=== PATIENT | female | born 1990 | race Caucasian/White ===

== ENCOUNTER → 2017-01-30 | Outpatient (CLI) | payer OTHER ==
[2016-08-15 08:42] VITALS: BP 136/78
[~2017-01-30] MED LIST: ACET1TAB32 PO; ACET325T9 PO; ALPR0.25 PO; BENZ100C PO; CYCL-331 PO; DICY20TA30 PO; HYDR-2758 PO; HYDR1TAB12 PO; HYDR25TA9 PO; LEVO500T59 PO; LISI10TA2 PO; MURENA; NAPR500T3 PO; NORE1TAB96 PO; ONDA4TAB10 PO; ONDA4TAB10 SL; ONDA8TAB12 PO; OXYC-323 PO; PROM118S2 PO; RANI150T2 PO; TOPI25TA52 PO
--- NOTE | 2017-01-30 11:42 | RAD ---
Obstetrical ultrasound, 01/30/2007: History: Uterine size and date discrepancy There is a single intrauterine fetus in a transverse orientation with the head on the maternal right. The biparietal diameter measures 8.2 cm compatible with a gestational age of 33 weeks. This corresponds well to the other measurements and yields an average gestational age of 33 weeks and 1 day and a sonographic EDC of 03/19/2017. This correlates well with the EDC of 03/22/2017 established on the previous ultrasound exam of 10/17/2016. Normal activity and heart motion are evident. The heart rate is 145 bpm. A full survey was not performed at this time. The weight was estimated at 4 pounds and 10 ounces +/- 11 ounces. A normal amount of amniotic fluid is present with SORAYA calculated at 15.2. The placenta lies anteriorly with no evidence of a placenta previa. The cervical length is 4.0 cm. IMPRESSION: Single viable intrauterine fetus of 33 weeks gestational age which has demonstrated normal interval growth since 10/17/2016.
== END | disposition home or self-care (01) ==
LOC: US 10:29
PROVIDERS: ATTEND Obstetrics & Gynecology
DX: O09.93 Supervision of high risk pregnancy, unspecified, third trimester (principal); O26.843 Uterine size-date discrepancy, third trimester; Z3A.33 33 weeks gestation of pregnancy
CPT/HCPCS: 76815

== ENCOUNTER 2017-03-29 10:14 | Emergency (ER) | payer OTHER ==
[2017-03-29] MEDS ORDERED: ACET-704 PO (10:45)
[2017-03-29] MEDS ORDERED: IRON (10:46)
[2017-03-29] MEDS ORDERED: CARDIA (10:46)
[2017-03-29] MEDS ORDERED: HYDR12.53 PO (10:46)
[2017-03-29] MEDS ORDERED: SERT25TA PO (10:47)
[2017-03-29] MEDS ORDERED: CHOL10003 PO (10:47)
--- NOTE | 2017-03-29 10:56 | PHYS DOC ---
Past History Past Medical History: Anemia, Asthma, Depression, Hypertension, Other Past Surgical History: Cholecystectomy, , Tonsillectomy Smoking: Cigarettes, Less than 1pk/day Alcohol Use: None Drug Use: None Adult General Chief Complaint Chief Complaint: PAIN CONTROL HPI HPI Patient is a 27 year old F who presents with tailbone pain. She states that she broke her tailbone more than 10yr ago and occasionally has pain. She has not had a recent injury. She did deliver a baby via about 4weeks ago. She was seen by her PCP 3-4days ago and was given a script for Tylenol 3 which she feels is not helping her. She does have a history of chronic pain medication use Review of Systems Review of Systems Constitutional: Denies fever or chills [] Eyes: Denies change in visual acuity, redness, or eye pain [] HENT: Denies nasal congestion or sore throat [] Respiratory: Denies cough or shortness of breath [] Cardiovascular: No additional information not addressed in HPI [] GI: Denies abdominal pain, nausea, vomiting, bloody stools or diarrhea [] : Denies dysuria or hematuria [] Musculoskeletal: Neg except HPI Integument: Denies rash or skin lesions [] Neurologic: Denies headache, focal weakness or sensory changes [] Endocrine: Denies polyuria or polydipsia [] Family History Family History noncontributory Current Medications Current Medications meds reviewed Allergies Allergies Coded Allergies Type Severity Reaction Last Updated Verified cephalexin Allergy Intermediate 08/11/15 Yes ibuprofen Allergy Intermediate 02/03/15 Yes tramadol Adverse Reaction Mild 02/03/15 Yes Physical Exam Physical Exam Constitutional: Well developed, well nourished, no acute distress, non-toxic appearance. [] HENT: Normocephalic, atraumatic, oropharynx moist, no oral exudates Eyes: PERRLA, EOMI, Cardiovascular:Heart rate regular rhythm, no murmur [] Lungs & Thorax: Bilateral breath sounds clear to auscultation [] Abdomen: Bowel sounds normal, soft, no tenderness, no masses, no pulsatile masses. [] Skin: Warm, dry, no erythema, no rash. [] Back: Mild sacral/coccygeal TTP. No obvious sign of injury Extremities: No tenderness, no cyanosis, no clubbing, ROM intact, no edema. [] Neurologic: Alert and oriented X 3, normal motor function, normal sensory function, no focal deficits noted. [] Psychologic: Affect normal, judgement normal, mood normal. [] Current Patient Data Vital Signs Vital Signs Date Time Temp Pulse Resp B/P (MAP) Pulse Ox O2 Delivery O2 Flow Rate FiO2 03/29/17 10:14 98.6 109 18 98 Room Air Course & Med Decision Making Course & Med Decision Making Pertinent Labs and Imaging studies reviewed. (See chart for details) Ktracs was reviewed. Melissa has had 15prescribers over the past 1 yr. The Tylenol 3 she was recently prescribed was not found however she was given a script for an opiate pain medication on 03/01/17 for which she would likely be near the end of her script Dragon Disclaimer Dragon Disclaimer This chart was dictated in whole or in part using Voice Recognition software in a busy, high-work load, and often noisy Emergency Department environment. It may contain unintended and wholly unrecognized errors or omissions. Departure Departure: Impression: Primary Impression: Coccygeal pain, chronic Disposition: 01 HOME, SELF-CARE Referrals: LINDA GUZMÁN DO (PCP) Patient Instructions: Tailbone Injury Additional Instructions: Melissa was seen in the ED for tailbone pain. No emergency medical condition was found during the history and physical exam. She was advised to consider lidocaine patches for pain. She was advised to follow up with her primary care doctor as soon as possible for further management KULDEEP PLEITEZ MD Mar 29, 2017 10:56
[2017-03-29 11:12] VITALS: BP 135/78
== END 2017-03-29 11:12 | disposition home or self-care (01) ==
LOC: ER 10:14
DX: G89.29 Other chronic pain (principal); M53.3 Sacrococcygeal disorders, not elsewhere classified; I10 Essential (primary) hypertension; J45.909 Unspecified asthma, uncomplicated; F17.210 Nicotine dependence, cigarettes, uncomplicated; Z88.6 Allergy status to analgesic agent; Z88.1 Allergy status to other antibiotic agents
CPT/HCPCS: 99281

== ENCOUNTER → 2017-06-28 | Outpatient (CLI) | payer OTHER ==
[~2017-06-28] MED LIST changes: +ACET-704 PO; +CARDIA; +CHOL10003 PO; +HYDR12.53 PO; +IOHEXOL 300 MG/ML 75 ML VIAL. IV ONE; +IRON; -NAPR500T3 PO; +NAPR500T4 PO; +SERT25TA PO
--- NOTE | 2017-06-28 15:20 | RAD ---
Indication shortness of air. Elevated d-dimer. Chest pain. Axial images of the chest were obtained. Examination was tailored for the detection of pulmonary embolus. Approximately 75 cc of Omnipaque 300 was administered intravenously. MIP images were generated and reviewed. No prior CT imaging of the chest is available. Imaging through the upper abdomen is unremarkable. There is a mass in the central portion of the right breast measuring approximately 1.5 cm. There appear to be some peripheral calcifications associated with the mass. Nonemergent targeted ultrasound should be considered for additional evaluation. There is mild adenopathy in the left axilla. This is probably incidental. Clinical correlation advised. The thoracic aorta is normal. There is no significant hilar or mediastinal adenopathy. The study is negative for pulmonary embolus. There is some minimal groundglass opacity in the right upper lobe. The etiology is unclear but a small inflammatory focus accounting for the appearance is not excluded. There is no dominant soft tissue mass seen in either lung. IMPRESSION: Negative study for pulmonary embolus. Minimal groundglass opacity peripherally in the right upper lobe is nonspecific but a small inflammatory focus is not excluded. 1.5 cm mass centrally in the right breast. Nonemergent ultrasound should be considered for additional evaluation. Modest adenopathy in the left axilla likely incidental. PQRS Compliance Statement: One or more of the following individualized dose reduction techniques were utilized for this examination: 1. Automated exposure control 2. Adjustment of the mA and/or kV according to patient size 3. Use of iterative reconstruction technique
== END | disposition home or self-care (01) ==
LOC: CT 14:23
PROVIDERS: ATTEND Nurse Practitioner Family
DX: N63.10 Unspecified lump in the right breast, unspecified quadrant (principal); R59.9 Enlarged lymph nodes, unspecified; R92.1 Mammographic calcification found on diagnostic imaging of breast; R07.89 Other chest pain; R06.02 Shortness of breath; R79.1 Abnormal coagulation profile
CPT/HCPCS: 71275; Q9967

== ENCOUNTER → 2017-07-03 | Outpatient (CLI) | payer OTHER ==
[~2017-07-03] MED LIST changes: -IOHEXOL 300 MG/ML 75 ML VIAL. IV ONE
--- NOTE | 2017-07-03 14:43 | RAD ---
EXAM: BREAST RIGHT HISTORY: Mass seen within the right breast on chest CT COMPARISON: Chest CT from 06/28/2017 as well as 03/20/2009. Focused ultrasound images were obtained of the right breast in the region of concern on chest CT. FINDINGS: At the 12:00 position of the right breast 1 cm from the nipple there is a solid-appearing hypoechoic mass identified with some echogenic foci within which could be secondary to the calcification seen on recent chest CT. This mass measures approximately 16 x 14 x 11 mm. When comparing to remote prior from March 2009 there was either a masslike density within the region or dense tissue seen. On the remote prior this area did however have a different appearance with interval development of some calcifications within the region. IMPRESSION: Solid-appearing mass within the right breast with some echogenic foci within which could be from calcifications. In a patient of this age the most common cause would be a fibroadenoma but given that the ultrasound and CT appearance is not definitive for the diagnosis alternative more worrisome causes such as breast cancer remain within the differential. Further workup options include obtaining an ultrasound-guided biopsy. This recommendation was relayed to the patient while they were still within the department. BI-RADS CATEGORY: 4 SUSPICIOUS ABN-CONSIDER BIOPSY RECOMMENDED FOLLOW-UP: BIO BIOPSY RECOMMENDED
== END | disposition home or self-care (01) ==
LOC: US 12:56
PROVIDERS: ATTEND Nurse Practitioner Family
DX: N63.10 Unspecified lump in the right breast, unspecified quadrant (principal); R92.1 Mammographic calcification found on diagnostic imaging of breast
CPT/HCPCS: 76641

== ENCOUNTER → 2017-10-13 | Outpatient (CLI) | payer OTHER ==
[~2017-10-13] MED LIST changes: +NAPR-514 PO; -NAPR500T4 PO
--- NOTE | 2017-10-13 15:11 | RAD ---
CT of the head without contrast, 10/13/2017: History: Headache, nausea Comparison is made to a study from 11/29/2014. The ventricles are within normal limits in size. There is no shift of the midline structures. There is no evidence of acute intracranial hemorrhage or mass effect. IMPRESSION: No acute intracranial abnormality is detected. PQRS Compliance Statement: One or more of the following individualized dose reduction techniques were utilized for this examination: 1. Automated exposure control 2. Adjustment of the mA and/or kV according to patient size 3. Use of iterative reconstruction technique
== END | disposition home or self-care (01) ==
LOC: CT 14:52
PROVIDERS: ATTEND Physician Assistant
DX: R51 Headache (principal); R11.0 Nausea
CPT/HCPCS: 70450

== ENCOUNTER 2017-11-06 17:55 | Emergency (ER) | payer OTHER ==
[2017-11-06] MEDS ORDERED: PROMETHAZINE 25 MG/ML VIAL IV ONE (18:57)
[2017-11-06] MEDS ORDERED: IV NORMAL SALINE 50ML 50 ML ONE (18:57)
[2017-11-06] MEDS: IV NORMAL SALINE 1,000ML 1,000 ML IV SCH (19:07)
[2017-11-06] MEDS: diphenhydrAMINE 50 MG/ML VIAL IVP ONE (19:09)
[2017-11-06] MEDS: PROMETHAZINE 25 MG in IV NORMAL SALINE 50ML 50 ML IV PRN (19:11)
--- NOTE | 2017-11-06 20:26 | PHYS DOC ---
General Chief Complaint: HEADACHE Stated Complaint: HEADACHE Time Seen by MD: 18:09 Source: patient Exam Limitations: no limitations Problems: History of Present Illness Initial Comments 27-year-old female comes to the ED complaining of migraine. Patient states she has history of migraine headaches and today's symptoms are identical to prior. Current headache started 3 days ago it is described as global and throbbing moderate to severe in intensity prevented her from sleep and causing some photophobia. Denies scotoma or aura no focal neurologic deficits nausea or vomiting. Headache is not worst of life she's had negative CTs in the past. She took [id number] Tylenol without any relief, states that Imitrex gives her chest pain and she has an NSAID allergy Timing/Duration: other Severity: severe Modifying Factors: improves with other Associated Symptoms: headaches Allergies: Coded Allergies: cephalexin (Verified Allergy, Intermediate, 11/06/17) ibuprofen (Verified Allergy, Intermediate, 11/06/17) tramadol (Verified Adverse Reaction, Mild, 11/06/17) Past Medical History Medical History: asthma, GERD, hypertension Surgical History: noncontributory, cholecystectomy, tonsillectomy Psychosocial History: depression (CC is stable for) Family History Significant Family History: cancer, hypertension Social History Smoker: non-smoker Alcohol: occasionally Drugs: none Review of Systems Constitutional: denies chills, denies diaphoresis, denies fever, denies malaise (apvy-[id number]-[id number] replaceable loss) EENTM: denies eye pain, denies blurred vision, denies ear pain, denies nose pain, denies throat pain Respiratory: denies cough, denies shortness of breath, denies wheezing Cardiovascular: denies chest pain, denies palpitations, denies syncope Gastrointestinal: denies abdominal pain, denies nausea, denies vomiting Musculoskeletal: denies back pain, denies joint swelling, denies neck pain Psychiatric/Neurological: see HPI, headache, denies numbness, denies paresthesia (social) Physical Exam General Appearance: no apparent distress Eyes: bilateral eye normal inspection, bilateral eye PERRL, bilateral eye EOMI Ear, Nose, Throat: hearing grossly normal, normal ENT inspection, normal pharynx Neck: non-tender, supple Respiratory: normal breath sounds, no respiratory distress Cardiovascular: normal peripheral pulses, regular rate, rhythm Extremities: non-tender, normal inspection Neurologic/Psychiatric: vp data II-XII nml as tested, no motor/sensory deficits, alert, oriented x 3 Orders, Labs, Meds Initially diphenhydramine, promethazine, and normal saline IV bolus. 2024: Patient rechecked, denies any improvement haldol 5 mg IV added 2158: Prolonged ED course as I was cut open a procedure, patient reports all symptoms have resolved requesting discharge, impatient. Departure Time of Disposition: 21:58 Disposition: 01 HOME, SELF-CARE Diagnosis: Migraine headache Condition: IMPROVED Patient Instructions: Migraine Headache, [id number] Additional Instructions: No driving or operating machinery while under the influence of sedative medications. Follow-up with your doctor tomorrow for recheck and further migraine medication treatments as necessary. Return to ED with new or changing symptoms KYARA DENNISON DO Nov 06, 2017 20:26
[2017-11-06] MEDS ORDERED: HALOPERIDOL LACT 5 MG/ML VIAL. IM ONE (20:30)
[2017-11-06] MEDS: HALOPERIDOL LACT 5 MG/ML VIAL. IVP ONE (21:03)
[2017-11-06 21:40] VITALS: BP 157/83
== END 2017-11-06 22:10 | disposition home or self-care (01) ==
LOC: ER 17:55
DX: G43.909 Migraine, unspecified, not intractable, without status migrainosus (principal); I10 Essential (primary) hypertension; J45.909 Unspecified asthma, uncomplicated; K21.9 Gastro-esophageal reflux disease without esophagitis; F32.9 Major depressive disorder, single episode, unspecified; Z88.1 Allergy status to other antibiotic agents; Z88.6 Allergy status to analgesic agent
CPT/HCPCS: 96365; 96375; 99284; J1200; J1630; J2550; 96360; J7030

== ENCOUNTER 2018-01-11 10:23 | Emergency (ER) | payer OTHER ==
[~2018-01-11] VITALS: Ht 160 cm; Wt 104.3 kg
[2018-01-11] MEDS ORDERED: HYDROcodone/APAP 5/325MG 1 TAB TABLET PO ONE (11:00)
--- NOTE | 2018-01-11 11:41 | PHYS DOC ---
Past History Past Medical History: Asthma, Hypertension, Other Past Surgical History: Hysterectomy, Other Smoking: Cigarettes, Less than 1pk/day Additional Smoking Information: pt states she smokes less than half pack per day Alcohol Use: None Drug Use: None Adult General Chief Complaint Chief Complaint: Right abdominal pain HPI HPI 27-year-old female patient states she had hysterectomy last April and complaining of right lower abdominal and right-sided pelvic pain for the last 4 weeks as a constant and sharp pain without radiation. Patient denies urinary symptoms, fever and chills, nausea and vomiting, diarrhea and constipation. Patient states the pain gradually getting worse and rated her pain 8/10. Patient states she was seen by her [employer] and ultrasound of pelvic was ordered that he is scheduled for tomorrow but her pain getting so bad today that she couldn't wait anymore. Patient states she took only Tylenol for her pain that didn't help. Review of Systems Review of Systems Constitutional: Denies fever or chills [] Eyes: Denies change in visual acuity, redness, or eye pain [] HENT: Denies nasal congestion or sore throat [] Respiratory: Denies cough or shortness of breath [] Cardiovascular: No additional information not addressed in HPI [] GI: Reports abdominal pain, denies nausea, vomiting, bloody stools or diarrhea [ ] : Denies dysuria or hematuria [] Musculoskeletal: Denies back pain or joint pain [] Integument: Denies rash or skin lesions [] Neurologic: Denies headache, focal weakness or sensory changes [] Endocrine: Denies polyuria or polydipsia [] All other systems were reviewed and found to be within normal limits, except as documented in this note. Current Medications Current Medications Current Medications Medications (Trade) Dose Ordered Sig/Neno Start Time Stop Time Status Last Admin Dose Admin Acetaminophen/ Hydrocodone Bitart (Lortab 5/325) 1 tab 1X ONCE 01/11/18 11:00 01/11/18 11:04 DC Allergies Allergies Allergies Coded Allergies Type Severity Reaction Last Updated Verified cephalexin Allergy Intermediate 01/11/18 Yes ibuprofen Allergy Intermediate 01/11/18 Yes tramadol Adverse Reaction Mild 01/11/18 Yes Physical Exam Physical Exam Constitutional: Well developed, well nourished, mild distress, non-toxic appearance. [] HENT: Normocephalic, atraumatic Eyes: PERRLA, EOMI, conjunctiva normal, no discharge. [] Neck: Normal range of motion, no tenderness, supple, no stridor. [] Cardiovascular:Heart rate regular rhythm, no murmur [] Lungs & Thorax: Bilateral breath sounds clear to auscultation [] Abdomen: Bowel sounds normal, soft, no tenderness, no masses, no pulsatile masses,, RLQ guarding. [] Skin: Warm, dry, no erythema, no rash. [] Back: No tenderness, no CVA tenderness. [] Extremities: No tenderness, no cyanosis, no clubbing, ROM intact, no edema. [] Neurologic: Alert and oriented X 3, normal motor function, normal sensory function, no focal deficits noted. [] Psychologic: Affect normal, judgement normal, mood normal. [] Current Patient Data Vital Signs Vital Signs Date Time Temp Pulse Resp B/P (MAP) Pulse Ox O2 Delivery O2 Flow Rate FiO2 01/11/18 10:30 98.5 77 18 98 Room Air EKG EKG [] Radiology/Procedures Radiology/Procedures [] Course & Med Decision Making Course & Med Decision Making Pertinent Labs and Imaging studies reviewed. (See chart for details) discharge: I've spoken with the patient and/or caregivers. I've explained the patient's condition, diagnosis and treatment plan based on information available to me at this time. I've answered the patient's and/or caregivers questions and addressed any concerns. The patient and/or caregivers have a good understanding the patient's diagnosis, condition and treatment plan as can be expected at this point. Vital signs have been stabilized. The patient's condition is stable for discharge from the emergency department. The patient will pursue further outpatient evaluation with her primary care provider or other designated consulting physician as outlined in the discharge instructions. Patient and/or caregivers are agreeable to this plan of care and follow-up instructions have been explained in detail. The patient and/or caregivers have received these instructions in written format and expressed understanding of these discharge instructions. The patient and her caregivers are aware that if any significant change in condition or worsening of symptoms should prompt him to immediately return to this of the closest emergency department. If an emergent department is not readily available I would encourage him to call 911. [] Dragon Disclaimer Dragon Disclaimer This electronic medical record was generated, in whole or in part, using a voice recognition dictation system. Departure Departure: Impression: Primary Impression: Chronic abdominal pain Condition: IMPROVED Referrals: ISIDRO GALVEZ JR, MD (PCP) Patient Instructions: Abdominal Pain Additional Instructions: Drink plenty of liquids Follow-up with your primary care physician in 2-3 days Return to ER if not getting better Scripts [Percogesic] No Conflict Check 1 TAB PO QID Y for PAIN, #14 Prov: LIT IVY MD 01/11/18 LIT IVY MD January 11, 2018 11:41
[2018-01-11 11:56] LABS: AMPHETAMINE/METHAMPHETAMINE NEG (NEG); BARBITURATES NEG (NEG); BENZODIAZEPINES NEG (NEG); CANNABINOIDS NEG (NEG); COCAINE NEG (NEG); METHADONE NEG (NEG); OPIATES NEG (NEG); PHENCYCLIDINE NEG (NEG)
[2018-01-11 12:07] LABS: BILIRUBIN,URINE NEG (NEG); CLARITY,URINE CLOUDY; COLOR,URINE YELLOW; GLUCOSE,URINE NEG (NEG)
[2018-01-11 12:08] LABS: BACTERIA,URINE MOD /HPF (0-FEW); NITRITE,URINE NEG (NEG); RBC,URINE 0 /HPF (0-2); SQUAMOUS EPITHELIAL CELL,UR MOD /LPF; UROBILINOGEN,URINE 0.2 mg/dL (0.2 mg/dL); WBC,URINE RARE /HPF (0-4)
--- NOTE | 2018-01-11 12:15 | RAD ---
US PELVIS W/TV History: Right lower quadrant pain, history of hysterectomy and ovarian cyst Comparison: None. Findings: Multiple transabdominal sonographic images of the pelvis are submitted. There has been hysterectomy. Ovaries are not seen. There is some free fluid present. Transvaginal ultrasound: Multiple transvaginal sonographic images of the pelvis are submitted. There has been hysterectomy. Ovaries are not seen. There is moderate nonspecific free fluid in the pelvis. Impression: 1. There is moderate nonspecific free fluid in the pelvis. There has been hysterectomy. Ovaries are not seen. Electronically signed by: Julien Rivera MD (01/11/2018 12:11 PM) [id number]
[2018-01-11] MEDS ORDERED: Percogesic PO (12:41)
[2018-01-11 12:54] VITALS: BP 147/97
== END 2018-01-11 12:54 | disposition home or self-care (01) ==
LOC: ER 10:23
DX: G89.29 Other chronic pain (principal); R10.31 Right lower quadrant pain; R10.2 Pelvic and perineal pain; J45.909 Unspecified asthma, uncomplicated; I10 Essential (primary) hypertension; F17.210 Nicotine dependence, cigarettes, uncomplicated; Z90.710 Acquired absence of both cervix and uterus; Z88.1 Allergy status to other antibiotic agents; Z88.6 Allergy status to analgesic agent
CPT/HCPCS: 36415; 76830; 76856; 80307; 81001; 87086; 99285-25; G0479

== ENCOUNTER 2018-01-24 20:49 | Emergency (ER) | payer OTHER ==
[~2018-01-24] VITALS: Ht 160 cm; Wt 102.9 kg
[2018-01-24 20:49] VITALS: BP 152/113
[~2018-01-24 20:49] MED LIST changes: +Percogesic PO
[2018-01-24] MEDS ORDERED: METH4TAB2 PO (21:43)
[2018-01-24] MEDS ORDERED: HYDR-971 PO (21:43)
--- NOTE | 2018-01-24 21:43 | PHYS DOC ---
Past History Past Medical History: Asthma, Hypertension, Other Past Surgical History: Hysterectomy, Other Smoking: Cigarettes, Less than 1pk/day Alcohol Use: Occasionally Drug Use: None Adult General Chief Complaint Chief Complaint: BACK PAIN - NO INJURY HPI HPI Patient is a 27 year old female who presents with complaint of low back pain. Patient states her symptoms started early this morning at 0200. Patient states that she is having sharp throbbing pain in her lower back which she rates as 10 out of 10. Patient states that the symptoms worsen when she bends over. Patient states that she is able to walk but states that this does cause her pain. Patient states that she is feeling slight numbness to the lower extremities, especially on the left side. Patient states that she's had similar symptoms in the past associated with and states that she was diagnosed with low back pain secondary to a fractured tailbone at that time. Patient has had a partial hysterectomy and states that there is no area that she is . Patient denies any urinary symptoms, fever, nausea, vomiting, or abdominal pain. The patient states that she took Flexeril and Tylenol earlier today with no significant relief in her symptoms. Denies any fall or other recent trauma. Review of Systems Review of Systems Constitutional: Denies fever or chills [] Eyes: Denies change in visual acuity, redness, or eye pain [] HENT: Denies nasal congestion or sore throat [] Respiratory: Denies cough or shortness of breath [] Cardiovascular: Denies chest pain or edema[] GI: Denies abdominal pain, nausea, vomiting, bloody stools or diarrhea [] : Denies dysuria or hematuria [] Musculoskeletal: Back pain[] Integument: Denies rash or skin lesions [] Neurologic: Numbness to lower extremities, left greater than right, denies weakness[] All other systems were reviewed and found to be within normal limits, except as documented in this note. Allergies Allergies Allergies Coded Allergies Type Severity Reaction Last Updated Verified cephalexin Allergy Intermediate 01/11/18 Yes ibuprofen Allergy Intermediate 01/11/18 Yes tramadol Adverse Reaction Mild 01/11/18 Yes Physical Exam Physical Exam Constitutional: Alert, afebrile, appears mild to moderate discomfort. [] HENT: Normocephalic, atraumatic, bilateral external ears normal, oropharynx moist, no oral exudates, nose normal. [] Eyes: PERRLA, EOMI, conjunctiva normal, no discharge. [] Neck: Normal range of motion, no tenderness, supple, no stridor. [] Cardiovascular:Heart rate regular rhythm, no murmur [] Lungs & Thorax: Bilateral breath sounds clear to auscultation [] Abdomen: Bowel sounds normal, soft, no tenderness, no masses, no pulsatile masses. [] Skin: Warm, dry, no erythema, no rash. [] Back: No midline tenderness, bilateral paraspinous muscle tenderness palpation along lower lumbar spine. [] Extremities: No tenderness, no cyanosis, no clubbing, ROM intact, no edema. [] Neurologic: Alert and oriented X 3, normal motor function, normal gait, normal sensory function, no focal deficits noted. [] Current Patient Data Vital Signs Vital Signs Date Time Temp Pulse Resp B/P (MAP) Pulse Ox O2 Delivery O2 Flow Rate FiO2 01/24/18 20:49 98.4 100 22 97 Room Air Lab Results None performed EKG EKG Not performed[] Radiology/Procedures Radiology/Procedures Not performed[] Course & Med Decision Making Course & Med Decision Making Pertinent Labs and Imaging studies reviewed. (See chart for details) The patient's symptoms appear to be consistent with acute lower lumbar muscle strain. Patient denies any urinary symptoms and does not wish to provide a urine sample at this time. Patient has no evidence of loss of bowel or bladder control, saddle anesthesia, or foot drop. The patient was started on prednisone and [place] in the emergency department for treatment. The patient will continue on outpatient treatment with recommended follow-up in 5-7 days with primary doctor for reevaluation. Advised return emergency department for any worsening symptoms. Patient voiced understanding and in agreement with treatment plan. Dragon Disclaimer Dragon Disclaimer This electronic medical record was generated, in whole or in part, using a voice recognition dictation system. Departure Departure: Impression: Primary Impression: Low back pain Disposition: 01 HOME, SELF-CARE Condition: STABLE Referrals: LINDA CASTELLANO (PCP) Patient Instructions: Back Pain, Adult Additional Instructions: Follow-up with your primary doctor in 5-7 days of symptoms are not improving. Return to emergency department for any worsening symptoms. Scripts Hydrocodone Bit/Acetaminophen (NORCO 5-325 TABLET) 1 Each Tablet 1-2 TAB PO Q4-6HRS PRN for PAIN, #30 TAB Prov: DAGMAR ARCHER MD 01/24/18 Methylprednisolone (MEDROL) 4 Mg Tab.ds.pk 1 PKG PO UD, #1 PKG Prov: DAGMAR ARCHER MD 01/24/18 Problem Qualifiers Primary Impression: Low back pain Chronicity: acute Back pain laterality: bilateral Sciatica presence: with sciatica Sciatica laterality: sciatica of left side Qualified Codes: M54.42 - Lumbago with sciatica, left side DAGMAR ARCHER MD January 24, 2018 21:43
[2018-01-24] MEDS ORDERED: predniSONE 10 MG TABLET PO ONE (22:00)
[2018-01-24] MEDS ORDERED: HYDROcodone/APAP 7.5/325MG 1 TAB TABLET PO ONE (22:00)
== END 2018-01-24 21:55 | disposition home or self-care (01) ==
LOC: ER 20:49
DX: M54.42 Lumbago with sciatica, left side (principal); I10 Essential (primary) hypertension; J45.909 Unspecified asthma, uncomplicated; F17.210 Nicotine dependence, cigarettes, uncomplicated; Z88.1 Allergy status to other antibiotic agents; Z88.6 Allergy status to analgesic agent
CPT/HCPCS: 99283; J7512

== ENCOUNTER 2018-02-16 14:02 | Emergency (ER) | payer OTHER ==
[~2018-02-16] VITALS: Ht 160 cm; Wt 106.6 kg
[~2018-02-16 14:02] MED LIST changes: +HYDR-971 PO; +METH4TAB2 PO
[2018-02-16] MEDS ORDERED: IV NORMAL SALINE 1,000ML 1,000 ML IV ONE (14:30)
[2018-02-16] MEDS ORDERED: PROCHLORPERAZINE 10 MG/2 ML VIAL. IV ONE (14:45)
[2018-02-16] MEDS ORDERED: diphenhydrAMINE 50 MG/ML VIAL IVP ONE (14:45)
[2018-02-16 15:35] VITALS: BP 148/83
--- NOTE | 2018-02-16 15:50 | PHYS DOC ---
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 No school for 2 weeks she says they're very loud and is been getting stressful. In addition she was out in the heat yesterday she thinks she might be dehydrated and this history of migraines for her in the past she had one episode of vomiting she says light hurts her eyes as well as loud noises similar to prior migraines as well. She has used Imitrex in the past but she did not want to use that today because it is cause chest pain for her before. Review of Systems Review of Systems Negative for fever negative for dysuria negative for chest pain recently. Otherwise negative except as noted in history of present illness Current Medications Current Medications Current Medications Medications (Trade) Dose Ordered Sig/[place] Start Time Stop Time Status Last Admin Dose Admin Diphenhydramine HCl (Benadryl) 25 mg 1X ONCE 02/16/18 14:45 02/16/18 14:46 DC 02/16/18 14:34 25 MG Prochlorperazine Edisylate (Compazine) 10 mg 1X ONCE 02/16/18 14:45 02/16/18 14:46 DC 02/16/18 14:34 10 MG Sodium Chloride 1,000 ml @ 1,000 mls/hr 1X ONCE 02/16/18 14:30 02/16/18 15:29 DC 02/16/18 14:33 1,000 MLS/HR Allergies Allergies Allergies Coded Allergies Type Severity Reaction Last Updated Verified cephalexin Allergy Intermediate 02/16/18 Yes ibuprofen Allergy Intermediate 02/16/18 Yes tramadol Adverse Reaction Mild 02/16/18 Yes Physical Exam Physical Exam Constitutional: Well developed, well nourished, no acute distress, non-toxic appearance. [] HENT: Normocephalic, atraumatic, bilateral external ears normal, oropharynx moist, no oral exudates, nose normal. [] Eyes: PERRLA, EOMI, conjunctiva normal, no discharge. [] Neck: Normal range of motion, no tenderness, supple, no stridor. [] Cardiovascular:Heart rate regular rhythm, no murmur [] Lungs & Thorax: Bilateral breath sounds clear to auscultation [] Abdomen: Bowel sounds normal, soft, no tenderness, no masses, no pulsatile masses. [] Skin: Warm, dry, no erythema, no rash. [] Back: No tenderness, no CVA tenderness. [] Extremities: No tenderness, no cyanosis, no clubbing, ROM intact, no edema. [] Neurologic: Alert and oriented X 3, normal motor function, normal sensory function, no focal deficits noted. [] Current Patient Data Vital Signs Vital Signs Date Time Temp Pulse Resp B/P (MAP) Pulse Ox O2 Delivery O2 Flow Rate FiO2 02/16/18 15:35 78 16 148/83 (104) 98 02/16/18 14:16 98.9 Room Air EKG EKG [] Radiology/Procedures Radiology/Procedures [] Course & Med Decision Making Course & Med Decision Making Pertinent Labs and Imaging studies reviewed. (See chart for details) []27-year-old female with migraine no red flags similar prior given migraine cocktail with resolution of her symptoms she feels much better return precautions were reviewed and she voiced understanding. Dragon Disclaimer Dragon Disclaimer This electronic medical record was generated, in whole or in part, using a voice recognition dictation system. Departure Departure: Impression: Primary Impression: Migraine Disposition: HOME, SELF-CARE Condition: IMPROVED Referrals: LINDA CASTELLANO (PCP) Patient Instructions: Migraine Headache, [id number] SARA PACE MD Feb 16, 2018 15:50
== END 2018-02-16 15:37 | disposition home or self-care (01) ==
LOC: ER 14:02
DX: G43.909 Migraine, unspecified, not intractable, without status migrainosus (principal); I10 Essential (primary) hypertension; J45.909 Unspecified asthma, uncomplicated; F17.210 Nicotine dependence, cigarettes, uncomplicated; Z88.1 Allergy status to other antibiotic agents; Z88.6 Allergy status to analgesic agent
CPT/HCPCS: 96361; 96374; 96375; 99284; J0780; J1200; J7030

== ENCOUNTER 2018-03-15 16:28 | Emergency (ER) | payer OTHER ==
[~2018-03-15] VITALS: Ht 160 cm; Wt 108.2 kg
[~2018-03-15 16:28] MED LIST changes: -PROM118S2 PO; +PROM118S5 PO
--- NOTE | 2018-03-15 17:14 | PHYS DOC ---
Past History Past Medical History: Asthma, Hypertension Past Surgical History: Cholecystectomy, Hysterectomy Smoking: Cigarettes, Less than 1pk/day Alcohol Use: Occasionally Drug Use: None Adult General Chief Complaint Chief Complaint: MECHANICAL FALL HPI HPI 27-year-old female patient with history of frequent emergency room visits and anxiety complaining of tailbone pain after fall. Patient states she lost her balance while walking downstairs had a fall from 4 carpeted stairs at her home and injured her tailbone. Patient denies head injury and loss of consciousness and other injuries. 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 Patient states she had previous tailbone fracture. Review of Systems Review of Systems Constitutional: Denies fever or chills [] Eyes: Denies change in visual acuity, redness, or eye pain [] HENT: Denies nasal congestion or sore throat [] Respiratory: Denies cough or shortness of breath [] Cardiovascular: No additional information not addressed in HPI [] GI: Denies abdominal pain, nausea, vomiting, bloody stools or diarrhea [] : Denies dysuria or hematuria [] Musculoskeletal: Reports tailbone pain Integument: Denies rash or skin lesions [] Neurologic: Denies headache, focal weakness, reports sensory changes [] Endocrine: Denies polyuria or polydipsia [] All other systems were reviewed and found to be within normal limits, except as documented in this note. Allergies Allergies Allergies Coded Allergies Type Severity Reaction Last Updated Verified cephalexin Allergy Intermediate 02/16/18 Yes ibuprofen Allergy Intermediate 02/16/18 Yes tramadol Adverse Reaction Mild 02/16/18 Yes Physical Exam Physical Exam Constitutional: Well nourished, mild distress, non-toxic appearance, anxious. [ ] HENT: Normocephalic, atraumatic Eyes: PERRLA, EOMI, conjunctiva normal, no discharge. [] Neck: Normal range of motion, no tenderness, supple, no stridor. [] Cardiovascular:Heart rate regular rhythm, no murmur [] Lungs & Thorax: Bilateral breath sounds clear to auscultation [] Back: No deformity or ecchymosis, pain in coccyx area without deformity Extremities: No tenderness, no cyanosis, no clubbing, ROM intact, no edema. [] Neurologic: Alert and oriented X 3, normal motor function, subjective sensory loss in anterior and posterior side of left thigh, no focal deficits noted. [] Psychologic: Affect normal, judgement normal, mood normal. [] EKG EKG [] Radiology/Procedures Radiology/Procedures [address] [id number] IMAGING REPORT Signed PATIENT: JAY JAY ACCOUNT: [id number] : 1990 LOCATION: ER AGE: 27 SEX: F EXAM STATUS: DEP ER ORD. PHYSICIAN: LIT IVY MD REASON: fall and injury PROCEDURE: SACRUM & COCCYX 3V Sacrum and coccyx radiograph March 15, 2018 INDICATION: Fall, tailbone pain. History of fracture many years ago. COMPARISON: CT abdomen/pelvis November 15, 2015. TECHNIQUE: AP view the pelvis, dedicated view of the sacrum and coccyx are provided. FINDINGS: The pelvic ring is intact. No acute fracture or dislocation is identified involving the sacrum. Sacral joo appear intact. Sacroiliac joints are well aligned. Minimal contour deformity of the sacrococcygeal junction appears chronic. IMPRESSION: No acute fracture or dislocation. Electronically signed by: Bhavana Loza MD (03/16/2018 8:01 AM) [facility] DICTATED AND SIGNED BY: BHAVANA LOZA MD DATE: 03/16/18 0759 CC: LIT IVY MD; LINDA CASTELLANO [employer]-C ~ Course & Med Decision Making Course & Med Decision Making Pertinent Imaging studies reviewed. (See chart for details) discharge: I've spoken with the patient and/or caregivers. I've explained the patient's condition, diagnosis and treatment plan based on information available to me at this time. I've answered the patient's and/or caregivers questions and addressed any concerns. The patient and/or caregivers have a good understanding the patient's diagnosis, condition and treatment plan as can be expected at this point. Vital signs have been stabilized. The patient's condition is stable for discharge from the emergency department. The patient will pursue further outpatient evaluation with her primary care provider or other designated consulting physician as outlined in the discharge instructions. Patient and/or caregivers are agreeable to this plan of care and follow-up instructions have been explained in detail. The patient and/or caregivers have received these instructions in written format and expressed understanding of these discharge instructions. The patient and her caregivers are aware that if any significant change in condition or worsening of symptoms should prompt him to immediately return to this of the closest emergency department. If an emergent department is not readily available I would encourage him to call 911. [] Dragon Disclaimer Dragon Disclaimer This electronic medical record was generated, in whole or in part, using a voice recognition dictation system. Departure Departure: Impression: Primary Impression: Injury of coccyx Additional Impressions: Fall on stairs Paresthesias Morbid obesity Tobacco abuse Tobacco abuse counseling Disposition: HOME, SELF-CARE (at 1742) Referrals: LINDA CASTELLANO (PCP) Patient Instructions: Tailbone Injury Additional Instructions: Sit down on donut pillow Apply ice on the affected area Drink plenty of liquids Follow-up with your primary care physician in 3-5 days Return to ER if not getting better Scripts Hydrocodone Bit/Acetaminophen (NORCO 5-325 TABLET) 1 Each Tablet 1 TAB PO PRN Q6HRS PRN for PAIN, #14 TAB 0 Refills Prov: LIT IVY MD 03/15/18 Cyclobenzaprine Hcl (CYCLOBENZAPRINE HCL) 5 Mg Tablet 1 TAB PO TID, #30 TAB Prov: LIT IVY MD 03/15/18 Problem Qualifiers LIT IVY MD Mar 15, 2018 17:14
[2018-03-15] MEDS ORDERED: ACETAMINOPHEN 500 MG TABLET PO ONE (17:15)
[2018-03-15] MEDS ORDERED: CYCL5TAB PO (17:45)
[2018-03-15] MEDS ORDERED: HYDR-971 PO (17:45)
[2018-03-15 17:57] VITALS: BP 147/92
--- NOTE | 2018-03-16 08:04 | RAD ---
Sacrum and coccyx radiograph March 15, 2018 INDICATION: Fall, tailbone pain. History of fracture many years ago. COMPARISON: CT abdomen/pelvis November 15, 2015. TECHNIQUE: AP view the pelvis, dedicated view of the sacrum and coccyx are provided. FINDINGS: The pelvic ring is intact. No acute fracture or dislocation is identified involving the sacrum. Sacral joo appear intact. Sacroiliac joints are well aligned. Minimal contour deformity of the sacrococcygeal junction appears chronic. IMPRESSION: No acute fracture or dislocation. Electronically signed by: Carla Perez MD (03/16/2018 8:01 AM) [facility]
== END 2018-03-15 18:00 | disposition home or self-care (01) ==
LOC: ER 16:28
DX: S39.92XA Unspecified injury of lower back, initial encounter (principal); R20.0 Anesthesia of skin; E66.01 Morbid (severe) obesity due to excess calories; J45.909 Unspecified asthma, uncomplicated; I10 Essential (primary) hypertension; F17.210 Nicotine dependence, cigarettes, uncomplicated; Z68.41 Body mass index [BMI] 40.0-44.9, adult; Z71.6 Tobacco abuse counseling; Z88.1 Allergy status to other antibiotic agents; Z88.6 Allergy status to analgesic agent; W10.8XXA Fall (on) (from) other stairs and steps, initial encounter; Y93.01 Activity, walking, marching and hiking; Y99.8 Other external cause status; Y92.89 Other specified places as the place of occurrence of the external cause
CPT/HCPCS: 72220; 99284

== ENCOUNTER 2018-03-18 16:48 | Emergency (ER) | payer OTHER ==
[~2018-03-18] VITALS: Ht 160 cm; Wt 105.2 kg
[~2018-03-18 16:48] MED LIST changes: +CYCL5TAB PO
[2018-03-18 16:58] VITALS: BP 151/84
[2018-03-18] MEDS ORDERED: HYDR-79 PO (17:08)
[2018-03-18] MEDS ORDERED: CYCL-331 PO (17:08)
[2018-03-18] MEDS ORDERED: HYDR-2762 PO (17:25)
--- NOTE | 2018-03-19 06:35 | ED.ADGEN ---
Past History Past Medical History: Asthma, Hypertension Past Surgical History: Cholecystectomy, Hysterectomy, Tonsillectomy, Other Smoking: Cigarettes, Less than 1pk/day Alcohol Use: Occasionally Drug Use: None Adult General HPI HPI Patient is a 27 year old female who presents with fall. Patient states she was in the emergency department 3 days earlier after a fall. She states she was diagnosed with a fracture to her sacrum. She was discharged home with some hydrocodone. She states this medication did not adequately relieve her pain. Today, she states she was sitting in a chair when the chair broke and she fell again landing on the coccyx. She did not strike her head or have loss of consciousness. She complains of pain in the coccyx region. Denies additional injuries. Review of Systems Review of Systems Constitutional: Denies fever or chills Eyes: Denies change in visual acuity HENT: Denies nasal congestion Respiratory: Denies cough Cardiovascular: No additional information not addressed in HPI GI: Denies abdominal pain : Denies dysuria or hematuria Musculoskeletal: Denies back pain Integument: Denies rash or skin lesions All other systems were reviewed and found to be within normal limits, except as documented in this note. Allergies Allergies Allergies Coded Allergies Type Severity Reaction Last Updated Verified cephalexin Allergy Intermediate 02/16/18 Yes ibuprofen Allergy Intermediate 02/16/18 Yes tramadol Adverse Reaction Mild 02/16/18 Yes Physical Exam Physical Exam Constitutional: Well developed, well nourished HENT: Normocephalic, atraumatic Neck: Normal range of motion Cardiovascular:Heart rate regular rhythm, no murmur Lungs & Thorax: Bilateral breath sounds clear to auscultation Skin: Warm, dry, no erythema, no rash. Back: TTP over coccyx region Extremities: No tenderness, normal ROM Neurologic: Alert and oriented X 3 Current Patient Data Vital Signs Vital Signs Date Time Temp Pulse Resp B/P (MAP) Pulse Ox O2 Delivery O2 Flow Rate FiO2 03/18/18 16:58 94 18 96 Room Air EKG EKG [] Radiology/Procedures Radiology/Procedures [] Course & Med Decision Making Course & Med Decision Making Pertinent Labs and Imaging studies reviewed. (See chart for details) Patient is seen and examined. She is in no acute distress. Her RA record is reviewed. She has received multiple opiate prescriptions from multiple different providers over the last several years. I discussed this with the patient and explicitly expressed concern for opiate addiction. The patient adamantly denies this is a problem for her. Today, her physical exam reveals some pain over the coccyx region. Her x-ray from 3 days earlier did not reveal a fracture. No repeat imaging is done today. Patient is discharged home with some pain medications and advised follow-up with her primary care doctor. Final Impression Final Impression Contusion of coccyx Marcelle Disclaimer Dragon Disclaimer This electronic medical record was generated, in whole or in part, using a voice recognition dictation system. JASON HAWKINS DO Mar 19, 2018 06:34
== END 2018-03-18 17:18 | disposition home or self-care (01) ==
LOC: ER 16:48
DX: S30.0XXA Contusion of lower back and pelvis, initial encounter (principal); J45.909 Unspecified asthma, uncomplicated; I10 Essential (primary) hypertension; F17.210 Nicotine dependence, cigarettes, uncomplicated; Z88.1 Allergy status to other antibiotic agents; Z88.6 Allergy status to analgesic agent; W07.XXXA Fall from chair, initial encounter; Y93.89 Activity, other specified; Y99.8 Other external cause status; Y92.89 Other specified places as the place of occurrence of the external cause
CPT/HCPCS: 99283

== ENCOUNTER 2018-03-31 06:52 | Emergency (ER) | payer OTHER ==
[~2018-03-31] VITALS: Ht 160 cm; Wt 105.2 kg
[~2018-03-31 06:52] MED LIST changes: +HYDR-2762 PO; +HYDR-79 PO
[2018-03-31 07:21] VITALS: BP 112/83
[2018-03-31] MEDS ORDERED: KETOROLAC 60 MG/2 ML VIAL. IM ONE (07:30)
[2018-03-31] MEDS ORDERED: HYDR-971 PO (07:49)
--- NOTE | 2018-03-31 07:51 | PHYS DOC ---
Past History Past Medical History: Anxiety, Asthma Past Surgical History: Cholecystectomy, Hysterectomy, Tonsillectomy, Other Smoking: Cigarettes, Less than 1pk/day Alcohol Use: Occasionally Drug Use: None Adult General Chief Complaint Chief Complaint: TOE PROBLEM HPI HPI 28-year-old female patient states she had right great toenail removal at her primary care physician office yesterday but since last night she has pain that did not get better with [id number] Tylenol. Patient states she was instructed to remove the dressing today but because of pain, patient was not able to touch her toe and remove the dressing. Patient denies fever and chills, nausea and vomiting, pus drainage of the wound. Review of Systems Review of Systems Constitutional: Denies fever or chills [] Eyes: Denies change in visual acuity, redness, or eye pain [] HENT: Denies nasal congestion or sore throat [] Respiratory: Denies cough or shortness of breath [] Cardiovascular: No additional information not addressed in HPI [] GI: Denies abdominal pain, nausea, vomiting, bloody stools or diarrhea [] : Denies dysuria or hematuria [] Musculoskeletal: Denies back pain or joint pain , reports extremity pain[] Integument: Denies rash or skin lesions [] Neurologic: Denies headache, focal weakness or sensory changes [] Endocrine: Denies polyuria or polydipsia [] All other systems were reviewed and found to be within normal limits, except as documented in this note. Current Medications Current Medications Current Medications Medications (Trade) Dose Ordered Sig/[facility] Start Time Stop Time Status Last Admin Dose Admin Ketorolac Tromethamine (Toradol Im) 60 mg 1X ONCE 03/31/18 07:30 03/31/18 07:33 DC 03/31/18 07:42 60 MG Allergies Allergies Allergies Coded Allergies Type Severity Reaction Last Updated Verified cephalexin Allergy Intermediate 02/16/18 Yes ibuprofen Allergy Intermediate 02/16/18 Yes tramadol Adverse Reaction Mild 02/16/18 Yes Physical Exam Physical Exam Constitutional: Well nourished, moderate distress, non-toxic appearance. [] HENT: Normocephalic, atraumatic Eyes: PERRLA, EOMI, conjunctiva normal, no discharge. [] Neck: Normal range of motion, no tenderness, supple, no stridor. [] Cardiovascular:Heart rate regular rhythm, no murmur [] Lungs & Thorax: Bilateral breath sounds clear to auscultation [] Skin: Warm, dry, no erythema, no rash. [] Extremities: Missing right great toenail with tenderness of toenail bed without sign of infection Neurologic: Alert and oriented X 3, normal motor function, normal sensory function, no focal deficits noted. [] Psychologic: Affect anxious, judgement normal, mood normal. [] Current Patient Data Vital Signs Vital Signs Date Time Temp Pulse Resp B/P (MAP) Pulse Ox O2 Delivery O2 Flow Rate FiO2 03/31/18 07:00 20 03/31/18 07:00 98.0 80 99 Room Air EKG EKG [] Radiology/Procedures Radiology/Procedures [] Course & Med Decision Making Course & Med Decision Making Evaluation of patient in ER showed 28-year-old female patient with complaining of pain in area of toenail removal. Nonadhesive dressing was applied and patient had Toradol and felt better. Plan to discharge patient home with prescription of [place]# 10 and instruction to follow up with her primary care physician. Dragon Disclaimer Dragon Disclaimer This electronic medical record was generated, in whole or in part, using a voice recognition dictation system. Departure Departure: Impression: Primary Impression: Pain of right great toe Additional Impressions: Tobacco abuse Tobacco abuse counseling Disposition: 01 HOME, SELF-CARE (At 0747) Condition: IMPROVED Referrals: LINDA CASTELLANO-Dany (PCP) Patient Instructions: Fingernail or Toenail Loss, Toenail Removal, Wound Care, [id number] Additional Instructions: Change dressing as needed Follow-up with your primary care physician in 3-5 days Return to ER if not getting better Scripts Hydrocodone Bit/Acetaminophen (NORCO 5-325 TABLET) 1 Each Tablet 1 TAB PO PRN Q6HRS PRN for PAIN, #10 TAB 0 Refills Prov: LIT IVY MD 03/31/18 Problem Qualifiers LIT IVY MD Mar 31, 2018 07:51
== END 2018-03-31 07:52 | disposition home or self-care (01) ==
LOC: ER 06:52
DX: M79.674 Pain in right toe(s) (principal); F41.9 Anxiety disorder, unspecified; J45.909 Unspecified asthma, uncomplicated; F17.210 Nicotine dependence, cigarettes, uncomplicated; Z71.6 Tobacco abuse counseling; Z88.1 Allergy status to other antibiotic agents; Z88.6 Allergy status to analgesic agent
CPT/HCPCS: 96372; 99283; J1885

== ENCOUNTER 2018-04-05 09:26 | Emergency (ER) | payer OTHER ==
[~2018-04-05] VITALS: Ht 312.4 cm; Wt 109.1 kg
--- NOTE | 2018-04-05 09:57 | PHYS DOC ---
Past History Past Medical History: Anxiety, Asthma Past Surgical History: Cholecystectomy, Hysterectomy, Tonsillectomy, Other Smoking: Cigarettes, Less than 1pk/day Alcohol Use: Occasionally Drug Use: None Adult General Chief Complaint Chief Complaint: TOE PROBLEM HPI HPI 28-year-old female patient had left great removal at her primary care physician office on became ago and presented for the second time this emergency room with complaining of pain in her great toe. Patient states she followed up her primary care physician recommended to come to emergency room. Review of Systems Review of Systems Constitutional: Denies fever or chills [] Eyes: Denies change in visual acuity, redness, or eye pain [] HENT: Denies nasal congestion or sore throat [] Respiratory: Denies cough or shortness of breath [] Cardiovascular: No additional information not addressed in HPI [] GI: Denies abdominal pain, nausea, vomiting, bloody stools or diarrhea [] : Denies dysuria or hematuria [] Musculoskeletal: Denies back pain , reports joint pain [] Integument: Denies rash or skin lesions [] Neurologic: Denies headache, focal weakness or sensory changes [] Endocrine: Denies polyuria or polydipsia [] All other systems were reviewed and found to be within normal limits, except as documented in this note. Allergies Allergies Allergies Coded Allergies Type Severity Reaction Last Updated Verified cephalexin Allergy Intermediate 04/05/18 Yes ibuprofen Allergy Intermediate 04/05/18 Yes tramadol Adverse Reaction Mild 04/05/18 Yes Physical Exam Physical Exam Constitutional: Well developed, well nourished, no acute distress, non-toxic appearance. [] HENT: Normocephalic, atraumatic Eyes: PERRLA, EOMI, conjunctiva normal, no discharge. [] Neck: Normal range of motion, no tenderness, supple, no stridor. [] Cardiovascular:Heart rate regular rhythm, no murmur [] Lungs & Thorax: Bilateral breath sounds clear to auscultation [] Extremities: Left great toe with missing great toenail without sign of infection , no cyanosis, no clubbing, ROM intact, no edema. [] Neurologic: Alert and oriented X 3, normal motor function, normal sensory function, no focal deficits noted. [] Psychologic: Affect anxious , judgement normal, mood normal. [] Current Patient Data Vital Signs Vital Signs Date Time Temp Pulse Resp B/P (MAP) Pulse Ox O2 Delivery O2 Flow Rate FiO2 04/05/18 09:30 98.6 78 18 99 Room Air EKG EKG [] Radiology/Procedures Radiology/Procedures [] Course & Med Decision Making Course & Med Decision Making Pertinent Imaging studies reviewed. (See chart for details) [She instructed to follow-up with her primary care physician regarding pain management after toenail removal . Dragon Disclaimer Dragon Disclaimer This electronic medical record was generated, in whole or in part, using a voice recognition dictation system. Departure Departure: Impression: Primary Impression: Pain of left great toe Disposition: HOME, SELF-CARE (@1002) Referrals: LINDA CASTELLANO (PCP) Patient Instructions: Arthralgia, Toenail Removal Additional Instructions: Continue home medication Follow-up with your primary care physician in 2-3 days for pain Return to ER if not getting better LIT IVY MD Apr 05, 2018 09:57
[2018-04-05 10:27] VITALS: BP 112/75
--- NOTE | 2018-04-05 10:27 | RAD ---
TOES LEFT Clinical Indication: LEFT GREAT TOE PAIN AFTER HAVING TOENAIL REMOVED MONDAY Comparison: None. Findings: The mineralization is normal. No acute fracture. Joint spaces are maintained. No soft tissue swelling seen radiographically. No bony erosion is identified. No radiopaque foreign body. IMPRESSION: No acute bone abnormality. Electronically signed by: Saúl Young MD (04/05/2018 10:23 AM) [id number]
== END 2018-04-05 10:27 | disposition home or self-care (01) ==
LOC: ER 09:26
DX: M79.675 Pain in left toe(s) (principal); F41.9 Anxiety disorder, unspecified; J45.909 Unspecified asthma, uncomplicated; F17.210 Nicotine dependence, cigarettes, uncomplicated; Z88.1 Allergy status to other antibiotic agents; Z88.6 Allergy status to analgesic agent
CPT/HCPCS: 73660; 99284

== ENCOUNTER 2018-04-13 17:36 | Emergency (ER) | payer OTHER ==
[~2018-04-13] VITALS: Ht 160 cm; Wt 108.9 kg
--- NOTE | 2018-04-13 18:25 | EKG ---
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
[2018-04-13 18:53] LABS: BASO # 0.1 x10^3/uL (0.0-0.2); BASO % 1 % (0-3); EOS # 0.3 x10^3/uL (0.0-0.7); EOS % 3 % (0-3); HEMOGLOBIN 13.6 g/dL (12.0-15.5); LYMPH # 2.6 x10^3/uL (1.0-4.8); LYMPH % 27 % (24-48); MEAN CORPUSCULAR HEMOGLOBIN 30 pg (25-35); MEAN CORPUSCULAR HGB CONC 35 g/dL (31-37); MEAN CORPUSCULAR VOLUME 85 fL (79-100); MONO # 0.8 x10^3/uL (0.0-1.1); MONO % 8 % (0-9); NEUT # 5.7 x10^3uL (1.8-7.7); NEUT % 60 % (31-73); PLATELET COUNT 286 x10^3/uL (140-400); RED BLOOD COUNT 4.58 x10^6/uL (3.50-5.40); RED CELL DISTRIBUTION WIDTH 14.1 % (11.5-14.5); WHITE BLOOD COUNT 9.5 x10^3/uL (4.0-11.0)
[2018-04-13] MEDS ORDERED: LORazepam 2 MG/ML VIAL IV ONE ×2 (19:00→20:30)
[2018-04-13] MEDS ORDERED: IV NORMAL SALINE 1,000ML 1,000 ML IV ONE (19:00)
[2018-04-13 19:02] LABS: CALCIUM 9.4 mg/dL (8.5-10.1); CREATININE 0.8 mg/dL (0.6-1.0); GFR 84.2; POTASSIUM 3.2 mmol/L (3.5-5.1)
[2018-04-13] MEDS ORDERED: POTASSIUM CHLORIDE 20 MEQ TABLET.ER. PO ONE (19:15)
[2018-04-13 20:05] VITALS: BP 141/82
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
[2018-04-13] MEDS ORDERED: FAMO-63 PO (20:21)
[2018-04-13] MEDS ORDERED: FAMOTIDINE 20 MG/2 ML VIAL IVP ONE (20:30)
[2018-04-13] MEDS ORDERED: DEXAMETHASONE SOD PHOS 10 MG/ML VIAL IV ONE (20:30)
--- NOTE | 2018-04-14 08:07 | RAD ---
Chest, PA and Lateral: Technique: PA and lateral views of the chest were obtained. History: Chest pain. Comparison: 10/12/2015. Findings: The heart and pulmonary vasculature appear within normal limits. The lungs are clear. The pleural margins are clear. Impression: No acute chest process is seen. Electronically signed by: Gene Doshi MD (04/14/2018 8:04 AM) [facility]
== END 2018-04-13 20:38 | disposition home or self-care (01) ==
LOC: ER 17:36
DX: F41.9 Anxiety disorder, unspecified (principal); R07.2 Precordial pain; I10 Essential (primary) hypertension; F17.210 Nicotine dependence, cigarettes, uncomplicated; Z88.1 Allergy status to other antibiotic agents; Z88.6 Allergy status to analgesic agent
CPT/HCPCS: 36415; 71046; 80048; 83735; 84484; 85025; 93005; 96374; 96375; 99285; J1100; J2060; S0028; 96361; J7030

== ENCOUNTER 2018-04-17 16:48 | Emergency (ER) | payer OTHER ==
[~2018-04-17] VITALS: Ht 160 cm; Wt 109.0 kg
[~2018-04-17 16:48] MED LIST changes: +FAMO-63 PO
[2018-04-17] MEDS ORDERED: diphenhydrAMINE HCL 25 MG CAPSULE PO ONE (17:15)
[2018-04-17] MEDS ORDERED: SULF1TAB24 PO (17:22)
--- NOTE | 2018-04-17 17:22 | PHYS DOC ---
Past History Past Medical History: Anxiety, Depression, Hypertension, Other Past Surgical History: Cholecystectomy, , Hysterectomy, Tonsillectomy Smoking: Cigarettes, Less than 1pk/day Alcohol Use: Occasionally Drug Use: None Adult General Chief Complaint Chief Complaint: SKIN PROBLEM HPI HPI 28-year-old female patient with history of frequent emergency room visits complaining of a painful area in left side of her back for the last 2 days and states her mother squeezed out some blood out of the area. Patient denies fever and chills and history of MRSA. Patient is up-to-date with tetanus immunization. Review of Systems Review of Systems Constitutional: Denies fever or chills [] Eyes: Denies change in visual acuity, redness, or eye pain [] HENT: Denies nasal congestion or sore throat [] Respiratory: Denies cough or shortness of breath [] Cardiovascular: No additional information not addressed in HPI [] GI: Denies abdominal pain, nausea, vomiting, bloody stools or diarrhea [] : Denies dysuria or hematuria [] Musculoskeletal: Denies back pain or joint pain [] Integument: Denies rash, reports skin lesions [] Neurologic: Denies headache, focal weakness or sensory changes [] Endocrine: Denies polyuria or polydipsia [] All other systems were reviewed and found to be within normal limits, except as documented in this note. Current Medications Current Medications Current Medications Medications (Trade) Dose Ordered Sig/Neno Start Time Stop Time Status Last Admin Dose Admin Diphenhydramine HCl (Benadryl) 25 mg 1X ONCE 04/17/18 17:15 04/17/18 17:16 UNV Allergies Allergies Allergies Coded Allergies Type Severity Reaction Last Updated Verified cephalexin Allergy Intermediate 04/05/18 Yes ibuprofen Allergy Intermediate 04/05/18 Yes tramadol Adverse Reaction Mild 04/05/18 Yes Physical Exam Physical Exam Constitutional: Well developed, well nourished, no acute distress, non-toxic appearance. [] HENT: Normocephalic, atraumatic Eyes: PERRLA, EOMI, conjunctiva normal, no discharge. [] Neck: Normal range of motion, no tenderness, supple, no stridor. [] Cardiovascular:Heart rate regular rhythm, no murmur [] Lungs & Thorax: Bilateral breath sounds clear to auscultation [] Skin: Warm, dry, 2 x 3 centimeters area of erythema with central puncture wound in flank without sign of abscess Back: No tenderness, no CVA tenderness. [] Extremities: No tenderness, no cyanosis, no clubbing, ROM intact, no edema. [] Neurologic: Alert and oriented X 3, normal motor function, normal sensory function, no focal deficits noted. [] Psychologic: Affect normal, judgement normal, mood normal. [] Current Patient Data Vital Signs Vital Signs Date Time Temp Pulse Resp B/P (MAP) Pulse Ox O2 Delivery O2 Flow Rate FiO2 04/17/18 16:48 98.6 85 20 98 Room Air EKG EKG [] Radiology/Procedures Radiology/Procedures [] Course & Med Decision Making Course & Med Decision Making discharge: I've spoken with the patient and/or caregivers. I've explained the patient's condition, diagnosis and treatment plan based on information available to me at this time. I've answered the patient's and/or caregivers questions and addressed any concerns. The patient and/or caregivers have a good understanding the patient's diagnosis, condition and treatment plan as can be expected at this point. Vital signs have been stabilized. The patient's condition is stable for discharge from the emergency department. The patient will pursue further outpatient evaluation with her primary care provider or other designated consulting physician as outlined in the discharge instructions. Patient and/or caregivers are agreeable to this plan of care and follow-up instructions have been explained in detail. The patient and/or caregivers have received these instructions in written format and expressed understanding of these discharge instructions. The patient and her caregivers are aware that if any significant change in condition or worsening of symptoms should prompt him to immediately return to this of the closest emergency department. If an emergent department is not readily available I would encourage him to call 911. [] Dragon Disclaimer Dragon Disclaimer This electronic medical record was generated, in whole or in part, using a voice recognition dictation system. Departure Departure: Impression: Primary Impression: Cellulitis of skin of back Disposition: HOME, SELF-CARE (at 1720) Condition: STABLE Referrals: LINDA CASTELLANO (PCP) Patient Instructions: Cellulitis Additional Instructions: Drink plenty of liquids Follow-up with your primary care physician in 3-5 days Return to ER if not getting better Take [id number] Benadryl as needed Scripts Sulfamethoxazole/Trimethoprim (BACTRIM DS TABLET) 1 Each Tablet 1 TAB PO BID, #14 TAB Prov: LIT IVY MD 04/17/18 LIT IVY MD Apr 17, 2018 17:22
[2018-04-17 17:25] VITALS: BP 150/90
== END 2018-04-17 17:25 | disposition home or self-care (01) ==
LOC: ER 16:48
DX: L03.312 Cellulitis of back [any part except buttock and flank] (principal); F41.9 Anxiety disorder, unspecified; F32.9 Major depressive disorder, single episode, unspecified; I10 Essential (primary) hypertension; F17.210 Nicotine dependence, cigarettes, uncomplicated; Z90.49 Acquired absence of other specified parts of digestive tract; Z90.710 Acquired absence of both cervix and uterus; Z98.890 Other specified postprocedural states; Z88.1 Allergy status to other antibiotic agents; Z88.6 Allergy status to analgesic agent
CPT/HCPCS: 99283; Q0163

== ENCOUNTER 2018-04-29 15:25 | Emergency (ER) | payer OTHER ==
[~2018-04-29] VITALS: Ht 160 cm; Wt 109.0 kg
[~2018-04-29 15:25] MED LIST changes: +SULF1TAB24 PO
[2018-04-29 15:35] VITALS: BP 147/102
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
[2018-04-29] MEDS ORDERED: PROMETHAZINE IM 25 MG/ML VIAL IM ONE (16:30)
[2018-04-29] MEDS ORDERED: HYDROmorphone PF 1 MG/ML DISP.SYRIN IM ONE (16:30)
== END 2018-04-29 16:20 | disposition home or self-care (01) ==
LOC: ER 15:25
DX: G43.909 Migraine, unspecified, not intractable, without status migrainosus (principal); F41.9 Anxiety disorder, unspecified; F32.9 Major depressive disorder, single episode, unspecified; I10 Essential (primary) hypertension; F17.210 Nicotine dependence, cigarettes, uncomplicated; Z90.49 Acquired absence of other specified parts of digestive tract; Z98.890 Other specified postprocedural states; Z90.710 Acquired absence of both cervix and uterus; Z88.1 Allergy status to other antibiotic agents; Z88.6 Allergy status to analgesic agent
CPT/HCPCS: 96372; 99284; J1170; J2550

== ENCOUNTER 2018-05-04 14:46 | Emergency (ER) | payer OTHER ==
[~2018-05-04] VITALS: Ht 160 cm; Wt 108.9 kg
[2018-05-04 14:59] VITALS: BP 157/85
--- NOTE | 2018-05-04 15:28 | PHYS DOC ---
Past History Past Medical History: Anxiety, Depression, Hypertension, Migraines, Other Past Surgical History: Cholecystectomy, , Hysterectomy, Tonsillectomy Smoking: Cigarettes, Less than 1pk/day Alcohol Use: Occasionally Drug Use: None Adult General Chief Complaint Chief Complaint: HEADACHE HPI HPI 28-year-old female presents with headache. The headache started today and is a global pressure feeling. The patient has a history of migraines and she states that this headache feels the same as her previous migraines. She has Maxalt prescribed but was unable to take it today. She has been outside a lot and admits she could be dehydrated. She denies fever, chills, chest pain, shortness of breath. She does not have any change in sensation or strength. She has no other complaints. Review of Systems Review of Systems Constitutional: Denies fever or chills [] Eyes: Denies change in visual acuity, redness, or eye pain [] HENT: Denies nasal congestion or sore throat [] Respiratory: Denies cough or shortness of breath [] Cardiovascular: No additional information not addressed in HPI [] GI: Denies abdominal pain, nausea, vomiting, bloody stools or diarrhea [] : No change in discharge, no bleeding. No dysuria or hematuria[] Musculoskeletal: Denies back pain or joint pain [] Integument: Denies rash or skin lesions [] Neurologic: Headache[] Endocrine: Denies polyuria or polydipsia [] All other systems were reviewed and found to be within normal limits, except as documented in this note. Current Medications Current Medications Current Medications Medications (Trade) Dose Ordered Sig/[facility] Start Time Stop Time Status Last Admin Dose Admin Diphenhydramine HCl (Benadryl) 25 mg 1X ONCE 05/04/18 15:30 05/04/18 15:31 Ketorolac Tromethamine (Toradol 30mg Vial) 30 mg 1X ONCE 05/04/18 15:30 05/04/18 15:31 Metoclopramide HCl (Reglan Vial) 10 mg 1X ONCE 05/04/18 15:30 05/04/18 15:31 Sodium Chloride 1,000 ml @ 1,000 mls/hr 1X ONCE 05/04/18 15:30 05/04/18 16:29 Allergies Allergies Allergies Coded Allergies Type Severity Reaction Last Updated Verified cephalexin Allergy Intermediate 04/05/18 Yes ibuprofen Allergy Intermediate 04/05/18 Yes tramadol Adverse Reaction Mild 04/05/18 Yes Physical Exam Physical Exam Constitutional: Well developed, well nourished, no acute distress, non-toxic appearance. [] HENT: Normocephalic, atraumatic, bilateral external ears normal, oropharynx moist, no oral exudates, nose normal. [] Eyes: PERRLA, EOMI, conjunctiva normal, no discharge. Photophobia [] Neck: Normal range of motion, no tenderness, supple, no stridor. [] Cardiovascular:Heart rate regular rhythm, no murmur [] Lungs & Thorax: Bilateral breath sounds clear to auscultation [] Abdomen: Bowel sounds normal, soft, no tenderness, no masses, no pulsatile masses. [] Skin: Warm, dry, no erythema, no rash. [] Back: No tenderness, no CVA tenderness. [] Extremities: No tenderness, no cyanosis, no clubbing, ROM intact, no edema. [] Neurologic: Alert and oriented X 3, normal motor function, normal sensory function, no focal deficits noted. [] Psychologic: Affect normal, judgement normal, mood normal. [] Current Patient Data Vital Signs Vital Signs Date Time Temp Pulse Resp B/P (MAP) Pulse Ox O2 Delivery O2 Flow Rate FiO2 05/04/18 14:59 Room Air 05/04/18 14:59 98.5 91 20 98 EKG EKG [] Radiology/Procedures Radiology/Procedures [] Course & Med Decision Making Course & Med Decision Making Pertinent Labs and Imaging studies reviewed. (See chart for details) The patient's labs are remarkable for a potassium of 3.0. I will advise the patient to consider potassium supplementation and follow up with her PCP. Her headache was improving after 1 L normal saline, 30 mg of Toradol, 25 mg of Benadryl, 10 mg Reglan. She was a 5 out of 10. He'll repeat the dose of Benadryl and Reglan as well as give her 4 mg of dexamethasone to prevent recurrence. She feels well enough to go home at this time. She is stable for discharge. [] Dragon Disclaimer Dragon Disclaimer This electronic medical record was generated, in whole or in part, using a voice recognition dictation system. Departure Departure: Referrals: LINDA CASTELLANO (PCP) MARIANA PIZANO DO May 04, 2018 15:28
[2018-05-04] MEDS: KETOROLAC 30 MG/ML VIAL. IV ONE (15:39)
[2018-05-04] MEDS: METOCLOPRAMIDE HCL 10 MG/2 ML VIAL. IV ONE ×2 (15:39→16:49)
[2018-05-04] MEDS: IV NORMAL SALINE 1,000ML 1,000 ML IV ONE (15:40)
[2018-05-04] MEDS: diphenhydrAMINE 50 MG/ML VIAL IVP ONE ×2 (15:40→16:48)
[2018-05-04 15:43] LABS: BASO % 0 % (0-3); EOS # 0.2 x10^3/uL (0.0-0.7); EOS % 2 % (0-3); HEMATOCRIT 39.9 % (36.0-47.0); HEMOGLOBIN 13.9 g/dL (12.0-15.5); LYMPH # 2.7 x10^3/uL (1.0-4.8); LYMPH % 28 % (24-48); MEAN CORPUSCULAR HEMOGLOBIN 30 pg (25-35); MEAN CORPUSCULAR HGB CONC 35 g/dL (31-37); MEAN CORPUSCULAR VOLUME 86 fL (79-100); MONO # 0.8 x10^3/uL (0.0-1.1); MONO % 8 % (0-9); NEUT # 6.2 x10^3uL (1.8-7.7); NEUT % 62 % (31-73); PLATELET COUNT 296 x10^3/uL (140-400); RED BLOOD COUNT 4.65 x10^6/uL (3.50-5.40); RED CELL DISTRIBUTION WIDTH 13.5 % (11.5-14.5); WHITE BLOOD COUNT 9.9 x10^3/uL (4.0-11.0)
[2018-05-04 15:58] LABS: CALCIUM 8.8 mg/dL (8.5-10.1); CREATININE 0.8 mg/dL (0.6-1.0); GFR 84.2
[2018-05-04] MEDS: DEXAMETHASONE SOD PHOS 4 MG/ML VIAL IV ONE (16:48)
== END 2018-05-04 16:57 | disposition home or self-care (01) ==
LOC: ER 14:46
DX: R51 Headache (principal); F41.9 Anxiety disorder, unspecified; I10 Essential (primary) hypertension; F32.9 Major depressive disorder, single episode, unspecified; G43.909 Migraine, unspecified, not intractable, without status migrainosus; F17.210 Nicotine dependence, cigarettes, uncomplicated; Z88.1 Allergy status to other antibiotic agents; Z88.6 Allergy status to analgesic agent
CPT/HCPCS: 36415; 80048; 85025; 96361; 96374; 96375; 96376; J1100; J1200; J1885; J2765; 99284-25; J7030

== ENCOUNTER 2018-05-12 15:31 | Emergency (ER) | payer OTHER ==
[~2018-05-12] VITALS: Ht 160 cm; Wt 101.6 kg
[2018-05-12 15:40] VITALS: BP 130/79
--- NOTE | 2018-05-12 15:50 | PHYS DOC ---
Past History Past Medical History: Anxiety, Depression, Hypertension, Migraines, Other Past Surgical History: Cholecystectomy, , Hysterectomy, Tonsillectomy Smoking: Cigarettes, Less than 1pk/day Alcohol Use: Occasionally Drug Use: None Adult General Chief Complaint Chief Complaint: HEADACHE HPI HPI Patient is a 28-year-old female with a history of migraine headaches presents today secondary to 3 day history of headache. Today she describes the pain as 100 out of 10. States she's been working in the yard getting yard work done over the last several days and just wore herself out. She thinks some of this has to do with heat and sun exposure. She denies any fever or neck pain. She denies any lateralizing neurologic weakness. She does describe both photophobia and phonophobia. She does have associated nausea. She states this is typical of her previous migraine headaches.[] Review of Systems Review of Systems Constitutional: Denies fever or chills [] Eyes: Denies change in visual acuity, redness, or eye pain [] HENT: Denies nasal congestion or sore throat [] Respiratory: Denies cough or shortness of breath [] Cardiovascular: No additional information not addressed in HPI [] GI: Denies abdominal pain, nausea, vomiting, bloody stools or diarrhea [] : Denies dysuria or hematuria [] Musculoskeletal: Denies back pain or joint pain [] Integument: Denies rash or skin lesions [] Neurologic: Per history of present illness[] Endocrine: Denies polyuria or polydipsia [] All other systems were reviewed and found to be within normal limits, except as documented in this note. Current Medications Current Medications Current Medications Medications (Trade) Dose Ordered Sig/Neno Start Time Stop Time Status Last Admin Dose Admin Diphenhydramine HCl (Benadryl) 25 mg 1X ONCE 05/12/18 16:00 05/12/18 16:01 Ketorolac Tromethamine (Toradol 30mg Vial) 30 mg 1X ONCE 05/12/18 16:00 05/12/18 16:01 Metoclopramide HCl (Reglan Vial) 10 mg 1X ONCE 05/12/18 16:00 05/12/18 16:01 Sodium Chloride 1,000 ml @ 1,000 mls/hr 1X ONCE 05/12/18 16:00 05/12/18 16:59 Allergies Allergies Allergies Coded Allergies Type Severity Reaction Last Updated Verified cephalexin Allergy Intermediate 04/05/18 Yes ibuprofen Allergy Intermediate 04/05/18 Yes tramadol Adverse Reaction Mild 04/05/18 Yes Physical Exam Physical Exam Constitutional: Well developed, well nourished, moderate distress, non-toxic appearance. [] HENT: Normocephalic, atraumatic, bilateral external ears normal, oropharynx moist, no oral exudates, nose normal. [] Eyes: PERRLA, EOMI, conjunctiva normal, no discharge. [] Neck: Normal range of motion, no tenderness, supple, no stridor. [] Cardiovascular:Heart rate regular rhythm, no murmur [] Lungs & Thorax: Bilateral breath sounds clear to auscultation [] Abdomen: Bowel sounds normal, soft, no tenderness, no masses, no pulsatile masses. [] Skin: Warm, dry, no erythema, no rash. [] Back: No tenderness, no CVA tenderness. [] Extremities: No tenderness, no cyanosis, no clubbing, ROM intact, no edema. [] Neurologic: Alert and oriented X 3, normal motor function, normal sensory function, no focal deficits noted. [] Psychologic: Affect normal, judgement normal, mood normal. [] EKG EKG [] Radiology/Procedures Radiology/Procedures [] Course & Med Decision Making Course & Med Decision Making ED course: Evaluation reveals a 1-year-old female with a typical migraine type headache. She was given IV fluids, Reglan 10 mg IV, Toradol 30 mg IV and Benadryl 25 mg IV with near complete resolution of her headache. I'll prescribe her metoclopramide to take at home. Patient is safe for discharge home. [] Dragon Disclaimer Dragon Disclaimer This electronic medical record was generated, in whole or in part, using a voice recognition dictation system. Departure Departure: Impression: Primary Impression: Migraine Disposition: HOME, SELF-CARE Condition: IMPROVED Referrals: LINDA CASTELLANO (PCP) Patient Instructions: Migraine Headache Additional Instructions: Return to emergency with any new or concerning symptoms. When you take the Reglan that I prescribed for you take Benadryl 25 mg with each dose that will have better effect on her headache. Scripts Metoclopramide Hcl (REGLAN) 10 Mg Tablet 10 MG PO PRN Q8HRS PRN for HEADACHE, #30 TAB 3 Refills Prov: FREDIS LERNER DO 05/12/18 Problem Qualifiers Primary Impression: Migraine Migraine type: periodic headache syndrome Intractability: not intractable Qualified Codes: G43.C0 - Periodic headache syndromes in child or adult, not intractable FREDIS LERNER DO May 12, 2018 15:50
[2018-05-12] MEDS ORDERED: KETOROLAC 30 MG/ML VIAL. IV ONE (16:00)
[2018-05-12] MEDS ORDERED: IV NORMAL SALINE 1,000ML 1,000 ML IV ONE (16:00)
[2018-05-12] MEDS ORDERED: diphenhydrAMINE 50 MG/ML VIAL IVP ONE (16:00)
[2018-05-12] MEDS ORDERED: METOCLOPRAMIDE HCL 10 MG/2 ML VIAL. IV ONE (16:00)
[2018-05-12] MEDS ORDERED: METO10TA81 PO (16:24)
== END 2018-05-12 17:00 | disposition home or self-care (01) ==
LOC: ER 15:31
DX: G43.909 Migraine, unspecified, not intractable, without status migrainosus (principal); F41.9 Anxiety disorder, unspecified; F32.9 Major depressive disorder, single episode, unspecified; I10 Essential (primary) hypertension; F17.210 Nicotine dependence, cigarettes, uncomplicated; Z88.1 Allergy status to other antibiotic agents; Z88.6 Allergy status to analgesic agent
CPT/HCPCS: 96374; 96375; 99284; J1200; J1885; J2765; J7030

== ENCOUNTER 2018-05-29 20:10 | Emergency (ER) | payer OTHER ==
[~2018-05-29 20:10] MED LIST changes: +METO10TA81 PO
[2018-05-29 20:50] VITALS: BP 162/95
[2018-05-29] MEDS ORDERED: PROC10TA57 PO (21:56)
[2018-05-29] MEDS: PROCHLORPERAZINE 5 MG TABLET. PO ONE (22:14)
[2018-05-29] MEDS: ACETAMINOPHEN 325 MG TABLET PO ONE (22:14)
--- NOTE | 2018-05-30 05:53 | ED.ADGEN ---
Past History Past Medical History: Anxiety, Depression, Hypertension, Migraines, Other Past Surgical History: Cholecystectomy, , Hysterectomy, Tonsillectomy Smoking: Cigarettes, Less than 1pk/day Alcohol Use: Occasionally Drug Use: None Adult General Chief Complaint Chief Complaint Migraine headache HPI HPI Patient is a 28-year-old female well-known to this emergency department who presents with typical migraine headache. Patient states she is out of her migraine prophylaxis. No nausea vomiting. No light sensitivity. No fever chills , neck pain or rash. No extremity weakness loss of sensation. No loss of bowel or bladder function.] Review of Systems Review of Systems ROS as per HPI All other systems were reviewed and found to be within normal limits, except as documented in this note. Current Medications Current Medications Current Medications Medications (Trade) Dose Ordered Sig/Neno Start Time Stop Time Status Last Admin Dose Admin Acetaminophen (Tylenol) 650 mg 1X ONCE 05/29/18 22:30 05/29/18 22:31 DC 05/29/18 22:14 650 MG Prochlorperazine Maleate (Compazine) 5 mg 1X ONCE 05/29/18 22:30 05/29/18 22:31 DC 05/29/18 22:14 5 MG Allergies Allergies Allergies Coded Allergies Type Severity Reaction Last Updated Verified cephalexin Allergy Intermediate 04/05/18 Yes ibuprofen Allergy Intermediate 04/05/18 Yes tramadol Adverse Reaction Mild 04/05/18 Yes Physical Exam Physical Exam Constitutional: Well developed, well nourished, no acute distress, non-toxic appearance. [] HENT: Normocephalic, atraumatic, bilateral external ears normal, oropharynx moist, no oral exudates, nose normal. [] Eyes: PERRLA, EOMI, conjunctiva normal, no discharge. [] Neck: Normal range of motion, no tenderness, supple, no stridor. [] Cardiovascular:Heart rate regular rhythm, no murmur [] Lungs & Thorax: Bilateral breath sounds clear to auscultation [] Abdomen: Bowel sounds normal, soft, no tenderness, no masses, no pulsatile masses. [] Skin: Warm, dry, no erythema, no rash. [] Back: No tenderness, no CVA tenderness. [] Extremities: No tenderness, no cyanosis, no clubbing, ROM intact, no edema. [] Neurologic: Alert and oriented X 3, normal motor function, normal sensory function, no focal deficits noted. [] Psychologic: Affect normal, judgement normal, mood normal. [] Current Patient Data Vital Signs Vital Signs Date Time Temp Pulse Resp B/P (MAP) Pulse Ox O2 Delivery O2 Flow Rate FiO2 05/29/18 20:50 98.2 84 18 97 Room Air EKG EKG [] Radiology/Procedures Radiology/Procedures [] Course & Med Decision Making Course & Med Decision Making Pertinent Labs and Imaging studies reviewed. (See chart for details) [] Final Impression Final Impression [1. typical migraine CORRALES] Dragon Disclaimer Dragon Disclaimer This electronic medical record was generated, in whole or in part, using a voice recognition dictation system. MARIANA CHRIS DO May 30, 2018 05:53
== END 2018-05-29 22:15 | disposition home or self-care (01) ==
LOC: ER 20:10
DX: G43.809 Other migraine, not intractable, without status migrainosus (principal); F41.9 Anxiety disorder, unspecified; F32.9 Major depressive disorder, single episode, unspecified; I10 Essential (primary) hypertension; F17.210 Nicotine dependence, cigarettes, uncomplicated; Z88.1 Allergy status to other antibiotic agents; Z88.6 Allergy status to analgesic agent
CPT/HCPCS: 99283; Q0164

== ENCOUNTER 2018-06-06 14:14 | Emergency (ER) | payer OTHER ==
[~2018-06-06] VITALS: Ht 160 cm; Wt 113.4 kg
[~2018-06-06 14:14] MED LIST changes: +PROC10TA57 PO
[2018-06-06 14:36] VITALS: BP 119/71
--- NOTE | 2018-06-06 14:56 | PHYS DOC ---
Past History Past Medical History: Anxiety, Depression, Hypertension, Migraines, Other Past Surgical History: Cholecystectomy, , Hysterectomy, Tonsillectomy Smoking: Cigarettes, Less than 1pk/day Alcohol Use: Occasionally Drug Use: None Adult General Chief Complaint Chief Complaint: CHEST WALL PAIN HPI HPI Patient is a 28 year old female who presents with complaining of chest pain. Patient complaining of left-sided chest pain since yesterday as a constant pain with radiation to left shoulder and left side of that getting worse with movement of her shoulder. Patient complaining of stabbing pain and rated her pain as 9/10. Patient complaining of shortness of breath and palpitations without nausea and focal neuro deficit. Patient states she did heavy work at home yesterday and thinks she has muscle injury. Patient has had frequent emergency room visits to different complaint. Review of Systems Review of Systems Constitutional: Denies fever or chills [] Eyes: Denies change in visual acuity, redness, or eye pain [] HENT: Denies nasal congestion or sore throat [] Respiratory: Denies cough or shortness of breath [] Cardiovascular: No additional information not addressed in HPI [] GI: Denies abdominal pain, nausea, vomiting, bloody stools or diarrhea [] : Denies dysuria or hematuria [] Musculoskeletal: Denies back pain or joint pain [] Integument: Denies rash or skin lesions [] Neurologic: Denies headache, focal weakness or sensory changes [] Endocrine: Denies polyuria or polydipsia [] All other systems were reviewed and found to be within normal limits, except as documented in this note. Current Medications Current Medications Current Medications Medications (Trade) Dose Ordered Sig/Neno Start Time Stop Time Status Last Admin Dose Admin Orphenadrine Citrate (Norflex) 60 mg 1X ONCE 06/06/18 15:00 06/06/18 15:01 Allergies Allergies Allergies Coded Allergies Type Severity Reaction Last Updated Verified cephalexin Allergy Intermediate 04/05/18 Yes ibuprofen Allergy Intermediate 04/05/18 Yes tramadol Adverse Reaction Mild 04/05/18 Yes Physical Exam Physical Exam Constitutional: Well developed, well nourished, mild distress, non-toxic appearance. [] HENT: Normocephalic, atraumatic Eyes: PERRLA, EOMI, conjunctiva normal, no discharge. [] Neck: Normal range of motion, no tenderness, supple, no stridor. [] Cardiovascular:Heart rate regular rhythm, no murmur [] Lungs & Thorax: Bilateral breath sounds clear to auscultation, left reproducible chest wall pain [] Abdomen: Bowel sounds normal, soft, no tenderness, no masses, no pulsatile masses. [] Skin: Warm, dry, no erythema, no rash. [] Back: No tenderness, no CVA tenderness. [] Extremities: No tenderness, no cyanosis, no clubbing, ROM intact, no edema. [] Neurologic: Alert and oriented X 3, normal motor function, normal sensory function, no focal deficits noted. [] Psychologic: Affect anxious, judgement normal, mood normal. [] EKG EKG EKG interpreted by me. EKG at 1417 showed normal sinus rhythm at rate of 84, no acute ST and T-wave abnormalities Radiology/Procedures Radiology/Procedures [] Course & Med Decision Making Course & Med Decision Making Evaluation of patient in ER showed 28-year-old female patient with frequent emergency room visits with complaining of left-sided chest wall after physical activity at home. Patient had reproducible left-sided chest pain with unremarkable EKG. Patient treated with Norflex in ER felt better. Plan discharge home with diagnose of musculoskeletal chest pain. Dragon Disclaimer Dragon Disclaimer This electronic medical record was generated, in whole or in part, using a voice recognition dictation system. Departure Departure: Impression: Primary Impression: Musculoskeletal chest pain Additional Impression: Tobacco abuse counseling Disposition: HOME, SELF-CARE (at 1511) Condition: STABLE Referrals: LINDA CASTELLANO (PCP) Patient Instructions: Musculoskeletal Pain Additional Instructions: Apply ice pack on affected area Drink plenty of liquids Follow-up with your primary care physician in 3-5 days Return to ER if not getting better Scripts Cyclobenzaprine Hcl (CYCLOBENZAPRINE HCL) 10 Mg Tablet 1 TAB PO TID, #30 TAB Prov: LIT IVY MD 06/06/18 Problem Qualifiers LIT IVY MD Jun 06, 2018 14:56
[2018-06-06] MEDS ORDERED: ORPHENADRINE CITRATE 60 MG/2 ML VIAL. IM ONE (15:00)
[2018-06-06] MEDS ORDERED: CYCL-331 PO (15:12)
--- NOTE | 2018-06-06 17:32 | EKG ---
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
== END 2018-06-06 15:31 | disposition home or self-care (01) ==
LOC: ER 14:14
DX: R07.89 Other chest pain (principal); F17.210 Nicotine dependence, cigarettes, uncomplicated; F41.9 Anxiety disorder, unspecified; F32.9 Major depressive disorder, single episode, unspecified; I10 Essential (primary) hypertension; G43.909 Migraine, unspecified, not intractable, without status migrainosus; Z71.6 Tobacco abuse counseling; Z88.1 Allergy status to other antibiotic agents; Z88.6 Allergy status to analgesic agent
CPT/HCPCS: 93005; 96372; 99283; J2360

== ENCOUNTER 2018-06-11 19:29 | Emergency (ER) | payer OTHER ==
[2018-06-11 19:31] VITALS: BP 140/88
--- NOTE | 2018-06-11 19:31 | ED.ADGEN ---
Past History Past Medical History: Anxiety, Hypertension Past Surgical History: , Hysterectomy, Tonsillectomy Smoking: Cigarettes, Less than 1pk/day Alcohol Use: Occasionally Drug Use: None Adult General Chief Complaint Chief Complaint "... I ve got bad dental pain..."... " I had this tooth pulled... and now it even hurts worse..." (32) HPI HPI Patient is a 28 year old female who presents with above hx and complaints pain at socket of extracted tooth 32. Pt. appears to have a very low pain threshold, had 12 visits to ED in 2018, all for various pain complaints. Pt. In on amoxicillin for dental infection. No trismus, mild adenopathy ankle Rt. mandible. No hx of immunosuppression. Pt. currently on Amoxicillin from dentist. Review of Systems Review of Systems Constitutional: Denies fever or chills [] Eyes: Denies change in visual acuity, redness, or eye pain [] HENT: Denies nasal congestion or sore throat [] Complaints of dental pain.- dry socket ? at 32 Respiratory: Denies cough or shortness of breath [] Cardiovascular: No additional information not addressed in HPI [] GI: Denies abdominal pain, nausea, vomiting, bloody stools or diarrhea [] : Denies dysuria or hematuria [] Musculoskeletal: Denies back pain or joint pain [] Integument: Denies rash or skin lesions [] Neurologic: Denies headache, focal weakness or sensory changes [] Endocrine: Denies polyuria or polydipsia [] All other systems were reviewed and found to be within normal limits, except as documented in this note. Family History Family History Noncontributory Current Medications Current Medications Current Medications Medications (Trade) Dose Ordered Sig/Neno Start Time Stop Time Status Last Admin Dose Admin Oxycodone/ Acetaminophen (Percocet 5/325) 2 tab 1X ONCE 06/11/18 20:15 06/11/18 20:16 DC 06/11/18 20:15 2 TAB Allergies Allergies Allergies Coded Allergies Type Severity Reaction Last Updated Verified cephalexin Allergy Intermediate 04/05/18 Yes ibuprofen Allergy Intermediate 04/05/18 Yes tramadol Adverse Reaction Mild 04/05/18 Yes Physical Exam Physical Exam Constitutional: Moderately acute distress, non-toxic appearance. [] HENT: Normocephalic, atraumatic, bilateral external ears normal, oropharynx moist, no oral exudates, nose normal. [] Eyes: PERRLA, EOMI, conjunctiva normal, no discharge. [] Neck: Normal range of motion, no tenderness, supple, no stridor. [] Cardiovascular:Heart rate regular rhythm, no murmur [] Lungs & Thorax: Bilateral breath sounds equal at apexes on auscultation [] Abdomen: Bowel sounds normal, soft, no tenderness, no masses, no pulsatile masses. [] Obese. Old surgery scars. Skin: Warm, dry, no erythema, no rash. [] Back: No tenderness, no CVA tenderness. [] Extremities: No tenderness, no cyanosis, no clubbing, ROM intact, no edema. [] Neurologic: Alert and oriented X 3, normal motor function, normal sensory function, no focal deficits noted. [] Psychologic: Affect anxious, judgement normal, mood normal. [] Current Patient Data Vital Signs Vital Signs Date Time Temp Pulse Resp B/P (MAP) Pulse Ox O2 Delivery O2 Flow Rate FiO2 06/11/18 20:15 18 98 Room Air EKG EKG [] Radiology/Procedures Radiology/Procedures [] Course & Med Decision Making Course & Med Decision Making Pertinent Labs and Imaging studies reviewed. (See chart for details) Use sugarless gum over tooth socket. Take amoxicillin as directed. Take tylenol for pain. Marked pain take Percocet up 4 x day. Followup with dentist. Further narcotics will need to be supplied by primary or dentist. STOP SMOKING. This can exacerbate dry socket pain. [] Final Impression Final Impression 1. Dental Pain[] 2. Dry Socket Pain 3. Tobacco use. Dragon Disclaimer Dragon Disclaimer This electronic medical record was generated, in whole or in part, using a voice recognition dictation system. GLENDA CHAVEZ MD Jun 11, 2018 19:31
[2018-06-11] MEDS ORDERED: OXYC-323 PO (19:56)
[2018-06-11] MEDS ORDERED: oxyCODONE/APAP 5/325 1 TAB TABLET PO ONE (20:15)
== END 2018-06-11 20:15 | disposition home or self-care (01) ==
LOC: ER 19:29
DX: K08.89 Other specified disorders of teeth and supporting structures (principal); M27.3 Alveolitis of jaws; F41.9 Anxiety disorder, unspecified; I10 Essential (primary) hypertension; F17.210 Nicotine dependence, cigarettes, uncomplicated; Z88.1 Allergy status to other antibiotic agents; Z88.6 Allergy status to analgesic agent
CPT/HCPCS: 99283

== ENCOUNTER 2018-06-24 18:20 | Emergency (ER) | payer OTHER ==
[~2018-06-24] VITALS: Ht 160 cm; Wt 116.5 kg
[2018-06-24 18:20] VITALS: BP 137/83
--- NOTE | 2018-06-24 19:38 | PHYS DOC ---
Past History Past Medical History: Anxiety, Hypertension Past Surgical History: , Hysterectomy, Tonsillectomy Smoking: Cigarettes, Less than 1pk/day Alcohol Use: Occasionally Drug Use: None Adult General Chief Complaint Chief Complaint: BACK PAIN OR INJURY HPI HPI 28-year-old female presents with left knee pain. The patient was cleaning out her basement which flooded and she ran her left knee into a cabinet. She has pain in the lateral left knee and some pain in her tailbone. She denies trauma to her tailbone. She has a history of injuries to this knee in the past. She is able to walk. She denies any other injuries at this time. Review of Systems Review of Systems Constitutional: Denies fever or chills [] Eyes: Denies change in visual acuity, redness, or eye pain [] HENT: Denies nasal congestion or sore throat [] Respiratory: Denies cough or shortness of breath [] Cardiovascular: No additional information not addressed in HPI [] GI: Denies abdominal pain, nausea, vomiting, bloody stools or diarrhea [] : Denies dysuria or hematuria [] Musculoskeletal: Knee pain.[] Integument: Denies rash or skin lesions [] Neurologic: Denies headache, focal weakness or sensory changes [] Endocrine: Denies polyuria or polydipsia [] All other systems were reviewed and found to be within normal limits, except as documented in this note. Allergies Allergies Allergies Coded Allergies Type Severity Reaction Last Updated Verified cephalexin Allergy Intermediate 04/05/18 Yes ibuprofen Allergy Intermediate 04/05/18 Yes tramadol Adverse Reaction Mild 04/05/18 Yes Physical Exam Physical Exam Constitutional: Well developed, well nourished, no acute distress, non-toxic appearance. [] HENT: Normocephalic, atraumatic, bilateral external ears normal, oropharynx moist, no oral exudates, nose normal. [] Eyes: PERRLA, EOMI, conjunctiva normal, no discharge. [] Neck: Normal range of motion, no tenderness, supple, no stridor. [] Cardiovascular:Heart rate regular rhythm, no murmur [] Lungs & Thorax: Bilateral breath sounds clear to auscultation [] Abdomen: Bowel sounds normal, soft, no tenderness, no masses, no pulsatile masses. [] Skin: Warm, dry, no erythema, no rash. [] Back: No tenderness, no CVA tenderness. [] Extremities: Superficial scratch to the lateral left knee, some ecchymosis, ligaments intact and with firm end feel. Minimal suprapatellar swelling. Range of motion normal[] Neurologic: Alert and oriented X 3, normal motor function, normal sensory function, no focal deficits noted. [] Psychologic: Affect normal, judgement normal, mood normal. [] Current Patient Data Vital Signs Vital Signs Date Time Temp Pulse Resp B/P (MAP) Pulse Ox O2 Delivery O2 Flow Rate FiO2 06/24/18 18:20 98.8 98 18 98 Room Air EKG EKG [] Radiology/Procedures Radiology/Procedures [] Impressions: KNEE LEFT 4V History: Hit knee against a cabinet 06/23/2018, severe pain Comparison: September 12, 2010 Findings: 3 views left knee are submitted. No acute fracture or dislocation is identified. Impression: 1. No acute osseous abnormality is identified by radiographs. Electronically signed by: Kyara Willard MD (06/24/2018 7:52 PM) [facility] DICTATED AND SIGNED BY: KYARA WILLARD MD DATE: 06/24/18 1950 CC: MARIANA PIZANO DO; LINDA CASTELLANO ~ Course & Med Decision Making Course & Med Decision Making Pertinent Labs and Imaging studies reviewed. (See chart for details) The patient's x-rays negative for fracture. She just has a contusion. I will recommend NSAIDs and Tylenol for pain. She has had narcotic pain medications recently prescribed and filled for another ailment. Infectious had 23 prescriptions by 16 prescribers in the last year. [] Dragon Disclaimer Dragon Disclaimer This electronic medical record was generated, in whole or in part, using a voice recognition dictation system. Departure Departure: Referrals: LINDA CASTELLANO (PCP) MARIANA PIZANO DO Jun 24, 2018 19:38
--- NOTE | 2018-06-24 19:55 | RAD ---
KNEE LEFT 4V History: Hit knee against a cabinet 06/23/2018, severe pain Comparison: September 12, 2010 Findings: 3 views left knee are submitted. No acute fracture or dislocation is identified. Impression: 1. No acute osseous abnormality is identified by radiographs. Electronically signed by: Julien Rivera MD (06/24/2018 7:52 PM) [facility]
== END 2018-06-24 20:00 | disposition home or self-care (01) ==
LOC: ER 18:20
DX: S80.02XA Contusion of left knee, initial encounter (principal); M53.3 Sacrococcygeal disorders, not elsewhere classified; I10 Essential (primary) hypertension; F17.210 Nicotine dependence, cigarettes, uncomplicated; Z88.1 Allergy status to other antibiotic agents; Z88.6 Allergy status to analgesic agent; W22.8XXA Striking against or struck by other objects, initial encounter; Y93.E9 Activity, other interior property and clothing maintenance; Y92.89 Other specified places as the place of occurrence of the external cause; Y99.8 Other external cause status
CPT/HCPCS: 73564; 99284

== ENCOUNTER 2018-06-29 18:56 | Emergency (ER) | payer OTHER ==
[~2018-06-29] VITALS: Ht 160 cm; Wt 120.2 kg
[2018-06-29 19:20] VITALS: BP 148/97
[2018-06-29] MEDS ORDERED: DICYCLOMINE 20 MG/2 ML AMPUL. IM ONE (19:30)
[2018-06-29] MEDS ORDERED: DICY20TA3 PO (19:33)
[2018-06-29 19:44] LABS: BACTERIA,URINE 0 /HPF (0-FEW); BILIRUBIN,URINE NEG (NEG); CLARITY,URINE HAZY; COLOR,URINE YELLOW; GLUCOSE,URINE NEG (NEG); NITRITE,URINE NEG (NEG); SQUAMOUS EPITHELIAL CELL,UR MOD /LPF; UROBILINOGEN,URINE 0.2 mg/dL (0.2 mg/dL)
--- NOTE | 2018-06-30 04:24 | ED.ADGEN ---
Past History Past Medical History: Anxiety, Hypertension Past Surgical History: , Hysterectomy, Tonsillectomy Smoking: Cigarettes, Less than 1pk/day Alcohol Use: Occasionally Drug Use: None Adult General Chief Complaint Chief Complaint Left lower abdominal pain HPI HPI Patient is a 28-year-old female with history of chronic pelvic pain well-known to this emergency department presents with diffuse left lower/suprapubic pain starting earlier this morning. Patient states pain significantly worsened this afternoon after her 1-year-old accidentally kicked her in the lower abdomen. Denies fever chills, nausea vomiting or sweats. Denies flank pain, urinary frequency urgency or hematuria. No constipation or diarrhea. No history of kidney stones. Previous hysterectomy. Pain is similar in quality character and location as chronic pain[] Review of Systems Review of Systems Review symptoms as per history of present illness. All other systems were reviewed and found to be within normal limits, except as documented in this note. Current Medications Current Medications Current Medications Medications (Trade) Dose Ordered Sig/Neno Start Time Stop Time Status Last Admin Dose Admin Dicyclomine HCl (Bentyl) 10 mg 1X ONCE 06/29/18 19:30 06/29/18 19:37 DC 06/29/18 20:00 10 MG Allergies Allergies Allergies Coded Allergies Type Severity Reaction Last Updated Verified cephalexin Allergy Intermediate 06/30/18 Yes ibuprofen Allergy Intermediate 06/30/18 Yes tramadol Adverse Reaction Mild 06/30/18 Yes Physical Exam Physical Exam Constitutional: Well developed, well nourished, no acute distress, non-toxic appearance. [] HENT: Normocephalic, atraumatic, bilateral external ears normal, oropharynx moist, no oral exudates, nose normal. [] Eyes: PERRLA, EOMI, conjunctiva normal, no discharge. [] Neck: Normal range of motion, no tenderness, supple, no stridor. [] Cardiovascular:Heart rate regular rhythm, no murmur [] Lungs & Thorax: Bilateral breath sounds clear to auscultation [] Abdomen: Bowel sounds normal, soft, no tenderness, left lower quadrant suprapubic pain, no rebound rigidity or guarding, minimal tenderness with deep palpation. Negative McBurney sign.[] Skin: Warm, dry, no erythema, no rash. [] Back: No tenderness, no CVA tenderness. [] Extremities: No tenderness, no cyanosis, no clubbing, ROM intact, no edema. [] Neurologic: Alert and oriented X 3, normal motor function, normal sensory function, no focal deficits noted. [] Psychologic: Affect normal, judgement normal, mood normal. [] Current Patient Data Vital Signs Vital Signs Date Time Temp Pulse Resp B/P (MAP) Pulse Ox O2 Delivery O2 Flow Rate FiO2 06/29/18 19:20 98.6 80 18 98 Room Air Lab Results Laboratory Tests Test 06/29/18 19:20 Urine Collection Type Unknown Urine Color Yellow Urine Clarity Hazy Urine pH 5.5 Urine Specific [place] 1.015 Urine Protein Neg (NEG-TRACE) Urine Glucose (UA) Neg mg/dL (NEG) Urine Ketones (Stick) Neg mg/dL (NEG) Urine Blood Neg (NEG) Urine Nitrite Neg (NEG) Urine Bilirubin Neg (NEG) Urine Urobilinogen Dipstick 0.2 mg/dL (0.2 mg/dL) Urine Leukocyte Esterase Neg (NEG) Urine RBC 1-2 /HPF (0-2) Urine WBC 1-4 /HPF (0-4) Urine Squamous Epithelial Cells Mod /LPF Urine Bacteria 0 /HPF (0-FEW) Urine Mucus Slight /LPF EKG EKG [] Radiology/Procedures Radiology/Procedures [] Course & Med Decision Making Course & Med Decision Making Pertinent Labs and Imaging studies reviewed. (See chart for details) [No acute findings on abdominal pain. Exam is consistent with exacerbation of chronic abdominal pain. Will defer to PCP for further evaluation and management. Return precautions reviewed. Patient verbalizes understanding agreement discharge instructions prior to departure.] Final Impression Final Impression [1. chronic pelvic pain] Dragon Disclaimer Dragon Disclaimer This electronic medical record was generated, in whole or in part, using a voice recognition dictation system. MARIANA CHRIS DO Jun 30, 2018 04:24
== END 2018-06-29 20:00 | disposition home or self-care (01) ==
LOC: ER 18:56
DX: G89.29 Other chronic pain (principal); R10.2 Pelvic and perineal pain; R10.32 Left lower quadrant pain; I10 Essential (primary) hypertension; F17.210 Nicotine dependence, cigarettes, uncomplicated; Z98.890 Other specified postprocedural states; Z90.710 Acquired absence of both cervix and uterus; Z88.1 Allergy status to other antibiotic agents; Z88.6 Allergy status to analgesic agent
CPT/HCPCS: 81001; 96372; 99283; J0500

== ENCOUNTER 2018-07-06 16:54 | Emergency (ER) | payer OTHER ==
[~2018-07-06] VITALS: Ht 160 cm; Wt 116.5 kg
[~2018-07-06 16:54] MED LIST changes: +DICY20TA3 PO
[2018-07-06] MEDS ORDERED: ONDANSETRON ODT 4 MG TAB.RAPDIS PO ONE (17:45)
[2018-07-06] MEDS ORDERED: SUMAtriptan SUCC 6 MG/0.5 ML VIAL SQ ONE (17:45)
[2018-07-06] MEDS ORDERED: BUTA1CAP31 PO (17:57)
[2018-07-06] MEDS ORDERED: ONDA4TAB10 SL (17:57)
--- NOTE | 2018-07-06 17:57 | PHYS DOC ---
Past History Past Medical History: Anxiety, Hypertension Past Surgical History: , Hysterectomy, Tonsillectomy Smoking: Cigarettes, Less than 1pk/day Alcohol Use: Occasionally Drug Use: None Adult General Chief Complaint Chief Complaint: HEADACHE HPI HPI Patient is a 28 year old female with history of frequent emergency room visits and migraine headache present with complaining of headache for the last 4 days as a constant left side throbbing pain and intermittent episodes of hand numbness that is different from her usual migraine headache. Patient states she took [id number] Tylenol without improvement of her condition and complaining of nausea without focal neuro deficit, fever and chills, neck pain, head injury. Review of Systems Review of Systems Constitutional: Denies fever or chills [] Eyes: Denies change in visual acuity, redness, or eye pain [] HENT: Denies nasal congestion or sore throat [] Respiratory: Denies cough or shortness of breath [] Cardiovascular: No additional information not addressed in HPI [] GI: Denies abdominal pain, vomiting, bloody stools or diarrhea [] : Denies dysuria or hematuria [] Musculoskeletal: Denies back pain or joint pain [] Integument: Denies rash or skin lesions [] Neurologic: Reports headache, denies focal weakness or sensory changes [] Endocrine: Denies polyuria or polydipsia [] All other systems were reviewed and found to be within normal limits, except as documented in this note. Current Medications Current Medications Current Medications Medications (Trade) Dose Ordered Sig/Neno Start Time Stop Time Status Last Admin Dose Admin Ondansetron HCl (Zofran Odt) 4 mg 1X ONCE 07/06/18 17:45 07/06/18 17:46 DC Sumatriptan Succinate (Imitrex) 6 mg 1X ONCE 07/06/18 17:45 07/06/18 17:46 DC Allergies Allergies Allergies Coded Allergies Type Severity Reaction Last Updated Verified cephalexin Allergy Intermediate 06/30/18 Yes ibuprofen Allergy Intermediate 06/30/18 Yes tramadol Adverse Reaction Mild 06/30/18 Yes Physical Exam Physical Exam Constitutional: Well developed, well nourished, mild distress, non-toxic appearance, morbidly obese. [] HENT: Normocephalic, atraumatic, bilateral external ears normal, oropharynx moist, no oral exudates, nose normal. [] Eyes: PERRLA, EOMI, conjunctiva normal, no discharge. [] Neck: Normal range of motion, no tenderness, supple, no stridor. [] Cardiovascular:Heart rate regular rhythm, no murmur [] Lungs & Thorax: Bilateral breath sounds clear to auscultation [] Abdomen: Bowel sounds normal, soft, no tenderness, no masses, no pulsatile masses. [] Skin: Warm, dry, no erythema, no rash. [] Back: No tenderness, no CVA tenderness. [] Extremities: No tenderness, no cyanosis, no clubbing, ROM intact, no edema. [] Neurologic: Alert and oriented X 3, normal motor function, normal sensory function, no focal deficits noted. [] Psychologic: Affect normal, judgement normal, mood normal. [] Current Patient Data Vital Signs Vital Signs Date Time Temp Pulse Resp B/P (MAP) Pulse Ox O2 Delivery O2 Flow Rate FiO2 07/06/18 17:09 98.1 76 18 99 Room Air EKG EKG [] Radiology/Procedures Radiology/Procedures [] Course & Med Decision Making Course & Med Decision Making Evaluation of patient in ER showed 28-year-old male patient with history of frequent emergency room visits presented to ER with complaining of headache for the last 4 days. Patient had unremarkable physical exam and stated she had Dilaudid in her previous ER visit for migraine headache that did not like the side effects of medication. Patient had Imitrex and Zofran and landed discharge patient with prescription of Fioricet and Zofran. Dragon Disclaimer Dragon Disclaimer This electronic medical record was generated, in whole or in part, using a voice recognition dictation system. Departure Departure: Impression: Primary Impression: Migraine Additional Impressions: Tobacco abuse Tobacco abuse counseling Morbid obesity Disposition: HOME, SELF-CARE (at 1810) Condition: IMPROVED Referrals: KULDEEP DOSS MD (PCP) Patient Instructions: Migraine Headache Additional Instructions: Drink plenty of liquids Follow-up with your primary care physician in 3-5 days Return to ER if not getting better Scripts Ondansetron (ZOFRAN ODT) 4 Mg Tab.rapdis 1 TAB SL Q8HRS, #15 TAB Prov: LIT IVY MD 07/06/18 Butalbital/Aspirin/Caffeine (FIORINAL 50-325-40 MG CAPSULE) 1 Each Capsule 1 EACH PO QID PRN for HEADACHE, #14 CAP Prov: LIT IVY MD 07/06/18 Problem Qualifiers LIT IVY MD Jul 06, 2018 17:57
[2018-07-06 17:58] VITALS: BP 148/85
== END 2018-07-06 18:09 | disposition home or self-care (01) ==
LOC: ER 16:54
DX: G43.909 Migraine, unspecified, not intractable, without status migrainosus (principal); F17.210 Nicotine dependence, cigarettes, uncomplicated; I10 Essential (primary) hypertension; E66.01 Morbid (severe) obesity due to excess calories; Z71.6 Tobacco abuse counseling; Z68.42 Body mass index [BMI] 45.0-49.9, adult; Z88.1 Allergy status to other antibiotic agents; Z88.6 Allergy status to analgesic agent; Z88.8 Allergy status to other drugs, medicaments and biological substances
CPT/HCPCS: 96372; 99283; J3030; Q0162

== ENCOUNTER 2018-07-15 19:58 | Emergency (ER) | payer OTHER ==
[~2018-07-15] VITALS: Ht 160 cm; Wt 120.0 kg
[~2018-07-15 19:58] MED LIST changes: +BUTA1CAP31 PO
--- NOTE | 2018-07-15 20:46 | PHYS DOC ---
Adult General Chief Complaint Chief Complaint abd pain HPI HPI This is a very pleasant failure years old female presented to the emergency department with 2 hours history of abdominal pain in the left lower quadrant did not associated with any urinary symptoms no nausea no vomiting no diarrhea and urgency no frequency no hematuria no blood in the stool or black stool Review of Systems Review of Systems Constitutional: Denies fever or chills [] Eyes: Denies change in visual acuity, redness, or eye pain [] HENT: Denies nasal congestion or sore throat [] Respiratory: Denies cough or shortness of breath [] Cardiovascular: No additional information not addressed in HPI [] GI: Denies abdominal pain, nausea, vomiting, bloody stools or diarrhea [] : Denies dysuria or hematuria [] Musculoskeletal: Denies back pain or joint pain [] Integument: Denies rash or skin lesions [] Neurologic: Denies headache, focal weakness or sensory changes [] Endocrine: Denies polyuria or polydipsia [] All other systems were reviewed and found to be within normal limits, except as documented in this note. Current Medications Current Medications Current Medications Medications (Trade) Dose Ordered Sig/Neno Start Time Stop Time Status Last Admin Dose Admin Acetaminophen/ Hydrocodone Bitart (Lortab 5/325) 2 tab 1X ONCE 07/15/18 23:15 07/15/18 23:16 DC 07/15/18 23:26 2 TAB Iohexol (Omnipaque 300 Mg/ml) 75 ml 1X ONCE 07/15/18 20:45 07/15/18 20:46 DC 07/15/18 21:53 75 ML Ketorolac Tromethamine (Toradol 30mg Vial) 30 mg 1X ONCE 07/15/18 23:00 07/15/18 23:01 DC Morphine Sulfate (Morphine 4mg Syringe) 4 mg 1X ONCE 07/15/18 20:45 07/15/18 20:46 DC 07/15/18 21:21 4 MG Allergies Allergies Allergies Coded Allergies Type Severity Reaction Last Updated Verified cephalexin Allergy Intermediate 07/15/18 Yes ibuprofen Allergy Intermediate 06/30/18 Yes tramadol Adverse Reaction Mild 06/30/18 Yes Physical Exam Physical Exam Constitutional: Well developed, well nourished, no acute distress, non-toxic appearance. [] HENT: Normocephalic, atraumatic, bilateral external ears normal, oropharynx moist, no oral exudates, nose normal. [] Eyes: PERRLA, EOMI, conjunctiva normal, no discharge. [] Neck: Normal range of motion, no tenderness, supple, no stridor. [] Cardiovascular:Heart rate regular rhythm, no murmur [] Lungs & Thorax: Bilateral breath sounds clear to auscultation [] Abdomen: Bowel sounds normal, soft, + tenderness in left lower quadrant, no masses, no pulsatile masses. [] Skin: Warm, dry, no erythema, no rash. [] Back: No tenderness, no CVA tenderness. [] Extremities: No tenderness, no cyanosis, no clubbing, ROM intact, no edema. [] Neurologic: Alert and oriented X 3, normal motor function, normal sensory function, no focal deficits noted. [] Psychologic: Affect normal, judgement normal, mood normal. [] Current Patient Data Vital Signs Vital Signs Date Time Temp Pulse Resp B/P (MAP) Pulse Ox O2 Delivery O2 Flow Rate FiO2 07/15/18 23:26 20 100 Room Air 07/15/18 20:11 98.7 90 Lab Results Laboratory Tests Test 07/15/18 21:06 07/15/18 21:07 07/15/18 22:14 White Blood Count 7.7 x10^3/uL (4.0-11.0) Red Blood Count 4.36 x10^6/uL (3.50-5.40) Hemoglobin 12.9 g/dL (12.0-15.5) Hematocrit 37.7 % (36.0-47.0) Mean Corpuscular Volume 86 fL (79-100) Mean Corpuscular Hemoglobin 30 pg (25-35) Mean Corpuscular Hemoglobin Concent 34 g/dL (31-37) Red Cell Distribution Width 14.4 % (11.5-14.5) Platelet Count 227 x10^3/uL (140-400) Neutrophils (%) (Auto) 53 % (31-73) Lymphocytes (%) (Auto) 34 % (24-48) Monocytes (%) (Auto) 8 % (0-9) Eosinophils (%) (Auto) 5 % (0-3) H Basophils (%) (Auto) 1 % (0-3) Neutrophils # (Auto) 4.0 x10^3uL (1.8-7.7) Lymphocytes # (Auto) 2.6 x10^3/uL (1.0-4.8) Monocytes # (Auto) 0.6 x10^3/uL (0.0-1.1) Eosinophils # (Auto) 0.3 x10^3/uL (0.0-0.7) Basophils # (Auto) 0.1 x10^3/uL (0.0-0.2) Sodium Level 140 mmol/L (136-145) Potassium Level 4.0 mmol/L (3.5-5.1) Chloride Level 103 mmol/L (98-107) Carbon Dioxide Level 30 mmol/L (21-32) Anion Gap 7 (6-14) Blood Urea Nitrogen 8 mg/dL (7-20) Creatinine 0.8 mg/dL (0.6-1.0) Estimated GFR (Cockcroft-Gault) 84.2 BUN/Creatinine Ratio 10 (6-20) Glucose Level 108 mg/dL (70-99) H Calcium Level 8.5 mg/dL (8.5-10.1) Total Bilirubin 0.3 mg/dL (0.2-1.0) Aspartate Amino Transferase (AST) 38 U/L (15-37) H Alanine Aminotransferase (ALT) 43 U/L (14-59) Alkaline Phosphatase 51 U/L (46-116) Total Protein 6.7 g/dL (6.4-8.2) Albumin 3.4 g/dL (3.4-5.0) Albumin/Globulin Ratio 1.0 (1.0-1.7) Lipase 159 U/L (73-393) Urine Collection Type Unknown Urine Color Yellow Urine Clarity Clear Urine pH >8.5 Urine Specific [place] 1.015 Urine Protein Neg (NEG-TRACE) Urine Glucose (UA) Neg mg/dL (NEG) Urine Ketones (Stick) Neg mg/dL (NEG) Urine Blood Neg (NEG) Urine Nitrite Neg (NEG) Urine Bilirubin Neg (NEG) Urine Urobilinogen Dipstick 0.2 mg/dL (0.2 mg/dL) Urine Leukocyte Esterase Neg (NEG) Urine RBC 0 /HPF (0-2) Urine WBC 0 /HPF (0-4) Urine Squamous Epithelial Cells Mod /LPF Urine Bacteria Few /HPF (0-FEW) POC Urine HCG, Qualitative hcg negative (Negative) EKG EKG [] Radiology/Procedures Radiology/Procedures [] Course & Med Decision Making Course & Med Decision Making Pertinent Labs and Imaging studies reviewed. (See chart for details) [] Final Impression Final Impression []Had a very lengthy discussion with the patient regarding the finding of the CAT scan I advised the patient to follow up with gastroenterology advisers on liquid diet Problems: (1) Abdominal pain Qualifiers: Qualified Codes: R10.10 - Upper abdominal pain, unspecified Dragon Disclaimer Dragon Disclaimer This electronic medical record was generated, in whole or in part, using a voice recognition dictation system. CONSTANCE CUEVAS MD Jul 15, 2018 20:46
[2018-07-15] MEDS: MORPHINE SULFATE 4 MG/ML DISP.SYRIN. IV ONE (21:21)
[2018-07-15 21:23] LABS: BASO # 0.1 x10^3/uL (0.0-0.2); BASO % 1 % (0-3); EOS # 0.3 x10^3/uL (0.0-0.7); EOS % 5 % (0-3); HEMATOCRIT 37.7 % (36.0-47.0); HEMOGLOBIN 12.9 g/dL (12.0-15.5); LYMPH # 2.6 x10^3/uL (1.0-4.8); LYMPH % 34 % (24-48); MEAN CORPUSCULAR HEMOGLOBIN 30 pg (25-35); MEAN CORPUSCULAR HGB CONC 34 g/dL (31-37); MEAN CORPUSCULAR VOLUME 86 fL (79-100); MONO # 0.6 x10^3/uL (0.0-1.1); MONO % 8 % (0-9); NEUT % 53 % (31-73); PLATELET COUNT 227 x10^3/uL (140-400); RED BLOOD COUNT 4.36 x10^6/uL (3.50-5.40); RED CELL DISTRIBUTION WIDTH 14.4 % (11.5-14.5); WHITE BLOOD COUNT 7.7 x10^3/uL (4.0-11.0)
[2018-07-15 21:27] LABS: CLARITY,URINE CLEAR; COLOR,URINE YELLOW
[2018-07-15 21:28] LABS: BACTERIA,URINE FEW /HPF (0-FEW); BILIRUBIN,URINE NEG (NEG); GLUCOSE,URINE NEG (NEG); NITRITE,URINE NEG (NEG); RBC,URINE 0 /HPF (0-2); SQUAMOUS EPITHELIAL CELL,UR MOD /LPF; UROBILINOGEN,URINE 0.2 mg/dL (0.2 mg/dL); WBC,URINE 0 /HPF (0-4)
[2018-07-15 21:34] LABS: ALBUMIN 3.4 g/dL (3.4-5.0); CALCIUM 8.5 mg/dL (8.5-10.1); CREATININE 0.8 mg/dL (0.6-1.0); GFR 84.2; TOTAL BILIRUBIN 0.3 mg/dL (0.2-1.0); TOTAL PROTEIN 6.7 g/dL (6.4-8.2)
[2018-07-15] MEDS: IOHEXOL 300 MG/ML 75 ML VIAL. IV ONE (21:53)
[2018-07-15] MEDS: KETOROLAC 30 MG/ML VIAL. IV ONE (23:00)
--- NOTE | 2018-07-15 23:21 | RAD ---
PQRS Compliance Statement: One or more of the following individualized dose reduction techniques were utilized for this examination: 1. Automated exposure control 2. Adjustment of the mA and/or kV according to patient size 3. Use of iterative reconstruction technique CT ABD PELV W/ IV CONTRST ONLY Clinical Indication: LLQ abdominal pain x today only, no other symptoms. HTN, Smoker, Partial hysterectomy, cholecystectomy, umbilical hernia repair. Comparison: CT abdomen and pelvis without contrast, November 15, 2015. Technique: Helical CT imaging of the abdomen and pelvis is performed after 75 cc of Omnipaque 300 IV contrast. Oral contrast not given. Findings: Lung bases are clear. Cardiac size normal. Cholecystectomy. Liver, spleen, pancreas, adrenal glands, abdominal aorta, and kidneys are normal. Heterogeneous material in the stomach. Respiratory motion artifact in the midabdomen. The appendix is normal. The terminal ileum is mildly dilated. There is no wall thickening. There is a tiny amount of probably fluid density in the right lower quadrant mesentery, axial image 70, coronal image 25. There is surrounding small bowel loops. There is no obvious tethering although finding is near the mildly dilated terminal ileum. There are scattered subcentimeter mesenteric lymph nodes. There is no adenopathy. Periumbilical subcutaneous fat induration may be sequela of prior hernia repair. Urinary bladder is normal. Partial hysterectomy. There is moderate pelvic free fluid. There is a peripherally enhancing 1.9 cm right ovarian functional cyst. No acute bone abnormality. IMPRESSION: 1. Small right ovary functional cyst. Moderate pelvic free fluid. Findings may be physiologic. 2. The terminal ileum is mildly dilated. Tiny fluid or soft tissue density in the right lower quadrant mesentery with surrounding small bowel loops is noted. This finding is near the terminal ileum. Differential considerations include sclerosing mesenteritis although a fat halo is not seen, lymphoma although there is no lorraine adenopathy, or carcinoid tumor although there are no mesenteric calcifications. Recommend short-term follow-up CT imaging. Electronically signed by: Saúl Young MD (07/15/2018 11:17 PM) [facility]
[2018-07-15] MEDS: HYDROcodone/APAP 5/325MG 1 TAB TABLET PO ONE (23:26)
[2018-07-15] MEDS ORDERED: PRED20TA PO (23:48)
[2018-07-16 00:11] VITALS: BP 152/103
[2018-07-16] MEDS: predniSONE 20 MG TABLET PO ONE (00:12)
== END 2018-07-16 00:13 | disposition home or self-care (01) ==
LOC: ER 19:58
DX: R10.32 Left lower quadrant pain (principal); R10.10 Upper abdominal pain, unspecified; Z88.1 Allergy status to other antibiotic agents; Z88.6 Allergy status to analgesic agent
CPT/HCPCS: 36415; 74177; 80053; 81001; 81025; 83690; 85025; 96374; 99285; J2270; J7512; Q9967

== ENCOUNTER 2018-08-04 11:15 | Emergency (ER) | payer OTHER ==
[~2018-08-04] VITALS: Ht 160 cm; Wt 119.8 kg
[~2018-08-04 11:15] MED LIST changes: +HYDR-3165 PO; -HYDR-971 PO; +PRED20TA PO
--- NOTE | 2018-08-04 11:59 | PHYS DOC ---
Past History Past Medical History: Anxiety, Asthma, Depression, Hypertension Past Surgical History: , Hysterectomy, Tonsillectomy Smoking: Cigarettes, Less than 1pk/day Alcohol Use: Occasionally Drug Use: None Adult General Chief Complaint Chief Complaint: LOWER EXT PAIN [facility] HPI 28-year-old female presents with bilateral lower extremity swelling for the last 1 week. Patient states that she has had increased swelling below the knees on both legs for about a week. It has been getting worse. Today they are painful and "hard to the touch". She denies trauma, long plane or car rides. She denies chest pain, shortness of breath, or diaphoresis. She has no history of DVT. There is family history of DVT. She denies fever or chills. She is on Lasix 20 mg daily. She believe she has had normal or increased urine output the last few days. She denies dysuria. Review of Systems Review of Systems Constitutional: Denies fever or chills [] Eyes: Denies change in visual acuity, redness, or eye pain [] HENT: Denies nasal congestion or sore throat [] Respiratory: Denies cough or shortness of breath [] Cardiovascular: No additional information not addressed in HPI [] GI: Denies abdominal pain, nausea, vomiting, bloody stools or diarrhea [] : Denies dysuria or hematuria [] Musculoskeletal: Bilateral calf pain and swelling[] Integument: Denies rash or skin lesions [] Neurologic: Denies headache, focal weakness or sensory changes [] Endocrine: Denies polyuria or polydipsia [] All other systems were reviewed and found to be within normal limits, except as documented in this note. Current Medications Current Medications Current Medications Medications (Trade) Dose Ordered Sig/[facility] Start Time Stop Time Status Last Admin Dose Admin Morphine Sulfate (Morphine 2mg Syringe) 2 mg 1X ONCE 08/04/18 12:00 08/04/18 12:01 UNV Ondansetron HCl (Zofran) 4 mg 1X ONCE 08/04/18 12:00 08/04/18 12:01 UNV Allergies Allergies Allergies Coded Allergies Type Severity Reaction Last Updated Verified cephalexin Allergy Intermediate 07/15/18 Yes ibuprofen Allergy Intermediate 06/30/18 Yes tramadol Adverse Reaction Mild 06/30/18 Yes Physical Exam Physical Exam Constitutional: Well developed, well nourished, no acute distress, non-toxic appearance. [] HENT: Normocephalic, atraumatic, bilateral external ears normal, oropharynx moist, no oral exudates, nose normal. [] Eyes: PERRLA, EOMI, conjunctiva normal, no discharge. [] Neck: Normal range of motion, no tenderness, supple, no stridor. [] Cardiovascular:Heart rate regular rhythm, no murmur [] Lungs & Thorax: Bilateral breath sounds clear to auscultation [] Abdomen: Bowel sounds normal, soft, no tenderness, no masses, no pulsatile masses. [] Skin: Warm, dry, no erythema, no rash. [] Back: No tenderness, no CVA tenderness. [] Extremities: Bilateral lower legs tender to palpation, firm to the touch, 3+ nonpitting edema[] Neurologic: Alert and oriented X 3, normal motor function, normal sensory function, no focal deficits noted. [] Psychologic: Affect normal, judgement normal, mood normal. [] Current Patient Data Vital Signs Vital Signs Date Time Temp Pulse Resp B/P (MAP) Pulse Ox O2 Delivery O2 Flow Rate FiO2 08/04/18 11:15 98.1 82 18 98 Room Air EKG EKG [] Radiology/Procedures Radiology/Procedures [] Impressions: EXAM: Bilateral lower extremity venous Doppler. HISTORY: Bilateral lower extremity pain/swelling. COMPARISON: None. FINDINGS: Grayscale and Doppler analysis of the both lower extremity deep venous systems was performed with graded compression and augmentation. The common femoral, greater saphenous, superficial femoral, popliteal and calf veins were assessed. There is no evidence of deep venous thrombosis. Prominent inguinal lymph nodes have fatty pradeep and are likely benign. IMPRESSION: 1. No evidence of deep venous thrombosis. Electronically signed by: Robyn Blevins MD (08/04/2018 1:16 PM) [facility] [place] AND SIGNED BY: BERENICE BLEVINS MD DATE: 08/04/18 [id number] CC: MARIANA PIZANO DO; KULDEEP DOSS MD ~ Course & Med Decision Making Course & Med Decision Making Pertinent Labs and Imaging studies reviewed. (See chart for details) Patient's ultrasound was negative for DVT. Her labs are significant for an elevated proBNP of 352. She has no baseline for comparison. It seems most likely the patient does have some increased edema at this time I will have her double her Lasix dose for the next 3 days. I will give her 20 mg IV in the ED. She is stable for discharge at this time. [] Dragon Disclaimer Dragon Disclaimer This electronic medical record was generated, in whole or in part, using a voice recognition dictation system. Departure Departure: Referrals: KULDEEP DOSS MD (PCP) MARIANA PIZANO DO Aug 04, 2018 11:59
[2018-08-04] MEDS ORDERED: MORPHINE SULFATE 2 MG/ML DISP.SYRIN. IV ONE ×2 (12:00→13:30)
[2018-08-04] MEDS ORDERED: ONDANSETRON PF 4 MG/2 ML VIAL. IV ONE (12:00)
[2018-08-04 12:21] LABS: BASO # 0.1 x10^3/uL (0.0-0.2); BASO % 1 % (0-3); EOS # 0.4 x10^3/uL (0.0-0.7); EOS % 4 % (0-3); HEMATOCRIT 40.9 % (36.0-47.0); HEMOGLOBIN 13.9 g/dL (12.0-15.5); LYMPH # 2.5 x10^3/uL (1.0-4.8); LYMPH % 29 % (24-48); MEAN CORPUSCULAR HEMOGLOBIN 29 pg (25-35); MEAN CORPUSCULAR HGB CONC 34 g/dL (31-37); MEAN CORPUSCULAR VOLUME 86 fL (79-100); MONO # 0.6 x10^3/uL (0.0-1.1); MONO % 7 % (0-9); NEUT # 5.1 x10^3uL (1.8-7.7); NEUT % 59 % (31-73); PLATELET COUNT 291 x10^3/uL (140-400); RED BLOOD COUNT 4.73 x10^6/uL (3.50-5.40); WHITE BLOOD COUNT 8.6 x10^3/uL (4.0-11.0)
[2018-08-04 12:39] LABS: ALBUMIN 3.7 g/dL (3.4-5.0); ALBUMIN/GLOBULIN RATIO 1.2 (1.0-1.7); CALCIUM 9.3 mg/dL (8.5-10.1); CREATININE 0.7 mg/dL (0.6-1.0); GFR 98.3; POTASSIUM 4.1 mmol/L (3.5-5.1); TOTAL BILIRUBIN 0.3 mg/dL (0.2-1.0); TOTAL PROTEIN 6.9 g/dL (6.4-8.2)
--- NOTE | 2018-08-04 13:19 | RAD ---
EXAM: Bilateral lower extremity venous Doppler. HISTORY: Bilateral lower extremity pain/swelling. COMPARISON: None. FINDINGS: Grayscale and Doppler analysis of the both lower extremity deep venous systems was performed with graded compression and augmentation. The common femoral, greater saphenous, superficial femoral, popliteal and calf veins were assessed. There is no evidence of deep venous thrombosis. Prominent inguinal lymph nodes have fatty pradeep and are likely benign. IMPRESSION: 1. No evidence of deep venous thrombosis. Electronically signed by: Robyn Blevins MD (08/04/2018 1:16 PM) [facility] [place]
[2018-08-04] MEDS ORDERED: FUROSEMIDE 40 MG/4 ML VIAL IVP ONE (14:00)
[2018-08-04 14:03] VITALS: BP 157/66
[2018-08-04] MEDS ORDERED: HYDR-3165 PO (14:12)
[2018-08-04] MEDS ORDERED: HYDROcodone/APAP 5/325MG 1 TAB TABLET PO ONE (14:15)
== END 2018-08-04 14:19 | disposition home or self-care (01) ==
LOC: ER 11:15
DX: R22.43 Localized swelling, mass and lump, lower limb, bilateral (principal); R60.0 Localized edema; M79.605 Pain in left leg; M79.604 Pain in right leg; R79.89 Other specified abnormal findings of blood chemistry; F41.9 Anxiety disorder, unspecified; J45.909 Unspecified asthma, uncomplicated; F32.9 Major depressive disorder, single episode, unspecified; I10 Essential (primary) hypertension; F17.210 Nicotine dependence, cigarettes, uncomplicated; Z88.1 Allergy status to other antibiotic agents; Z88.6 Allergy status to analgesic agent
CPT/HCPCS: 36415; 80053; 83880; 85025; 93970; 96374; 96375; 96376; 99284; J1940; J2270; J2405

== ENCOUNTER → 2018-08-06 | Outpatient (CLI) | payer OTHER ==
[2018-08-04 14:03] VITALS: BP 157/66
[~2018-08-06] MED LIST changes: +HYDR-1179 PO; +HYDR-2145 PO; +HYDR-2155 PO; -HYDR-2758 PO; -HYDR-2762 PO; +HYDR-2765 PO; -HYDR-79 PO; -HYDR12.53 PO; +HYDR12.572 PO; -HYDR25TA9 PO; -OXYC-323 PO; +OXYC1TAB15 PO
--- NOTE | 2018-08-06 12:31 | RAD ---
Pelvic ultrasound, 08/06/2018: HISTORY: Ovarian cyst Transabdominal and transvaginal scans were obtained. The uterus is surgically absent. The right ovary could not be visualized, perhaps due to overlying bowel. A small structure which appears to represent the left ovary is visualized. It contains a 2.4 cm simple appearing cyst. There is blood flow within the left ovary. A small amount of free fluid is evident in the pelvis. IMPRESSION: 1. Surgical absence of the uterus. 2. Small left ovarian cyst. 3. Nonvisualization of the right ovary. Electronically signed by: Americo Franks MD (08/06/2018 12:27 PM) [facility]
== END | disposition home or self-care (01) ==
LOC: US 10:33
PROVIDERS: ATTEND Obstetrics & Gynecology
DX: N83.292 Other ovarian cyst, left side (principal); Z90.710 Acquired absence of both cervix and uterus
CPT/HCPCS: 76830; 76856

== ENCOUNTER 2018-08-17 08:25 | Emergency (ER) | payer OTHER ==
[~2018-08-17] VITALS: Ht 160 cm; Wt 119.0 kg
[2018-08-17] MEDS ORDERED: DIHYDROERGOTAMINE 1 MG/ML AMPUL. IM ONE (09:15)
[2018-08-17] MEDS ORDERED: BUTA1CAP31 PO (09:39)
--- NOTE | 2018-08-17 09:39 | PHYS DOC ---
Past History Past Medical History: Asthma, Hypertension Past Surgical History: Cholecystectomy, Hysterectomy, Tonsillectomy Smoking: Cigarettes, Less than 1pk/day Alcohol Use: Occasionally Drug Use: None Adult General Chief Complaint Chief Complaint: HEADACHE HPI HPI Patient is a 28 year old female with history of migraine headache and frequent emergency room visits who presents with complaining of migraine headache for the last 2 weeks as a constant and sharp global pain as stated with nausea that did not get better with taking [id number] medication and Imitrex. Patient denies fever and chills and focal neurodeficit and is states she did not seek medical attention for her migraine headache for 2 weeks and rated her pain 10 over 10. Review of Systems Review of Systems Constitutional: Denies fever or chills [] Eyes: Denies change in visual acuity, redness, or eye pain [] HENT: Denies nasal congestion or sore throat [] Respiratory: Denies cough or shortness of breath [] Cardiovascular: No additional information not addressed in HPI [] GI: Denies abdominal pain, vomiting, bloody stools or diarrhea , reports nausea [] : Denies dysuria or hematuria [] Musculoskeletal: Denies back pain or joint pain [] Integument: Denies rash or skin lesions [] Neurologic: Reports headache, denies focal weakness or sensory changes [] Endocrine: Denies polyuria or polydipsia [] All other systems were reviewed and found to be within normal limits, except as documented in this note. Current Medications Current Medications Current Medications Medications (Trade) Dose Ordered Sig/Neno Start Time Stop Time Status Last Admin Dose Admin Dihydroergotamine Mesylate (Dhe) 1 mg 1X ONCE 08/17/18 09:15 08/17/18 09:16 DC 08/17/18 08:54 1 MG Ketorolac Tromethamine (Toradol Im) 60 mg 1X ONCE 08/17/18 10:00 08/17/18 10:01 Ondansetron HCl (Zofran Odt) 4 mg 1X ONCE 08/17/18 10:00 08/17/18 10:01 08/17/18 09:28 4 MG Allergies Allergies Allergies Coded Allergies Type Severity Reaction Last Updated Verified cephalexin Allergy Intermediate 08/17/18 Yes ibuprofen Allergy Intermediate 08/17/18 Yes tramadol Adverse Reaction Mild 08/17/18 Yes Physical Exam Physical Exam Constitutional: Well developed, well nourished, mild distress, non-toxic appearance. [] HENT: Normocephalic, atraumatic, , oropharynx moist, no oral exudates, nose normal. [] Eyes: PERRLA, EOMI, conjunctiva normal, no discharge. [] Neck: Normal range of motion, no tenderness, supple, no stridor. [] Cardiovascular:Heart rate regular rhythm, no murmur [] Lungs & Thorax: Bilateral breath sounds clear to auscultation [] Abdomen: Bowel sounds normal, soft, no tenderness, no masses, no pulsatile masses. [] Skin: Warm, dry, no erythema, no rash. [] Back: No tenderness, no CVA tenderness. [] Extremities: No tenderness, no cyanosis, no clubbing, ROM intact, no edema. [] Neurologic: Alert and oriented X 3, normal motor function, normal sensory function, no focal deficits noted. [] Psychologic: Affect anxious, judgement normal, mood normal. [] Current Patient Data Vital Signs Vital Signs Date Time Temp Pulse Resp B/P (MAP) Pulse Ox O2 Delivery O2 Flow Rate FiO2 08/17/18 08:34 98.9 113 18 99 Room Air EKG EKG [] Radiology/Procedures Radiology/Procedures [] Course & Med Decision Making Course & Med Decision Making Evaluation of patient in ER showed 28-year-old female patient with history of mitral and headache and frequent emergency room visits presented with complaining of headache for 2 weeks. Patient had unremarkable physical exam and treated with DHE and throat are with improvement of her condition and instructed to follow with her primary care physician. Dragon Disclaimer Dragon Disclaimer This electronic medical record was generated, in whole or in part, using a voice recognition dictation system. Departure Departure: Impression: Primary Impression: Migraine Additional Impressions: Tobacco abuse Tobacco abuse counseling Disposition: HOME, SELF-CARE (at 0940) Condition: IMPROVED Referrals: KULDEEP DOSS MD (PCP) Patient Instructions: Migraine Headache, Smoking Cessation, Tips For Success Additional Instructions: Drink plenty of liquids Follow-up with your primary care physician in 3-5 days Return to ER if not getting better Scripts Butalbital/Aspirin/Caffeine (FIORINAL 50-325-40 MG CAPSULE) 1 Each Capsule 1 EACH PO QID PRN for HEADACHE, #14 CAP Prov: LIT IVY MD 08/17/18 Problem Qualifiers LIT IVY MD Aug 17, 2018 09:39
[2018-08-17 10:00] VITALS: BP 125/83
[2018-08-17] MEDS ORDERED: ONDANSETRON ODT 4 MG TAB.RAPDIS PO ONE (10:00)
[2018-08-17] MEDS ORDERED: KETOROLAC 60 MG/2 ML VIAL. IM ONE (10:00)
== END 2018-08-17 10:05 | disposition home or self-care (01) ==
LOC: ER 08:25
DX: G43.909 Migraine, unspecified, not intractable, without status migrainosus (principal); F17.210 Nicotine dependence, cigarettes, uncomplicated; J45.909 Unspecified asthma, uncomplicated; I10 Essential (primary) hypertension; Z71.6 Tobacco abuse counseling; Z88.1 Allergy status to other antibiotic agents; Z88.6 Allergy status to analgesic agent
CPT/HCPCS: 96372; 99283; J1110; J1885; Q0162

== ENCOUNTER 2018-08-23 08:37 | Emergency (ER) | payer OTHER ==
[~2018-08-23] VITALS: Ht 160 cm; Wt 119.7 kg
[2018-08-23] MEDS ORDERED: KETOROLAC 60 MG/2 ML VIAL. IM ONE (09:45)
[2018-08-23] MEDS ORDERED: ONDANSETRON ODT 4 MG TAB.RAPDIS PO ONE (09:45)
[2018-08-23] MEDS ORDERED: ONDA4TAB7 PO (09:56)
[2018-08-23] MEDS ORDERED: BUTA1CAP31 PO (09:56)
--- NOTE | 2018-08-23 10:06 | PHYS DOC ---
Past History Past Medical History: Asthma, Hypertension Past Surgical History: Cholecystectomy, Hysterectomy, Tonsillectomy Smoking: Cigarettes, Less than 1pk/day Alcohol Use: Occasionally Drug Use: None Adult General Chief Complaint Chief Complaint: HEADACHE HPI HPI Patient is a 28 year old female with history of migraine headache and frequent emergency room visits who presents with complaining of migraine headache since last night. Patient complaining of global throbbing headache since 2300 last night as a constant pain associated with nausea and photophobia like her previous episodes of migraine headache that did not get better with over-the- counter Tylenol. Patient denies fever and chills, focal neuro deficit, vomiting , urinary symptoms. Patient received a letter from her primary care physician recently today and was able to see her anymore. Review of Systems Review of Systems Constitutional: Denies fever or chills [] Eyes: Denies change in visual acuity, redness, or eye pain, reports photophobia [] HENT: Denies nasal congestion or sore throat [] Respiratory: Denies cough or shortness of breath [] Cardiovascular: No additional information not addressed in HPI [] GI: Denies abdominal pain, vomiting, bloody stools or diarrhea, reports nausea [] : Denies dysuria or hematuria [] Musculoskeletal: Denies back pain or joint pain [] Integument: Denies rash or skin lesions [] Neurologic: Reports headache, denies focal weakness or sensory changes [] Endocrine: Denies polyuria or polydipsia [] All other systems were reviewed and found to be within normal limits, except as documented in this note. Current Medications Current Medications Current Medications Medications (Trade) Dose Ordered Sig/[facility] Start Time Stop Time Status Last Admin Dose Admin Ketorolac Tromethamine (Toradol Im) 60 mg 1X ONCE 08/23/18 09:45 08/23/18 09:46 Ondansetron HCl (Zofran Odt) 8 mg 1X ONCE 08/23/18 09:45 08/23/18 09:46 Allergies Allergies Allergies Coded Allergies Type Severity Reaction Last Updated Verified cephalexin Allergy Intermediate 08/17/18 Yes ibuprofen Allergy Intermediate 08/17/18 Yes tramadol Adverse Reaction Mild 08/17/18 Yes Physical Exam Physical Exam Constitutional: Well developed, well nourished, mild distress, non-toxic appearance. [] HENT: Normocephalic, atraumatic, bilateral external ears normal, oropharynx moist, no oral exudates, nose normal. [] Eyes: PERRLA, EOMI, conjunctiva normal, no discharge. [] Neck: Normal range of motion, no tenderness, supple, no stridor. [] Cardiovascular:Heart rate regular rhythm, no murmur [] Lungs & Thorax: Bilateral breath sounds clear to auscultation [] Abdomen: Bowel sounds normal, soft, no tenderness, no masses, no pulsatile masses. [] Skin: Warm, dry, no erythema, no rash. [] Back: No tenderness, no CVA tenderness. [] Extremities: No tenderness, no cyanosis, no clubbing, ROM intact, no edema. [] Neurologic: Alert and oriented X 3, normal motor function, normal sensory function, no focal deficits noted. [] Psychologic: Affect normal, judgement normal, mood normal. [] Current Patient Data Vital Signs Vital Signs Date Time Temp Pulse Resp B/P (MAP) Pulse Ox O2 Delivery O2 Flow Rate FiO2 08/23/18 08:37 98.5 115 18 98 Room Air EKG EKG [] Radiology/Procedures Radiology/Procedures [] Course & Med Decision Making Course & Med Decision Making Evaluation of patient in ER showed 28-year-old female patient with history of migraine headache and frequent emergency room visits with another episode of migraine headache. Patient had unremarkable physical exam. Patient treated with Toradol and Zofran and felt better. Patient instructed to quit smoking and follow up with her neurologist and find a new primary care physician. Blood pressure was 160s at arrival to ER that gradually improved. Dragon Disclaimer Dragon Disclaimer This electronic medical record was generated, in whole or in part, using a voice recognition dictation system. Departure Departure: Impression: Primary Impression: Migraine headache without aura Additional Impressions: Nausea Photophobia of both eyes Tobacco abuse Tobacco abuse counseling Elevated blood pressure reading with diagnosis of hypertension Disposition: 01 HOME, SELF-CARE Condition: IMPROVED Referrals: KULDEEP DOSS MD (PCP) ASAEL JETER MD Patient Instructions: Migraine Headache, Smoking Hazards Additional Instructions: Drink plenty of liquids Follow-up with your primary care physician in 3-5 days Return to ER if not getting better Scripts Ondansetron Hcl (ZOFRAN) 4 Mg Tablet 1 TAB PO Q6HRS for nausea and vomiting, #12 TAB Prov: LIT IVY MD 08/23/18 Butalbital/Aspirin/Caffeine (FIORINAL 50-325-40 MG CAPSULE) 1 Each Capsule 1 EACH PO QID PRN for HEADACHE, #14 CAP Prov: LIT IVY MD 08/23/18 Problem Qualifiers LIT IVY MD Aug 23, 2018 10:06
[2018-08-23 10:15] VITALS: BP 155/100
== END 2018-08-23 10:15 | disposition home or self-care (01) ==
LOC: ER 08:37
DX: G43.009 Migraine without aura, not intractable, without status migrainosus (principal); H53.143 Visual discomfort, bilateral; I10 Essential (primary) hypertension; J45.909 Unspecified asthma, uncomplicated; F17.210 Nicotine dependence, cigarettes, uncomplicated; Z71.6 Tobacco abuse counseling; Z88.1 Allergy status to other antibiotic agents; Z88.6 Allergy status to analgesic agent
CPT/HCPCS: 96372; 99283; J1885; Q0162

== ENCOUNTER 2018-09-15 17:55 | Emergency (ER) | payer OTHER ==
[~2018-09-15] VITALS: Ht 160 cm; Wt 119.7 kg
[~2018-09-15 17:55] MED LIST changes: +ONDA4TAB7 PO
[2018-09-15] MEDS ORDERED: KETOROLAC 60 MG/2 ML VIAL. IM ONE (18:15)
[2018-09-15] MEDS ORDERED: CYCLOBENZAPRINE 10 MG TABLET. PO ONE (18:15)
--- NOTE | 2018-09-15 18:31 | ED.ADGEN ---
Past History Past Medical History: Asthma, Hypertension Past Surgical History: Cholecystectomy, Hysterectomy, Tonsillectomy Smoking: Cigarettes, Less than 1pk/day Alcohol Use: Occasionally Drug Use: None Adult General Chief Complaint Chief Complaint back pain HPI HPI All [age] years old female presented to the ER with back pain after a fall yesterday pain in the lumbar area radiating to the left leg no numbness no weakness Review of Systems Review of Systems Constitutional: Denies fever or chills [] Eyes: Denies change in visual acuity, redness, or eye pain [] HENT: Denies nasal congestion or sore throat [] Respiratory: Denies cough or shortness of breath [] Cardiovascular: No additional information not addressed in HPI [] GI: Denies abdominal pain, nausea, vomiting, bloody stools or diarrhea [] : Denies dysuria or hematuria [] Musculoskeletal: Integument: Denies rash or skin lesions [] Neurologic: Denies headache, focal weakness or sensory changes [] Endocrine: Denies polyuria or polydipsia [] All other systems were reviewed and found to be within normal limits, except as documented in this note. Current Medications Current Medications Current Medications Medications (Trade) Dose Ordered Sig/Neno Start Time Stop Time Status Last Admin Dose Admin Cyclobenzaprine HCl (Flexeril) 10 mg 1X ONCE 09/15/18 18:15 09/15/18 18:16 UNV Ketorolac Tromethamine (Toradol Im) 60 mg 1X ONCE 09/15/18 18:15 09/15/18 18:16 UNV Allergies Allergies Allergies Coded Allergies Type Severity Reaction Last Updated Verified cephalexin Allergy Intermediate 08/17/18 Yes ibuprofen Allergy Intermediate 08/17/18 Yes tramadol Adverse Reaction Mild 08/17/18 Yes Physical Exam Physical Exam Constitutional: Well developed, well nourished, no acute distress, non-toxic appearance. [] HENT: Normocephalic, atraumatic, bilateral external ears normal, oropharynx moist, no oral exudates, nose normal. [] Eyes: PERRLA, EOMI, conjunctiva normal, no discharge. [] Neck: Normal range of motion, no tenderness, supple, no stridor. [] Cardiovascular:Heart rate regular rhythm, no murmur [] Lungs & Thorax: Bilateral breath sounds clear to auscultation [] Abdomen: Bowel sounds normal, soft, no tenderness, no masses, no pulsatile masses. [] Skin: Warm, dry, no erythema, no rash. [] Back: No tenderness, no CVA tenderness. [] Extremities: No tenderness, no cyanosis, no clubbing, ROM intact, no edema. [] Neurologic: Alert and oriented X 3, normal motor function, normal sensory function, no focal deficits noted. [] Psychologic: Affect normal, judgement normal, mood normal. [] EKG EKG [] Radiology/Procedures Radiology/Procedures [] Course & Med Decision Making Course & Med Decision Making Pertinent Labs and Imaging studies reviewed. (See chart for details) [] Final Impression Final Impression [] Problems: (1) Back pain Qualifiers: Qualified Codes: M54.5 - Low back pain Dragon Disclaimer Dragon Disclaimer This electronic medical record was generated, in whole or in part, using a voice recognition dictation system. CONSTANCE CUEVAS MD Sep 15, 2018 18:31
[2018-09-15] MEDS ORDERED: CYCL-331 PO (18:34)
[2018-09-15] MEDS ORDERED: ACET-704 PO (18:34)
[2018-09-15 19:05] VITALS: BP 179/107
--- NOTE | 2018-09-15 19:17 | RAD ---
CT LUMBAR SPINE WO CONTRAST Indication: Fall today, sharp lower back pain. Hx broken tailbone x13 years ago. Exposure: One or more of the following individualized dose reduction techniques were utilized for this examination: 1. Automated exposure control 2. Adjustment of the mA and/or kV according to patient size 3. Use of iterative reconstruction technique. Comparison: None are available. Contrast: None FINDINGS: Fracture: No evidence of an acute fracture. Vertebral body height intact. Spondylosis: Transitional anatomy at the lumbosacral junction. No significant spondylosis. AlignmentNo significant sagittal plane subluxation. Bones:No destructive lesion. Paraspinal soft tissues: Unremarkable Visualized aorta: Nonaneurysmal. Visualized kidneys: No evidence of obstructive calculus There are mildly prominent retroperitoneal lymph nodes, likely reactive or hyperplastic in etiology. There is mild diverticulosis in the barely visualized colon. Impression: 1. No acute fracture or subluxation. 2. Mildly prominent retroperitoneal lymph nodes, measure up to 6 mm short axis, most likely reactive. Electronically signed by: Chad Marte MD (09/15/2018 7:13 PM) [facility]
== END 2018-09-15 19:08 | disposition home or self-care (01) ==
LOC: ER 17:55
DX: M54.5 Low back pain (principal); G89.29 Other chronic pain; J45.909 Unspecified asthma, uncomplicated; I10 Essential (primary) hypertension; F17.210 Nicotine dependence, cigarettes, uncomplicated; Z90.49 Acquired absence of other specified parts of digestive tract; Z90.710 Acquired absence of both cervix and uterus; Z88.1 Allergy status to other antibiotic agents; Z88.6 Allergy status to analgesic agent; W18.30XA Fall on same level, unspecified, initial encounter; Y93.89 Activity, other specified; Y92.89 Other specified places as the place of occurrence of the external cause; Y99.8 Other external cause status
CPT/HCPCS: 72131; 96372; 99284; J1885

== ENCOUNTER 2018-09-23 13:35 | Emergency (ER) | payer OTHER ==
[~2018-09-23] VITALS: Ht 160 cm; Wt 117.0 kg
[2018-09-23 13:56] VITALS: BP 141/112
--- NOTE | 2018-09-23 15:26 | PHYS DOC ---
Past History Past Medical History: Asthma, Hypertension Past Surgical History: Cholecystectomy, Hysterectomy, Tonsillectomy Smoking: Cigarettes, Less than 1pk/day Alcohol Use: Occasionally Drug Use: None Adult General Chief Complaint Chief Complaint: ABDOMINAL PAIN HPI HPI Patient is a 28 year old female who presents with 3 days of localized, dull right lower quadrant pain. The patient states that she has tried Tylenol with no relief and that she is allergic to ibuprofen. The pain is constant and is not exacerbated by anything that she knows of. The patient denies nausea, vomiting, constipation, and diarrhea. Patient states this pain is an 8 out of 10. The patient has had a partial hysterectomy, but she has never had an appendectomy. She denies burning on urination or blood in the stool. Review of Systems Review of Systems Constitutional: Denies fever or chills [] Eyes: Denies change in visual acuity, redness, or eye pain [] HENT: Denies nasal congestion or sore throat [] Respiratory: Denies cough or shortness of breath [] Cardiovascular: Denies chest pain or palpitations GI: Admits to RLQ abdominal pain, denies nausea, vomiting, diarrhea [] : Denies dysuria or hematuria [] Integument: Denies rash or skin lesions [] Neurologic: Denies headache, focal weakness or sensory changes [] Complete systems were reviewed and found to be within normal limits, except as documented in this note. Current Medications Current Medications Current Medications Medications (Trade) Dose Ordered Sig/Neno Start Time Stop Time Status Last Admin Dose Admin Fentanyl Citrate (Fentanyl 2ml Vial) 50 mcg 1X ONCE 09/23/18 15:00 09/23/18 15:01 UNV Iohexol (Omnipaque 300 Mg/ml) 75 ml 1X ONCE 09/23/18 15:15 09/23/18 15:16 UNV Ondansetron HCl (Zofran) 4 mg 1X ONCE 09/23/18 15:00 09/23/18 15:01 UNV Allergies Allergies Allergies Coded Allergies Type Severity Reaction Last Updated Verified cephalexin Allergy Intermediate 08/17/18 Yes ibuprofen Allergy Intermediate 08/17/18 Yes tramadol Adverse Reaction Mild 08/17/18 Yes Physical Exam Physical Exam Constitutional: Well developed, well nourished, no acute distress, non-toxic appearance. [] HENT: Normocephalic, atraumatic, nose normal. [] Eyes: Conjunctiva normal, no discharge. [] Neck: Normal range of motion, no tenderness, supple. [] Cardiovascular: Heart rate regular rhythm, no murmur [] Lungs & Thorax: Bilateral breath sounds clear to auscultation [] Abdomen: Soft, tender to palpation in the RLQ, negative for erythema, ecchymosis , or distension, non-peritoneal, negative heel strike [] Skin: Warm, dry, no erythema, no rash. [] Extremities: No tenderness, ROM intact, no edema. [] Neurologic: Alert and oriented X 3, no focal deficits noted. [] Psychologic: Affect normal, judgement normal, mood normal. [] Current Patient Data Vital Signs Vital Signs Date Time Temp Pulse Resp B/P (MAP) Pulse Ox O2 Delivery O2 Flow Rate FiO2 09/23/18 13:56 98.6 87 20 98 Room Air EKG EKG [] Radiology/Procedures Radiology/Procedures PROCEDURE: CT ABDOMEN PELVIS WO CONTRAST PQRS Compliance statement: One or more of the following individualized dose reduction techniques were utilized for this examination: 1. Automated exposure control. 2. Adjustment of the mA and/or kV according to patient size. 3. Use of iterative reconstruction technique. Indication:RLQ abdominal pain, eval for appendicitis. Hx: Partial hysterectomy, cholecystectomy, umbilical hernia.
No IV access after several attempts TECHNIQUE: CT abdomen and pelvis without IV contrast with multiplanar reformats. COMPARISON: None FINDINGS: Limited evaluation of solid abdominal and pelvic organs due to lack of IV contrast. Heart is normal in size. No pericardial or pleural effusion. Clear lung bases. Spleen is mildly enlarged in size measuring 14 cm. Noncontrast appearance of the liver within normal limits. Status post cholecystectomy. Noncontrast appearance of the pancreas and adrenals within normal limits. No nephrolithiasis or hydronephrosis. No enlarged retroperitoneal or pelvic adenopathy. No free pelvic fluid or ascites. No bowel obstruction. Normal appendix. Uterus is surgically absent. No pneumoperitoneum. Urinary bladder is within normal limits. No suspicious bony lesion. IMPRESSION: Limited evaluation of solid abdominal and pelvic organs due to lack of IV contrast. 1. Normal appendix. No nephrolithiasis. 2. Mild splenomegaly, nonspecific. Electronically signed by: Kiran Hernandez DO (09/23/2018 5:42 PM) [facility] Course & Med Decision Making Course & Med Decision Making Pertinent Labs and Imaging studies reviewed. (See chart for details) Patient is a 28 YO F that presented with RLQ abdominal pain. History and physical exam concerning for appendicitis. CT Abd/pelvis negative for any acute abdominal pathology. Urinalysis was negative. Pain management was addressed, the patient requested narcotic pain management but she was prescribed [place] 10 days ago for sacral pain so Levsin was offered. Patient stable for discharge with outpatient follow-up with PCP. Discussed findings and plan with patient and family, who acknowledge understanding and agreement. Victor Manuel: Pt. discharge home as per Dr. Castellano notes. Did not continue care or pt. after shift change. Dragon Disclaimer Dragon Disclaimer This electronic medical record was generated, in whole or in part, using a voice recognition dictation system. Departure Departure: Impression: Primary Impression: Abdominal pain Disposition: HOME, SELF-CARE Condition: STABLE Referrals: KULDEEP DOSS MD (PCP) CHRISTIAN BATISTA MD, SRINIVASA G MD Patient Instructions: Abdominal Pain (Nonspecific) Scripts Famotidine (PEPCID) 20 Mg Tablet 1 TAB PO BID for gastritis, #20 TAB 0 Refills Prov: TRAVIS CASTELLANO DO 09/23/18 Ondansetron (ONDANSETRON ODT) 4 Mg Tab.rapdis 1 TAB PO PRN Q6-8HRS for NAUSEA, #16 TAB Prov: TRAVIS CASTELLANO DO 09/23/18 Hyoscyamine Sulfate (LEVSIN-SL) 0.125 Mg Tab.subl 1-2 TAB SL PRN Q4HRS PRN for PAIN, #20 TAB 0 Refills Prov: TRAVIS CASTELLANO DO 09/23/18 Problem Qualifiers Primary Impression: Abdominal pain Abdominal location: right lower quadrant Qualified Codes: R10.31 - Right lower quadrant pain TRAVIS CASTELLANO DO Sep 23, 2018 15:25 GLENDA CHAVEZ MD Sep 23, 2018 20:35
[2018-09-23 15:35] LABS: BILIRUBIN,URINE NEG (NEG); CLARITY,URINE CLEAR; COLOR,URINE YELLOW; GLUCOSE,URINE NEG (NEG)
[2018-09-23 15:36] LABS: BACTERIA,URINE FEW /HPF (0-FEW); NITRITE,URINE NEG (NEG); RBC,URINE 0 /HPF (0-2); SQUAMOUS EPITHELIAL CELL,UR FEW /LPF; UROBILINOGEN,URINE 0.2 mg/dL (0.2 mg/dL); WBC,URINE 0 /HPF (0-4)
[2018-09-23] MEDS ORDERED: IOHEXOL 300 MG/ML 75 ML VIAL. IV ONE ×2 (15:45→17:45)
[2018-09-23] MEDS ORDERED: ONDANSETRON PF 4 MG/2 ML VIAL. IV ONE (15:45)
[2018-09-23 17:01] LABS: BASO # 0.1 x10^3/uL (0.0-0.2); BASO % 1 % (0-3); EOS # 0.2 x10^3/uL (0.0-0.7); EOS % 3 % (0-3); HEMATOCRIT 40.2 % (36.0-47.0); HEMOGLOBIN 13.8 g/dL (12.0-15.5); LYMPH # 2.2 x10^3/uL (1.0-4.8); LYMPH % 27 % (24-48); MEAN CORPUSCULAR HEMOGLOBIN 30 pg (25-35); MEAN CORPUSCULAR HGB CONC 34 g/dL (31-37); MEAN CORPUSCULAR VOLUME 86 fL (79-100); MONO # 0.5 x10^3/uL (0.0-1.1); MONO % 7 % (0-9); NEUT # 5.1 x10^3uL (1.8-7.7); NEUT % 63 % (31-73); PLATELET COUNT 260 x10^3/uL (140-400); RED BLOOD COUNT 4.66 x10^6/uL (3.50-5.40); RED CELL DISTRIBUTION WIDTH 14.2 % (11.5-14.5); WHITE BLOOD COUNT 8.1 x10^3/uL (4.0-11.0)
[2018-09-23 17:16] LABS: ALBUMIN 3.5 g/dL (3.4-5.0); ALBUMIN/GLOBULIN RATIO 0.9 (1.0-1.7); CALCIUM 8.8 mg/dL (8.5-10.1); CREATININE 0.8 mg/dL (0.6-1.0); GFR 84.2; POTASSIUM 3.8 mmol/L (3.5-5.1); TOTAL BILIRUBIN 0.3 mg/dL (0.2-1.0); TOTAL PROTEIN 7.5 g/dL (6.4-8.2)
--- NOTE | 2018-09-23 17:46 | RAD ---
PQRS Compliance statement: One or more of the following individualized dose reduction techniques were utilized for this examination: 1. Automated exposure control. 2. Adjustment of the mA and/or kV according to patient size. 3. Use of iterative reconstruction technique. Indication:RLQ abdominal pain, eval for appendicitis. Hx: Partial hysterectomy, cholecystectomy, umbilical hernia.
No IV access after several attempts TECHNIQUE: CT abdomen and pelvis without IV contrast with multiplanar reformats. COMPARISON: None FINDINGS: Limited evaluation of solid abdominal and pelvic organs due to lack of IV contrast. Heart is normal in size. No pericardial or pleural effusion. Clear lung bases. Spleen is mildly enlarged in size measuring 14 cm. Noncontrast appearance of the liver within normal limits. Status post cholecystectomy. Noncontrast appearance of the pancreas and adrenals within normal limits. No nephrolithiasis or hydronephrosis. No enlarged retroperitoneal or pelvic adenopathy. No free pelvic fluid or ascites. No bowel obstruction. Normal appendix. Uterus is surgically absent. No pneumoperitoneum. Urinary bladder is within normal limits. No suspicious bony lesion. IMPRESSION: Limited evaluation of solid abdominal and pelvic organs due to lack of IV contrast. 1. Normal appendix. No nephrolithiasis. 2. Mild splenomegaly, nonspecific. Electronically signed by: Kiran Hernandez DO (09/23/2018 5:42 PM) [facility]
[2018-09-23] MEDS ORDERED: FAMO-63 PO (18:12)
[2018-09-23] MEDS ORDERED: ONDA4TAB12 PO (18:12)
[2018-09-23] MEDS ORDERED: HYOS0.1265 SL (18:12)
[2018-09-23] MEDS ORDERED: MORPHINE SULFATE 10 MG/ML SYRINGE. SQ ONE (18:30)
== END 2018-09-23 18:18 | disposition home or self-care (01) ==
LOC: ER 13:35
DX: R10.31 Right lower quadrant pain (principal); R16.1 Splenomegaly, not elsewhere classified; J45.909 Unspecified asthma, uncomplicated; I10 Essential (primary) hypertension; F17.210 Nicotine dependence, cigarettes, uncomplicated; Z90.49 Acquired absence of other specified parts of digestive tract; Z90.710 Acquired absence of both cervix and uterus; Z88.1 Allergy status to other antibiotic agents; Z88.6 Allergy status to analgesic agent
CPT/HCPCS: 36415; 74176; 80053; 81001; 83690; 83735; 85025; 96372; 96374; 96375; 99284; J2270; J2405; J3010; Q9967

== ENCOUNTER 2018-09-25 20:44 | Emergency (ER) | payer OTHER ==
[~2018-09-25] VITALS: Ht 160 cm; Wt 117.0 kg
[~2018-09-25 20:44] MED LIST changes: +HYOS0.1265 SL; +ONDA4TAB12 PO
[2018-09-25] MEDS ORDERED: IV NORMAL SALINE 1,000ML 1,000 ML IV SCH (22:31)
[2018-09-25] MEDS ORDERED: FAMOTIDINE 20 MG/2 ML VIAL IVP ONE (22:45)
[2018-09-25] MEDS ORDERED: ONDANSETRON PF 4 MG/2 ML VIAL. IV ONE (22:45)
[2018-09-25] MEDS ORDERED: KETOROLAC 30 MG/ML VIAL. IV ONE (23:00)
[2018-09-25 23:59] LABS: BASO # 0.1 x10^3/uL (0.0-0.2); BASO % 1 % (0-3); EOS % 0 % (0-3); HEMATOCRIT 40.7 % (36.0-47.0); HEMOGLOBIN 13.9 g/dL (12.0-15.5); LYMPH % 14 % (24-48); MEAN CORPUSCULAR HEMOGLOBIN 29 pg (25-35); MEAN CORPUSCULAR HGB CONC 34 g/dL (31-37); MEAN CORPUSCULAR VOLUME 85 fL (79-100); MONO # 0.3 x10^3/uL (0.0-1.1); MONO % 5 % (0-9); NEUT # 6.1 x10^3uL (1.8-7.7); NEUT % 81 % (31-73); PLATELET COUNT 241 x10^3/uL (140-400); RED BLOOD COUNT 4.76 x10^6/uL (3.50-5.40); RED CELL DISTRIBUTION WIDTH 14.3 % (11.5-14.5); WHITE BLOOD COUNT 7.5 x10^3/uL (4.0-11.0)
[2018-09-26 00:47] LABS: ALBUMIN 3.4 g/dL (3.4-5.0); ALBUMIN/GLOBULIN RATIO 0.9 (1.0-1.7); CALCIUM 8.5 mg/dL (8.5-10.1); CREATININE 0.9 mg/dL (0.6-1.0); GFR 73.5; POTASSIUM 3.1 mmol/L (3.5-5.1); TOTAL BILIRUBIN 0.5 mg/dL (0.2-1.0); TOTAL PROTEIN 7.2 g/dL (6.4-8.2)
[2018-09-26] MEDS ORDERED: ACETAMINOPHEN 500 MG TABLET PO ONE (01:00)
--- NOTE | 2018-09-26 01:12 | PHYS DOC ---
Past History Past Medical History: Asthma, Hypertension Past Surgical History: Cholecystectomy, Hysterectomy, Tonsillectomy Smoking: Cigarettes, Less than 1pk/day Alcohol Use: Occasionally Drug Use: None Adult General Chief Complaint Chief Complaint: NAUSEA/VOMITING/DIARRHEA HPI HPI Patient is a 28 year old female who presents with complaint of abdominal pain, vomiting, and diarrhea. Patient states her symptoms started yesterday and have been worsening since onset. Patient notes that since onset of her symptoms, her mother and aunt have also developed symptoms similar to hers. Has been having fever. Taken Phenergan at home with minimal relief and nausea symptoms. Patient does state she took Imodium which helped decrease her diarrhea. States that the pain has been generalized but states that she occasionally gets sharp cramping pain in her belly. Admits to history of irritable bowel syndrome. Denies chest pain or shortness of breath currently. Review of Systems Review of Systems Constitutional: Fever, chills[] Eyes: Denies change in visual acuity, redness, or eye pain [] HENT: Denies nasal congestion or sore throat [] Respiratory: Denies cough or shortness of breath [] Cardiovascular: Denies chest pain or edema[] GI: Nausea, vomiting, abdominal pain, diarrhea[] : Denies dysuria or hematuria [] Musculoskeletal: Denies back pain or joint pain [] Integument: Denies rash or skin lesions [] Neurologic: Denies headache, focal weakness or sensory changes [] All other systems were reviewed and found to be within normal limits, except as documented in this note. Current Medications Current Medications Current Medications Medications (Trade) Dose Ordered Sig/[facility] Start Time Stop Time Status Last Admin Dose Admin Acetaminophen (Tylenol) 1,000 mg 1X ONCE 09/26/18 01:00 09/26/18 01:01 UNV Famotidine (Pepcid Vial) 20 mg 1X ONCE 09/25/18 22:45 09/25/18 22:46 DC 09/25/18 23:53 20 MG Ketorolac Tromethamine (Toradol 30mg Vial) 30 mg 1X ONCE 09/25/18 23:00 09/25/18 23:01 DC 09/25/18 23:54 30 MG Ondansetron HCl (Zofran) 4 mg 1X ONCE 09/25/18 22:45 09/25/18 22:46 DC 09/25/18 23:54 4 MG Sodium Chloride 1,000 ml @ 1,000 mls/hr Q1H 09/25/18 22:31 09/25/18 23:30 DC 09/25/18 23:52 1,000 MLS/HR Allergies Allergies Allergies Coded Allergies Type Severity Reaction Last Updated Verified cephalexin Allergy Intermediate 08/17/18 Yes ibuprofen Allergy Intermediate 08/17/18 Yes tramadol Adverse Reaction Mild 08/17/18 Yes Physical Exam Physical Exam Constitutional: Alert, febrile, appears ill. [] HENT: Normocephalic, atraumatic, bilateral external ears normal, oropharynx moist, no oral exudates, nose normal. [] Eyes: PERRLA, EOMI, conjunctiva normal, no discharge. [] Neck: Normal range of motion, no tenderness, supple, no stridor. [] Cardiovascular:Heart rate regular rhythm, no murmur [] Lungs & Thorax: Bilateral breath sounds clear to auscultation [] Abdomen: Bowel sounds normal, soft, diffusely tender, no guarding or rebound tenderness, no masses, no pulsatile masses. [] Skin: Warm, dry, no erythema, no rash. [] Back: No tenderness, no CVA tenderness. [] Extremities: No tenderness, no cyanosis, no clubbing, ROM intact, no edema. [] Neurologic: Alert and oriented X 3, normal motor function, normal sensory function, no focal deficits noted. [] Current Patient Data Vital Signs Vital Signs Date Time Temp Pulse Resp B/P (MAP) Pulse Ox O2 Delivery O2 Flow Rate FiO2 09/25/18 21:00 100.2 98 16 96 Room Air Lab Results Laboratory Tests Test 09/25/18 23:40 09/26/18 00:21 09/26/18 01:53 White Blood Count 7.5 x10^3/uL Red Blood Count 4.76 x10^6/uL Hemoglobin 13.9 g/dL Hematocrit 40.7 % Mean Corpuscular Volume 85 fL Mean Corpuscular Hemoglobin 29 pg Mean Corpuscular Hemoglobin Concent 34 g/dL Red Cell Distribution Width 14.3 % Platelet Count 241 x10^3/uL Neutrophils (%) (Auto) 81 % Lymphocytes (%) (Auto) 14 % Monocytes (%) (Auto) 5 % Eosinophils (%) (Auto) 0 % Basophils (%) (Auto) 1 % Neutrophils # (Auto) 6.1 x10^3uL Lymphocytes # (Auto) 1.0 x10^3/uL Monocytes # (Auto) 0.3 x10^3/uL Eosinophils # (Auto) 0.0 x10^3/uL Basophils # (Auto) 0.1 x10^3/uL Sodium Level 138 mmol/L Potassium Level 3.1 mmol/L Chloride Level 102 mmol/L Carbon Dioxide Level 25 mmol/L Anion Gap 11 Blood Urea Nitrogen 8 mg/dL Creatinine 0.9 mg/dL Estimated GFR (Cockcroft-Gault) 73.5 BUN/Creatinine Ratio 9 Glucose Level 99 mg/dL Calcium Level 8.5 mg/dL Total Bilirubin 0.5 mg/dL Aspartate Amino Transf (AST/SGOT) 22 U/L Alanine Aminotransferase (ALT/SGPT) 48 U/L Alkaline Phosphatase 61 U/L Total Protein 7.2 g/dL Albumin 3.4 g/dL Albumin/Globulin Ratio 0.9 Lipase 83 U/L Urine Collection Type Unknown Urine Color Yellow Urine Clarity Clear Urine pH 6.0 Urine Specific [place] 1.015 Urine Protein Neg Urine Glucose (UA) Neg mg/dL Urine Ketones (Stick) Neg mg/dL Urine Blood Neg Urine Nitrite Neg Urine Bilirubin Neg Urine Urobilinogen Dipstick 0.2 mg/dL Urine Leukocyte Esterase Neg Urine RBC 0 /HPF Urine WBC Rare /HPF Urine Squamous Epithelial Cells Few /LPF Urine Bacteria 0 /HPF Current Medications Medications (Trade) Dose Ordered Sig/[facility] Route PRN Reason Start Time Stop Time Status Last Admin Dose Admin Sodium Chloride 1,000 ml @ 1,000 mls/hr Q1H IV 09/25/18 22:31 09/25/18 23:30 DC 09/25/18 23:52 Ondansetron HCl (Zofran) 4 mg 1X ONCE IV 09/25/18 22:45 09/25/18 22:46 DC 09/25/18 23:54 Famotidine (Pepcid Vial) 20 mg 1X ONCE IVP 09/25/18 22:45 09/25/18 22:46 DC 09/25/18 23:53 Ketorolac Tromethamine (Toradol 30mg Vial) 30 mg 1X ONCE IV 09/25/18 23:00 09/25/18 23:01 DC 09/25/18 23:54 Acetaminophen (Tylenol) 1,000 mg 1X ONCE PO 09/26/18 01:00 09/26/18 01:12 DC 09/26/18 01:16 Dicyclomine HCl (Bentyl) 20 mg 1X ONCE PO 09/26/18 01:15 09/26/18 01:16 DC 09/26/18 01:17 Dicyclomine HCl (Bentyl) 20 mg STK-MED ONCE .ROUTE 09/26/18 01:13 09/26/18 01:15 DC EKG EKG Not performed[] Radiology/Procedures Radiology/Procedures Not performed[] Course & Med Decision Making Course & Med Decision Making Pertinent Labs and Imaging studies reviewed. (See chart for details) Patient was given IV fluids, Pepcid, Toradol, and Zofran. Patient additionally given oral Tylenol and Bentyl which she was able to tolerate without further vomiting. Lab work and urinalysis are unremarkable. Symptoms appear consistent with viral gastroenteritis. Advised follow-up in 2-3 days with primary doctor for reevaluation and return to emergency department for any worsening symptoms. Patient was understanding and in agreement with treatment plan.[] Dragon Disclaimer Dragon Disclaimer This electronic medical record was generated, in whole or in part, using a voice recognition dictation system. Departure Departure: Impression: Primary Impression: Viral gastroenteritis Disposition: HOME, SELF-CARE Condition: IMPROVED Referrals: KULDEEP DOSS MD (PCP) Patient Instructions: Viral Gastroenteritis Additional Instructions: Follow-up the primary doctor in 2 days for reevaluation. Return to the emergency department for any worsening symptoms. Scripts Dicyclomine Hcl (DICYCLOMINE HCL) 20 Mg Tablet 1 TAB PO TID, #30 TAB 0 Refills Prov: DAGMAR ARCHER MD 09/26/18 Ondansetron Hcl (ZOFRAN) 4 Mg Tablet 1 TAB PO Q8HRS PRN for NAUSEA/VOMITING, #20 TAB Prov: DAGMAR ARCHER MD 09/26/18 DAGMAR ARCHER MD Sep 26, 2018 01:11
[2018-09-26] MEDS ORDERED: DICYCLOMINE HCL 20 MG TABLET ONE (01:13)
[2018-09-26] MEDS ORDERED: DICYCLOMINE HCL 20 MG TABLET PO ONE (01:15)
[2018-09-26 02:00] VITALS: BP 144/86
[2018-09-26 02:13] LABS: BACTERIA,URINE 0 /HPF (0-FEW); BILIRUBIN,URINE NEG (NEG); CLARITY,URINE CLEAR; COLOR,URINE YELLOW; GLUCOSE,URINE NEG (NEG); NITRITE,URINE NEG (NEG); RBC,URINE 0 /HPF (0-2); UROBILINOGEN,URINE 0.2 mg/dL (0.2 mg/dL); WBC,URINE RARE /HPF (0-4)
[2018-09-26 02:14] LABS: SQUAMOUS EPITHELIAL CELL,UR FEW /LPF
[2018-09-26] MEDS ORDERED: ONDA4TAB7 PO (02:17)
[2018-09-26] MEDS ORDERED: DICY20TA3 PO (02:17)
== END 2018-09-26 02:25 | disposition home or self-care (01) ==
LOC: ER 20:44
DX: A08.4 Viral intestinal infection, unspecified (principal); J45.909 Unspecified asthma, uncomplicated; I10 Essential (primary) hypertension; F17.210 Nicotine dependence, cigarettes, uncomplicated; Z90.49 Acquired absence of other specified parts of digestive tract; Z90.710 Acquired absence of both cervix and uterus; Z88.1 Allergy status to other antibiotic agents; Z88.6 Allergy status to analgesic agent
CPT/HCPCS: 36415; 80053; 81001; 83690; 85025; 96361; 96374; 96375; 99283; J1885; J2405; J3490; J7030

== ENCOUNTER 2018-09-28 16:14 | Emergency (ER) | payer OTHER ==
[~2018-09-28] VITALS: Ht 160 cm; Wt 117.0 kg
[2018-09-28] MEDS ORDERED: METOCLOPRAMIDE HCL 10 MG/2 ML VIAL. IV ONE (17:00)
[2018-09-28] MEDS ORDERED: diphenhydrAMINE 50 MG/ML VIAL IVP ONE (17:00)
[2018-09-28] MEDS ORDERED: KETOROLAC 30 MG/ML VIAL. IV ONE (17:00)
[2018-09-28] MEDS ORDERED: IV NORMAL SALINE 1,000ML 1,000 ML IV ONE (17:00)
[2018-09-28] MEDS ORDERED: LOPERAMIDE 2 MG CAPSULE PO ONE (17:30)
[2018-09-28 17:55] VITALS: BP 142/61
--- NOTE | 2018-09-28 17:56 | PHYS DOC ---
Past History Past Medical History: Asthma, Hypertension Past Surgical History: Cholecystectomy, Hysterectomy, Tonsillectomy Smoking: Cigarettes, Less than 1pk/day Alcohol Use: Occasionally Drug Use: None Adult General Chief Complaint Chief Complaint: DIARRHEA HPI HPI 28-year-old female returns emergency room with nausea, vomiting, diarrhea, and headache. She tells me that she has felt that since she was in the emergency room last time. Today she is complaining of vomiting, diarrhea and headache. She already has Zofran at home. She denies fever or chills. She has no other complaints Review of Systems Review of Systems Constitutional: Denies fever or chills [] Eyes: Denies change in visual acuity, redness, or eye pain [] HENT: Denies nasal congestion or sore throat [] Respiratory: Denies cough or shortness of breath [] Cardiovascular: No additional information not addressed in HPI [] GI: Nausea, vomiting, diarrhea.[] : Denies dysuria or hematuria [] Musculoskeletal: Denies back pain or joint pain [] Integument: Denies rash or skin lesions [] Neurologic: Headache. Denies focal weakness or sensory changes [] Endocrine: Denies polyuria or polydipsia [] All other systems were reviewed and found to be within normal limits, except as documented in this note. Current Medications Current Medications Current Medications Medications (Trade) Dose Ordered Sig/[facility] Start Time Stop Time Status Last Admin Dose Admin Diphenhydramine HCl (Benadryl) 25 mg 1X ONCE 09/28/18 17:00 09/28/18 17:03 DC 09/28/18 17:51 25 MG Ketorolac Tromethamine (Toradol 30mg Vial) 30 mg 1X ONCE 09/28/18 17:00 09/28/18 17:03 DC 09/28/18 17:50 30 MG Loperamide HCl (Imodium) 4 mg 1X ONCE 09/28/18 17:30 09/28/18 17:31 DC 09/28/18 17:51 4 MG Metoclopramide HCl (Reglan Vial) 10 mg 1X ONCE 09/28/18 17:00 09/28/18 17:03 DC 09/28/18 17:51 10 MG Sodium Chloride 1,000 ml @ 1,000 mls/hr 1X ONCE 09/28/18 17:00 1/18/19 17:59 09/28/18 17:51 1,000 MLS/HR Allergies Allergies Allergies Coded Allergies Type Severity Reaction Last Updated Verified cephalexin Allergy Intermediate 08/17/18 Yes ibuprofen Allergy Intermediate 08/17/18 Yes tramadol Adverse Reaction Mild 08/17/18 Yes Physical Exam Physical Exam Constitutional: Well developed, well nourished, no acute distress, non-toxic appearance. [] HENT: Normocephalic, atraumatic, bilateral external ears normal, oropharynx moist, no oral exudates, nose normal. [] Eyes: PERRLA, EOMI, conjunctiva normal, no discharge. [] Neck: Normal range of motion, no tenderness, supple, no stridor. [] Cardiovascular:Heart rate regular rhythm, no murmur [] Lungs & Thorax: Bilateral breath sounds clear to auscultation [] Abdomen: Bowel sounds normal, soft, no tenderness, no masses, no pulsatile masses. [] Skin: Warm, dry, no erythema, no rash. [] Back: No tenderness, no CVA tenderness. [] Extremities: No tenderness, no cyanosis, no clubbing, ROM intact, no edema. [] Neurologic: Alert and oriented X 3, normal motor function, normal sensory function, no focal deficits noted. [] Psychologic: Affect normal, judgement normal, mood normal. [] EKG EKG [] Radiology/Procedures Radiology/Procedures [] Course & Med Decision Making Course & Med Decision Making Pertinent Labs and Imaging studies reviewed. (See chart for details) I have treated the patient with 1 L normal saline, 25 mg of Benadryl, 30 mg of Toradol, 10 mg of Reglan. She is feeling better at this time. She is stable for discharge. [] Dragon Disclaimer Dragon Disclaimer This electronic medical record was generated, in whole or in part, using a voice recognition dictation system. Departure Departure: Impression: Primary Impression: Nausea vomiting and diarrhea Additional Impression: Tension headache Disposition: 01 HOME, SELF-CARE Condition: IMPROVED Referrals: KULDEEP DOSS MD (PCP) Patient Instructions: General Headache Without Cause, [id number], Nausea and Vomiting, [id number] Problem Qualifiers MARIANA PIZANO DO Sep 28, 2018 17:56
[2018-09-28] MEDS ORDERED: ONDA4TAB12 PO (18:02)
[2018-09-28] MEDS ORDERED: PROC10TA57 PO (18:02)
[2018-09-28] MEDS ORDERED: LOPE2TAB27 PO (18:02)
== END 2018-09-28 17:58 | disposition home or self-care (01) ==
LOC: ER 16:14
DX: R11.2 Nausea with vomiting, unspecified (principal); R19.7 Diarrhea, unspecified; G44.209 Tension-type headache, unspecified, not intractable; J45.909 Unspecified asthma, uncomplicated; I10 Essential (primary) hypertension; F17.210 Nicotine dependence, cigarettes, uncomplicated; Z90.49 Acquired absence of other specified parts of digestive tract; Z90.710 Acquired absence of both cervix and uterus; Z88.1 Allergy status to other antibiotic agents; Z88.6 Allergy status to analgesic agent
CPT/HCPCS: 96374; 96375; 99283; J1200; J1885; J2765; J7030

== ENCOUNTER 2018-10-07 15:53 | Emergency (ER) | payer OTHER ==
[~2018-10-07] VITALS: Ht 160 cm; Wt 119.3 kg
[~2018-10-07 15:53] MED LIST changes: +LOPE2TAB27 PO
--- NOTE | 2018-10-07 16:11 | PHYS DOC ---
Past History Past Medical History: Asthma, Hypertension Past Surgical History: Cholecystectomy, Hysterectomy, Tonsillectomy Smoking: Cigarettes, Less than 1pk/day Alcohol Use: None Drug Use: None Adult General Chief Complaint Chief Complaint: HEADACHE HPI HPI Patient is a 28 year old female with history of migraine headache and frequent emergency room visits who presents with including of migraine headache. Patient complaining of sudden onset of frontal throbbing pain 3 days ago as a constant pain after she had stressful condition. Patient rated her pain 9/10 and complaining of nausea and photophobia without fever and chills, neck pain, focal neuro deficit. Patient states her pain is like her usual migraine headache but did not get better with Tylenol. Review of Systems Review of Systems Constitutional: Denies fever or chills [] Eyes: Denies change in visual acuity, redness, or eye pain [] HENT: Denies nasal congestion or sore throat [] Respiratory: Denies cough or shortness of breath [] Cardiovascular: No additional information not addressed in HPI [] GI: Denies abdominal pain, vomiting, bloody stools or diarrhea, reports nausea [ ] : Denies dysuria or hematuria [] Musculoskeletal: Denies back pain or joint pain [] Integument: Denies rash or skin lesions [] Neurologic: Reports headache, denies focal weakness or sensory changes [] Endocrine: Denies polyuria or polydipsia [] All other systems were reviewed and found to be within normal limits, except as documented in this note. Allergies Allergies Allergies Coded Allergies Type Severity Reaction Last Updated Verified cephalexin Allergy Intermediate 08/17/18 Yes ibuprofen Allergy Intermediate 08/17/18 Yes tramadol Adverse Reaction Mild 08/17/18 Yes Physical Exam Physical Exam Constitutional: Well developed, well nourished, mild distress, non-toxic appearance. [] HENT: Normocephalic, atraumatic, bilateral external ears normal, oropharynx moist, no oral exudates, nose normal. [] Eyes: PERRLA, EOMI, conjunctiva normal, no discharge. [] Neck: Normal range of motion, no tenderness, supple, no stridor. [] Cardiovascular:Heart rate regular rhythm, no murmur [] Lungs & Thorax: Bilateral breath sounds clear to auscultation [] Abdomen: Bowel sounds normal, soft, no tenderness, no masses, no pulsatile masses. [] Skin: Warm, dry, no erythema, no rash. [] Back: No tenderness, no CVA tenderness. [] Extremities: No tenderness, no cyanosis, no clubbing, ROM intact, no edema. [] Neurologic: Alert and oriented X 3, normal motor function, normal sensory function, no focal deficits noted. [] Psychologic: Affect normal, judgement normal, mood normal. [] EKG EKG [] Radiology/Procedures Radiology/Procedures [] Course & Med Decision Making Course & Med Decision Making Evaluation of patient in ER showed 11-year-old female patient with frequent emergency room visits presented to ER with complaining of migraine headache like her previous episodes of migraine headache. Patient had unremarkable physical exam. Patient had blood [id number] and stated she took her medication today. Patient treated with Toradol and Zofran and felt better. Blood pressure still was mildly elevated and patient instructed to follow-up with her primary care physician regarding uncontrolled hypertension. Dragon Disclaimer Dragon Disclaimer This electronic medical record was generated, in whole or in part, using a voice recognition dictation system. Departure Departure: Impression: Primary Impression: Migraine Additional Impressions: Tobacco abuse counseling Tobacco abuse Elevated systolic blood pressure reading with diagnosis of hypertension Disposition: HOME, SELF-CARE (at 1624) Condition: IMPROVED Referrals: NICOL BLUM (PCP) Patient Instructions: Migraine Headache, Smoking Cessation, Tips For Success Additional Instructions: Drink plenty of liquids Follow-up with your primary care physician in 3-5 days Return to ER if not getting better Problem Qualifiers LIT IVY MD Oct 07, 2018 16:11
[2018-10-07] MEDS ORDERED: ONDANSETRON ODT 4 MG TAB.RAPDIS PO ONE (16:15)
[2018-10-07] MEDS ORDERED: KETOROLAC 60 MG/2 ML VIAL. IM ONE (16:15)
[2018-10-07 16:45] VITALS: BP 161/101
== END 2018-10-07 16:45 | disposition home or self-care (01) ==
LOC: ER 15:53
DX: G43.909 Migraine, unspecified, not intractable, without status migrainosus (principal); J45.909 Unspecified asthma, uncomplicated; I10 Essential (primary) hypertension; F17.210 Nicotine dependence, cigarettes, uncomplicated; Z71.6 Tobacco abuse counseling; Z88.1 Allergy status to other antibiotic agents; Z88.6 Allergy status to analgesic agent
CPT/HCPCS: 96372; 99283; J1885; Q0162

== ENCOUNTER 2018-10-09 17:45 | Emergency (ER) | payer OTHER ==
[2018-10-09 18:01] VITALS: BP 177/115
[2018-10-09] MEDS ORDERED: CYCL-331 PO (18:18)
--- NOTE | 2018-10-09 18:21 | PHYS DOC ---
Adult General Chief Complaint Chief Complaint back pain HPI HPI 28 years old female presented to the emergency department with back pain she stated that she has a chronic back pain got worse after a fall Review of Systems Review of Systems Constitutional: Denies fever or chills [] Eyes: Denies change in visual acuity, redness, or eye pain [] HENT: Denies nasal congestion or sore throat [] Respiratory: Denies cough or shortness of breath [] Cardiovascular: No additional information not addressed in HPI [] GI: Denies abdominal pain, nausea, vomiting, bloody stools or diarrhea [] : Denies dysuria or hematuria [] Integument: Denies rash or skin lesions [] Neurologic: Denies headache, focal weakness or sensory changes [] Endocrine: Denies polyuria or polydipsia [] All other systems were reviewed and found to be within normal limits, except as documented in this note. Allergies Allergies Allergies Coded Allergies Type Severity Reaction Last Updated Verified cephalexin Allergy Intermediate 08/17/18 Yes ibuprofen Allergy Intermediate 08/17/18 Yes tramadol Adverse Reaction Mild 08/17/18 Yes Physical Exam Physical Exam Constitutional: Well developed, well nourished, no acute distress, non-toxic appearance. [] HENT: Normocephalic, atraumatic, bilateral external ears normal, oropharynx moist, no oral exudates, nose normal. [] Eyes: PERRLA, EOMI, conjunctiva normal, no discharge. [] Neck: Normal range of motion, no tenderness, supple, no stridor. [] Cardiovascular:Heart rate regular rhythm, no murmur [] Lungs & Thorax: Bilateral breath sounds clear to auscultation [] Abdomen: Bowel sounds normal, soft, no tenderness, no masses, no pulsatile masses. [] Skin: Warm, dry, no erythema, no rash. [] Back: No tenderness, no CVA tenderness. [] Extremities: No tenderness, no cyanosis, no clubbing, ROM intact, no edema. [] Neurologic: Alert and oriented X 3, normal motor function, normal sensory function, no focal deficits noted. [] Psychologic: Affect normal, judgement normal, mood normal. [] Current Patient Data Vital Signs Vital Signs Date Time Temp Pulse Resp B/P (MAP) Pulse Ox O2 Delivery O2 Flow Rate FiO2 10/09/18 18:01 97.7 89 20 98 Room Air EKG EKG [] Radiology/Procedures Radiology/Procedures [] Course & Med Decision Making Course & Med Decision Making Pertinent Labs and Imaging studies reviewed. (See chart for details) [] Final Impression Final Impression [] Problems: (1) Back pain Qualifiers: Qualified Codes: M54.5 - Low back pain; G89.29 - Other chronic pain Dragon Disclaimer Dragon Disclaimer This electronic medical record was generated, in whole or in part, using a voice recognition dictation system. CONSTANCE CUEVAS MD Oct 09, 2018 18:21
== END 2018-10-09 18:32 | disposition home or self-care (01) ==
LOC: ER 17:45
DX: G89.29 Other chronic pain (principal); M54.5 Low back pain; Z88.1 Allergy status to other antibiotic agents; Z88.6 Allergy status to analgesic agent
CPT/HCPCS: 99283

== ENCOUNTER → 2018-10-16 | Outpatient (CLI) | payer OTHER ==
[2018-10-09 18:01] VITALS: BP 177/115
[~2018-10-16] MED LIST changes: +CLIN300C8 PO; -HYDR1TAB12 PO; +HYDR1TAB13 PO; +MELO15TA6 PO; +ONDA8TAB9 PO; +PENI500T PO; +SUMA100T3 PO
--- NOTE | 2018-10-16 12:36 | RAD ---
Indication: Pelvic pain. TECHNIQUE: Transabdominal and transvaginal ultrasound of the pelvis COMPARISON: 08/06/2018 FINDINGS: Uterus is surgically absent. Left ovary measures 2.4 x 4.5 x 2.7 cm with multiple follicles and shows evidence of blood flow. Small amount of fluid is seen in the cul-de-sac with septations and internal low-level echoes. The right ovary measures 2.8 x 3.5 x 2.5 cm and shows blood flow. IMPRESSION: 1. Complicated fluid collection in the pelvis with debris and thin septations. Differential diagnoses includes paraovarian or peritoneal inclusion cyst. 2. Bilateral ovaries demonstrate evidence of blood flow. Electronically signed by: Kiran Hernandez DO (10/16/2018 12:31 PM) [id number]
== END | disposition home or self-care (01) ==
LOC: US 10:07
PROVIDERS: ATTEND Obstetrics & Gynecology
DX: R10.2 Pelvic and perineal pain (principal)
CPT/HCPCS: 76830; 76856

== ENCOUNTER 2018-10-20 17:51 | Emergency (ER) | payer OTHER ==
[~2018-10-20] VITALS: Ht 160 cm; Wt 117.0 kg
[~2018-10-20 17:51] MED LIST changes: -CLIN300C8 PO; -MELO15TA6 PO; -ONDA8TAB9 PO; -PENI500T PO; -SUMA100T3 PO
--- NOTE | 2018-10-20 17:59 | ED.ADGEN ---
Past History Past Medical History: Anxiety, Asthma, Hypertension, Ovarian Cyst Past Surgical History: Cholecystectomy, Hysterectomy, Tonsillectomy Smoking: Cigarettes, Less than 1pk/day Alcohol Use: None Drug Use: None Adult General Chief Complaint Chief Complaint ".. I think I am having ovarian cyst problems.. here on the lt... it hurting really bad....".. I just had an US the other day when I was here...." HPI HPI Patient is a 28 year old female who presents with above hx and complaints of left lower abdomen pain. Patient denies any problems with defecation or urination. Patient localizes pain in left lower abdomen. No pelvic or vaginal discharge. No specific flank tenderness. Patient has had partial hysterectomy but still has ovaries. Patient reportedly had a normal stool today. No history of trauma and travel. Has had cholecystectomy. Pt ate dinner approximate 2 hours ago. No history of bad food. No history trauma. No specific ill contacts. Patient normally follows with Dr. Solis. Review of Systems Review of Systems Constitutional: Denies fever or chills [] Eyes: Denies change in visual acuity, redness, or eye pain [] HENT: Denies nasal congestion or sore throat [] Respiratory: Denies cough or shortness of breath [] Cardiovascular: No additional information not addressed in HPI [] GI: Complains of left lower abdominal pain, nausea,. Denies vomiting, bloody stools or diarrhea [] : Denies dysuria or hematuria [] Musculoskeletal: Denies back pain or joint pain [] Integument: Denies rash or skin lesions [] Neurologic: Denies headache, focal weakness or sensory changes [] Endocrine: Denies polyuria or polydipsia [] All other systems were reviewed and found to be within normal limits, except as documented in this note. Family History Family History Noncontributory Current Medications Current Medications Current Medications Medications (Trade) Dose Ordered Sig/Neno Start Time Stop Time Status Last Admin Dose Admin Famotidine (Pepcid Vial) 20 mg 1X ONCE 10/20/18 18:15 10/20/18 18:17 DC 10/20/18 19:55 20 MG Info (Do NOT chart on this entry -- for MONITORING) 1 each PRN DAILY PRN 10/20/18 18:30 10/20/18 23:05 DC Iohexol (Omnipaque 240 Mg/ml) 30 ml 1X ONCE 10/20/18 18:30 10/20/18 18:31 DC 10/20/18 19:57 30 ML Iohexol (Omnipaque 300 Mg/ml) 75 ml 1X ONCE 10/20/18 18:30 10/20/18 18:31 DC 10/20/18 19:57 75 ML Ketorolac Tromethamine (Toradol 30mg Vial) 30 mg 1X ONCE 10/20/18 18:15 10/20/18 18:18 DC 10/20/18 19:55 30 MG Lactated Ringer's 1,000 ml @ 1,000 mls/hr Q1H 10/20/18 18:13 10/20/18 19:13 DC 10/20/18 19:56 1,000 MLS/HR Magnesium Hydroxide (Milk Of Magnesia) 2,400 mg 1X ONCE 10/20/18 21:30 10/20/18 21:31 DC 10/20/18 22:14 2,400 MG Morphine Sulfate (Morphine 10mg Syringe) 10 mg 1X ONCE 10/20/18 22:30 10/20/18 23:05 DC 10/20/18 22:25 10 MG Ondansetron HCl (Zofran) 8 mg 1X ONCE 10/20/18 18:15 10/20/18 18:17 DC 10/20/18 19:56 8 MG Allergies Allergies Allergies Coded Allergies Type Severity Reaction Last Updated Verified cephalexin Allergy Intermediate 10/20/18 Yes ibuprofen Allergy Intermediate 10/20/18 Yes tramadol Adverse Reaction Mild 10/20/18 Yes Physical Exam Physical Exam Constitutional: Moderately acute distress, non-toxic appearance. [] HENT: Normocephalic, atraumatic, bilateral external ears normal, oropharynx moist, no oral exudates, nose normal. [] Eyes: PERRLA, EOMI, conjunctiva normal, no discharge. [] Neck: Normal range of motion, no tenderness, supple, no stridor. [] Cardiovascular:Heart rate regular rhythm, no murmur [] Lungs & Thorax: Bilateral breath sounds equal apex scattered wheezes auscultation [] Abdomen: Bowel sounds creased, soft, left mid and lower tenderness, no masses, no pulsatile masses. [] Declines rectal at this time. Minimal rebound left lower. Very distended Skin: Warm, dry, no erythema, no rash. [] Back: No tenderness, no CVA tenderness. [] Extremities: No tenderness, no cyanosis, no clubbing, ROM intact, no edema. [] No psoas. Neurologic: Alert and oriented X 3, normal motor function, normal sensory function, no focal deficits noted. [] Psychologic: Affect anxious, judgement normal, mood normal. [] Current Patient Data Vital Signs Vital Signs Date Time Temp Pulse Resp B/P (MAP) Pulse Ox O2 Delivery O2 Flow Rate FiO2 10/20/18 22:20 98.6 95 20 132/94 (107) 95 Room Air Lab Results Laboratory Tests Test 10/20/18 19:50 White Blood Count 6.6 x10^3/uL (4.0-11.0) Red Blood Count 4.85 x10^6/uL (3.50-5.40) Hemoglobin 14.1 g/dL (12.0-15.5) Hematocrit 41.5 % (36.0-47.0) Mean Corpuscular Volume 86 fL (79-100) Mean Corpuscular Hemoglobin 29 pg (25-35) Mean Corpuscular Hemoglobin Concent 34 g/dL (31-37) Red Cell Distribution Width 14.3 % (11.5-14.5) Platelet Count 242 x10^3/uL (140-400) Neutrophils (%) (Auto) 54 % (31-73) Lymphocytes (%) (Auto) 34 % (24-48) Monocytes (%) (Auto) 7 % (0-9) Eosinophils (%) (Auto) 5 % (0-3) H Basophils (%) (Auto) 1 % (0-3) Neutrophils # (Auto) 3.5 x10^3uL (1.8-7.7) Lymphocytes # (Auto) 2.3 x10^3/uL (1.0-4.8) Monocytes # (Auto) 0.4 x10^3/uL (0.0-1.1) Eosinophils # (Auto) 0.3 x10^3/uL (0.0-0.7) Basophils # (Auto) 0.1 x10^3/uL (0.0-0.2) Prothrombin Time 9.9 SEC (9.4-11.4) Prothrombin Time INR 1.0 (0.9-1.1) PTT 23 SEC (23-33) Urine Collection Type Void Urine Color Yellow Urine Clarity Clear Urine pH 6.0 Urine Specific [place] 1.015 Urine Protein Neg (NEG-TRACE) Urine Glucose (UA) Neg mg/dL (NEG) Urine Ketones (Stick) Neg mg/dL (NEG) Urine Blood Neg (NEG) Urine Nitrite Neg (NEG) Urine Bilirubin Neg (NEG) Urine Urobilinogen Dipstick 0.2 mg/dL (0.2 mg/dL) Urine Leukocyte Esterase Neg (NEG) Urine RBC 0 /HPF (0-2) Urine WBC Occ /HPF (0-4) Urine Squamous Epithelial Cells Many /LPF Urine Bacteria 0 /HPF (0-FEW) Urine Mucus Slight /LPF Sodium Level 141 mmol/L (136-145) Potassium Level 3.4 mmol/L (3.5-5.1) L Chloride Level 103 mmol/L (98-107) Carbon Dioxide Level 30 mmol/L (21-32) Anion Gap 8 (6-14) Blood Urea Nitrogen 10 mg/dL (7-20) Creatinine 0.9 mg/dL (0.6-1.0) Estimated GFR (Cockcroft-Gault) 73.5 Glucose Level 95 mg/dL (70-99) Calcium Level 9.2 mg/dL (8.5-10.1) Total Bilirubin 0.3 mg/dL (0.2-1.0) Direct Bilirubin 0.1 mg/dL (0.0-0.2) Aspartate Amino Transferase (AST) 31 U/L (15-37) Alanine Aminotransferase (ALT) 52 U/L (14-59) Alkaline Phosphatase 63 U/L (46-116) Total Protein 7.9 g/dL (6.4-8.2) Albumin 3.8 g/dL (3.4-5.0) Amylase Level 12 U/L (25-115) L Lipase 89 U/L (73-393) Urine Opiates Screen Pos (NEG) Urine Methadone Screen Neg (NEG) Urine Barbiturates Neg (NEG) Urine Phencyclidine Screen Neg (NEG) Urine Amphetamine/Methamphetamine Neg (NEG) Urine Benzodiazepines Screen Pos (NEG) Urine Cocaine Screen Neg (NEG) Urine Cannabinoids Screen Neg (NEG) Urine Ethyl Alcohol Neg (NEG) EKG EKG [] Radiology/Procedures Radiology/Procedures My interpretation of abdomen film shows no acute cardiopulmonary findings. No free air in the diaphragm. Increased stool burden. CT of abdomen shows no acute surgical processes. See formal report when available[] Course & Med Decision Making Course & Med Decision Making Pertinent Labs and Imaging studies reviewed. (See chart for details). Clear fluid diet only. Must remain on clear fluids for the next 2 days. May use MiraLAX if still having constipation issues in the morning.. Tylenol and ibuprofen for pain. No solids or milk products. Clear fluids only. Follow-up primary care. Return if any concerns. [] Final Impression Final Impression 1. Abdomen Pain[] 2. Constipation 3. History of Ovarian cyst Dragon Disclaimer Dragon Disclaimer This electronic medical record was generated, in whole or in part, using a voice recognition dictation system. Dragon Disclaimer This chart was dictated in whole or in part using Voice Recognition software in a busy, high-work load, and often noisy Emergency Department environment. It may contain unintended and wholly unrecognized errors or omissions. Discharge Summary Brief Hospital Course Allergies Allergies Coded Allergies Type Severity Reaction Last Updated Verified cephalexin Allergy Intermediate 10/20/18 Yes ibuprofen Allergy Intermediate 10/20/18 Yes tramadol Adverse Reaction Mild 10/20/18 Yes Vital Signs Vital Signs Date Time Temp Pulse Resp B/P (MAP) Pulse Ox O2 Delivery O2 Flow Rate FiO2 10/20/18 22:20 98.6 95 20 132/94 (107) 95 Room Air Lab Results Laboratory Tests Test 10/20/18 19:50 White Blood Count 6.6 x10^3/uL (4.0-11.0) Red Blood Count 4.85 x10^6/uL (3.50-5.40) Hemoglobin 14.1 g/dL (12.0-15.5) Hematocrit 41.5 % (36.0-47.0) Mean Corpuscular Volume 86 fL (79-100) Mean Corpuscular Hemoglobin 29 pg (25-35) Mean Corpuscular Hemoglobin Concent 34 g/dL (31-37) Red Cell Distribution Width 14.3 % (11.5-14.5) Platelet Count 242 x10^3/uL (140-400) Neutrophils (%) (Auto) 54 % (31-73) Lymphocytes (%) (Auto) 34 % (24-48) Monocytes (%) (Auto) 7 % (0-9) Eosinophils (%) (Auto) 5 % (0-3) Basophils (%) (Auto) 1 % (0-3) Neutrophils # (Auto) 3.5 x10^3uL (1.8-7.7) Lymphocytes # (Auto) 2.3 x10^3/uL (1.0-4.8) Monocytes # (Auto) 0.4 x10^3/uL (0.0-1.1) Eosinophils # (Auto) 0.3 x10^3/uL (0.0-0.7) Basophils # (Auto) 0.1 x10^3/uL (0.0-0.2) Prothrombin Time 9.9 SEC (9.4-11.4) Prothromb Time International Ratio 1.0 (0.9-1.1) Activated Partial Thromboplast Time 23 SEC (23-33) Urine Collection Type Void Urine Color Yellow Urine Clarity Clear Urine pH 6.0 Urine Specific [place] 1.015 Urine Protein Neg (NEG-TRACE) Urine Glucose (UA) Neg mg/dL (NEG) Urine Ketones (Stick) Neg mg/dL (NEG) Urine Blood Neg (NEG) Urine Nitrite Neg (NEG) Urine Bilirubin Neg (NEG) Urine Urobilinogen Dipstick 0.2 mg/dL (0.2 mg/dL) Urine Leukocyte Esterase Neg (NEG) Urine RBC 0 /HPF (0-2) Urine WBC Occ /HPF (0-4) Urine Squamous Epithelial Cells Many /LPF Urine Bacteria 0 /HPF (0-FEW) Urine Mucus Slight /LPF Sodium Level 141 mmol/L (136-145) Potassium Level 3.4 mmol/L (3.5-5.1) Chloride Level 103 mmol/L (98-107) Carbon Dioxide Level 30 mmol/L (21-32) Anion Gap 8 (6-14) Blood Urea Nitrogen 10 mg/dL (7-20) Creatinine 0.9 mg/dL (0.6-1.0) Estimated GFR (Cockcroft-Gault) 73.5 Glucose Level 95 mg/dL (70-99) Calcium Level 9.2 mg/dL (8.5-10.1) Total Bilirubin 0.3 mg/dL (0.2-1.0) Direct Bilirubin 0.1 mg/dL (0.0-0.2) Aspartate Amino Transf (AST/SGOT) 31 U/L (15-37) Alanine Aminotransferase (ALT/SGPT) 52 U/L (14-59) Alkaline Phosphatase 63 U/L (46-116) Total Protein 7.9 g/dL (6.4-8.2) Albumin 3.8 g/dL (3.4-5.0) Amylase Level 12 U/L (25-115) Lipase 89 U/L (73-393) Urine Opiates Screen Pos (NEG) Urine Methadone Screen Neg (NEG) Urine Barbiturates Neg (NEG) Urine Phencyclidine Screen Neg (NEG) Urine Amphetamine/Methamphetamine Neg (NEG) Urine Benzodiazepines Screen Pos (NEG) Urine Cocaine Screen Neg (NEG) Urine Cannabinoids Screen Neg (NEG) Urine Ethyl Alcohol Neg (NEG) Brief Hospital Course Ms. Dempsey is a 28 old fe,a;e who presented with abdomen pain. No obvious acute surgical findings. Constipation. Discharge Information Condition at Discharge: Improved, Stable Disposition/Orders: D/C to Home Dischare Medications Current Medications Lactated Ringer's 1,000 ml @ 1,000 mls/hr Q1H IV Last administered on at 19:56; Admin Dose 1,000 MLS/HR; Start 10/20/18 at 18:13; Stop 10/20/18 at 19: 13; Status DC Ondansetron HCl (Zofran) 8 mg 1X ONCE IV Last administered on 10/20/18at 19:56; Admin Dose 8 MG; Start 10/20/18 at 18:15; Stop 10/20/18 at 18:17; Status DC Famotidine (Pepcid Vial) 20 mg 1X ONCE IVP Last administered on 10/20/18at 19:55 ; Admin Dose 20 MG; Start 10/20/18 at 18:15; Stop 10/20/18 at 18:17; Status DC Ketorolac Tromethamine (Toradol 30mg Vial) 30 mg 1X ONCE IV Last administered on 10/20/18at 19:55; Admin Dose 30 MG; Start 10/20/18 at 18:15; Stop 10/20/18 at 18: 18; Status DC Iohexol (Omnipaque 240 Mg/ml) 30 ml 1X ONCE PO Last administered on 10/20/18at 19:57; Admin Dose 30 ML; Start 10/20/18 at 18:30; Stop 10/20/18 at 18:31; Status DC Iohexol (Omnipaque 300 Mg/ml) 75 ml 1X ONCE IV Last administered on 10/20/18at 19:57; Admin Dose 75 ML; Start 10/20/18 at 18:30; Stop 10/20/18 at 18:31; Status DC Info (Do NOT chart on this entry -- for MONITORING) 1 each PRN DAILY PRN MC SEE COMMENTS; Start 10/20/18 at 18:30; Stop 10/20/18 at 23:05; Status DC Morphine Sulfate (Morphine 10mg Syringe) 10 mg 1X ONCE SQ Last administered on 10/20/18at 21:16; Admin Dose 10 MG; Start 10/20/18 at 21:00; Stop 10/20/18 at 21: 01; Status DC Magnesium Hydroxide (Milk Of Magnesia) 2,400 mg 1X ONCE PO Last administered on 10/20/18at 22:14; Admin Dose 2,400 MG; Start 10/20/18 at 21:30; Stop 10/20/18 at 21:31; Status DC Morphine Sulfate (Morphine 10mg Syringe) 10 mg 1X ONCE SQ Last administered on 10/20/18at 22:25; Admin Dose 10 MG; Start 10/20/18 at 22:30; Stop 10/20/18 at 23: 05; Status DC Active Scripts Active Cyclobenzaprine Hcl 10 Mg Tablet 1 Tab PO TID Loperamide (Loperamide Hcl) 2 Mg Tablet 2 Mg PO Q1HR PRN Compazine (Prochlorperazine Maleate) 10 Mg Tablet 10 Mg PO Q6HRS PRN Ondansetron Odt (Ondansetron) 4 Mg Tab.rapdis 1 Tab PO PRN Q6-8HRS PRN Dicyclomine Hcl 20 Mg Tablet 1 Tab PO TID Zofran (Ondansetron Hcl) 4 Mg Tablet 1 Tab PO Q8HRS PRN Pepcid (Famotidine) 20 Mg Tablet 1 Tab PO BID Ondansetron Odt (Ondansetron) 4 Mg Tab.rapdis 1 Tab PO PRN Q6-8HRS Levsin-Sl (Hyoscyamine Sulfate) 0.125 Mg Tab.subl 1-2 Tab SL PRN Q4HRS PRN Tylenol With Codeine #3 Tablet (Acetaminophen With Codeine) 1 Each Tablet 1 Tab PO Q4-6HRS Cyclobenzaprine Hcl 10 Mg Tablet 1 Tab PO TID PRN Zofran (Ondansetron Hcl) 4 Mg Tablet 1 Tab PO Q6HRS Fiorinal 50-325-40 Mg Capsule (Butalbital/Aspirin/Caffeine) 1 Each Capsule 1 Each PO QID PRN Fiorinal 50-325-40 Mg Capsule (Butalbital/Aspirin/Caffeine) 1 Each Capsule 1 Each PO QID PRN [place] 5-325 Tablet (Hydrocodone Bit/Acetaminophen) 1 Each Tablet 1 Tab PO PRN Q6HRS PRN Prednisone 20 Mg Tablet 1 Tab PO BID 5 Days Zofran Odt (Ondansetron) 4 Mg Tab.rapdis 1 Tab SL Q8HRS Fiorinal 50-325-40 Mg Capsule (Butalbital/Aspirin/Caffeine) 1 Each Capsule 1 Each PO QID PRN Dicyclomine Hcl 20 Mg Tablet 1 Tab PO TID Compazine (Prochlorperazine Maleate) 10 Mg Tablet 10 Mg PO Q8HRS PRN Reglan (Metoclopramide Hcl) 10 Mg Tablet 10 Mg PO PRN Q8HRS PRN Pepcid (Famotidine) 20 Mg Tablet 1 Tab PO BID Medrol (Methylprednisolone) 4 Mg Tab.ds.pk 1 Pkg PO UD [Percogesic] 1 Tab PO QID PRN Reported Vitamin D3 (Cholecalciferol (Vitamin D3)) 1,000 Unit Tablet Unknown Dose PO Zoloft (Sertraline Hcl) 25 Mg Tablet Unknown Dose PO DAILY [Iron] Hydrochlorothiazide Capsule (Hydrochlorothiazide) 12.5 Mg Capsule Unknown Dose PO DAILY [Cardia] GLENDA CHAVEZ MD Oct 20, 2018 17:59
[2018-10-20] MEDS ORDERED: IV RINGERS SOLUTION,LACTATED 1,000 ML IV SCH (18:13)
[2018-10-20] MEDS ORDERED: ONDANSETRON PF 4 MG/2 ML VIAL. IV ONE (18:15)
[2018-10-20] MEDS ORDERED: FAMOTIDINE 20 MG/2 ML VIAL IVP ONE (18:15)
[2018-10-20] MEDS ORDERED: KETOROLAC 30 MG/ML VIAL. IV ONE (18:15)
[2018-10-20] MEDS ORDERED: IOHEXOL 300 MG/ML 75 ML VIAL. IV ONE (18:30)
[2018-10-20] MEDS ORDERED: IOHEXOL 240 MG/ML 50ML VIAL. PO ONE (18:30)
[2018-10-20] MEDS ORDERED: CONTRAST GIVEN MC PRN (18:30)
[2018-10-20 20:18] LABS: BASO # 0.1 x10^3/uL (0.0-0.2); BASO % 1 % (0-3); EOS # 0.3 x10^3/uL (0.0-0.7); EOS % 5 % (0-3); HEMATOCRIT 41.5 % (36.0-47.0); HEMOGLOBIN 14.1 g/dL (12.0-15.5); LYMPH # 2.3 x10^3/uL (1.0-4.8); LYMPH % 34 % (24-48); MEAN CORPUSCULAR HEMOGLOBIN 29 pg (25-35); MEAN CORPUSCULAR HGB CONC 34 g/dL (31-37); MEAN CORPUSCULAR VOLUME 86 fL (79-100); MONO # 0.4 x10^3/uL (0.0-1.1); MONO % 7 % (0-9); NEUT # 3.5 x10^3uL (1.8-7.7); NEUT % 54 % (31-73); PLATELET COUNT 242 x10^3/uL (140-400); RED BLOOD COUNT 4.85 x10^6/uL (3.50-5.40); RED CELL DISTRIBUTION WIDTH 14.3 % (11.5-14.5); WHITE BLOOD COUNT 6.6 x10^3/uL (4.0-11.0)
[2018-10-20 20:28] LABS: BILIRUBIN,URINE NEG (NEG); CLARITY,URINE CLEAR; COLOR,URINE YELLOW; GLUCOSE,URINE NEG (NEG); NITRITE,URINE NEG (NEG); UROBILINOGEN,URINE 0.2 mg/dL (0.2 mg/dL)
[2018-10-20 20:29] LABS: BACTERIA,URINE 0 /HPF (0-FEW); RBC,URINE 0 /HPF (0-2); SQUAMOUS EPITHELIAL CELL,UR MANY /LPF; WBC,URINE OCC /HPF (0-4)
[2018-10-20 20:31] LABS: ALBUMIN 3.8 g/dL (3.4-5.0); AMPHETAMINE/METHAMPHETAMINE NEG (NEG); BARBITURATES NEG (NEG); BENZODIAZEPINES POS (NEG); CALCIUM 9.2 mg/dL (8.5-10.1); CANNABINOIDS NEG (NEG); COCAINE NEG (NEG); CREATININE 0.9 mg/dL (0.6-1.0); DIRECT BILIRUBIN 0.1 mg/dL (0.0-0.2); GFR 73.5; METHADONE NEG (NEG); OPIATES POS (NEG); PHENCYCLIDINE NEG (NEG); POTASSIUM 3.4 mmol/L (3.5-5.1); TOTAL BILIRUBIN 0.3 mg/dL (0.2-1.0); TOTAL PROTEIN 7.9 g/dL (6.4-8.2)
[2018-10-20] MEDS ORDERED: MORPHINE SULFATE 10 MG/ML SYRINGE. SQ ONE ×2 (21:00→22:30)
[2018-10-20] MEDS ORDERED: MAGNESIUM HYDROXIDE 2,400 MG/30 ML ORAL.SUSP. PO ONE (21:30)
--- NOTE | 2018-10-20 21:49 | RAD ---
CT ABD PELV W/ORAL IV CONTRAST Indication: Left lower abdominal pain. Exposure: One or more of the following individualized dose reduction techniques were utilized for this examination: 1. Automated exposure control 2. Adjustment of the mA and/or kV according to patient size 3. Use of iterative reconstruction technique. Comparison: September 23, 2018. Contrast: Intravenous contrast. Oral contrast also given. FINDINGS: Lung bases are clear. Liver unremarkable. Spleen remains enlarged, about 14 cm. Pancreas unremarkable. No evidence of adrenal mass. Kidneys unremarkable. Surgical clips in the gallbladder fossa. Aorta is nonaneurysmal. Small mesenteric and retroperitoneal lymph nodes are identified, no pathologic enlargement is seen. Most of the oral contrast is within the stomach. No obstructive findings are seen. There is no evidence of acute colitis. There is colonic diverticulosis. The appendix appears normal. No evidence of free intraperitoneal gas. There is mild pelvic ascites. Urinary bladder appears unremarkable. No acute bone destruction. IMPRESSION: 1. Mild free pelvic fluid. 2. Splenomegaly is again seen. Electronically signed by: Chad Marte MD (10/20/2018 9:45 PM) [facility]
[2018-10-20 22:20] VITALS: BP 132/94
--- NOTE | 2018-10-21 07:47 | RAD ---
Indication:Pain TECHNIQUE: PA chest and 3 views of the abdomen and pelvis COMPARISON: None FINDINGS: Heart is normal in size. Lungs are clear. No evidence of pneumoperitoneum. Visualized bony thorax is within normal limits. Right upper quadrant clips suggesting cholecystectomy. No abnormally dilated bowel loops or air-fluid levels. Moderate diffuse colonic stool burden. Visualized bones are within normal limits. No abnormal calcific densities projecting over the kidneys to suggest apparent renal stones. IMPRESSION: No evidence of high-grade bowel obstruction. Moderate diffuse colonic stool burden. Electronically signed by: Kiran Hernandez DO (10/21/2018 7:43 AM) [facility]
== END 2018-10-20 22:27 | disposition home or self-care (01) ==
LOC: ER 17:51
DX: K59.00 Constipation, unspecified (principal); F41.9 Anxiety disorder, unspecified; J45.909 Unspecified asthma, uncomplicated; I10 Essential (primary) hypertension; F17.210 Nicotine dependence, cigarettes, uncomplicated; Z90.49 Acquired absence of other specified parts of digestive tract; Z90.710 Acquired absence of both cervix and uterus; Z88.1 Allergy status to other antibiotic agents; Z88.6 Allergy status to analgesic agent
CPT/HCPCS: 36415; 74022; 74177; 80048; 80076; 80307; 81001; 82150; 83690; 85025; 85610; 85730; 96372; 96374; 96375; 99284; J1885; J2270; J2405; J3490; J7120; Q9966; Q9967

== ENCOUNTER 2018-10-27 19:05 | Emergency (ER) | payer OTHER ==
[~2018-10-27] VITALS: Ht 160 cm; Wt 115.7 kg
[2018-10-27] MEDS ORDERED: MEPERIDINE PF 50 MG/ML VIAL. IM STA (19:26)
[2018-10-27] MEDS ORDERED: diphenhydrAMINE 50 MG/ML VIAL IM ONE (19:30)
[2018-10-27] MEDS ORDERED: PROCHLORPERAZINE 10 MG/2 ML VIAL. IM ONE (19:30)
--- NOTE | 2018-10-27 19:35 | ED.ADGEN ---
Past History Past Medical History: Anxiety, Asthma, Hypertension, Ovarian Cyst Past Surgical History: Cholecystectomy, , Hysterectomy, Other Smoking: Cigarettes, Less than 1pk/day Alcohol Use: Occasionally Drug Use: None Adult General Chief Complaint Chief Complaint headache HPI HPI The results female presented emergency department with a chronic migraine stated she has had a stressful day today and her headache is been worse however is similar to the previous migraine attacks she had Review of Systems Review of Systems Constitutional: Denies fever or chills [] Eyes: Denies change in visual acuity, redness, or eye pain [] HENT: Denies nasal congestion or sore throat [] Respiratory: Denies cough or shortness of breath [] Cardiovascular: No additional information not addressed in HPI [] GI: Denies abdominal pain, nausea, vomiting, bloody stools or diarrhea [] : Denies dysuria or hematuria [] Musculoskeletal: Denies back pain or joint pain [] Integument: Denies rash or skin lesions [] Neurologic: Denies focal weakness or sensory changes [] Endocrine: Denies polyuria or polydipsia [] All other systems were reviewed and found to be within normal limits, except as documented in this note. Current Medications Current Medications Current Medications Medications (Trade) Dose Ordered Sig/Neno Start Time Stop Time Status Last Admin Dose Admin Diphenhydramine HCl (Benadryl) 25 mg 1X ONCE 10/27/18 19:30 10/27/18 19:31 UNV Meperidine HCl (Demerol) 50 mg 1X STAT 10/27/18 19:26 10/27/18 19:27 UNV Prochlorperazine Edisylate (Compazine) 10 mg 1X ONCE 10/27/18 19:30 10/27/18 19:31 UNV Allergies Allergies Allergies Coded Allergies Type Severity Reaction Last Updated Verified cephalexin Allergy Intermediate 10/20/18 Yes ibuprofen Allergy Intermediate 10/20/18 Yes tramadol Adverse Reaction Mild 10/20/18 Yes Physical Exam Physical Exam Constitutional: Well developed, well nourished, no acute distress, non-toxic appearance. [] HENT: Normocephalic, atraumatic, bilateral external ears normal, oropharynx moist, no oral exudates, nose normal. [] Eyes: PERRLA, EOMI, conjunctiva normal, no discharge. [] Neck: Normal range of motion, no tenderness, supple, no stridor. [] Cardiovascular:Heart rate regular rhythm, no murmur [] Lungs & Thorax: Bilateral breath sounds clear to auscultation [] Abdomen: Bowel sounds normal, soft, no tenderness, no masses, no pulsatile masses. [] Skin: Warm, dry, no erythema, no rash. [] Back: No tenderness, no CVA tenderness. [] Extremities: No tenderness, no cyanosis, no clubbing, ROM intact, no edema. [] Neurologic: Alert and oriented X 3, normal motor function, normal sensory function, no focal deficits noted. [] Psychologic: Affect normal, judgement normal, mood normal. [] EKG EKG [] Radiology/Procedures Radiology/Procedures [] Course & Med Decision Making Course & Med Decision Making Pertinent Labs and Imaging studies reviewed. (See chart for details) [] Final Impression Final Impression [] Problems: (1) Migraine Qualifiers: Qualified Codes: G43.909 - Migraine, unspecified, not intractable, without status migrainosus Dragon Disclaimer Dragon Disclaimer This electronic medical record was generated, in whole or in part, using a voice recognition dictation system. CONSTANCE CUEVAS MD Oct 27, 2018 19:35
[2018-10-27] MEDS ORDERED: MORPHINE SULFATE 4 MG/ML DISP.SYRIN. IM ONE (20:15)
[2018-10-27 20:25] VITALS: BP 157/109
== END 2018-10-27 20:27 | disposition home or self-care (01) ==
LOC: ER 19:05
DX: G43.909 Migraine, unspecified, not intractable, without status migrainosus (principal); F17.210 Nicotine dependence, cigarettes, uncomplicated; F41.9 Anxiety disorder, unspecified; J45.909 Unspecified asthma, uncomplicated; I10 Essential (primary) hypertension; Z88.1 Allergy status to other antibiotic agents; Z88.6 Allergy status to analgesic agent
CPT/HCPCS: 96372; 99283; J0780; J1200; J2270

== ENCOUNTER 2018-11-01 11:41 | Emergency (ER) | payer OTHER ==
[~2018-11-01] VITALS: Ht 160 cm; Wt 117.0 kg
[~2018-11-01 11:41] MED LIST changes: +HYDR1TAB12 PO; -HYDR1TAB13 PO
[2018-11-01 11:50] VITALS: BP 162/106
[2018-11-01] MEDS ORDERED: IV NORMAL SALINE 1,000ML 1,000 ML IV ONE (12:15)
[2018-11-01] MEDS ORDERED: DIHYDROERGOTAMINE 1 MG/ML AMPUL. IVP ONE (12:15)
[2018-11-01] MEDS ORDERED: diphenhydrAMINE 50 MG/ML VIAL IVP ONE (12:15)
[2018-11-01] MEDS ORDERED: METOCLOPRAMIDE HCL 10 MG/2 ML VIAL. IV ONE (12:15)
--- NOTE | 2018-11-01 12:22 | PHYS DOC ---
Past History Past Medical History: Anxiety, Asthma, Hypertension, Ovarian Cyst Past Surgical History: Cholecystectomy, , Hysterectomy, Other Smoking: Cigarettes, Less than 1pk/day Alcohol Use: Occasionally Drug Use: None Adult General Chief Complaint Chief Complaint: HEADACHE HPI HPI Patient is a 28-year-old female who presents with a headache. See Mr. arreola migraine. This started yesterday morning. Achieve some relief with Maxalt but it continues to hurt. No vomiting but there is nausea present along with photophobia. Not worst headache of life. No fever.[] Review of Systems Review of Systems Constitutional: Denies fever or chills [] Eyes: Denies change in visual acuity, redness, or eye pain [] HENT: Denies nasal congestion or sore throat [] Respiratory: Denies cough or shortness of breath [] Cardiovascular: Chest pain or palpitations[] GI: Denies abdominal pain, nausea, vomiting, bloody stools or diarrhea [] : Denies dysuria or hematuria [] Musculoskeletal: Denies back pain or joint pain [] Integument: Denies rash or skin lesions [] Neurologic: Denies focal weakness or sensory changes, see history of present illness [] Endocrine: Denies polyuria or polydipsia [] All other systems were reviewed and found to be within normal limits, except as documented in this note. Current Medications Current Medications Current Medications Medications (Trade) Dose Ordered Sig/Neno Start Time Stop Time Status Last Admin Dose Admin Dihydroergotamine Mesylate (Dhe) 1 mg 1X ONCE 11/01/18 12:15 11/01/18 12:16 DC Diphenhydramine HCl (Benadryl) 50 mg 1X ONCE 11/01/18 12:15 11/01/18 12:16 DC Metoclopramide HCl (Reglan Vial) 10 mg 1X ONCE 11/01/18 12:15 11/01/18 12:16 DC Sodium Chloride 1,000 ml @ 1,000 mls/hr 1X ONCE 11/01/18 12:15 11/01/18 13:14 Allergies Allergies Allergies Coded Allergies Type Severity Reaction Last Updated Verified cephalexin Allergy Intermediate 10/20/18 Yes ibuprofen Allergy Intermediate 10/20/18 Yes tramadol Adverse Reaction Mild 10/20/18 Yes Physical Exam Physical Exam Constitutional: Well developed, well nourished, mild discomfort, non-toxic appearance. [] HENT: Normocephalic, atraumatic, bilateral external ears normal, oropharynx moist, no oral exudates, nose normal. [] Eyes: PERRLA, EOMI, conjunctiva normal, no discharge. [] Neck: Normal range of motion, no tenderness, supple, no stridor. [] Cardiovascular:Heart rate regular rhythm, no murmur [] Lungs & Thorax: Bilateral breath sounds clear to auscultation [] Abdomen: Not examined[] Skin: Warm, dry, no erythema, no rash. [] Back: No tenderness, no CVA tenderness. [] Extremities: No tenderness, no cyanosis, no clubbing, ROM intact, no edema. [] Neurologic: Alert and oriented X 3, normal motor function, normal sensory function, no focal deficits noted. Normal rapid repetitive and alternating movements. Normal gait.[] Psychologic: Affect normal, judgement normal, mood normal. [] Current Patient Data Vital Signs Vital Signs Date Time Temp Pulse Resp B/P (MAP) Pulse Ox O2 Delivery O2 Flow Rate FiO2 11/01/18 11:50 97.6 95 16 97 Room Air EKG EKG [] Radiology/Procedures Radiology/Procedures [] Course & Med Decision Making Course & Med Decision Making Pertinent Labs and Imaging studies reviewed. (See chart for details) ED course: Patient arrived, was placed in bed, in tolerated exam well. Patient was given IV Reglan, Benadryl, and DHE which significantly improved her pain. Patient was discharged in improved condition.[] Dragon Disclaimer Dragon Disclaimer This electronic medical record was generated, in whole or in part, using a voice recognition dictation system. Departure Departure: Impression: Primary Impression: Migraine Disposition: 01 HOME, SELF-CARE Condition: IMPROVED Referrals: NICOL BLUM (PCP) Follow-up in 2 days. Patient Instructions: Migraine Headache Additional Instructions: Follow-up with your regular doctor in 2 days. Return to the ER if worsening pain or any other concerns. Problem Qualifiers Primary Impression: Migraine Migraine type: unspecified Status migrainosus presence: without status migrainosus Intractability: not intractable Qualified Codes: G43.909 - Migraine, unspecified, not intractable, without status migrainosus JOE HYLTON DO Nov 01, 2018 12:22
== END 2018-11-01 13:32 | disposition home or self-care (01) ==
LOC: ER 11:41
DX: G43.909 Migraine, unspecified, not intractable, without status migrainosus (principal); F41.9 Anxiety disorder, unspecified; J45.909 Unspecified asthma, uncomplicated; I10 Essential (primary) hypertension; F17.210 Nicotine dependence, cigarettes, uncomplicated; Z88.1 Allergy status to other antibiotic agents; Z88.6 Allergy status to analgesic agent
CPT/HCPCS: 96374; 96375; 99283; J1110; J1200; J2765

== ENCOUNTER 2018-11-06 16:48 | Emergency (ER) | payer OTHER ==
[~2018-11-06] VITALS: Ht 160 cm; Wt 117.0 kg
[~2018-11-06 16:48] MED LIST changes: -HYDR1TAB12 PO; +HYDR1TAB13 PO
[2018-11-06] MEDS ORDERED: PENI500T PO (17:38)
[2018-11-06] MEDS ORDERED: MELO15TA6 PO (17:38)
--- NOTE | 2018-11-06 17:39 | PHYS DOC ---
Past History Past Medical History: Anxiety, Asthma, Hypertension, Ovarian Cyst Past Surgical History: Cholecystectomy, , Hysterectomy Smoking: Cigarettes, Less than 1pk/day Alcohol Use: Rarely Drug Use: None Adult General Chief Complaint Chief Complaint: DENTAL PROBLEM HPI HPI Patient is a 28 year old female who presents with history of frequent emergency room visits complaining of dental pain in right upper jaw for the last 5 days as a constant pain that gradually getting worse. Patient denies fever and chills and injuries. Patient has appointment with her dentist in 4 days. Review of Systems Review of Systems Constitutional: Denies fever or chills [] Eyes: Denies change in visual acuity, redness, or eye pain [] HENT: Denies nasal congestion or sore throat [] Respiratory: Denies cough or shortness of breath [] Cardiovascular: No additional information not addressed in HPI [] GI: Denies abdominal pain, nausea, vomiting, bloody stools or diarrhea [] : Denies dysuria or hematuria [] Musculoskeletal: Denies back pain or joint pain [] Integument: Denies rash or skin lesions [] Neurologic: Denies headache, focal weakness or sensory changes [] Endocrine: Denies polyuria or polydipsia [] All other systems were reviewed and found to be within normal limits, except as documented in this note. Current Medications Current Medications Current Medications Medications (Trade) Dose Ordered Sig/Neno Start Time Stop Time Status Last Admin Dose Admin Ketorolac Tromethamine (Toradol Im) 60 mg 1X ONCE 11/06/18 17:45 11/06/18 17:46 Allergies Allergies Allergies Coded Allergies Type Severity Reaction Last Updated Verified cephalexin Allergy Intermediate 10/20/18 Yes ibuprofen Allergy Intermediate 10/20/18 Yes tramadol Adverse Reaction Mild 10/20/18 Yes Physical Exam Physical Exam Constitutional: Well developed, well nourished, mild distress, non-toxic appearance. [] HENT: Normocephalic, atraumatic, extensive dental cavity and missing teeth, tenderness in tooth #3 Eyes: PERRLA, EOMI, conjunctiva normal, no discharge. [] Neck: Normal range of motion, no tenderness, supple, no stridor. [] Cardiovascular:Heart rate regular rhythm, no murmur [] Lungs & Thorax: Bilateral breath sounds clear to auscultation [] Skin: Warm, dry, no erythema, no rash. [] Back: No tenderness, no CVA tenderness. [] Extremities: No tenderness, no cyanosis, no clubbing, ROM intact, no edema. [] Neurologic: Alert and oriented X 3, no focal deficits noted. [] Psychologic: Affect normal, judgement normal, mood normal. [] Current Patient Data Vital Signs Vital Signs Date Time Temp Pulse Resp B/P (MAP) Pulse Ox O2 Delivery O2 Flow Rate FiO2 11/06/18 16:55 98.0 114 20 99 Room Air EKG EKG [] Radiology/Procedures Radiology/Procedures [] Course & Med Decision Making Course & Med Decision Making discharge: I've spoken with the patient and/or caregivers. I've explained the patient's condition, diagnosis and treatment plan based on information available to me at this time. I've answered the patient's and/or caregivers questions and addressed any concerns. The patient and/or caregivers have a good understanding the patient's diagnosis, condition and treatment plan as can be expected at this point. Vital signs have been stabilized. The patient's condition is stable for discharge from the emergency department. The patient will pursue further outpatient evaluation with her primary care provider or other designated consulting physician as outlined in the discharge instructions. Patient and/or caregivers are agreeable to this plan of care and follow-up instructions have been explained in detail. The patient and/or caregivers have received these instructions in written format and expressed understanding of these discharge instructions. The patient and her caregivers are aware that if any significant change in condition or worsening of symptoms should prompt him to immediately return to this of the closest emergency department. If an emergent department is not readily available I would encourage him to call 911. Marcelle Disclaimer [place] Disclaimer This electronic medical record was generated, in whole or in part, using a voice recognition dictation system. Departure Departure: Impression: Primary Impression: Pain, dental Additional Impressions: Tobacco abuse Tobacco abuse counseling Disposition: HOME, SELF-CARE (at 1745) Condition: STABLE Referrals: NICOL BLUM (PCP) Patient Instructions: Dental Pain, Smoking Cessation, Tips For Success Additional Instructions: Follow-up with your dentist as a scheduled in 4 days Quit smoking Scripts Meloxicam (MOBIC) 15 Mg Tablet 1 TAB PO DAILY for pain, #10 TAB Prov: LIT IVY MD 11/06/18 Penicillin V Potassium (PENICILLIN V POTASSIUM) 500 Mg Tablet 1 TAB PO QID for Infection, #40 TAB Prov: LIT IVY MD 11/06/18 Problem Qualifiers LIT IVY MD Nov 06, 2018 17:39
[2018-11-06] MEDS ORDERED: KETOROLAC 60 MG/2 ML VIAL. IM ONE (17:45)
[2018-11-06 18:03] VITALS: BP 132/104
== END 2018-11-06 18:03 | disposition home or self-care (01) ==
LOC: ER 16:48
DX: K08.89 Other specified disorders of teeth and supporting structures (principal); F17.210 Nicotine dependence, cigarettes, uncomplicated; F41.9 Anxiety disorder, unspecified; J45.909 Unspecified asthma, uncomplicated; I10 Essential (primary) hypertension; Z71.6 Tobacco abuse counseling; Z88.1 Allergy status to other antibiotic agents; Z88.6 Allergy status to analgesic agent
CPT/HCPCS: 96372; 99283; J1885

== ENCOUNTER 2018-11-10 17:42 | Emergency (ER) | payer OTHER ==
[~2018-11-10] VITALS: Ht 160 cm; Wt 117.0 kg
[~2018-11-10 17:42] MED LIST changes: +MELO15TA6 PO; +PENI500T PO
--- NOTE | 2018-11-10 17:46 | ED.ADGEN ---
Past History Past Medical History: Anxiety, Asthma, Hypertension, Migraines, Ovarian Cyst Past Surgical History: Cholecystectomy, , Hysterectomy Smoking: Cigarettes, Less than 1pk/day Alcohol Use: Rarely Drug Use: None Adult General Chief Complaint Chief Complaint " .. I getting some migraine symptoms.. I am under a lot of stress. I having some post reduction of depression and anxiety.,,, My baby is getting worked up for spinal lesion at [facility] ... And my 5-year-old snacking out because of the new . I have told her son that has anger management problems because of his MR.... I think I'll distress made my migraines come back... HPI HPI Patient is a 28 year old female who presents with above hx and complaints of migraine headache. Pain seems started base of skull migrates up over scalp. Scalp is tender to touch. Patient denies any trauma. Patient denies any specific ill contacts. Patient does have a history of prior migraines. Prior workups have been negative. Patient has history of hypertension, ovarian cysts, tobacco use, depression, anxiety, and follows with Dr. Solis. No recent travel. No specific ill contacts. No history immunosuppression. No fevers. No history of cancer. She does have frequent ED visits Review of Systems Review of Systems Constitutional: Denies fever or chills [] Eyes: Denies change in visual acuity, redness, or eye pain [] HENT: Denies nasal congestion or sore throat [] Respiratory: Denies cough or shortness of breath [] Cardiovascular: No additional information not addressed in HPI [] GI: Denies abdominal pain, nausea, vomiting, bloody stools or diarrhea [] : Denies dysuria or hematuria [] Musculoskeletal: Denies back pain or joint pain [] Integument: Denies rash or skin lesions [] Neurologic: Plaints of migraine headache, denies focal weakness or sensory changes [] Endocrine: Denies polyuria or polydipsia [] All other systems were reviewed and found to be within normal limits, except as documented in this note. Family History Family History Noncontributory Current Medications Current Medications Current Medications Medications (Trade) Dose Ordered Sig/Neno Start Time Stop Time Status Last Admin Dose Admin Lorazepam (Ativan) 2 mg 1X ONCE 11/10/18 18:45 11/10/18 18:46 DC 11/10/18 18:41 2 MG Prochlorperazine Edisylate (Compazine) 10 mg 1X ONCE 11/10/18 18:45 11/10/18 18:46 DC 11/10/18 18:40 10 MG Sumatriptan Succinate (Imitrex) 6 mg 1X ONCE 11/10/18 19:30 11/10/18 19:30 DC 11/10/18 19:23 6 MG Allergies Allergies Allergies Coded Allergies Type Severity Reaction Last Updated Verified cephalexin Allergy Intermediate 10/20/18 Yes ibuprofen Allergy Intermediate 10/20/18 Yes tramadol Adverse Reaction Mild 10/20/18 Yes Physical Exam Physical Exam Constitutional: Moderate acute distress, non-toxic appearance. [] HENT: Normocephalic, atraumatic, bilateral external ears normal, oropharynx moist, no oral exudates, nose normal. [] Eyes: PERRLA, EOMI, conjunctiva normal, no discharge. [] Neck: Normal range of motion, no tenderness, supple, no stridor. [] Cardiovascular:Heart rate regular rhythm, no murmur [] Lungs & Thorax: Bilateral breath sounds will apexes scattered wheezes on auscultation [] Abdomen: Bowel sounds normal, soft, no tenderness, no masses, no pulsatile masses. [] Obese. Old surgery scars. Skin: Warm, dry, no erythema, no rash. [] Back: No tenderness, no CVA tenderness. [] Extremities: No tenderness, no cyanosis, no clubbing, ROM intact, no edema. [] Neurologic: Alert and oriented X 3, normal motor function, normal sensory function, no focal deficits noted. []DTRs +2 patella and brachial. Clinical Laboratory Assistant equal. No drift. M atorvastatin without problems. Psychologic: Affect anxious, judgement normal, mood mild the depressed. No suicidal homicidal ideations Current Patient Data Vital Signs Vital Signs Date Time Temp Pulse Resp B/P (MAP) Pulse Ox O2 Delivery O2 Flow Rate FiO2 11/10/18 17:49 98.2 88 20 151/111 (124) 98 Room Air Lab Results Laboratory Tests Test 11/10/18 18:00 Urine Collection Type Unknown Urine Color Yellow Urine Clarity Clear Urine pH 7.5 Urine Specific Kirby 1.015 Urine Protein Neg (NEG-TRACE) Urine Glucose (UA) Neg mg/dL (NEG) Urine Ketones (Stick) Neg mg/dL (NEG) Urine Blood Neg (NEG) Urine Nitrite Neg (NEG) Urine Bilirubin Neg (NEG) Urine Urobilinogen Dipstick 0.2 mg/dL (0.2 mg/dL) Urine Leukocyte Esterase Neg (NEG) Urine RBC 0 /HPF (0-2) Urine WBC Occ /HPF (0-4) Urine Squamous Epithelial Cells Occ /LPF Urine Bacteria 0 /HPF (0-FEW) Urine Test Negative (NEG) Urine Opiates Screen Pos (NEG) Urine Methadone Screen Neg (NEG) Urine Barbiturates Neg (NEG) Urine Phencyclidine Screen Neg (NEG) Urine Amphetamine/Methamphetamine Neg (NEG) Urine Benzodiazepines Screen Neg (NEG) Urine Cocaine Screen Neg (NEG) Urine Cannabinoids Screen Neg (NEG) Urine Ethyl Alcohol (NEG) EKG EKG [] Radiology/Procedures Radiology/Procedures CT declined at this time.[] Course & Med Decision Making Course & Med Decision Making Pertinent Labs and Imaging studies reviewed. (See chart for details). Patient declines spinal tap at this time. Patient declines labs at this time. Patient was be treated clinically for her headache complaints. Take Tylenol as needed for pain. Patient to try Imitrex 100 mg at the beginning of headache. Never take more than 200 mg in 24-hour. Patient follow-up primary care. Patient follow -up with neurology. Patient return if any concerns. Encourage pt to stop smoking. [] Final Impression Final Impression 1. Migraine headache 2. Increased social/family stressors[] Dragon Disclaimer Dragon Disclaimer This electronic medical record was generated, in whole or in part, using a voice recognition dictation system. Dragon Disclaimer This chart was dictated in whole or in part using Voice Recognition software in a busy, high-work load, and often noisy Emergency Department environment. It may contain unintended and wholly unrecognized errors or omissions. Dragon Disclaimer This chart was dictated in whole or in part using Voice Recognition software in a busy, high-work load, and often noisy Emergency Department environment. It may contain unintended and wholly unrecognized errors or omissions. Discharge Summary Visit Information Final Diagnosis Problems Medical Problems: (1) Migraine Status: Acute Brief Hospital Course Allergies Allergies Coded Allergies Type Severity Reaction Last Updated Verified cephalexin Allergy Intermediate 10/20/18 Yes ibuprofen Allergy Intermediate 10/20/18 Yes tramadol Adverse Reaction Mild 10/20/18 Yes Vital Signs Vital Signs Date Time Temp Pulse Resp B/P (MAP) Pulse Ox O2 Delivery O2 Flow Rate FiO2 11/10/18 17:49 98.2 88 20 151/111 (124) 98 Room Air Lab Results Laboratory Tests Test 11/10/18 18:00 Urine Collection Type Unknown Urine Color Yellow Urine Clarity Clear Urine pH 7.5 Urine Specific Kirby 1.015 Urine Protein Neg (NEG-TRACE) Urine Glucose (UA) Neg mg/dL (NEG) Urine Ketones (Stick) Neg mg/dL (NEG) Urine Blood Neg (NEG) Urine Nitrite Neg (NEG) Urine Bilirubin Neg (NEG) Urine Urobilinogen Dipstick 0.2 mg/dL (0.2 mg/dL) Urine Leukocyte Esterase Neg (NEG) Urine RBC 0 /HPF (0-2) Urine WBC Occ /HPF (0-4) Urine Squamous Epithelial Cells Occ /LPF Urine Bacteria 0 /HPF (0-FEW) Urine Test Negative (NEG) Urine Opiates Screen Pos (NEG) Urine Methadone Screen Neg (NEG) Urine Barbiturates Neg (NEG) Urine Phencyclidine Screen Neg (NEG) Urine Amphetamine/Methamphetamine Neg (NEG) Urine Benzodiazepines Screen Neg (NEG) Urine Cocaine Screen Neg (NEG) Urine Cannabinoids Screen Neg (NEG) Urine Ethyl Alcohol (NEG) Brief Hospital Course Ms. Dempsey is a 28 old [sex] who presented with [ ] Discharge Information Dischare Medications Current Medications Prochlorperazine Edisylate (Compazine) 10 mg 1X ONCE IM Last administered on at 18:40; Admin Dose 10 MG; Start 11/10/18 at 18:45; Stop 11/10/18 at 18:46; Status DC Lorazepam (Ativan) 2 mg 1X ONCE IM Last administered on 11/10/18at 18:41; Admin Dose 2 MG; Start 11/10/18 at 18:45; Stop 11/10/18 at 18:46; Status DC Sumatriptan Succinate (Imitrex) 6 mg 1X ONCE SQ Last administered on 11/10/18at 19:23; Admin Dose 6 MG; Start 11/10/18 at 19:30; Stop 11/10/18 at 19:30; Status DC Active Scripts Active Imitrex (Sumatriptan Succinate) 100 Mg Tablet 100 Mg PO 1X Zofran (Ondansetron Hcl) 8 Mg Tablet 8 Mg PO QIDPRN PRN Mobic (Meloxicam) 15 Mg Tablet 1 Tab PO DAILY Penicillin V Potassium 500 Mg Tablet 1 Tab PO QID Cyclobenzaprine Hcl 10 Mg Tablet 1 Tab PO TID Loperamide (Loperamide Hcl) 2 Mg Tablet 2 Mg PO Q1HR PRN Compazine (Prochlorperazine Maleate) 10 Mg Tablet 10 Mg PO Q6HRS PRN Ondansetron Odt (Ondansetron) 4 Mg Tab.rapdis 1 Tab PO PRN Q6-8HRS PRN Dicyclomine Hcl 20 Mg Tablet 1 Tab PO TID Zofran (Ondansetron Hcl) 4 Mg Tablet 1 Tab PO Q8HRS PRN Pepcid (Famotidine) 20 Mg Tablet 1 Tab PO BID Ondansetron Odt (Ondansetron) 4 Mg Tab.rapdis 1 Tab PO PRN Q6-8HRS Levsin-Sl (Hyoscyamine Sulfate) 0.125 Mg Tab.subl 1-2 Tab SL PRN Q4HRS PRN Tylenol With Codeine #3 Tablet (Acetaminophen With Codeine) 1 Each Tablet 1 Tab PO Q4-6HRS Cyclobenzaprine Hcl 10 Mg Tablet 1 Tab PO TID PRN Zofran (Ondansetron Hcl) 4 Mg Tablet 1 Tab PO Q6HRS Fiorinal 50-325-40 Mg Capsule (Butalbital/Aspirin/Caffeine) 1 Each Capsule 1 Each PO QID PRN Fiorinal 50-325-40 Mg Capsule (Butalbital/Aspirin/Caffeine) 1 Each Capsule 1 Each PO QID PRN Whitman 5-325 Tablet (Hydrocodone Bit/Acetaminophen) 1 Each Tablet 1 Tab PO PRN Q6HRS PRN Prednisone 20 Mg Tablet 1 Tab PO BID 5 Days Zofran Odt (Ondansetron) 4 Mg Tab.rapdis 1 Tab SL Q8HRS Fiorinal 50-325-40 Mg Capsule (Butalbital/Aspirin/Caffeine) 1 Each Capsule 1 Each PO QID PRN Dicyclomine Hcl 20 Mg Tablet 1 Tab PO TID Compazine (Prochlorperazine Maleate) 10 Mg Tablet 10 Mg PO Q8HRS PRN Reglan (Metoclopramide Hcl) 10 Mg Tablet 10 Mg PO PRN Q8HRS PRN Pepcid (Famotidine) 20 Mg Tablet 1 Tab PO BID Medrol (Methylprednisolone) 4 Mg Tab.ds.pk 1 Pkg PO UD [Percogesic] 1 Tab PO QID PRN Reported Vitamin D3 (Cholecalciferol (Vitamin D3)) 1,000 Unit Tablet Unknown Dose PO Zoloft (Sertraline Hcl) 25 Mg Tablet Unknown Dose PO DAILY [Iron] Hydrochlorothiazide Capsule (Hydrochlorothiazide) 12.5 Mg Capsule Unknown Dose PO DAILY [Cardia] Discharge Summary Visit Information Final Diagnosis Problems Medical Problems: (1) Migraine Status: Acute Brief Hospital Course Allergies Allergies Coded Allergies Type Severity Reaction Last Updated Verified cephalexin Allergy Intermediate 10/20/18 Yes ibuprofen Allergy Intermediate 10/20/18 Yes tramadol Adverse Reaction Mild 10/20/18 Yes Vital Signs Vital Signs Date Time Temp Pulse Resp B/P (MAP) Pulse Ox O2 Delivery O2 Flow Rate FiO2 11/10/18 17:49 98.2 88 20 151/111 (124) 98 Room Air Lab Results Laboratory Tests Test 11/10/18 18:00 Urine Collection Type Unknown Urine Color Yellow Urine Clarity Clear Urine pH 7.5 Urine Specific Kirby 1.015 Urine Protein Neg (NEG-TRACE) Urine Glucose (UA) Neg mg/dL (NEG) Urine Ketones (Stick) Neg mg/dL (NEG) Urine Blood Neg (NEG) Urine Nitrite Neg (NEG) Urine Bilirubin Neg (NEG) Urine Urobilinogen Dipstick 0.2 mg/dL (0.2 mg/dL) Urine Leukocyte Esterase Neg (NEG) Urine RBC 0 /HPF (0-2) Urine WBC Occ /HPF (0-4) Urine Squamous Epithelial Cells Occ /LPF Urine Bacteria 0 /HPF (0-FEW) Urine Test Negative (NEG) Urine Opiates Screen Pos (NEG) Urine Methadone Screen Neg (NEG) Urine Barbiturates Neg (NEG) Urine Phencyclidine Screen Neg (NEG) Urine Amphetamine/Methamphetamine Neg (NEG) Urine Benzodiazepines Screen Neg (NEG) Urine Cocaine Screen Neg (NEG) Urine Cannabinoids Screen Neg (NEG) Urine Ethyl Alcohol (NEG) Brief Hospital Course Ms. Dempsey is a 28 old female who presented with migraine complaints and increase social / family stressors. Discharge Information Condition at Discharge: Improved, Stable Disposition/Orders: D/C to Home Dischare Medications Current Medications Prochlorperazine Edisylate (Compazine) 10 mg 1X ONCE IM Last administered on at 18:40; Admin Dose 10 MG; Start 11/10/18 at 18:45; Stop 11/10/18 at 18:46; Status DC Lorazepam (Ativan) 2 mg 1X ONCE IM Last administered on 11/10/18at 18:41; Admin Dose 2 MG; Start 11/10/18 at 18:45; Stop 11/10/18 at 18:46; Status DC Sumatriptan Succinate (Imitrex) 6 mg 1X ONCE SQ Last administered on 11/10/18at 19:23; Admin Dose 6 MG; Start 11/10/18 at 19:30; Stop 11/10/18 at 19:30; Status DC Active Scripts Active Imitrex (Sumatriptan Succinate) 100 Mg Tablet 100 Mg PO 1X Zofran (Ondansetron Hcl) 8 Mg Tablet 8 Mg PO QIDPRN PRN Mobic (Meloxicam) 15 Mg Tablet 1 Tab PO DAILY Penicillin V Potassium 500 Mg Tablet 1 Tab PO QID Cyclobenzaprine Hcl 10 Mg Tablet 1 Tab PO TID Loperamide (Loperamide Hcl) 2 Mg Tablet 2 Mg PO Q1HR PRN Compazine (Prochlorperazine Maleate) 10 Mg Tablet 10 Mg PO Q6HRS PRN Ondansetron Odt (Ondansetron) 4 Mg Tab.rapdis 1 Tab PO PRN Q6-8HRS PRN Dicyclomine Hcl 20 Mg Tablet 1 Tab PO TID Zofran (Ondansetron Hcl) 4 Mg Tablet 1 Tab PO Q8HRS PRN Pepcid (Famotidine) 20 Mg Tablet 1 Tab PO BID Ondansetron Odt (Ondansetron) 4 Mg Tab.rapdis 1 Tab PO PRN Q6-8HRS Levsin-Sl (Hyoscyamine Sulfate) 0.125 Mg Tab.subl 1-2 Tab SL PRN Q4HRS PRN Tylenol With Codeine #3 Tablet (Acetaminophen With Codeine) 1 Each Tablet 1 Tab PO Q4-6HRS Cyclobenzaprine Hcl 10 Mg Tablet 1 Tab PO TID PRN Zofran (Ondansetron Hcl) 4 Mg Tablet 1 Tab PO Q6HRS Fiorinal 50-325-40 Mg Capsule (Butalbital/Aspirin/Caffeine) 1 Each Capsule 1 Each PO QID PRN Fiorinal 50-325-40 Mg Capsule (Butalbital/Aspirin/Caffeine) 1 Each Capsule 1 Each PO QID PRN Whitman 5-325 Tablet (Hydrocodone Bit/Acetaminophen) 1 Each Tablet 1 Tab PO PRN Q6HRS PRN Prednisone 20 Mg Tablet 1 Tab PO BID 5 Days Zofran Odt (Ondansetron) 4 Mg Tab.rapdis 1 Tab SL Q8HRS Fiorinal 50-325-40 Mg Capsule (Butalbital/Aspirin/Caffeine) 1 Each Capsule 1 Each PO QID PRN Dicyclomine Hcl 20 Mg Tablet 1 Tab PO TID Compazine (Prochlorperazine Maleate) 10 Mg Tablet 10 Mg PO Q8HRS PRN Reglan (Metoclopramide Hcl) 10 Mg Tablet 10 Mg PO PRN Q8HRS PRN Pepcid (Famotidine) 20 Mg Tablet 1 Tab PO BID Medrol (Methylprednisolone) 4 Mg Tab.ds.pk 1 Pkg PO UD [Percogesic] 1 Tab PO QID PRN Reported Vitamin D3 (Cholecalciferol (Vitamin D3)) 1,000 Unit Tablet Unknown Dose PO Zoloft (Sertraline Hcl) 25 Mg Tablet Unknown Dose PO DAILY [Iron] Hydrochlorothiazide Capsule (Hydrochlorothiazide) 12.5 Mg Capsule Unknown Dose PO DAILY [Cardia] GLENDA CHAVEZ MD Nov 10, 2018 17:46
[2018-11-10 17:49] VITALS: BP 151/111
[2018-11-10 18:26] LABS: BARBITURATES NEG (NEG); BENZODIAZEPINES NEG (NEG); CANNABINOIDS NEG (NEG); COCAINE NEG (NEG); METHADONE NEG (NEG); OPIATES POS (NEG); PHENCYCLIDINE NEG (NEG)
[2018-11-10 18:28] LABS: BACTERIA,URINE 0 /HPF (0-FEW); BILIRUBIN,URINE NEG (NEG); CLARITY,URINE CLEAR; COLOR,URINE YELLOW; GLUCOSE,URINE NEG (NEG); NITRITE,URINE NEG (NEG); RBC,URINE 0 /HPF (0-2); SQUAMOUS EPITHELIAL CELL,UR OCC /LPF; UROBILINOGEN,URINE 0.2 mg/dL (0.2 mg/dL); WBC,URINE OCC /HPF (0-4)
[2018-11-10 18:30] LABS: AMPHETAMINE/METHAMPHETAMINE NEG (NEG)
[2018-11-10] MEDS ORDERED: PROCHLORPERAZINE 10 MG/2 ML VIAL. IM ONE (18:45)
[2018-11-10] MEDS ORDERED: ONDA8TAB9 PO (19:11)
[2018-11-10] MEDS ORDERED: SUMA100T3 PO (19:11)
[2018-11-10 19:24] LABS: U PREG PATIENT NEGATIVE (NEG)
[2018-11-10] MEDS ORDERED: SUMAtriptan SUCC 6 MG/0.5 ML VIAL SQ ONE (19:30)
== END 2018-11-10 19:26 | disposition home or self-care (01) ==
LOC: ER 17:42
DX: G43.909 Migraine, unspecified, not intractable, without status migrainosus (principal); F41.9 Anxiety disorder, unspecified; J45.909 Unspecified asthma, uncomplicated; I10 Essential (primary) hypertension; F17.210 Nicotine dependence, cigarettes, uncomplicated; Z88.1 Allergy status to other antibiotic agents; Z88.6 Allergy status to analgesic agent
CPT/HCPCS: 36415; 80307; 81001; 81025; 96372; 99283; J0780; J2060; J3030

== ENCOUNTER 2018-11-22 20:04 | Emergency (ER) | payer OTHER ==
[~2018-11-22 20:04] MED LIST changes: +ONDA8TAB9 PO; +SUMA100T3 PO
[2018-11-22 20:29] VITALS: BP 201/125
--- NOTE | 2018-11-22 20:29 | PHYS DOC ---
Past History Past Medical History: Anxiety, Asthma, Hypertension, Migraines, Ovarian Cyst Past Surgical History: Cholecystectomy, , Hysterectomy Smoking: Cigarettes, Less than 1pk/day Alcohol Use: Rarely Drug Use: None Adult General Chief Complaint Chief Complaint: HEADACHE HPI HPI Patient is a 28-year-old female with a history of recurrent migraine headaches who presents to the emergency department for evaluation. She states that yesterday she began experiencing her typical migraine headache. She has some blurry vision, but no numbness or weakness, nausea or vomiting, photophobia, neck stiffness, fevers or chills. Her syndrome is exactly the same as her normal migraine headaches. She states her PCP did give her some injection form of Imitrex, but states she has not tolerated the pill form in the past and does not want to take the injection. She is noted to be hypertensive upon arrival and states she has an underlying history of hypertension. She states that she takes propranolol and recently had another antihypertensive medication added to her regimen earlier this week, the name of which she is uncertain. There are no alleviating or exacerbating factors to the patient's symptoms. The patient's prescription history has been reviewed in the [facility], and she has an extensive history of numerous controlled substances prescribed by numerous different providers. Review of Systems Review of Systems Constitutional: Denies fever or chills [] Eyes: Denies redness, or eye pain [] HENT: Denies nasal congestion or sore throat [] Respiratory: Denies cough or shortness of breath [] Cardiovascular: The patient denies any shortness of breath, chest pain, palpitations, or orthopnea [] GI: Denies abdominal pain, nausea, vomiting, bloody stools or diarrhea [] : Denies dysuria or hematuria [] Musculoskeletal: Denies back pain or joint pain [] Integument: Denies rash or skin lesions [] Neurologic: Denies focal weakness or sensory changes [] Endocrine: Denies polyuria or polydipsia [] All other systems were reviewed and found to be within normal limits, except as documented in this note. Current Medications Current Medications Current Medications Medications (Trade) Dose Ordered Sig/Neno Start Time Stop Time Status Last Admin Dose Admin Diphenhydramine HCl (Benadryl) 50 mg 1X ONCE 11/22/18 20:30 11/22/18 20:31 UNV Ketorolac Tromethamine (Toradol 30mg Vial) 30 mg 1X ONCE 11/22/18 20:30 11/22/18 20:31 UNV Prochlorperazine Edisylate (Compazine) 10 mg 1X ONCE 11/22/18 20:30 11/22/18 20:31 UNV Sodium Chloride 1,000 ml @ 1,000 mls/hr 1X ONCE 11/22/18 20:30 11/22/18 21:29 UNV Allergies Allergies Allergies Coded Allergies Type Severity Reaction Last Updated Verified cephalexin Allergy Intermediate 10/20/18 Yes ibuprofen Allergy Intermediate 10/20/18 Yes tramadol Adverse Reaction Mild 10/20/18 Yes Physical Exam Physical Exam PHYSICAL EXAM: CONSTITUTIONAL: Well developed, well nourished HEAD: normocephalic, atraumatic EENT: PERRL, EOMI. Conjunctivae normal color, sclerae non-icteric; moist mucous membranes. NECK: Supple, non-tender; no meningismus. LUNGS: Lungs CTA, breathing even and unlabored. Normal air movement. HEART: Regular rate and rhythm, no murmur CHEST: No deformity; non-tender ABDOMEN: The abdomen is soft, and non-tender, no masses or bruits. EXTREM: Normal ROM; no deformity, no calf tenderness. Normal pulses palpable in all extremities. There is no pedal edema. SKIN: No rash; no diaphoresis NEURO: Alert; normal speech and cognition; CN's grossly intact; strength grossly intact without focal deficit. BACK: No CVA TTP. EKG EKG [] Radiology/Procedures Radiology/Procedures [] Course & Med Decision Making Course & Med Decision Making 9:00 PM: The patient's headache has completely resolved her blood pressure has improved, and I discussed importance of close follow-up with her PCP and return precautions. Dragon Disclaimer Dragon Disclaimer This electronic medical record was generated, in whole or in part, using a voice recognition dictation system. Departure Departure: Impression: Primary Impression: Migraine Disposition: 01 HOME, SELF-CARE Condition: STABLE Referrals: NICOL BLUM (PCP) Patient Instructions: Hypertension, Migraine Headache BOB LOCKETT MD Nov 22, 2018 20:29
[2018-11-22] MEDS ORDERED: IV NORMAL SALINE 1,000ML 1,000 ML IV ONE (20:30)
[2018-11-22] MEDS ORDERED: diphenhydrAMINE 50 MG/ML VIAL IVP ONE (20:45)
[2018-11-22] MEDS ORDERED: PROCHLORPERAZINE 10 MG/2 ML VIAL. IV ONE (20:45)
[2018-11-22] MEDS ORDERED: KETOROLAC 30 MG/ML VIAL. IV ONE (20:45)
== END 2018-11-22 21:10 | disposition home or self-care (01) ==
LOC: ER 20:04
DX: G43.909 Migraine, unspecified, not intractable, without status migrainosus (principal); F41.9 Anxiety disorder, unspecified; J45.909 Unspecified asthma, uncomplicated; I10 Essential (primary) hypertension; F17.210 Nicotine dependence, cigarettes, uncomplicated; Z88.1 Allergy status to other antibiotic agents; Z88.6 Allergy status to analgesic agent
CPT/HCPCS: 96374; 96375; 99283; J0780; J1200; J1885; 96361; J7030

== ENCOUNTER 2018-12-05 10:26 | Emergency (ER) | payer OTHER ==
[~2018-12-05] VITALS: Ht 160 cm; Wt 117.0 kg
[2018-12-05 10:30] VITALS: BP 152/101
--- NOTE | 2018-12-05 10:58 | PHYS DOC ---
Past History Past Medical History: Hypertension, Migraines Past Surgical History: No Surgical History Smoking: Cigarettes, Less than 1pk/day Alcohol Use: None Drug Use: None Adult General Chief Complaint Chief Complaint: HEADACHE HPI HPI Patient is a 28 year old female with history of recurrent migraine headache who presents with complaining of migraine headache. Patient complaining of global sharp headache for the last 3 days as a constant pain associated with nausea, photophobia, phonophobia. Patient denies fever and chills, neck pain, focal neuro deficit, vomiting. Patient states her headache is like her usual migraine headache and it was 10 over tenderness was started on right place 04/20. Patient states she took [id number] Excedrin Migraine and Tylenol without improvement of her pain. Patient states she ran out of propranolol and Atrovent for 2 weeks and [facility] her medication. Patient also complaining of elevation of her blood pressure with episodes of headache. Patient had blood pressure of 146/68 at arrival to ER. Review of Systems Review of Systems Constitutional: Denies fever or chills [] Eyes: Denies change in visual acuity, redness, or eye pain [] HENT: Denies nasal congestion or sore throat [] Respiratory: Denies cough or shortness of breath [] Cardiovascular: No additional information not addressed in HPI [] GI: Denies abdominal pain, vomiting, bloody stools or diarrhea, reports nausea [] : Denies dysuria or hematuria [] Musculoskeletal: Denies back pain or joint pain [] Integument: Denies rash or skin lesions [] Neurologic: Reports headache, denies focal weakness or sensory changes [] Endocrine: Denies polyuria or polydipsia [] All other systems were reviewed and found to be within normal limits, except as documented in this note. Current Medications Current Medications Current Medications Medications (Trade) Dose Ordered Sig/Neno Start Time Stop Time Status Last Admin Dose Admin Diphenhydramine HCl (Benadryl) 50 mg 1X ONCE 12/05/18 10:45 12/05/18 10:46 UNV Ketorolac Tromethamine (Toradol Im) 60 mg 1X ONCE 12/05/18 10:45 12/05/18 10:46 UNV Ondansetron HCl (Zofran Odt) 4 mg 1X ONCE 12/05/18 10:45 12/05/18 10:46 UNV Allergies Allergies Allergies Coded Allergies Type Severity Reaction Last Updated Verified cephalexin Allergy Intermediate 10/20/18 Yes ibuprofen Allergy Intermediate 10/20/18 Yes tramadol Adverse Reaction Mild 10/20/18 Yes Physical Exam Physical Exam Constitutional: Well developed, well nourished, mild distress, non-toxic appearance. [] HENT: Normocephalic, atraumatic, bilateral external ears normal, oropharynx moist, no oral exudates, nose normal. [] Eyes: PERRLA, EOMI, conjunctiva normal, no discharge. [] Neck: Normal range of motion, no tenderness, supple, no stridor. [] Cardiovascular:Heart rate regular rhythm, no murmur [] Lungs & Thorax: Bilateral breath sounds clear to auscultation [] Abdomen: Bowel sounds normal, soft, no tenderness, no masses, no pulsatile masses. [] Skin: Warm, dry, no erythema, no rash. [] Back: No tenderness, no CVA tenderness. [] Extremities: No tenderness, no cyanosis, no clubbing, ROM intact, no edema. [] Neurologic: Alert and oriented X 3, normal motor function, normal sensory function, no focal deficits noted. [] Psychologic: Affect normal, judgement normal, mood normal. [] Current Patient Data Vital Signs Vital Signs Date Time Temp Pulse Resp B/P (MAP) Pulse Ox O2 Delivery O2 Flow Rate FiO2 12/05/18 10:30 98.1 90 18 97 Room Air EKG EKG [] Radiology/Procedures Radiology/Procedures [] Course & Med Decision Making Course & Med Decision Making Evaluation of patient in ER showed 28-year-old male patient with history of migraine headache and frequent emergency room visits presented with complaining of migraine headache. Patient had unremarkable physical exam. Patient did not want to have IV line. She treated by IM Toradol and oral Benadryl and Zofran and felt better. Patient was advised to follow up with her primary care physician. Dragon Disclaimer Dragon Disclaimer This electronic medical record was generated, in whole or in part, using a voice recognition dictation system. Departure Departure: Impression: Primary Impression: Migraine Additional Impressions: Tobacco abuse Tobacco abuse counseling Disposition: HOME, SELF-CARE (ERASED) Condition: IMPROVED Referrals: NICOL BLUM (PCP) Patient Instructions: Migraine Headache, Smoking Cessation, Tips For Success Additional Instructions: Drink plenty of liquids Follow-up with your primary care physician as scheduled in 3 days Return to ER if not getting better Scripts Ondansetron Hcl (ZOFRAN) 4 Mg Tablet 1 TAB PO Q6HRS for nausea and vomiting, #12 TAB Prov: LIT IVY MD 12/05/18 Butalbital/Aspirin/Caffeine (FIORINAL 50-325-40 MG CAPSULE) 1 Each Capsule 1 EACH PO QID PRN for HEADACHE, #14 CAP Prov: LIT IVY MD 12/05/18 Problem Qualifiers Primary Impression: Migraine Migraine type: without aura Status migrainosus presence: without status migrainosus Intractability: not intractable Qualified Codes: G43.009 - Migraine without aura, not intractable, without status migrainosus LIT IVY MD Dec 05, 2018 10:58
[2018-12-05] MEDS ORDERED: KETOROLAC 60 MG/2 ML VIAL. IM ONE (11:00)
[2018-12-05] MEDS ORDERED: ONDANSETRON ODT 4 MG TAB.RAPDIS PO ONE (11:00)
[2018-12-05] MEDS ORDERED: diphenhydrAMINE HCL 25 MG CAPSULE PO ONE (11:00)
[2018-12-05] MEDS ORDERED: BUTA1CAP31 PO (11:01)
[2018-12-05] MEDS ORDERED: ONDA4TAB7 PO (11:01)
== END 2018-12-05 11:26 | disposition home or self-care (01) ==
LOC: ER 10:26
DX: G43.909 Migraine, unspecified, not intractable, without status migrainosus (principal); I10 Essential (primary) hypertension; F17.210 Nicotine dependence, cigarettes, uncomplicated; Z71.6 Tobacco abuse counseling; Z88.1 Allergy status to other antibiotic agents; Z88.6 Allergy status to analgesic agent
CPT/HCPCS: 96372; 99283; J1885; Q0162; Q0163

== ENCOUNTER 2018-12-25 18:50 | Emergency (ER) | payer OTHER ==
[~2018-12-25] VITALS: Ht 160 cm; Wt 117.0 kg
--- NOTE | 2018-12-25 18:55 | ED.ADGEN ---
Past History Past Medical History: Hypertension, Migraines Past Surgical History: No Surgical History Smoking: Cigarettes, Less than 1pk/day Alcohol Use: None Drug Use: None Adult General Chief Complaint Chief Complaint ".. I am under a lot of stress...I ve got to move kids.. my .. it caused my migraine to flair.." HPI HPI Patient is a 28 year old female who presents with above hx and complaints of migraine headache. Pt. seen 12/05 and 11/10 for similar complaints. Patient has a history of migraine headaches that seem to be triggered by stress. Patient has photophobia, nausea, phonophobia. No history of immunosuppression. No history of fevers. No history of travel or specific ill contacts. Patient does have a follow-up with neurology on coming Monday. Patient used to take Imitrex but it causes her to have angina so she is currently using it. Patient does continue to smoke. Review of Systems Review of Systems Constitutional: Denies fever or chills [] Eyes: Denies change in visual acuity, redness, or eye pain []complaints of photophobia HENT: Denies nasal congestion or sore throat [] Respiratory: Denies cough or shortness of breath [] Cardiovascular: No additional information not addressed in HPI [] GI: Denies abdominal pain, vomiting, bloody stools or diarrhea []complaints of nausea : Denies dysuria or hematuria [] Musculoskeletal: Denies back pain or joint pain [] Integument: Denies rash or skin lesions [] Neurologic: Denies focal weakness or sensory changes [] complaints of migraine headache Endocrine: Denies polyuria or polydipsia [] All other systems were reviewed and found to be within normal limits, except as documented in this note. Family History Family History Noncontributory Current Medications Current Medications Current Medications Medications (Trade) Dose Ordered Sig/Neno Start Time Stop Time Status Last Admin Dose Admin Diphenhydramine HCl (Benadryl) 50 mg 1X ONCE 12/25/18 19:30 12/25/18 19:31 DC 12/25/18 20:21 50 MG Fentanyl Citrate (Fentanyl 2ml Vial) 75 mcg 1X ONCE 12/25/18 19:30 12/25/18 19:31 DC 12/25/18 20:23 75 MCG Ketorolac Tromethamine (Toradol Im) 60 mg 1X ONCE 12/25/18 19:30 12/25/18 19:31 DC 12/25/18 20:23 60 MG Prochlorperazine Edisylate (Compazine) 10 mg 1X ONCE 12/25/18 19:30 12/25/18 19:31 DC 12/25/18 20:22 10 MG Allergies Allergies Allergies Coded Allergies Type Severity Reaction Last Updated Verified cephalexin Allergy Intermediate 10/20/18 Yes ibuprofen Allergy Intermediate 10/20/18 Yes tramadol Adverse Reaction Mild 10/20/18 Yes Physical Exam Physical Exam Constitutional: Mild to moderate acute distress, non-toxic appearance. [] HENT: Normocephalic, atraumatic, bilateral external ears normal, oropharynx moist, no oral exudates, nose normal. [] Eyes: PERRLA, EOMI, conjunctiva normal, no discharge. [] Neck: Normal range of motion, no tenderness, supple, no stridor. [] Cardiovascular:Heart rate regular rhythm, no murmur [] Lungs & Thorax: Bilateral breath sounds equal apexes scattered wheezes on auscultation [] Abdomen: Bowel sounds normal, soft, no tenderness, no masses, no pulsatile masses. [] Obese Skin: Warm, dry, no erythema, no rash. [] Back: No tenderness, no CVA tenderness. [] Extremities: No tenderness, no cyanosis, no clubbing, ROM intact, no edema. [] Neurologic: Alert and oriented X 3, normal motor function, normal sensory function, no focal deficits noted. []DTRs +2 patella and brachial. [employer] equal. Patient attempt without problems. Psychologic: Affect anxious, judgement normal, mood normal. [] Current Patient Data Vital Signs Vital Signs Date Time Temp Pulse Resp B/P (MAP) Pulse Ox O2 Delivery O2 Flow Rate FiO2 12/25/18 21:30 87 18 158/102 (120) 95 Room Air 12/25/18 18:58 98.3 Lab Results Laboratory Tests Test 12/25/18 19:45 12/25/18 19:57 Urine Collection Type Unknown Urine Color Yellow Urine Clarity Cloudy Urine pH 7.0 Urine Specific [place] 1.015 Urine Protein Neg (NEG-TRACE) Urine Glucose (UA) Neg mg/dL (NEG) Urine Ketones (Stick) Neg mg/dL (NEG) Urine Blood Neg (NEG) Urine Nitrite Neg (NEG) Urine Bilirubin Neg (NEG) Urine Urobilinogen Dipstick 0.2 mg/dL (0.2 mg/dL) Urine Leukocyte Esterase Neg (NEG) Urine RBC 0 /HPF (0-2) Urine WBC 0 /HPF (0-4) Urine Squamous Epithelial Cells Occ /LPF Urine Bacteria 0 /HPF (0-FEW) Urine Opiates Screen Neg (NEG) Urine Methadone Screen Neg (NEG) Urine Barbiturates Neg (NEG) Urine Phencyclidine Screen Neg (NEG) Urine Amphetamine/Methamphetamine Neg (NEG) Urine Benzodiazepines Screen Neg (NEG) Urine Cocaine Screen Neg (NEG) Urine Cannabinoids Screen Neg (NEG) Urine Ethyl Alcohol Neg (NEG) POC Urine HCG, Qualitative hcg negative (Negative) Patient declines labs EKG EKG [] Radiology/Procedures Radiology/Procedures Patient declines CT[] Impressions: Patient declines spinal tap Course & Med Decision Making Course & Med Decision Making Pertinent Labs and Imaging studies reviewed. (See chart for details) Get adequate rest. No smoking. Take Zofran as needed for nausea and vomiting. Take Tylenol for pain. Keep follow-up with neurology. Return if any concerns. [] Final Impression Final Impression 1. Migraine Headaches[] Dragon Disclaimer Dragon Disclaimer This electronic medical record was generated, in whole or in part, using a voice recognition dictation system. Discharge Summary Visit Information Final Diagnosis Problems Medical Problems: (1) Migraine Status: Acute Brief Hospital Course Allergies Allergies Coded Allergies Type Severity Reaction Last Updated Verified cephalexin Allergy Intermediate 10/20/18 Yes ibuprofen Allergy Intermediate 10/20/18 Yes tramadol Adverse Reaction Mild 10/20/18 Yes Vital Signs Vital Signs Date Time Temp Pulse Resp B/P (MAP) Pulse Ox O2 Delivery O2 Flow Rate FiO2 12/25/18 21:30 87 18 158/102 (120) 95 Room Air 12/25/18 18:58 98.3 Lab Results Laboratory Tests Test 12/25/18 19:45 12/25/18 19:57 Urine Collection Type Unknown Urine Color Yellow Urine Clarity Cloudy Urine pH 7.0 Urine Specific [place] 1.015 Urine Protein Neg (NEG-TRACE) Urine Glucose (UA) Neg mg/dL (NEG) Urine Ketones (Stick) Neg mg/dL (NEG) Urine Blood Neg (NEG) Urine Nitrite Neg (NEG) Urine Bilirubin Neg (NEG) Urine Urobilinogen Dipstick 0.2 mg/dL (0.2 mg/dL) Urine Leukocyte Esterase Neg (NEG) Urine RBC 0 /HPF (0-2) Urine WBC 0 /HPF (0-4) Urine Squamous Epithelial Cells Occ /LPF Urine Bacteria 0 /HPF (0-FEW) Urine Opiates Screen Neg (NEG) Urine Methadone Screen Neg (NEG) Urine Barbiturates Neg (NEG) Urine Phencyclidine Screen Neg (NEG) Urine Amphetamine/Methamphetamine Neg (NEG) Urine Benzodiazepines Screen Neg (NEG) Urine Cocaine Screen Neg (NEG) Urine Cannabinoids Screen Neg (NEG) Urine Ethyl Alcohol Neg (NEG) Bedside Urine HCG, Qualitative hcg negative (Negative) Brief Hospital Course Ms. Dempsey is a 28 old female who presented with migraine headache. Discharge Information Condition at Discharge: Improved, Stable Disposition/Orders: D/C to Home Dischare Medications Current Medications Ketorolac Tromethamine (Toradol Im) 60 mg 1X ONCE IM Last administered on 12/25at 20:23; Admin Dose 60 MG; Start 12/25/18 at 19:30; Stop 12/25/18 at 19:31; Status DC Prochlorperazine Edisylate (Compazine) 10 mg 1X ONCE IM Last administered on at 20:22; Admin Dose 10 MG; Start 12/25/18 at 19:30; Stop 12/25/18 at 19: 31; Status DC Diphenhydramine HCl (Benadryl) 50 mg 1X ONCE IM Last administered on at 20:21; Admin Dose 50 MG; Start 12/25/18 at 19:30; Stop 12/25/18 at 19:31; Status DC Fentanyl Citrate (Fentanyl 2ml Vial) 75 mcg 1X ONCE IM Last administered on at 20:23; Admin Dose 75 MCG; Start 12/25/18 at 19:30; Stop 12/25/18 at 19: 31; Status DC Active Scripts Active Zofran (Ondansetron Hcl) 8 Mg Tablet 8 Mg PO QIDPRN PRN Zofran (Ondansetron Hcl) 4 Mg Tablet 1 Tab PO Q6HRS Fiorinal 50-325-40 Mg Capsule (Butalbital/Aspirin/Caffeine) 1 Each Capsule 1 Each PO QID PRN Imitrex (Sumatriptan Succinate) 100 Mg Tablet 100 Mg PO 1X Zofran (Ondansetron Hcl) 8 Mg Tablet 8 Mg PO QIDPRN PRN Mobic (Meloxicam) 15 Mg Tablet 1 Tab PO DAILY Penicillin V Potassium 500 Mg Tablet 1 Tab PO QID Cyclobenzaprine Hcl 10 Mg Tablet 1 Tab PO TID Loperamide (Loperamide Hcl) 2 Mg Tablet 2 Mg PO Q1HR PRN Compazine (Prochlorperazine Maleate) 10 Mg Tablet 10 Mg PO Q6HRS PRN Ondansetron Odt (Ondansetron) 4 Mg Tab.rapdis 1 Tab PO PRN Q6-8HRS PRN Dicyclomine Hcl 20 Mg Tablet 1 Tab PO TID Zofran (Ondansetron Hcl) 4 Mg Tablet 1 Tab PO Q8HRS PRN Pepcid (Famotidine) 20 Mg Tablet 1 Tab PO BID Ondansetron Odt (Ondansetron) 4 Mg Tab.rapdis 1 Tab PO PRN Q6-8HRS Levsin-Sl (Hyoscyamine Sulfate) 0.125 Mg Tab.subl 1-2 Tab SL PRN Q4HRS PRN Tylenol With Codeine #3 Tablet (Acetaminophen With Codeine) 1 Each Tablet 1 Tab PO Q4-6HRS Cyclobenzaprine Hcl 10 Mg Tablet 1 Tab PO TID PRN Zofran (Ondansetron Hcl) 4 Mg Tablet 1 Tab PO Q6HRS Fiorinal 50-325-40 Mg Capsule (Butalbital/Aspirin/Caffeine) 1 Each Capsule 1 Each PO QID PRN Fiorinal 50-325-40 Mg Capsule (Butalbital/Aspirin/Caffeine) 1 Each Capsule 1 Each PO QID PRN [place] 5-325 Tablet (Hydrocodone Bit/Acetaminophen) 1 Each Tablet 1 Tab PO PRN Q6HRS PRN Prednisone 20 Mg Tablet 1 Tab PO BID 5 Days Zofran Odt (Ondansetron) 4 Mg Tab.rapdis 1 Tab SL Q8HRS Fiorinal 50-325-40 Mg Capsule (Butalbital/Aspirin/Caffeine) 1 Each Capsule 1 Each PO QID PRN Dicyclomine Hcl 20 Mg Tablet 1 Tab PO TID Compazine (Prochlorperazine Maleate) 10 Mg Tablet 10 Mg PO Q8HRS PRN Reglan (Metoclopramide Hcl) 10 Mg Tablet 10 Mg PO PRN Q8HRS PRN Pepcid (Famotidine) 20 Mg Tablet 1 Tab PO BID Medrol (Methylprednisolone) 4 Mg Tab.ds.pk 1 Pkg PO UD [Percogesic] 1 Tab PO QID PRN Reported Vitamin D3 (Cholecalciferol (Vitamin D3)) 1,000 Unit Tablet Unknown Dose PO Zoloft (Sertraline Hcl) 25 Mg Tablet Unknown Dose PO DAILY [Iron] Hydrochlorothiazide Capsule (Hydrochlorothiazide) 12.5 Mg Capsule Unknown Dose PO DAILY [Cardia] Dragon Disclaimer This chart was dictated in whole or in part using Voice Recognition software in a busy, high-work load, and often noisy Emergency Department environment. It may contain unintended and wholly unrecognized errors or omissions. GLENDA CHAVEZ MD Dec 25, 2018 18:54
[2018-12-25] MEDS ORDERED: ONDA8TAB9 PO (19:26)
[2018-12-25] MEDS ORDERED: diphenhydrAMINE 50 MG/ML VIAL IM ONE (19:30)
[2018-12-25] MEDS ORDERED: PROCHLORPERAZINE 10 MG/2 ML VIAL. IM ONE (19:30)
[2018-12-25] MEDS ORDERED: KETOROLAC 60 MG/2 ML VIAL. IM ONE (19:30)
[2018-12-25 20:17] LABS: BARBITURATES NEG (NEG); BENZODIAZEPINES NEG (NEG); CANNABINOIDS NEG (NEG); COCAINE NEG (NEG); METHADONE NEG (NEG); OPIATES NEG (NEG); PHENCYCLIDINE NEG (NEG)
[2018-12-25 20:18] LABS: BACTERIA,URINE 0 /HPF (0-FEW); BILIRUBIN,URINE NEG (NEG); CLARITY,URINE CLOUDY; COLOR,URINE YELLOW; GLUCOSE,URINE NEG (NEG); NITRITE,URINE NEG (NEG); RBC,URINE 0 /HPF (0-2); SQUAMOUS EPITHELIAL CELL,UR OCC /LPF; UROBILINOGEN,URINE 0.2 mg/dL (0.2 mg/dL); WBC,URINE 0 /HPF (0-4)
[2018-12-25 20:20] LABS: AMPHETAMINE/METHAMPHETAMINE NEG (NEG)
[2018-12-25 21:30] VITALS: BP 158/102
== END 2018-12-25 21:30 | disposition home or self-care (01) ==
LOC: ER 18:50
DX: G43.909 Migraine, unspecified, not intractable, without status migrainosus (principal); I10 Essential (primary) hypertension; F17.210 Nicotine dependence, cigarettes, uncomplicated; Z88.1 Allergy status to other antibiotic agents; Z88.6 Allergy status to analgesic agent
CPT/HCPCS: 36415; 80307; 81001; 81025; 96372; 99284; J0780; J1200; J1885; J3010

== ENCOUNTER 2019-01-13 10:56 | Emergency (ER) | payer OTHER ==
[~2019-01-13] VITALS: Ht 160 cm; Wt 117.0 kg
[2019-01-13 12:06] VITALS: BP 170/110
[2019-01-13] MEDS ORDERED: ACET-704 PO (12:10)
[2019-01-13] MEDS ORDERED: CLIN300C8 PO (12:10)
--- NOTE | 2019-01-13 12:10 | PHYS DOC ---
Past History Past Medical History: Hypertension, Migraines Past Surgical History: Cholecystectomy, , Hysterectomy, Other Smoking: Cigarettes, Less than 1pk/day Alcohol Use: None Drug Use: None Adult General Chief Complaint Chief Complaint: DENTAL PROBLEM HPI HPI Patient is a 28-year-old female who presents with complaint of right upper facial/dental pain. Patient states that earlier this week she had one of her teeth removed. She states that she was not prescribed any antibiotics or pain medication. She states that she has been taking Tylenol for the pain but it has not been helping. She states that she has started to notice a little bit of facial swelling on the right maxillary region. She denies fever, nausea or vomiting. Review of Systems Review of Systems Constitutional: Denies fever or chills [] HENT: Positive right upper dental pain[] Respiratory: Denies cough or shortness of breath [] Cardiovascular: No additional information not addressed in HPI [] Allergies Allergies Allergies Coded Allergies Type Severity Reaction Last Updated Verified cephalexin Allergy Intermediate 10/20/18 Yes ibuprofen Allergy Intermediate 10/20/18 Yes tramadol Adverse Reaction Mild 10/20/18 Yes Physical Exam Physical Exam Constitutional: Well developed, well nourished, no acute distress, non-toxic appearance. [] HENT: Normocephalic, atraumatic, examination of the gums where dental extraction occurred demonstrates no significant swelling or signs of infection. There is some right maxillary swelling with tenderness to palpation in this region. [] Eyes: PERRLA, EOMI, conjunctiva normal, no discharge. [] Neck: Normal range of motion, no tenderness, supple, no stridor. [] Cardiovascular:Heart rate regular rhythm, no murmur [] Lungs & Thorax: Bilateral breath sounds clear to auscultation [] EKG EKG [] Radiology/Procedures Radiology/Procedures [] Course & Med Decision Making Course & Med Decision Making Pertinent Labs and Imaging studies reviewed. (See chart for details) [] Dragon Disclaimer Dragon Disclaimer This electronic medical record was generated, in whole or in part, using a voice recognition dictation system. Departure Departure: Impression: Primary Impression: Pain, postoperative, acute Disposition: 01 HOME, SELF-CARE Condition: STABLE Referrals: NICOL BLUM (PCP) Patient Instructions: Pain Relief Preoperatively and Postoperatively Scripts Acetaminophen With Codeine (TYLENOL WITH CODEINE #3 TABLET) 1 Each Tablet 1 TAB PO Q4-6HRS PRN for PAIN, #12 TAB Prov: TONJA COX Jr. DO 01/13/19 Clindamycin Hcl (CLINDAMYCIN HCL) 300 Mg Capsule 1 CAP PO TID for infection, #30 CAP Prov: TONJA COX Jr. DO 01/13/19 TONJA COX Jr. DO January 13, 2019 12:10
== END 2019-01-13 12:35 | disposition home or self-care (01) ==
LOC: ER 10:56
DX: G89.18 Other acute postprocedural pain (principal); I10 Essential (primary) hypertension; K08.89 Other specified disorders of teeth and supporting structures; G43.909 Migraine, unspecified, not intractable, without status migrainosus; F17.210 Nicotine dependence, cigarettes, uncomplicated; Z98.818 Other dental procedure status; Z88.1 Allergy status to other antibiotic agents; Z88.6 Allergy status to analgesic agent
CPT/HCPCS: 99283

== ENCOUNTER 2019-02-08 14:40 | Emergency (ER) | payer OTHER ==
[~2019-02-08] VITALS: Ht 160 cm; Wt 111.7 kg
[~2019-02-08 14:40] MED LIST changes: +CLIN300C8 PO
--- NOTE | 2019-02-08 15:23 | PHYS DOC ---
Past History Past Medical History: Anxiety, Asthma, Depression, Hypertension Past Surgical History: Cholecystectomy, Hysterectomy, Tonsillectomy Smoking: Cigarettes, Less than 1pk/day Additional Smoking Information: 09/12 PPD Alcohol Use: Occasionally Drug Use: None Adult General Chief Complaint Chief Complaint: ABDOMINAL PAIN HPI HPI 28-year-old female presents with nausea, vomiting, diarrhea, and diffuse abdominal pain started at 1 AM today. She states multiple episodes of vomiting. She also has had 10 episodes of diarrhea. After this started, she had some diffuse abdominal cramping. She's been unable to keep down any liquids or solids. No one else in her house has any symptoms. They all ate the same food last night. Patient has not measured a fever but admits to chills. Review of Systems Review of Systems Constitutional: Denies fever or chills [] Eyes: Denies change in visual acuity, redness, or eye pain [] HENT: Denies nasal congestion or sore throat [] Respiratory: Denies cough or shortness of breath [] Cardiovascular: No additional information not addressed in HPI [] GI: Mild diffuse abdominal pain, nausea, vomiting, diarrhea [] : Denies dysuria or hematuria [] Musculoskeletal: Denies back pain or joint pain [] Integument: Denies rash or skin lesions [] Neurologic: Denies headache, focal weakness or sensory changes [] Endocrine: Denies polyuria or polydipsia [] All other systems were reviewed and found to be within normal limits, except as documented in this note. Current Medications Current Medications Current Medications Medications (Trade) Dose Ordered Sig/Neno Start Time Stop Time Status Last Admin Dose Admin Dicyclomine HCl (Bentyl) 20 mg 1X ONCE 02/08/19 15:30 02/08/19 15:31 UNV Loperamide HCl (Imodium) 2 mg 1X ONCE 02/08/19 15:30 02/08/19 15:31 UNV Ondansetron HCl (Zofran) 8 mg 1X ONCE 02/08/19 15:30 02/08/19 15:31 UNV Sodium Chloride 1,000 ml @ 1,000 mls/hr 1X ONCE 02/08/19 15:30 02/08/19 16:29 UNV Allergies Allergies Allergies Coded Allergies Type Severity Reaction Last Updated Verified cephalexin Allergy Intermediate 10/20/18 Yes ibuprofen Allergy Intermediate 10/20/18 Yes tramadol Adverse Reaction Mild 10/20/18 Yes Physical Exam Physical Exam Constitutional: Well developed, morbidly obese, well nourished, no acute distress, non-toxic appearance. [] HENT: Normocephalic, atraumatic, bilateral external ears normal, oropharynx moist, no oral exudates, nose normal. [] Eyes: PERRLA, EOMI, conjunctiva normal, no discharge. [] Neck: Normal range of motion, no tenderness, supple, no stridor. [] Cardiovascular:Heart rate regular rhythm, no murmur [] Lungs & Thorax: Bilateral breath sounds clear to auscultation [] Abdomen: Bowel sounds normal, soft, no tenderness, no masses, no pulsatile masses. [] Skin: Warm, dry, no erythema, no rash. [] Back: No tenderness, no CVA tenderness. [] Extremities: No tenderness, no cyanosis, no clubbing, ROM intact, no edema. [] Neurologic: Alert and oriented X 3, normal motor function, normal sensory function, no focal deficits noted. [] Psychologic: Affect normal, judgement normal, mood normal. [] Current Patient Data Vital Signs Vital Signs Date Time Temp Pulse Resp B/P (MAP) Pulse Ox O2 Delivery O2 Flow Rate FiO2 02/08/19 14:54 98.3 121 19 96 Room Air EKG EKG [] Radiology/Procedures Radiology/Procedures [] Course & Med Decision Making Course & Med Decision Making Pertinent Labs and Imaging studies reviewed. (See chart for details) Patient's labs are unremarkable. Her vomiting I gave her 8 mg of Zofran and 2 mg of Bentyl. I also gave her 2 mg of loperamide. The patient had no further vomiting or diarrhea in the ED. For her headache a give her 1 L normal saline, 30 mg Toradol, 25 mg Benadryl, and 10 mg of Reglan. This did improve her headache. The patient was also quite hypertensive in the ED. She did not take her blood pressure medicines today. I gave her 0.1 of clonidine. She will take her medications when she gets home. She is stable for discharge at this time. [] Dragon Disclaimer Dragon Disclaimer This electronic medical record was generated, in whole or in part, using a voice recognition dictation system. Departure Departure: Impression: Primary Impression: Abdominal pain Additional Impressions: Nausea vomiting and diarrhea Vascular headache, not intractable Disposition: 01 HOME, SELF-CARE Condition: STABLE Referrals: NICOL BLUM (PCP) Patient Instructions: Nausea and Vomiting, [id number] Scripts Ondansetron (ONDANSETRON ODT) 4 Mg Tab.rapdis 1 TAB PO PRN Q6-8HRS PRN for VOMITING, #16 TAB Prov: MARIANA PIZANO DO 02/08/19 Problem Qualifiers Primary Impression: Abdominal pain Abdominal location: generalized Qualified Codes: R10.84 - Generalized abdominal pain MARIANA PIZANO DO February 08, 2019 15:23
[2019-02-08] MEDS ORDERED: LOPERAMIDE 2 MG CAPSULE PO ONE (15:30)
[2019-02-08] MEDS ORDERED: ONDANSETRON PF 4 MG/2 ML VIAL. IV ONE (15:30)
[2019-02-08] MEDS ORDERED: IV NORMAL SALINE 1,000ML 1,000 ML IV ONE (15:30)
[2019-02-08] MEDS ORDERED: DICYCLOMINE HCL 20 MG TABLET PO ONE (15:30)
[2019-02-08 16:40] LABS: BASO % 0 % (0-3); EOS % 0 % (0-3); HEMATOCRIT 44.2 % (36.0-47.0); LYMPH # 0.8 x10^3/uL (1.0-4.8); LYMPH % 9 % (24-48); MEAN CORPUSCULAR HEMOGLOBIN 29 pg (25-35); MEAN CORPUSCULAR HGB CONC 34 g/dL (31-37); MEAN CORPUSCULAR VOLUME 84 fL (79-100); MONO # 0.4 x10^3/uL (0.0-1.1); MONO % 5 % (0-9); NEUT # 7.6 x10^3uL (1.8-7.7); NEUT % 86 % (31-73); PLATELET COUNT 221 x10^3/uL (140-400); RED BLOOD COUNT 5.27 x10^6/uL (3.50-5.40); RED CELL DISTRIBUTION WIDTH 13.4 % (11.5-14.5); WHITE BLOOD COUNT 8.9 x10^3/uL (4.0-11.0)
[2019-02-08 16:52] LABS: ALBUMIN 3.7 g/dL (3.4-5.0); CREATININE 0.6 mg/dL (0.6-1.0); GFR 117.4; POTASSIUM 3.5 mmol/L (3.5-5.1); TOTAL BILIRUBIN 0.6 mg/dL (0.2-1.0); TOTAL PROTEIN 7.3 g/dL (6.4-8.2)
[2019-02-08] MEDS ORDERED: KETOROLAC 30 MG/ML VIAL. IV ONE (17:00)
[2019-02-08] MEDS ORDERED: diphenhydrAMINE 50 MG/ML VIAL IVP ONE (17:00)
[2019-02-08] MEDS ORDERED: METOCLOPRAMIDE HCL 10 MG/2 ML VIAL. IV ONE (17:00)
[2019-02-08 17:13] VITALS: BP 187/124
[2019-02-08] MEDS ORDERED: ONDA4TAB12 PO (17:14)
[2019-02-08] MEDS ORDERED: cloNIDine HCL 0.1 MG TABLET PO ONE (17:15)
[2019-02-08 17:44] LABS: BACTERIA,URINE 0 /HPF (0-FEW); BILIRUBIN,URINE NEG (NEG); CLARITY,URINE CLOUDY; COLOR,URINE YELLOW; GLUCOSE,URINE NEG (NEG); NITRITE,URINE NEG (NEG); RBC,URINE 0 /HPF (0-2); SQUAMOUS EPITHELIAL CELL,UR OCC /LPF; UROBILINOGEN,URINE 0.2 mg/dL (0.2 mg/dL); WBC,URINE 0 /HPF (0-4)
== END 2019-02-08 17:17 | disposition home or self-care (01) ==
LOC: ER 14:40
DX: R11.2 Nausea with vomiting, unspecified (principal); R19.7 Diarrhea, unspecified; R10.84 Generalized abdominal pain; G44.1 Vascular headache, not elsewhere classified; F41.9 Anxiety disorder, unspecified; J45.909 Unspecified asthma, uncomplicated; F32.9 Major depressive disorder, single episode, unspecified; I10 Essential (primary) hypertension; F17.210 Nicotine dependence, cigarettes, uncomplicated; Z90.89 Acquired absence of other organs; Z90.49 Acquired absence of other specified parts of digestive tract; Z88.1 Allergy status to other antibiotic agents; Z88.6 Allergy status to analgesic agent
CPT/HCPCS: 36415; 80053; 81001; 85025; 96361; 96374; 96375; 99284; J1200; J1885; J2405; J2765; J7030

== ENCOUNTER 2019-02-25 19:28 | Emergency (ER) | payer OTHER ==
[~2019-02-25] VITALS: Ht 160 cm; Wt 72.6 kg
[2019-02-25] MEDS ORDERED: HYDR-3165 PO (21:08)
--- NOTE | 2019-02-25 21:08 | PHYS DOC ---
Past History Past Medical History: Anxiety, Asthma, Depression, Hypertension Past Surgical History: Cholecystectomy, Hysterectomy, Tonsillectomy Smoking: Cigarettes, Less than 1pk/day Alcohol Use: Occasionally Drug Use: None Adult General Chief Complaint Chief Complaint: FACE PROBLEM HPI HPI 28-year-old female presents with right facial pain. The patient was hit near the right eye with a baseball yesterday. She was playing with her son when he. He pitched toward her and she was not watching. The ball missed a protective screen and hit her above the right eye. She has some bruising at this time. She denies change in vision. She has been taking Tylenol, but the pain is still significant. She wants to make sure she doesn't have a fracture. She was not knocked unconscious. She's had no nausea or vomiting. She has no other complaints this time. Review of Systems Review of Systems Constitutional: Denies fever or chills [] Eyes: Denies change in visual acuity, redness. Right eye pain [] HENT: Denies nasal congestion or sore throat [] Respiratory: Denies cough or shortness of breath [] Cardiovascular: No additional information not addressed in HPI [] GI: Denies abdominal pain, nausea, vomiting, bloody stools or diarrhea [] : Denies dysuria or hematuria [] Musculoskeletal: Denies back pain or joint pain [] Integument: Denies rash or skin lesions [] Neurologic: Denies headache, focal weakness or sensory changes [] Endocrine: Denies polyuria or polydipsia [] All other systems were reviewed and found to be within normal limits, except as documented in this note. Current Medications Current Medications Current Medications Medications (Trade) Dose Ordered Sig/Neno Start Time Stop Time Status Last Admin Dose Admin Acetaminophen/ Hydrocodone Bitart (Lortab 5/325) 1 tab 1X ONCE 02/25/19 21:00 02/25/19 21:01 UNV Allergies Allergies Allergies Coded Allergies Type Severity Reaction Last Updated Verified cephalexin Allergy Intermediate 10/20/18 Yes ibuprofen Allergy Intermediate 10/20/18 Yes tramadol Adverse Reaction Mild 10/20/18 Yes Physical Exam Physical Exam Constitutional: Well developed, well nourished, no acute distress, non-toxic appearance. [] HENT: Normocephalic, atraumatic, bilateral external ears normal, oropharynx mo ist, no oral exudates, nose normal. [] Eyes: PERRLA, EOMI, conjunctiva normal, no discharge. Bruising of the superior eyelid and superior periorbital area[] Neck: Normal range of motion, no tenderness, supple, no stridor. [] Cardiovascular:Heart rate regular rhythm, no murmur [] Lungs & Thorax: Bilateral breath sounds clear to auscultation [] Abdomen: Bowel sounds normal, soft, no tenderness, no masses, no pulsatile masses. [] Skin: Warm, dry, no erythema, no rash. [] Back: No tenderness, no CVA tenderness. [] Extremities: No tenderness, no cyanosis, no clubbing, ROM intact, no edema. [] Neurologic: Alert and oriented X 3, normal motor function, normal sensory function, no focal deficits noted. [] Psychologic: Affect normal, judgement normal, mood normal. [] Current Patient Data Vital Signs Vital Signs Date Time Temp Pulse Resp B/P (MAP) Pulse Ox O2 Delivery O2 Flow Rate FiO2 02/25/19 19:50 98.2 89 18 100 Room Air EKG EKG [] Radiology/Procedures Radiology/Procedures [] Course & Med Decision Making Course & Med Decision Making Pertinent Labs and Imaging studies reviewed. (See chart for details) The patient's facial bone x-ray is negative for acute fracture. Given her one [place] 5/325 in the ED. I will give her a short course of these for home. She insists that she is safe at home. This was not an abuse situation. She is stable for discharge at this time. [] Dragon Disclaimer Dragon Disclaimer This electronic medical record was generated, in whole or in part, using a voice recognition dictation system. Departure Departure: Impression: Primary Impression: Contusion of right eye Disposition: HOME, SELF-CARE Condition: STABLE Referrals: NICOL BLUM (PCP) Patient Instructions: Eye Contusion, [id number] Scripts Hydrocodone Bit/Acetaminophen ([place] 5-325 TABLET) 1 Each Tablet 1 TAB PO PRN Q6HRS PRN for PAIN, #10 TAB 0 Refills Prov: MARIANA PIZANO DO 02/25/19 Problem Qualifiers Primary Impression: Contusion of right eye Encounter type: initial encounter Qualified Codes: S05.11XA - Contusion of eyeball and orbital tissues, right eye, initial encounter PIZANO,MARIANA DO Feb 25, 2019 21:08
[2019-02-25 21:18] VITALS: BP 168/110
[2019-02-25] MEDS: HYDROcodone/APAP 5/325MG 1 TAB TABLET PO ONE (21:18)
--- NOTE | 2019-02-25 23:41 | RAD ---
Facial bones 3 views. HISTORY: Hit right orbit region with a baseball, pain and swelling 3 views were taken of the facial bones. Sinuses are clear. A facial or orbital fracture is not identified. Nasal bone is not optimally identified but a definite fracture is not evident. IMPRESSION: 1. Sinuses are clear. 2. No facial fracture or orbital fracture noted. Electronically signed by: Lane Henderson MD (02/25/2019 11:38 PM) [facility]
== END 2019-02-25 21:20 ==
LOC: ER 19:28
DX: S00.11XA Contusion of right eyelid and periocular area, initial encounter (principal); F41.9 Anxiety disorder, unspecified; J45.909 Unspecified asthma, uncomplicated; F32.9 Major depressive disorder, single episode, unspecified; I10 Essential (primary) hypertension; F17.210 Nicotine dependence, cigarettes, uncomplicated; Z88.1 Allergy status to other antibiotic agents; Z88.6 Allergy status to analgesic agent; W21.03XA Struck by baseball, initial encounter; Y93.64 Activity, baseball; Y92.89 Other specified places as the place of occurrence of the external cause; Y99.8 Other external cause status
CPT/HCPCS: 70150; 99284

== ENCOUNTER 2019-03-15 21:55 | Emergency (ER) | payer OTHER ==
--- NOTE | 2019-03-15 22:00 | ED.ADGEN ---
Past History Past Medical History: Anxiety, Asthma, Depression, Hypertension Past Surgical History: Cholecystectomy, Hysterectomy, Tonsillectomy Smoking: Cigarettes, Less than 1pk/day Alcohol Use: Occasionally Drug Use: None Adult General Chief Complaint Chief Complaint ".. I was getting out of shower.. and bumped my abdomen.. and got this severe pain...I got a look at it .. and I ve got an infection... area...." HPI HPI Patient is a 28 year old female who presents with above hx and complaints of cellulitis. Pt. has 4 cm diameter area with pointing abscess in center of a erythema on low Rt. abdomen pannus. Patient states areas very tender. No history of specific ill contacts or travel. Patient's last tetanus was 2 years ago.. No history immunosuppression. Review of Systems Review of Systems Constitutional: Denies fever or chills [] Eyes: Denies change in visual acuity, redness, or eye pain [] HENT: Denies nasal congestion or sore throat [] Respiratory: Denies cough or shortness of breath [] Cardiovascular: No additional information not addressed in HPI [] GI: Denies abdominal pain, nausea, vomiting, bloody stools or diarrhea [] : Denies dysuria or hematuria [] Musculoskeletal: Denies back pain or joint pain [] Integument: Denies rash or skin lesions []complains of cellulitis Neurologic: Denies headache, focal weakness or sensory changes [] Endocrine: Denies polyuria or polydipsia [] All other systems were reviewed and found to be within normal limits, except as documented in this note. Family History Family History Noncontributory Current Medications Current Medications Current Medications Medications (Trade) Dose Ordered Sig/Neno Start Time Stop Time Status Last Admin Dose Admin Bacitracin (Bacitracin Topical Pkt) 1 pkt 1X ONCE 03/15/19 22:45 03/15/19 22:45 DC 03/15/19 22:23 1 PKT Trimethoprim/ Sulfamethoxazole (Bactrim Ds) 1 tab 1X ONCE 03/15/19 22:45 03/15/19 22:45 DC 03/15/19 22:23 1 TAB Allergies Allergies Allergies Coded Allergies Type Severity Reaction Last Updated Verified cephalexin Allergy Intermediate 10/20/18 Yes ibuprofen Allergy Intermediate 10/20/18 Yes tramadol Adverse Reaction Mild 10/20/18 Yes Physical Exam Physical Exam Constitutional: Moderate acute distress, non-toxic appearance. [] HENT: Normocephalic, atraumatic, bilateral external ears normal, oropharynx moist, no oral exudates, nose normal. [] Eyes: PERRLA, EOMI, conjunctiva normal, no discharge. [] Neck: Normal range of motion, no tenderness, supple, no stridor. [] Cardiovascular:Heart rate regular rhythm, no murmur [] Lungs & Thorax: Bilateral breath sounds clear to auscultation [] Abdomen: Bowel sounds normal, soft, no tenderness, no masses, no pulsatile masses. [] Obese. Area of abscess on pannus as per history of present illness. Old surgical scars. Obese. Skin: Warm, dry, no erythema, no rash. [] Back: No tenderness, no CVA tenderness. [] Extremities: No tenderness, no cyanosis, no clubbing, ROM intact, no edema. [] Neurologic: Alert and oriented X 3, normal motor function, normal sensory function, no focal deficits noted. [] Psychologic: Affect, anxious, , mood normal. [] Current Patient Data Vital Signs Vital Signs Date Time Temp Pulse Resp B/P (MAP) Pulse Ox O2 Delivery O2 Flow Rate FiO2 03/15/19 22:09 98.1 86 18 97 Room Air EKG EKG [] Radiology/Procedures Radiology/Procedures [] Course & Med Decision Making Course & Med Decision Making Pertinent Labs and Imaging studies reviewed. (See chart for details). Procedure note-incision and drainage-area cleaned with Betadine. Lanced abscess with a 15 blade. Expressed approximately 1-2 mL of pus. Dressing applied back to trace in antibiotic ointment. Keep cellulitic area clean and dry. Massage with Polysporin 4 times a day. Take Bactrim DS twice a day. Follow-up primary care. Take Tylenol for pain. Return if any concerns. Encouraged. Patient does not smoke. [] Final Impression Final Impression 1. Cellulitis[]/abscess Dragon Disclaimer Dragon Disclaimer This electronic medical record was generated, in whole or in part, using a voice recognition dictation system. Discharge Summary Visit Information Final Diagnosis Problems Medical Problems: (1) Cellulitis Status: Acute Brief Hospital Course Allergies Allergies Coded Allergies Type Severity Reaction Last Updated Verified cephalexin Allergy Intermediate 10/20/18 Yes ibuprofen Allergy Intermediate 10/20/18 Yes tramadol Adverse Reaction Mild 10/20/18 Yes Vital Signs Vital Signs Date Time Temp Pulse Resp B/P (MAP) Pulse Ox O2 Delivery O2 Flow Rate FiO2 03/15/19 22:09 98.1 86 18 97 Room Air Brief Hospital Course Ms. Dempsey is a 28 old female who presented with abscess and cellulitis. Discharge Information Condition at Discharge: Improved, Stable Disposition/Orders: D/C to Home Dischare Medications Current Medications Trimethoprim/ Sulfamethoxazole (Bactrim Ds) 1 tab 1X ONCE PO Last administered on 03/15/19at 22:23; Admin Dose 1 TAB; Start 03/15/19 at 22:45; Stop 03/15/19 at 22:45; Status DC Bacitracin (Bacitracin Topical Pkt) 1 pkt 1X ONCE TP Last administered on 03/15/19at 22:23; Admin Dose 1 PKT; Start 03/15/19 at 22:45; Stop 03/15/19 at 22:45; Status DC Active Scripts Active Bactrim Ds Tablet (Sulfamethoxazole/Trimethoprim) 1 Each Tablet 1 Tab PO BID [place] 5-325 Tablet (Hydrocodone Bit/Acetaminophen) 1 Each Tablet 1 Tab PO PRN Q6HRS PRN Ondansetron Odt (Ondansetron) 4 Mg Tab.rapdis 1 Tab PO PRN Q6-8HRS PRN Tylenol With Codeine #3 Tablet (Acetaminophen With Codeine) 1 Each Tablet 1 Tab PO Q4-6HRS PRN Clindamycin Hcl 300 Mg Capsule 1 Cap PO TID Zofran (Ondansetron Hcl) 8 Mg Tablet 8 Mg PO QIDPRN PRN Zofran (Ondansetron Hcl) 4 Mg Tablet 1 Tab PO Q6HRS Fiorinal 50-325-40 Mg Capsule (Butalbital/Aspirin/Caffeine) 1 Each Capsule 1 Each PO QID PRN Imitrex (Sumatriptan Succinate) 100 Mg Tablet 100 Mg PO 1X Zofran (Ondansetron Hcl) 8 Mg Tablet 8 Mg PO QIDPRN PRN Mobic (Meloxicam) 15 Mg Tablet 1 Tab PO DAILY Penicillin V Potassium 500 Mg Tablet 1 Tab PO QID Cyclobenzaprine Hcl 10 Mg Tablet 1 Tab PO TID Loperamide (Loperamide Hcl) 2 Mg Tablet 2 Mg PO Q1HR PRN Compazine (Prochlorperazine Maleate) 10 Mg Tablet 10 Mg PO Q6HRS PRN Ondansetron Odt (Ondansetron) 4 Mg Tab.rapdis 1 Tab PO PRN Q6-8HRS PRN Dicyclomine Hcl 20 Mg Tablet 1 Tab PO TID Zofran (Ondansetron Hcl) 4 Mg Tablet 1 Tab PO Q8HRS PRN Pepcid (Famotidine) 20 Mg Tablet 1 Tab PO BID Ondansetron Odt (Ondansetron) 4 Mg Tab.rapdis 1 Tab PO PRN Q6-8HRS Levsin-Sl (Hyoscyamine Sulfate) 0.125 Mg Tab.subl 1-2 Tab SL PRN Q4HRS PRN Tylenol With Codeine #3 Tablet (Acetaminophen With Codeine) 1 Each Tablet 1 Tab PO Q4-6HRS Cyclobenzaprine Hcl 10 Mg Tablet 1 Tab PO TID PRN Zofran (Ondansetron Hcl) 4 Mg Tablet 1 Tab PO Q6HRS Fior[place] 50-325-40 Mg Capsule (Butalbital/Aspirin/Caffeine) 1 Each Capsule 1 Each PO QID PRN Fiorinal 50-325-40 Mg Capsule (Butalbital/Aspirin/Caffeine) 1 Each Capsule 1 Each PO QID PRN [place] 5-325 Tablet (Hydrocodone Bit/Acetaminophen) 1 Each Tablet 1 Tab PO PRN Q6HRS PRN Prednisone 20 Mg Tablet 1 Tab PO BID 5 Days Zofran Odt (Ondansetron) 4 Mg Tab.rapdis 1 Tab SL Q8HRS Fiorinal 50-325-40 Mg Capsule (Butalbital/Aspirin/Caffeine) 1 Each Capsule 1 Each PO QID PRN Dicyclomine Hcl 20 Mg Tablet 1 Tab PO TID Compazine (Prochlorperazine Maleate) 10 Mg Tablet 10 Mg PO Q8HRS PRN Reglan (Metoclopramide Hcl) 10 Mg Tablet 10 Mg PO PRN Q8HRS PRN Pepcid (Famotidine) 20 Mg Tablet 1 Tab PO BID Medrol (Methylprednisolone) 4 Mg Tab.ds.pk 1 Pkg PO UD [Percogesic] 1 Tab PO QID PRN Reported Vitamin D3 (Cholecalciferol (Vitamin D3)) 1,000 Unit Tablet Unknown Dose PO Zoloft (Sertraline Hcl) 25 Mg Tablet Unknown Dose PO DAILY [Iron] Hydrochlorothiazide Capsule (Hydrochlorothiazide) 12.5 Mg Capsule Unknown Dose PO DAILY [Cardia] Dragon Disclaimer This chart was dictated in whole or in part using Voice Recognition software in a busy, high-work load, and often noisy Emergency Department environment. It may contain unintended and wholly unrecognized errors or omissions. GLENDA CHAVEZ MD Mar 15, 2019 22:00
[2019-03-15 22:09] VITALS: BP 163/102
[2019-03-15] MEDS ORDERED: SULF1TAB24 PO (22:16)
[2019-03-15] MEDS: SMZ/TMP 800/160MG TABLET. PO ONE (22:23)
[2019-03-15] MEDS: BACITRACIN ZINC TOPICAL OINT PACKET. TP ONE (22:23)
== END 2019-03-15 22:30 | disposition home or self-care (01) ==
LOC: ER 21:55
DX: L03.311 Cellulitis of abdominal wall (principal); L02.211 Cutaneous abscess of abdominal wall; J45.909 Unspecified asthma, uncomplicated; I10 Essential (primary) hypertension; E66.9 Obesity, unspecified; F17.210 Nicotine dependence, cigarettes, uncomplicated; Z90.49 Acquired absence of other specified parts of digestive tract; Z90.710 Acquired absence of both cervix and uterus; Z88.1 Allergy status to other antibiotic agents; Z88.6 Allergy status to analgesic agent
CPT/HCPCS: 10060; 99283

== ENCOUNTER 2019-05-02 13:20 | Emergency (ER) | payer MEDICAID, OTHER ==
[~2019-05-02] VITALS: Ht 160 cm; Wt 106.5 kg
[2019-05-02 13:20] VITALS: BP 166/117
[2019-05-02] MEDS ORDERED: ACET325T9 PO (14:14)
--- NOTE | 2019-05-02 14:15 | PHYS DOC ---
Past History Past Medical History: Anxiety, Asthma, Depression, Hypertension Past Surgical History: Cholecystectomy, Hysterectomy, Tonsillectomy Smoking: Cigarettes, Less than 1pk/day Alcohol Use: Occasionally Drug Use: None Adult General Chief Complaint Chief Complaint: FLU SYMPTOM HPI HPI Patient is a 29-year-old female presents complaining of being thirsty, subjective fever and chills for the past several days. Patient has been doing some work outside. No syncopal episode. No chest pain or palpitations. No nausea or vomiting. No frequency of urination nor dysuria. Nothing seems to make the symptoms better or worse. Symptoms are moderate in intensity. [] Review of Systems Review of Systems Constitutional: See history of present illness[] Eyes: Denies change in visual acuity, redness, or eye pain [] HENT: Denies nasal congestion or sore throat [] Respiratory: Denies cough or shortness of breath [] Cardiovascular: No chest pain or palpitations[] GI: Denies abdominal pain, nausea, vomiting, bloody stools or diarrhea [] : Denies dysuria or hematuria [] Musculoskeletal: Denies back pain or joint pain [] Integument: Denies rash or skin lesions [] Neurologic: Denies headache, focal weakness or sensory changes [] Endocrine: Denies polyuria or polydipsia [] All other systems were reviewed and found to be within normal limits, except as documented in this note. Allergies Allergies Allergies Coded Allergies Type Severity Reaction Last Updated Verified cephalexin Allergy Intermediate 10/20/18 Yes ibuprofen Allergy Intermediate 10/20/18 Yes tramadol Adverse Reaction Mild 10/20/18 Yes Physical Exam Physical Exam Constitutional: Well developed, well nourished, no acute distress, non-toxic ap pearance. [] HENT: Normocephalic, atraumatic, bilateral external ears normal, oropharynx moist, no oral exudates, nose normal. [] Eyes: PERRLA, EOMI, conjunctiva normal, no discharge. [] Neck: Normal range of motion, no tenderness, supple, no stridor. [] Cardiovascular:Heart rate regular rhythm, no murmur [] Lungs & Thorax: Bilateral breath sounds clear to auscultation [] Abdomen: Bowel sounds normal, soft, no tenderness, no masses, no pulsatile masses. [] Skin: Warm, dry, no erythema, no rash. No skin tenting[] Back: No tenderness, no CVA tenderness. [] Extremities: No tenderness, no cyanosis, no clubbing, ROM intact, no edema. [] Neurologic: Alert and oriented X 3, normal motor function, normal sensory function, no focal deficits noted. [] Psychologic: Affect normal, judgement normal, mood normal. [] Current Patient Data Vital Signs Vital Signs Date Time Temp Pulse Resp B/P (MAP) Pulse Ox O2 Delivery O2 Flow Rate FiO2 05/02/19 13:20 97.5 102 18 166/117 (133) 99 Room Air Lab Results Laboratory Tests Test 05/02/19 13:46 Glucose (Fingerstick) 102 mg/dL (70-99) H EKG EKG [] Radiology/Procedures Radiology/Procedures [] Course & Med Decision Making Course & Med Decision Making Pertinent Labs and Imaging studies reviewed. (See chart for details) Medical decision making: Nontoxic patient without any focal source for these fevers or chills. There is no evidence of heat related illness. No evidence of urinary tract infection, nor diabetes/DKA. While her blood pressure is elevated she has not taken her blood pressure medicine today. Her heart rate was in the 80s during my exam. There is no evidence of tachycardia on physical exam.[] Dragon Disclaimer Dragon Disclaimer This electronic medical record was generated, in whole or in part, using a voice recognition dictation system. Departure Departure: Impression: Primary Impression: Febrile illness Additional Impression: Hypertension Disposition: 01 HOME, SELF-CARE Condition: IMPROVED Referrals: NICOL BLUM (PCP) Follow-up in 2 days Patient Instructions: DASH Diet, Fever, Adult, Hypertension Additional Instructions: Drink plenty of fluids. Follow-up with your regular doctor in 2 days. Return to the ER if unable to tolerate liquids, blood in your emesis, or any other concerns. Scripts Acetaminophen (TYLENOL) 325 Mg Tablet 1-2 TAB PO QID for PAIN, #60 TAB 0 Refills Prov: JOE HYLTON DO 05/02/19 Problem Qualifiers Additional Impression: Hypertension Hypertension type: unspecified Qualified Codes: I10 - Essential (primary) hypertension JOE HYLTON DO May 02, 2019 14:14
== END 2019-05-02 14:20 | disposition home or self-care (01) ==
LOC: ER 13:24
DX: I10 Essential (primary) hypertension (principal); R50.9 Fever, unspecified; J45.909 Unspecified asthma, uncomplicated; F17.210 Nicotine dependence, cigarettes, uncomplicated; Z88.1 Allergy status to other antibiotic agents; Z88.6 Allergy status to analgesic agent
CPT/HCPCS: 82947; 99283

== ENCOUNTER 2019-08-12 11:52 | Emergency (ER) | payer MEDICAID ==
[~2019-08-12] VITALS: Ht 160 cm; Wt 98.0 kg
[2019-08-12 11:58] VITALS: BP 127/64
--- NOTE | 2019-08-12 12:12 | PHYS DOC ---
Past History Past Medical History: Asthma, Migraines Past Surgical History: Hysterectomy Smoking: Cigarettes, Less than 1pk/day Alcohol Use: None Drug Use: None Adult General Chief Complaint Chief Complaint: BACK PAIN OR INJURY HPI HPI Pt is a 29 y/.o WF who presents to the ED for evaluation of lower back pain, she states that she fell a few days ago when helping a family member move and landed on her buttocks. She complains of pain in her lower back and L leg area. Denies incontinence, saddle anesthesia, leg numbness, or weakness. She denies any dysuria. There are no alleviating or exacerbating factors to her symptoms except that movement and palpation worsen her pain. I reviewed the patient's prescription monitoring program history, she has received 33 (!) Prescriptions for opiate medication in the past 12 months, from numerous physicians, many of them recognizable to me as emergency department providers. Review of Systems Review of Systems Constitutional: Denies fever or chills [] Eyes: Denies change in visual acuity, redness, or eye pain [] HENT: Denies nasal congestion or sore throat [] Respiratory: Denies cough or shortness of breath [] Cardiovascular: The patient denies any shortness of breath, chest pain, palpitations, or orthopnea [] GI: Denies abdominal pain, nausea, vomiting, bloody stools or diarrhea [] : Denies dysuria or hematuria [] Musculoskeletal: Denies neck pain or upper back pain or joint pain [] Integument: Denies rash or skin lesions [] Neurologic: Denies headache, focal weakness or sensory changes [] Endocrine: Denies polyuria or polydipsia [] All other systems were reviewed and found to be within normal limits, except as documented in this note. Current Medications Current Medications Current Medications Medications (Trade) Dose Ordered Sig/Neno Start Time Stop Time Status Last Admin Dose Admin Ketorolac Tromethamine (Toradol Im) 60 mg 1X ONCE 08/12/19 12:15 08/12/19 12:16 UNV Allergies Allergies Allergies Coded Allergies Type Severity Reaction Last Updated Verified cephalexin Allergy Intermediate 10/20/18 Yes ibuprofen Allergy Intermediate 10/20/18 Yes tramadol Adverse Reaction Mild 10/20/18 Yes Physical Exam Physical Exam PHYSICAL EXAM: CONSTITUTIONAL: Well developed, well nourished HEAD: normocephalic, atraumatic EENT: PERRL, EOMI. Conjunctivae normal color, sclerae non-icteric; moist mucous membranes. NECK: Supple, non-tender; no meningismus. LUNGS: Lungs CTA, breathing even and unlabored. Normal air movement. HEART: Regular rate and rhythm, no murmur CHEST: No deformity; non-tender ABDOMEN: The abdomen is soft, and non-tender, no masses or bruits. EXTREM: Normal ROM; no deformity, no calf tenderness. Normal pulses palpable in all extremities. There is no pedal edema. SKIN: No rash; no diaphoresis NEURO: Alert; normal speech and cognition; CN's grossly intact; strength grossly intact without focal deficit. Patellar reflexes are 2+. There is no saddle a nesthesia, or foot drop. Distal sensation is normal. BACK: No CVA TTP. There is tenderness to palpation diffusely in the lumbar spine, both midline and paraspinal, without focal bony tenderness to palpation or step-off. Current Patient Data Vital Signs Vital Signs Date Time Temp Pulse Resp B/P (MAP) Pulse Ox O2 Delivery O2 Flow Rate FiO2 08/12/19 11:58 88 18 100 Room Air EKG EKG [] Radiology/Procedures Radiology/Procedures PROCEDURE: LUMBAR SPINE 2-3V AP, lateral spot and lateral views of the lumbar spine were performed. History: Back pain after fall Comparison: None. There is no fracture, listhesis, intervertebral disc space narrowing, or significant degenerative changes of the lumbar spine. Impression: 1. Unremarkable plain films of the lumbar spine.[] Course & Med Decision Making Course & Med Decision Making Pertinent Imaging studies reviewed. (See chart for details) []12:40 PM:Patient remains stable. I discussed test results, the need for close follow-up, and return precautions. I question the patient about her prescription medication use, and she states that her sister, apparently has been using her name to gain pain medication prescriptions and the patient states she is currently in custodial as she reported her to her 30s. Regardless, she will be given anti-inflammatory pain medication (she states her ibuprofen allergy is a flare of her asthma), and discussed the need for close follow-up and return precautions. Dragon Disclaimer Dragon Disclaimer This electronic medical record was generated, in whole or in part, using a voice recognition dictation system. Departure Departure: Impression: Primary Impression: Low back pain Disposition: 01 HOME, SELF-CARE Condition: STABLE Referrals: NICOL BLUM (PCP) Patient Instructions: Back Exercises, Generic, SportsMed, Back Injury Prevention, Back Pain, Adult Additional Instructions: Applying a heating pad to the affected area may help improve your symptoms. The prescribed medications may cause drowsiness-use caution while taking. Scripts Diclofenac Sodium (DICLOFENAC SODIUM) 50 Mg Tablet.dr 1 TAB PO BID for pain, #20 TAB 0 Refills Prov: BOB LOCKETT MD 08/12/19 Cyclobenzaprine Hcl (CYCLOBENZAPRINE HCL) 10 Mg Tablet 1 TAB PO TID for -, #30 TAB Prov: BOB LOCKETT MD 08/12/19 BOB LOCKETT MD Aug 12, 2019 12:12
[2019-08-12] MEDS ORDERED: KETOROLAC 60 MG/2 ML VIAL. IM ONE (12:15)
--- NOTE | 2019-08-12 12:25 | RAD ---
AP, lateral spot and lateral views of the lumbar spine were performed. History: Back pain after fall Comparison: None. There is no fracture, listhesis, intervertebral disc space narrowing, or significant degenerative changes of the lumbar spine. Impression: 1. Unremarkable plain films of the lumbar spine. Electronically signed by: Deejay Osei MD (08/12/2019 12:23 PM) [facility]
[2019-08-12] MEDS ORDERED: CYCL-331 PO (12:44)
[2019-08-12] MEDS ORDERED: DICL50TA4 PO (12:44)
== END 2019-08-12 13:02 | disposition home or self-care (01) ==
LOC: ER 11:52
DX: M54.5 Low back pain (principal); G89.11 Acute pain due to trauma; J45.909 Unspecified asthma, uncomplicated; G43.909 Migraine, unspecified, not intractable, without status migrainosus; F17.210 Nicotine dependence, cigarettes, uncomplicated; Z90.710 Acquired absence of both cervix and uterus; Z88.1 Allergy status to other antibiotic agents; Z88.6 Allergy status to analgesic agent; W18.39XA Other fall on same level, initial encounter; Y93.89 Activity, other specified; Y92.89 Other specified places as the place of occurrence of the external cause; Y99.8 Other external cause status
CPT/HCPCS: 72100; 96372; 99284; J1885

== ENCOUNTER 2019-09-14 13:26 | Emergency (ER) | payer MEDICAID ==
[~2019-09-14 13:26] MED LIST changes: +DICL50TA4 PO
[2019-09-14 13:57] VITALS: BP 149/98
[2019-09-14] MEDS ORDERED: IV NORMAL SALINE 1,000ML 1,000 ML IV SCH (14:12)
[2019-09-14] MEDS ORDERED: MORPHINE SULFATE 4 MG/ML DISP.SYRIN. IV/SQ PRN (14:15)
[2019-09-14] MEDS ORDERED: ONDANSETRON PF 4 MG/2 ML VIAL. IVP ONE (14:15)
--- NOTE | 2019-09-14 14:56 | PHYS DOC ---
Past History Past Medical History: Asthma, Migraines Past Surgical History: Hysterectomy Smoking: Cigarettes, Less than 1pk/day Alcohol Use: None Drug Use: None Adult General Chief Complaint Chief Complaint: NAUSEA/VOMITING/DIARRHEA HPI HPI Patient is a 29-year-old female who presents with complaint of mid abdominal pain with nausea, vomiting and diarrhea for the last few days. Patient rates her pain to be a 9 out of 10. She denies any radiation of the pain. She denies fever. She also denies any chest pain or shortness of breath. Patient states symptoms are worsened with eating or drinking.[] Review of Systems Review of Systems Constitutional: Denies fever or chills [] Respiratory: Denies cough or shortness of breath [] Cardiovascular: No additional information not addressed in HPI [] GI: Complains of abdominal pain with vomiting and diarrhea [] Integument: Denies rash or skin lesions [] Neurologic: Denies headache, focal weakness or sensory changes [] All other systems were reviewed and found to be within normal limits, except as documented in this note. Current Medications Current Medications Current Medications Medications (Trade) Dose Ordered Sig/Neno Start Time Stop Time Status Last Admin Dose Admin Morphine Sulfate (Morphine 4mg Syringe) 4 mg PRN Q15MIN PRN 09/14/19 14:15 09/15/19 14:14 Ondansetron HCl (Zofran) 4 mg 1X ONCE 09/14/19 14:15 09/14/19 14:16 DC Sodium Chloride 1,000 ml @ 1,000 mls/hr Q1H 09/14/19 14:12 09/14/19 15:11 Allergies Allergies Allergies Coded Allergies Type Severity Reaction Last Updated Verified cephalexin Allergy Intermediate 10/20/18 Yes ibuprofen Allergy Intermediate 10/20/18 Yes tramadol Adverse Reaction Mild 10/20/18 Yes Physical Exam Physical Exam Constitutional: Well developed, well nourished, no acute distress, non-toxic appearance. [] HENT: Normocephalic, atraumatic, bilateral external ears normal, oropharynx moist, no oral exudates, nose normal. [] Eyes: PERRLA, EOMI, conjunctiva normal, no discharge. [] Neck: Normal range of motion, no tenderness, supple. [] Cardiovascular: Regular rate and rhythm[] Lungs & Thorax: Bilateral breath sounds clear to auscultation [] Abdomen: Bowel sounds normal, soft, with diffuse tenderness. [] Skin: Warm, dry, no erythema, no rash. [] Extremities: No tenderness, no cyanosis, no clubbing, ROM intact. [] Neurologic: Alert and oriented X 3, no focal deficits noted. [] EKG EKG [] Radiology/Procedures Radiology/Procedures [] Course & Med Decision Making Course & Med Decision Making Pertinent Labs and Imaging studies reviewed. (See chart for details) [] Dragon Disclaimer Dragon Disclaimer This electronic medical record was generated, in whole or in part, using a voice recognition dictation system. Departure Departure: Impression: Primary Impression: Gastroenteritis Disposition: HOME, SELF-CARE Condition: STABLE Referrals: NICOL BLUM (PCP) Patient Instructions: Viral Gastroenteritis Scripts Ondansetron (ONDANSETRON ODT) 4 Mg Tab.rapdis 1 TAB PO PRN Q6-8HRS PRN for NAUSEA, #12 TAB Prov: TONJA COX Jr. DO 09/14/19 Diphenoxylate Hcl/Atropine (LOMOTIL TABLET) 1 Each Tablet 1 TAB PO TID PRN for DIARRHEA, #15 TAB Prov: TONJA COX Jr. DO 09/14/19 TONJA COX Jr. DO Sep 14, 2019 14:56
[2019-09-14 15:28] LABS: BASO % 0 % (0-3); EOS % 0 % (0-3); HEMOGLOBIN 14.7 g/dL (12.0-15.5); LYMPH # 0.9 x10^3/uL (1.0-4.8); LYMPH % 11 % (24-48); MEAN CORPUSCULAR HEMOGLOBIN 30 pg (25-35); MEAN CORPUSCULAR HGB CONC 34 g/dL (31-37); MEAN CORPUSCULAR VOLUME 89 fL (79-100); MONO # 0.3 x10^3/uL (0.0-1.1); MONO % 4 % (0-9); NEUT # 6.4 x10^3uL (1.8-7.7); NEUT % 84 % (31-73); PLATELET COUNT 224 x10^3/uL (140-400); RED BLOOD COUNT 4.84 x10^6/uL (3.50-5.40); RED CELL DISTRIBUTION WIDTH 13.2 % (11.5-14.5); WHITE BLOOD COUNT 7.6 x10^3/uL (4.0-11.0)
[2019-09-14 16:02] LABS: BACTERIA,URINE 0 /HPF (0-FEW); BILIRUBIN,URINE NEG (NEG); CLARITY,URINE CLEAR; COLOR,URINE YELLOW; GLUCOSE,URINE NEG (NEG); NITRITE,URINE NEG (NEG); RBC,URINE 0 /HPF (0-2); SQUAMOUS EPITHELIAL CELL,UR OCC /LPF; UROBILINOGEN,URINE 0.2 mg/dL (0.2 mg/dL)
[2019-09-14 16:35] LABS: ALBUMIN 3.8 g/dL (3.4-5.0); CALCIUM 8.7 mg/dL (8.5-10.1); CREATININE 0.8 mg/dL (0.6-1.0); GFR 83.7; POTASSIUM 3.2 mmol/L (3.5-5.1); TOTAL BILIRUBIN 0.7 mg/dL (0.2-1.0); TOTAL PROTEIN 7.8 g/dL (6.4-8.2)
[2019-09-14] MEDS ORDERED: ONDA4TAB12 PO (16:43)
[2019-09-14] MEDS ORDERED: DIPH1TAB PO (16:43)
== END 2019-09-14 16:47 | disposition home or self-care (01) ==
LOC: ER 13:26
DX: K52.9 Noninfective gastroenteritis and colitis, unspecified (principal); J45.909 Unspecified asthma, uncomplicated; G43.909 Migraine, unspecified, not intractable, without status migrainosus; F17.210 Nicotine dependence, cigarettes, uncomplicated; Z90.710 Acquired absence of both cervix and uterus; Z88.1 Allergy status to other antibiotic agents; Z88.6 Allergy status to analgesic agent
CPT/HCPCS: 36415; 80053; 81001; 81025; 83690; 85025; 99284

== ENCOUNTER 2019-09-17 18:30 | Emergency (ER) | payer MEDICAID ==
[~2019-09-17] VITALS: Ht 160 cm; Wt 106.5 kg
[~2019-09-17 18:30] MED LIST changes: +DIPH1TAB PO
[2019-09-17 19:00] VITALS: BP 149/98
[2019-09-17] MEDS ORDERED: LIDOCAINE 1% Multi-Dose 20 ML VIAL. ONE (21:23)
[2019-09-17] MEDS ORDERED: LIDOCAINE 1% Multi-Dose 20 ML VIAL. INJ ONE ×2 (21:30→21:45)
[2019-09-17] MEDS ORDERED: HYDR-3165 PO (21:44)
[2019-09-17] MEDS ORDERED: SULF1TAB24 PO (21:44)
[2019-09-17] MEDS ORDERED: SMZ/TMP 800/160MG TABLET. PO ONE (21:45)
--- NOTE | 2019-09-17 21:45 | PHYS DOC ---
Past History Past Medical History: No Pertinent History Past Surgical History: No Surgical History Smoking: Cigarettes, Less than 1pk/day Alcohol Use: None Drug Use: None Adult General Chief Complaint Chief Complaint: ABSCESS HPI HPI Patient is a 29-year-old otherwise healthy female who presents with what she describes as an abscess to her left buttock. She states she's noticed it over the last couple days. She states it's very painful when she tries to sit. She states she has tried that run in warm water over it and squeeze it but she is not anything out of it. She denies any fever chills or sweats. She states she's not had an history of MRSA in the past. She states the pain is throbbing when she sits on it and severe. She states it's mild to moderate if she's not sitting on it.[] Review of Systems Review of Systems Constitutional: Denies fever or chills [] Eyes: Denies change in visual acuity, redness, or eye pain [] HENT: Denies nasal congestion or sore throat [] Respiratory: Denies cough or shortness of breath [] Cardiovascular: No additional information not addressed in HPI [] GI: Denies abdominal pain, nausea, vomiting, bloody stools or diarrhea [] : Denies dysuria or hematuria [] Musculoskeletal: Denies back pain or joint pain [] Integument: Per history of present illness[] Neurologic: Denies headache, focal weakness or sensory changes [] Endocrine: Denies polyuria or polydipsia [] All other systems were reviewed and found to be within normal limits, except as documented in this note. Current Medications Current Medications Current Medications Medications (Trade) Dose Ordered Sig/[facility] Start Time Stop Time Status Last Admin Dose Admin Lidocaine HCl 20 ml 1X ONCE 09/17/19 21:45 09/17/19 21:46 Allergies Allergies Allergies Coded Allergies Type Severity Reaction Last Updated Verified cephalexin Allergy Intermediate 10/20/18 Yes ibuprofen Allergy Intermediate 10/20/18 Yes tramadol Adverse Reaction Mild 10/20/18 Yes Physical Exam Physical Exam Constitutional: Well developed, well nourished, mild distress, non-toxic appearance. [] HENT: Normocephalic, atraumatic, bilateral external ears normal, oropharynx moist, no oral exudates, nose normal. [] Eyes: PERRLA, EOMI, conjunctiva normal, no discharge. [] Neck: Normal range of motion, no tenderness, supple, no stridor. [] Cardiovascular:Heart rate regular rhythm, no murmur [] Lungs & Thorax: Bilateral breath sounds clear to auscultation [] Abdomen: Bowel sounds normal, soft, no tenderness, no masses, no pulsatile masses. [] Skin: She is a golf ball sized abscess to the inferior left glued it does not extend towards the perineum.. [] Back: No tenderness, no CVA tenderness. [] Extremities: No tenderness, no cyanosis, no clubbing, ROM intact, no edema. [] Neurologic: Alert and oriented X 3, normal motor function, normal sensory fu nction, no focal deficits noted. [] Psychologic: Affect normal, judgement normal, mood normal. [] EKG EKG [] Radiology/Procedures Radiology/Procedures [] Course & Med Decision Making Course & Med Decision Making Pertinent Labs and Imaging studies reviewed. (See chart for details) Procedure: Incision and drainage The area was washed with Betadine then anesthetized with 5 mL of 1% lidocaine and then using an 11 blade a 1 cm incision was made over the abscess with a moderate amount of purulent material expressed. A dressing was placed over the wound. The patient tolerated the procedure well.[] Dragon Disclaimer Dragon Disclaimer This electronic medical record was generated, in whole or in part, using a voice recognition dictation system. Departure Departure: Impression: Primary Impression: Abscess, gluteal, left Disposition: 01 HOME, SELF-CARE Condition: IMPROVED Referrals: PRISCILLA MULLINS MD (PCP) Patient Instructions: Abscess, Abscess, Care After Scripts Sulfamethoxazole/Trimethoprim (BACTRIM DS TABLET) 1 Each Tablet 1 TAB PO BID for ABSCESS for 10 Days, #20 TAB 0 Refills Prov: FREDIS LERNER DO 09/17/19 Hydrocodone Bit/Acetaminophen (NORCO 5-325 TABLET) 1 Each Tablet 1-2 TAB PO Q4-6HRS for PAIN, #20 TAB Prov: FREDIS LERNER DO 09/17/19 FREDIS LERNER DO Sep 17, 2019 21:45
== END 2019-09-17 22:00 | disposition home or self-care (01) ==
LOC: ER 18:30
DX: Z88.1 Allergy status to other antibiotic agents (principal); Z88.6 Allergy status to analgesic agent
CPT/HCPCS: 10060; 99283

== ENCOUNTER 2019-10-10 12:36 | Emergency (ER) | payer MEDICAID ==
[~2019-10-10] VITALS: Ht 160 cm; Wt 100.0 kg
[2019-10-10 12:58] VITALS: BP 146/85
[2019-10-10] MEDS ORDERED: DICL50TA4 PO (13:06)
--- NOTE | 2019-10-10 13:06 | PHYS DOC ---
Past History Past Medical History: No Pertinent History, Asthma, Depression, Hypertension, Other Additional Past Medical Histor: PTSD Past Surgical History: No Surgical History Smoking: Cigarettes, Less than 1pk/day Alcohol Use: None Drug Use: None Adult General Chief Complaint Chief Complaint: HEADACHE HPI HPI Patient is a 29-year-old female, familiar to me from prior ER visits, who presents complaining of a mild headache and chest discomfort. She states that for 4 children have influenza, and she saw her PCP this morning, tested negative for influenza, but was given a prescription for Tamiflu regardless. She states she is having a mild headache, and a nonproductive cough. She is having some anterior chest discomfort worse with coughing. She has not had any fevers or chills, nausea, vomiting. She states she has migraine headaches, but this headache is not "the worst headache of her life". She has had worse headaches in the past. She is having no other neurological symptoms. She states her main reason for this ER visit is to obtain relief from her headache. I discussed doing diagnostic testing, including a chest x-ray or an EKG, but the patient declined, stating she is only interested and analgesics. Her [employer] history, which is extensive, has been reviewed. Review of Systems Review of Systems Constitutional: Denies fever or chills [] Eyes: Denies change in visual acuity, redness, or eye pain [] HENT: Denies nasal congestion or sore throat [] Respiratory: Denies productive cough or shortness of breath [] Cardiovascular: No additional information not addressed in HPI [] GI: Denies abdominal pain, nausea, vomiting, bloody stools or diarrhea [] : Denies dysuria or hematuria [] Musculoskeletal: Denies back pain or joint pain [] Integument: Denies rash or skin lesions [] Neurologic: Denies focal weakness or sensory changes [] Endocrine: Denies polyuria or polydipsia [] All other systems were reviewed and found to be within normal limits, except as documented in this note. Allergies Allergies Allergies Coded Allergies Type Severity Reaction Last Updated Verified cephalexin Allergy Intermediate 10/20/18 Yes ibuprofen Allergy Intermediate 10/20/18 Yes tramadol Adverse Reaction Mild 10/20/18 Yes Physical Exam Physical Exam PHYSICAL EXAM: CONSTITUTIONAL: Well developed, well nourished nontoxic appearing. HEAD: normocephalic, atraumatic EENT: PERRL, EOMI. Conjunctivae normal color, sclerae non-icteric; moist mucous membranes. NECK: Supple, non-tender; no meningismus. LUNGS: Lungs CTA, breathing even and unlabored. Normal air movement. HEART: Regular rate and rhythm, no murmur CHEST: No deformity; non-tender ABDOMEN: The abdomen is soft, and non-tender, no masses or bruits. EXTREM: Normal ROM; no deformity, no calf tenderness. Normal pulses palpable in all extremities. There is no pedal edema. SKIN: No rash; no diaphoresis NEURO: Alert; normal speech and cognition; CN's grossly intact; strength grossly intact without focal deficit. BACK: No CVA TTP. EKG EKG [] Radiology/Procedures Radiology/Procedures [] Course & Med Decision Making Course & Med Decision Making The patient's condition remains stable. She declined diagnostic testing. I discussed importance of continued outpatient follow-up, expectant management, and return precautions. The patient expressed understanding of the limitation that finding diagnostic testing would place on her evaluation, but clinical suspicion for serious medical pathology is very low. Dragon Disclaimer Dragon Disclaimer This electronic medical record was generated, in whole or in part, using a voice recognition dictation system. Departure Departure: Impression: Primary Impression: Chronic headache Additional Impression: Atypical chest pain Disposition: HOME, SELF-CARE Condition: STABLE Referrals: PRISCILLA MULLINS MD (PCP) Patient Instructions: General Headache Without Cause, Musculoskeletal Pain Scripts Diclofenac Sodium (DICLOFENAC SODIUM) 50 Mg Tablet.dr 1 TAB PO BID for pain, #20 TAB 1 Refill Prov: BOB LOCKETT MD 10/10/19 Problem Qualifiers BOB LOCKETT MD Oct 10, 2019 13:06
[2019-10-10] MEDS ORDERED: KETOROLAC 60 MG/2 ML VIAL. IM ONE (13:30)
== END 2019-10-10 13:34 | disposition home or self-care (01) ==
LOC: ER 12:36
DX: G43.909 Migraine, unspecified, not intractable, without status migrainosus (principal); R07.89 Other chest pain; J45.909 Unspecified asthma, uncomplicated; I10 Essential (primary) hypertension; F17.210 Nicotine dependence, cigarettes, uncomplicated; Z88.6 Allergy status to analgesic agent; Z88.8 Allergy status to other drugs, medicaments and biological substances
CPT/HCPCS: 96372; 99283; J1885

== ENCOUNTER 2019-11-17 18:00 | Emergency (ER) | payer MEDICAID ==
[~2019-11-17] VITALS: Ht 160 cm; Wt 100.0 kg
[2019-11-17 18:16] VITALS: BP 177/107
[2019-11-17] MEDS ORDERED: METH4TAB2 PO (18:27)
[2019-11-17] MEDS ORDERED: methylPREDNISolone SOD SUCC PF 125 MG/2 ML VIAL. ONE (18:37)
[2019-11-17] MEDS ORDERED: methylPREDNISolone SOD SUCC PF 125 MG/2 ML VIAL. IM ONE (18:45)
--- NOTE | 2019-11-17 21:11 | PHYS DOC ---
Past History Past Medical History: No Pertinent History Additional Past Medical Histor: PTSD Past Surgical History: No Surgical History Smoking: Cigarettes, Less than 1pk/day Alcohol Use: None Drug Use: None Adult General Chief Complaint Chief Complaint: HIP PAIN HPI HPI Patient is a 29-year-old female who presents with right low back pain as well as right hip pain radiates around to the right buttock area. Her 100 pound child did jump on her earlier in the week but no other trauma she did not fall down gradually progressive pain described as sharp and shooting no bowel or bladder incontinence no numbness or tingling. Of note patient has multiple prior ER visits K tracts did reveal multiple prior control prescriptions Review of Systems Review of Systems Constitutional: Denies fever or chills [] Eyes: Denies change in visual acuity, redness, or eye pain [] HENT: Denies nasal congestion or sore throat [] Respiratory: Denies cough or shortness of breath [] Cardiovascular: No additional information not addressed in HPI [] All other systems were reviewed and found to be within normal limits, except as documented in this note. Current Medications Current Medications Current Medications Medications (Trade) Dose Ordered Sig/[facility] Start Time Stop Time Status Last Admin Dose Admin Methylprednisolone Sodium Succinate (SOLU-Medrol 125MG VIAL) 125 mg STK-MED ONCE 11/17/19 18:37 11/17/19 18:46 DC Allergies Allergies Allergies Coded Allergies Type Severity Reaction Last Updated Verified cephalexin Allergy Intermediate 10/20/18 Yes ibuprofen Allergy Intermediate 10/20/18 Yes tramadol Adverse Reaction Mild 10/20/18 Yes Physical Exam Physical Exam Constitutional: Well developed, well nourished, no acute distress, non-toxic appearance. [] HENT: Normocephalic, atraumatic, bilateral external ears normal, oropharynx moist, no oral exudates, nose normal. [] Eyes: PERRLA, EOMI, conjunctiva normal, no discharge. [] Neck: Normal range of motion, no tenderness, supple, no stridor. [] Cardiovascular:Heart rate regular rhythm, no murmur [] Lungs & Thorax: Bilateral breath sounds clear to auscultation [] Abdomen: Bowel sounds normal, soft, no tenderness, no masses, no pulsatile masses. [] Skin: Warm, dry, no erythema, no rash. [] Back: There is some right paraspinous tenderness no focal midline lumbar tenderness there is mild right buttock tenderness. Extremities: No tenderness, no cyanosis, no clubbing, ROM intact, no edema. [] Neurologic: Alert and oriented X 3, normal motor function, normal sensory funct ion, no focal deficits noted. [] Psychologic: Affect normal, judgement normal, mood normal. [] Current Patient Data Vital Signs Vital Signs Date Time Temp Pulse Resp B/P (MAP) Pulse Ox O2 Delivery O2 Flow Rate FiO2 11/17/19 18:16 105 18 177/107 (130) 100 I told her about the blood pressure and the need for follow-up likely due to her pain. EKG EKG [] Radiology/Procedures Radiology/Procedures [] Course & Med Decision Making Course & Med Decision Making Pertinent Labs and Imaging studies reviewed. (See chart for details) [] 29-year-old female presenting with right low back pain and right hip and b uttock pain likely sciatica neuro intact gave steroids she talked about other pain medication I did recommend just a trial of anti-inflammatories that we will treat the underlying problem and hopefully she will get better soon. Recommendations reviewed return precautions discussed and she voiced understanding Dragon Disclaimer Marcelle Disclaimer This electronic medical record was generated, in whole or in part, using a voice recognition dictation system. Departure Departure: Impression: Primary Impression: Right leg pain Disposition: HOME, SELF-CARE Condition: STABLE Patient Instructions: Sciatica, Rlni-ja-Popc Scripts Methylprednisolone (MEDROL) 4 Mg Tab.ds.pk 1 PKG PO UD for sciatica, #1 PKG Prov: SARA PACE MD 11/17/19 SARA PACE MD Nov 17, 2019 21:11
== END 2019-11-17 18:34 | disposition home or self-care (01) ==
LOC: ER 18:00
DX: M79.604 Pain in right leg (principal); M54.5 Low back pain; M25.551 Pain in right hip; F17.210 Nicotine dependence, cigarettes, uncomplicated; Z88.1 Allergy status to other antibiotic agents; Z88.6 Allergy status to analgesic agent
CPT/HCPCS: 99283

== ENCOUNTER 2020-02-11 22:46 | Emergency (ER) | payer MEDICAID ==
[~2020-02-11] VITALS: Ht 160 cm; Wt 102.0 kg
[2020-02-11 22:55] VITALS: BP 155/102
[2020-02-11] MEDS: MORPHINE SULFATE 4 MG/ML DISP.SYRIN. IV ONE (23:51)
[2020-02-11] MEDS: ONDANSETRON PF 4 MG/2 ML VIAL. IVP ONE (23:51)
[2020-02-11 23:58] LABS: BASO % 0 % (0-3); EOS # 0.2 x10^3/uL (0.0-0.7); EOS % 1 % (0-3); HEMATOCRIT 38.7 % (36.0-47.0); HEMOGLOBIN 13.3 g/dL (12.0-15.5); LYMPH # 3.1 x10^3/uL (1.0-4.8); LYMPH % 28 % (24-48); MEAN CORPUSCULAR HEMOGLOBIN 30 pg (25-35); MEAN CORPUSCULAR HGB CONC 34 g/dL (31-37); MEAN CORPUSCULAR VOLUME 87 fL (79-100); MONO # 0.7 x10^3/uL (0.0-1.1); MONO % 6 % (0-9); NEUT # 7.2 x10^3uL (1.8-7.7); NEUT % 64 % (31-73); PLATELET COUNT 331 x10^3/uL (140-400); RED BLOOD COUNT 4.48 x10^6/uL (3.50-5.40); RED CELL DISTRIBUTION WIDTH 13.6 % (11.5-14.5); WHITE BLOOD COUNT 11.2 x10^3/uL (4.0-11.0)
[2020-02-12 00:06] LABS: COLOR,URINE YELLOW
--- NOTE | 2020-02-12 00:06 | PHYS DOC ---
Past History Past Medical History: No Pertinent History Additional Past Medical Histor: PTSD Past Surgical History: No Surgical History Smoking: Cigarettes, Less than 1pk/day Alcohol Use: None Drug Use: None General Adult EDM: Chief Complaint: ABDOMINAL PAIN HPI: HPI: Patient is a 29-year-old female presented to the ED with a chief complaint of right pelvic pain. Patient does state that she has a history of ovarian cysts and this feels just like it. Patient states that she is unable to bear the pain and came into the ER. Patient states that she is unable to get into her OB to later this week. Patient states that she had a hysterectomy but does have a history of ovarian cyst. Review of Systems: Review of Systems: Constitutional: Denies fever or chills Eyes: Denies change in visual acuity HENT: Denies nasal congestion or sore throat Respiratory: Denies cough or shortness of breath Cardiovascular: Denies chest pain or edema GI: Complains of right pelvic pain : Denies dysuria Musculoskeletal: Denies back pain or joint pain Integument: Denies rash Neurologic: Denies headache, focal weakness or sensory changes Heart Score: Risk Factors: Risk Factors: DM, Current or recent (<one month) smoker, HTN, HLP, family history of CAD, obesity. Risk Scores: Score 0 - 3: 2.5% MACE over next 6 weeks - Discharge Home Score 4 - 6: 20.3% MACE over next 6 weeks - Admit for Clinical Observation Score 7 - 10: 72.7% MACE over next 6 weeks - Early Invasive Strategies Current Medications: Current Meds: Current Medications Medications (Trade) Dose Ordered Sig/[facility] Start Time Stop Time Status Last Admin Dose Admin Morphine Sulfate (Morphine 4mg Syringe) 4 mg 1X ONCE 02/11/20 23:30 02/11/20 23:32 DC 02/11/20 23:51 4 MG Ondansetron HCl (Zofran) 4 mg 1X ONCE 02/11/20 23:30 02/11/20 23:32 DC 02/11/20 23:51 4 MG Allergies: Allergies: Allergies Coded Allergies Type Severity Reaction Last Updated Verified cephalexin Allergy Intermediate 10/20/18 Yes ibuprofen Allergy Intermediate 10/20/18 Yes tramadol Adverse Reaction Mild 10/20/18 Yes Physical Exam: PE: Constitutional: Well developed, well nourished, no acute distress, non-toxic appearance. [] HENT: Normocephalic, atraumatic Eyes: EOMI Neck: Normal range of motion, Supple Cardiovascular:Heart rate regular rhythm Lungs & Thorax: Bilateral breath sounds clear to auscultation [] Abdomen: Right pelvic pain Extremities: No tenderness, ROM intact Neurologic: Alert and oriented X 3 Current Patient Data: Labs: Laboratory Tests Test 02/11/20 23:40 White Blood Count 11.2 x10^3/uL (4.0-11.0) H Red Blood Count 4.48 x10^6/uL (3.50-5.40) Hemoglobin 13.3 g/dL (12.0-15.5) Hematocrit 38.7 % (36.0-47.0) Mean Corpuscular Volume 87 fL (79-100) Mean Corpuscular Hemoglobin 30 pg (25-35) Mean Corpuscular Hemoglobin Concent 34 g/dL (31-37) Red Cell Distribution Width 13.6 % (11.5-14.5) Platelet Count 331 x10^3/uL (140-400) Neutrophils (%) (Auto) 64 % (31-73) Lymphocytes (%) (Auto) 28 % (24-48) Monocytes (%) (Auto) 6 % (0-9) Eosinophils (%) (Auto) 1 % (0-3) Basophils (%) (Auto) 0 % (0-3) Neutrophils # (Auto) 7.2 x10^3uL (1.8-7.7) Lymphocytes # (Auto) 3.1 x10^3/uL (1.0-4.8) Monocytes # (Auto) 0.7 x10^3/uL (0.0-1.1) Eosinophils # (Auto) 0.2 x10^3/uL (0.0-0.7) Basophils # (Auto) 0.0 x10^3/uL (0.0-0.2) Vital Signs: Vital Signs Date Time Temp Pulse Resp B/P (MAP) Pulse Ox O2 Delivery O2 Flow Rate FiO2 02/11/20 23:51 98 Room Air EKG: EKG: [] Radiology/Procedures: Radiology/Procedures: [] Impressions: US Pelvis IMPRESSION: 1. Right adnexal cystic structure, likely hemorrhagic cyst, measures 2.6 cm. 2. No evidence for ovarian torsion. Course & Med Decision Making: Course & Med Decision Making Pertinent Labs and Imaging studies reviewed. (See chart for details) Ordered labs, UA, urine , ultrasound of the pelvis, IV morphine, IV Zofran Labs are within normal limits. Ultrasound shows a 2.6 cm ovarian cyst. No ovarian torsion seen. Patient states that she has appointment with her [employer] in 3 days. Patient will be discharged home on oral pain medication. Discussed results and plan of care with patient. Patient is instructed to follow up with PCP in one to 2 days. Appropriate discharge instructions given to patient to return to the ED or to seek immediate medical evaluation. Patient is instructed to return to the ED if symptoms worsen or if any concerns. Dragon Disclaimer: [employer] Disclaimer: This electronic medical record was generated, in whole or in part, using a voice recognition dictation system. Departure Departure: Impression: Primary Impression: Ovarian cyst Additional Impression: Pelvic pain Disposition: 01 HOME/RESIDENCE PRIOR TO ADM Condition: STABLE Referrals: PRISCILLA MULLINS MD (PCP) Patient Instructions: Ovarian Cyst, Pelvic Pain, Female Additional Instructions: Please return to the ED if symptoms worsen or if any concerns. Please follow-up with PCP in 1 to 2 days. Scripts Hydrocodone Bit/Acetaminophen (NORCO 5-325 TABLET) 1 Each Tablet 1 TAB PO PRN Q6HRS PRN for PAIN, #12 TAB 0 Refills Prov: DEANNA GUY DO 02/12/20 DEANNA GUY DO Feb 12, 2020 00:06
[2020-02-12 00:07] LABS: BACTERIA,URINE 0 /HPF (0-FEW); BILIRUBIN,URINE NEG (NEG); CLARITY,URINE CLEAR; GLUCOSE,URINE NEG (NEG); NITRITE,URINE NEG (NEG); RBC,URINE 0 /HPF (0-2); SQUAMOUS EPITHELIAL CELL,UR FEW /LPF; UROBILINOGEN,URINE 0.2 mg/dL (0.2 mg/dL); WBC,URINE OCC /HPF (0-4)
[2020-02-12 00:07] LABS: CALCIUM 8.8 mg/dL (8.5-10.1); CREATININE 0.7 mg/dL (0.6-1.0); GFR 97.6
[2020-02-12 00:13] LABS: ALBUMIN 3.7 g/dL (3.4-5.0); POTASSIUM 3.2 mmol/L (3.5-5.1); TOTAL BILIRUBIN 0.3 mg/dL (0.2-1.0); TOTAL PROTEIN 7.4 g/dL (6.4-8.2)
--- NOTE | 2020-02-12 00:51 | RAD ---
INDICATION: R pelvic pain COMPARISON: None available. TECHNIQUE: Transabdominal and endovaginal sonography was performed FINDINGS: There has been a hysterectomy. The right ovary measures 3.6 x 3.5 x 3 cm. The left ovary measures 2.6 x 2.4 x 1.9 cm. Right adnexal cystic structure measures 2.6 x 1.6 x 2.3 cm with central echogenic material, likely hemorrhagic cyst. Flow seen to both ovaries. No evidence for ovarian torsion. There is no free fluid. IMPRESSION: 1. Right adnexal cystic structure, likely hemorrhagic cyst, measures 2.6 cm. 2. No evidence for ovarian torsion. Electronically signed by: Jimbo Alanis MD (02/12/2020 12:48 AM) [facility]
[2020-02-12] MEDS ORDERED: HYDR-3165 PO (01:04)
[2020-02-12] MEDS ORDERED: HYDROcodone/APAP 5/325MG 1 TAB TABLET ONE (01:11)
[2020-02-12] MEDS: HYDROcodone/APAP 5/325MG 1 TAB TABLET PO ONE (01:14)
== END 2020-02-12 01:15 | disposition home or self-care (01) ==
LOC: ER 22:46
DX: N83.201 Unspecified ovarian cyst, right side (principal); F17.210 Nicotine dependence, cigarettes, uncomplicated; Z90.710 Acquired absence of both cervix and uterus; Z88.1 Allergy status to other antibiotic agents; Z88.6 Allergy status to analgesic agent
CPT/HCPCS: 36415; 76830; 76856; 80053; 81001; 83690; 85025; 96374; 96375; 99284; J2270; J2405; 99285-25

== ENCOUNTER 2020-04-29 17:09 | Emergency (ER) | payer MEDICAID ==
[~2020-04-29] VITALS: Ht 160 cm; Wt 102.0 kg
--- NOTE | 2020-04-29 17:20 | PHYS DOC ---
Past History Past Medical History: Anxiety, Depression, Hypertension Additional Past Medical Histor: PTSD (MARY WARD H ) Past Surgical History: Hysterectomy (SYLVIAMARY H ) Smoking: Cigarettes, Less than 1pk/day Alcohol Use: None Drug Use: None (MARY WARD H DO) General Adult EDM: Chief Complaint: ABDOMINAL PAIN HPI: HPI: 30-year-old female with history of hypertension, anxiety, who presents for evaluation of suprapubic pain. Reports dull suprapubic pain present for the last 2 days or so. However, she has had colicky pain similar to her current presentation for a few months now. She was seen on February 10, with pelvic ultrasound revealing a right adnexal cystic structure likely hemorrhagic cyst measuring 2.6 cm, no evidence of torsion. No nausea, vomiting, diarrhea, dysuria, hematuria, flank pain. No aggravating or alleviating factors. Has follow-up appointment with [facility] next week. (SYLVIAMARY H DO) Review of Systems: Review of Systems: Gen: No fever, chills. ENT: No nasal congestion, sore throat. CV: No CP, palpitations. Resp. No SOB, cough. GI: No diarrhea, nausea, vomiting. Reports suprapubic pain. : No dysuria, hematuria. Neuro: No CORRALES, dizziness, weakness. MSK: No myalgia, arthralgia, back pain. Skin: No acute rash or lesion. (SYLVIAMARY H DO) Heart Score: Risk Factors: Risk Factors: DM, Current or recent (<one month) smoker, HTN, HLP, family history of CAD, obesity. Risk Scores: Score 0 - 3: 2.5% MACE over next 6 weeks - Discharge Home Score 4 - 6: 20.3% MACE over next 6 weeks - Admit for Clinical Observation Score 7 - 10: 72.7% MACE over next 6 weeks - Early Invasive Strategies (SYLVIA,MARY H DO) Allergies: Allergies: Allergies Coded Allergies Type Severity Reaction Last Updated Verified cephalexin Allergy Intermediate 10/20/18 Yes ibuprofen Allergy Intermediate 10/20/18 Yes tramadol Adverse Reaction Mild 10/20/18 Yes (SYLVIA,MARY H DO) Physical Exam: PE: Gen: NAD. Well nourished. Head: NC/AT. Eyes: No scleral icterus. No conjunctival injection. ENT: MMM. Posterior OP clear. Neck: Supple. CV: RRR. Peripheral pulses intact. Resp: CTAB. No W/C/R. Abd: Soft. Nondistended. Mild suprapubic tenderness to deep palpation without rebound, guarding, rigidity. No flank percussion tenderness. MSK: No peripheral cyanosis. No edema. Neuro: Awake and alert. Skin. Warm. Dry. Psych: Appropriate mood & affect. (MARY WARD DO) EKG: EKG: [] (MARY WARD DO) Radiology/Procedures: Radiology/Procedures: [] (MARY WARD DO) Impressions: EXAMINATION: ACUTE ABDOMEN SERIES CLINICAL HISTORY: SP pain - lower abd pain, pressure. hx of cyst TECHNIQUE: ACUTE ABDOMEN SERIES Number of different views (projections): 4 COMPARISON: 10/20/2018 FINDINGS: Cardiomediastinal silhouette within normal limits. No evidence of focal airspace consolidation, pleural effusion, or pneumothorax. Nonobstructive bowel gas pattern. No pneumoperitoneum or pathologic abdominal calcifications. Cholecystectomy clips. No acute osseous abnormality. IMPRESSION: Nonobstructive bowel gas pattern. No acute cardiopulmonary abnormality. Electronically signed by: Feliberto Yanes DO (04/29/2020 5:43 PM) [id number] DICTATED AND SIGNED BY: FELIBERTO YANES DO DATE: 04/29/20 174 CC: MARY WARD DO; PRISCILLA MULLINS MD ~ STUDY: US PELVIS W/TV HISTORY: Pelvic pain. COMPARISON: 02/11/2020 TECHNIQUE: Pelvic ultrasound was performed with a transabdominal and transvaginal probe. FINDINGS: The uterus is surgically absent. The left ovary measures 2.9 x 1.7 x 1.9 cm. Several follicles/small cysts. No large cyst or mass. Maintained Doppler flow. Small amount of left adnexal fluid either adjacent to the ovary or within the fallopian tube. The right ovary measures 3.1 x 2.1 x 2.1 cm with maintained Doppler flow. The right ovarian hemorrhagic cyst described on the comparison is not well seen on this exam. There is only a small right ovarian cyst or follicle on the current study measuring under a centimeter in size and without any concerning features. IMPRESSION: 1. The hemorrhagic ovarian cyst on the right seen on 02/12/2020 is no longer visualized. The right ovary is unremarkable. 2. No complex cyst or mass at the left adnexa. A few small cysts/follicles are noted. Scant amount of fluid at the left adnexa either adjacent to the ovary or within the fallopian tube. This could be physiologic, secondary to rupture of a small cyst or minimal hydrosalpinx. The appearance is not concerning for pyosalpinx. 3. Surgically absent uterus. Electronically signed by: TOVA BLACKWOOD MD (04/29/2020 7:19 PM) [id number] DICTATED AND SIGNED BY: TOVA BLACKWOOD MD DATE: 04/29/201918 CC: MARIANA PIZANO DO; MARY WARD DO; PRISCILLA MULLINS MD ~ (MARIANA PIZANO DO) Course & Med Decision Making: Course & Med Decision Making Pertinent Labs and Imaging studies reviewed. (See chart for details) In summary, 30F with Hx right ovarian cyst on US 02/2020, p/w colicky SP pain over last few months, but no other GI/ Sx currently. Benign exam. HDS. Will obtain UA, abd series, pelvic US and reevaluate. Signed out to Dr. Pizano pending studies and disposition. (MARY WARD DO) Course & Med Decision Making The patient's urinalysis is negative for infection. Her abdominal x-ray series is negative for acute findings. Her pelvic ultrasound is also negative for acute findings. Her previous hemorrhagic cyst is resolved. I do not see any medical reason for the patient's pain. She can follow-up with her primary care physician as needed. She is stable for discharge at this time. (MARIANA PIZANO DO) Dragon Disclaimer: Dragon Disclaimer: This electronic medical record was generated, in whole or in part, using a voice recognition dictation system. (MARY WARD DO) Departure Departure: Impression: Primary Impression: Suprapubic pain Disposition: HOME/RESIDENCE PRIOR TO ADM Condition: STABLE Referrals: PRISCILLA MULLINS MD (PCP) Patient Instructions: Abdominal Pain, Women Justification of Admission: Justification of Admission: Justification of Admission Dx: N/A (MARY WARD DO) Justification of Admission Dx: N/A (MARIANA PIZANO DO) MARY WARD DO Apr 29, 2020 17:20 MARIANA PIZANO DO Apr 29, 2020 19:29
--- NOTE | 2020-04-29 17:46 | RAD ---
EXAMINATION: ACUTE ABDOMEN SERIES CLINICAL HISTORY: SP pain - lower abd pain, pressure. hx of cyst TECHNIQUE: ACUTE ABDOMEN SERIES Number of different views (projections): 4 COMPARISON: 10/20/2018 FINDINGS: Cardiomediastinal silhouette within normal limits. No evidence of focal airspace consolidation, pleural effusion, or pneumothorax. Nonobstructive bowel gas pattern. No pneumoperitoneum or pathologic abdominal calcifications. Cholecystectomy clips. No acute osseous abnormality. IMPRESSION: Nonobstructive bowel gas pattern. No acute cardiopulmonary abnormality. Electronically signed by: Feliberto Sullivan DO (04/29/2020 5:43 PM) [id number]
[2020-04-29 18:49] LABS: BACTERIA,URINE FEW /HPF (0-FEW); BILIRUBIN,URINE NEG (NEG); CLARITY,URINE HAZY; COLOR,URINE YELLOW; GLUCOSE,URINE NEG (NEG); NITRITE,URINE NEG (NEG); RBC,URINE OCC /HPF (0-2); SQUAMOUS EPITHELIAL CELL,UR MOD /LPF
[2020-04-29 19:21] VITALS: BP 165/98
--- NOTE | 2020-04-29 19:22 | RAD ---
STUDY: US PELVIS W/TV HISTORY: Pelvic pain. COMPARISON: 02/11/2020 TECHNIQUE: Pelvic ultrasound was performed with a transabdominal and transvaginal probe. FINDINGS: The uterus is surgically absent. The left ovary measures 2.9 x 1.7 x 1.9 cm. Several follicles/small cysts. No large cyst or mass. Maintained Doppler flow. Small amount of left adnexal fluid either adjacent to the ovary or within the fallopian tube. The right ovary measures 3.1 x 2.1 x 2.1 cm with maintained Doppler flow. The right ovarian hemorrhagic cyst described on the comparison is not well seen on this exam. There is only a small right ovarian cyst or follicle on the current study measuring under a centimeter in size and without any concerning features. IMPRESSION: 1. The hemorrhagic ovarian cyst on the right seen on 02/12/2020 is no longer visualized. The right ovary is unremarkable. 2. No complex cyst or mass at the left adnexa. A few small cysts/follicles are noted. Scant amount of fluid at the left adnexa either adjacent to the ovary or within the fallopian tube. This could be physiologic, secondary to rupture of a small cyst or minimal hydrosalpinx. The appearance is not concerning for pyosalpinx. 3. Surgically absent uterus. Electronically signed by: TOVA BLACKWOOD MD (04/29/2020 7:19 PM) [id number]
== END 2020-04-29 19:35 | disposition home or self-care (01) ==
LOC: ER 17:09
DX: R10.30 Lower abdominal pain, unspecified (principal); I10 Essential (primary) hypertension; F41.9 Anxiety disorder, unspecified; F17.210 Nicotine dependence, cigarettes, uncomplicated; F32.9 Major depressive disorder, single episode, unspecified; Z90.710 Acquired absence of both cervix and uterus
CPT/HCPCS: 74022; 76830; 76856; 81001; 99285-25

== ENCOUNTER 2020-05-02 11:16 | Emergency (ER) | payer MEDICAID ==
[~2020-05-02] VITALS: Ht 160 cm; Wt 102.0 kg
[2020-05-02 11:28] VITALS: BP 149/100
[2020-05-02] MEDS ORDERED: diphenhydrAMINE 50 MG/ML VIAL IVP ONE (11:30)
[2020-05-02] MEDS ORDERED: IV NORMAL SALINE 1,000ML 1,000 ML IV ONE (11:30)
[2020-05-02] MEDS ORDERED: METOCLOPRAMIDE HCL 10 MG/2 ML VIAL. IVP ONE (11:30)
--- NOTE | 2020-05-02 11:37 | PHYS DOC ---
Past History Past Medical History: Anxiety, Depression, Hypertension Additional Past Medical Histor: PTSD Past Surgical History: Hysterectomy Smoking: Cigarettes, Less than 1pk/day Alcohol Use: None Drug Use: None General Adult EDM: Chief Complaint: HEADACHE HPI: HPI: 30-year-old female presents with headache. This headache started yesterday. Patient has a history of migraines. This is similar to previous migraines with pressure behind her eyes. She also has photosensitivity and some nausea. Her neurologist has been changing around her migraine medications. She has an appointment in 2 weeks to try different medication. She denies trauma, fever, chills. She has no other complaints this time. Review of Systems: Review of Systems: Constitutional: Denies fever or chills Eyes: Photophobia HENT: Denies nasal congestion or sore throat Respiratory: Denies cough or shortness of breath Cardiovascular: Denies chest pain or edema GI: Denies abdominal pain, nausea, vomiting, bloody stools or diarrhea : Denies dysuria Musculoskeletal: Denies back pain or joint pain Integument: Denies rash Neurologic: Headache. No focal weakness or sensory changes Endocrine: Denies polyuria or polydipsia Lymphatic: Denies swollen glands Psychiatric: Denies depression or anxiety Heart Score: Risk Factors: Risk Factors: DM, Current or recent (<one month) smoker, HTN, HLP, family history of CAD, obesity. Risk Scores: Score 0 - 3: 2.5% MACE over next 6 weeks - Discharge Home Score 4 - 6: 20.3% MACE over next 6 weeks - Admit for Clinical Observation Score 7 - 10: 72.7% MACE over next 6 weeks - Early Invasive Strategies Current Medications: Current Meds: Current Medications Medications (Trade) Dose Ordered Sig/Neno Start Time Stop Time Status Last Admin Dose Admin Diphenhydramine HCl (Benadryl) 50 mg 1X ONCE 05/02/20 11:30 05/02/20 11:32 DC Metoclopramide HCl (Reglan Vial) 10 mg 1X ONCE 05/02/20 11:30 05/02/20 11:32 DC Sodium Chloride 1,000 ml @ 1,000 mls/hr 1X ONCE 05/02/20 11:30 05/02/20 12:29 Allergies: Allergies: Allergies Coded Allergies Type Severity Reaction Last Updated Verified cephalexin Allergy Intermediate 10/20/18 Yes ibuprofen Allergy Intermediate 10/20/18 Yes tramadol Adverse Reaction Mild 10/20/18 Yes Physical Exam: PE: Constitutional: Well developed, well nourished, no acute distress, non-toxic appearance. [] HENT: normocephalic, atraumatic, bilateral external ears normal, oropharynx moist, no oral exudates, nose normal. [] Eyes: Photophobia. PERRLA, EOMI, conjunctiva normal, no discharge. [] Neck: Normal range of motion, no tenderness, supple, no stridor. [] Cardiovascular: Heart rate regular rhythm, no murmur [] Lungs & Thorax: Bilateral breath sounds clear to auscultation [] Abdomen: Bowel sounds normal, soft, no tenderness, no masses, no pulsatile masses. [] Skin: Warm, dry, no erythema, no rash. [] Back: No tenderness, no CVA tenderness. [] Extremities: No tenderness, no cyanosis, no clubbing, ROM intact, no edema. [] Neurologic: Alert and oriented X 3, normal motor function, normal sensory function, no focal deficits noted. [] Psychologic: Affect normal, judgement normal, mood normal. [] EKG: EKG: [] Radiology/Procedures: Radiology/Procedures: [] Course & Med Decision Making: Course & Med Decision Making Pertinent Labs and Imaging studies reviewed. (See chart for details) The patient's labs are unremarkable. For her headache she was given a liter normal saline, 10 mg of Reglan, 50 mg of Benadryl. She is feeling a bit better at this time. She is ready to go home. She is stable for discharge at this time. [] Dragon Disclaimer: Dragon Disclaimer: This electronic medical record was generated, in whole or in part, using a voice recognition dictation system. Departure Departure: Impression: Primary Impression: Migraine Disposition: 01 HOME/RESIDENCE PRIOR TO ADM Condition: STABLE Referrals: PRISCILLA MULLINS MD (PCP) Patient Instructions: Recurrent Migraine Headache, [id number] Justification of Admission: Justification of Admission: Justification of Admission Dx: N/A MARIANA PIZANO DO May 02, 2020 11:37
[2020-05-02 12:17] LABS: BASO # 0.1 x10^3/uL (0.0-0.2); BASO % 1 % (0-3); EOS # 0.1 x10^3/uL (0.0-0.7); EOS % 2 % (0-3); HEMATOCRIT 41.1 % (36.0-47.0); HEMOGLOBIN 14.1 g/dL (12.0-15.5); LYMPH # 1.9 x10^3/uL (1.0-4.8); LYMPH % 23 % (24-48); MEAN CORPUSCULAR HEMOGLOBIN 30 pg (25-35); MEAN CORPUSCULAR HGB CONC 34 g/dL (31-37); MEAN CORPUSCULAR VOLUME 87 fL (79-100); MONO # 0.6 x10^3/uL (0.0-1.1); MONO % 7 % (0-9); NEUT # 5.4 x10^3uL (1.8-7.7); NEUT % 67 % (31-73); PLATELET COUNT 258 x10^3/uL (140-400); RED BLOOD COUNT 4.72 x10^6/uL (3.50-5.40); RED CELL DISTRIBUTION WIDTH 13.1 % (11.5-14.5)
[2020-05-02 12:21] LABS: CREATININE 0.8 mg/dL (0.6-1.0); GFR 83.1; POTASSIUM 3.7 mmol/L (3.5-5.1)
[2020-05-02 12:27] LABS: ALBUMIN 3.8 g/dL (3.4-5.0); TOTAL BILIRUBIN 0.3 mg/dL (0.2-1.0); TOTAL PROTEIN 7.8 g/dL (6.4-8.2)
== END 2020-05-02 14:37 | disposition home or self-care (01) ==
LOC: ER 11:16
DX: G43.909 Migraine, unspecified, not intractable, without status migrainosus (principal); F41.9 Anxiety disorder, unspecified; F32.9 Major depressive disorder, single episode, unspecified; I10 Essential (primary) hypertension; F17.210 Nicotine dependence, cigarettes, uncomplicated; F43.10 Post-traumatic stress disorder, unspecified; Z88.1 Allergy status to other antibiotic agents; Z88.6 Allergy status to analgesic agent
CPT/HCPCS: 36415; 80053; 85025; 99283

== ENCOUNTER 2020-05-24 01:02 | Emergency (ER) | payer MEDICAID ==
[~2020-05-24] VITALS: Ht 160 cm; Wt 104.0 kg
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
--- NOTE | 2020-05-24 01:52 | EKG ---
[address] [address] Test Date: 2020-05-24 Test Time: 01:40:39 Pat Name: JAY JAY Department: Room: Gender: F Beverage Host: KRISH : 1990 Requested By: GLENDA CHAVEZ Order Number: [id number] Reading MD: Measurements Intervals [place] Rate: 90 P: 42 FL: 188 QRS: 34 QRSD: 94 T: 19 QT: 372 QTc: 459 Interpretive Statements SINUS RHYTHM NORMAL ECG RI6.02 No previous ECG available for comparison
[2020-05-24] MEDS ORDERED: diphenhydrAMINE 50 MG/ML VIAL IVP ONE (02:00)
[2020-05-24] MEDS ORDERED: IV RINGERS SOLUTION,LACTATED 1,000 ML IV SCH (02:00)
[2020-05-24 02:27] LABS: BASO # 0.1 x10^3/uL (0.0-0.2); BASO % 1 % (0-3); EOS # 0.1 x10^3/uL (0.0-0.7); EOS % 1 % (0-3); HEMATOCRIT 40.1 % (36.0-47.0); HEMOGLOBIN 13.9 g/dL (12.0-15.5); LYMPH # 2.1 x10^3/uL (1.0-4.8); LYMPH % 20 % (24-48); MEAN CORPUSCULAR HEMOGLOBIN 30 pg (25-35); MEAN CORPUSCULAR HGB CONC 35 g/dL (31-37); MEAN CORPUSCULAR VOLUME 87 fL (79-100); MONO # 0.9 x10^3/uL (0.0-1.1); MONO % 8 % (0-9); NEUT # 7.7 x10^3uL (1.8-7.7); NEUT % 70 % (31-73); PLATELET COUNT 276 x10^3/uL (140-400); RED BLOOD COUNT 4.62 x10^6/uL (3.50-5.40); RED CELL DISTRIBUTION WIDTH 13.2 % (11.5-14.5); WHITE BLOOD COUNT 10.9 x10^3/uL (4.0-11.0)
[2020-05-24] MEDS ORDERED: cloNIDine HCL 0.1 MG TABLET PO ONE (02:30)
[2020-05-24] MEDS ORDERED: PROCHLORPERAZINE 10 MG/2 ML VIAL. IV ONE (02:30)
--- NOTE | 2020-05-24 02:32 | RAD ---
CT HEAD INDICATION: Headache COMPARISON: 10/13/2017 Exposure: One or more of the following individualized dose reduction techniques were utilized for this examination: 1. Automated exposure control 2. Adjustment of the mA and/or kV according to patient size 3. Use of iterative reconstruction technique TECHNIQUE: 5 mm contiguous axial images were obtained from the skull base to the vertex in both bone and soft tissue algorithm. FINDINGS: No abnormal attenuation within the brain parenchyma. No evidence of acute intracranial hemorrhage. No extra-axial fluid collections. No mass effect or midline shift. Ventricular size is appropriate. Basal cisterns are patent. No fractures identified.Shearer-white differentiation is preserved.Globes and orbits are within normal limits. Paranasal sinuses and mastoid air cells are clear. IMPRESSION: No acute intracranial findings. Electronically signed by: Gene Doshi MD (05/24/2020 2:29 AM) [id number]
[2020-05-24 02:35] LABS: CALCIUM 8.5 mg/dL (8.5-10.1); GFR 64.3
[2020-05-24 02:42] LABS: ALBUMIN 3.9 g/dL (3.4-5.0); C REACTIVE PROTEIN 8.1 mg/L (0-3.3); DIRECT BILIRUBIN 0.2 mg/dL (0.0-0.2); MAGNESIUM 1.8 mg/dL (1.8-2.4); TOTAL BILIRUBIN 0.3 mg/dL (0.2-1.0); TOTAL PROTEIN 7.7 g/dL (6.4-8.2)
[2020-05-24] MEDS ORDERED: KETOROLAC 60 MG/2 ML VIAL. IM ONE (03:30)
[2020-05-24] MEDS ORDERED: POTASSIUM CHLORIDE 20 MEQ TABLET.ER. PO ONE (03:30)
[2020-05-24 03:44] LABS: AMORPHOUS SEDIMENT,UR PRESENT /HPF; BACTERIA,URINE 0 /HPF (0-FEW); BILIRUBIN,URINE NEG (NEG); CLARITY,URINE CLOUDY; COLOR,URINE YELLOW; GLUCOSE,URINE NEG (NEG); NITRITE,URINE NEG (NEG); RBC,URINE 0 /HPF (0-2); SQUAMOUS EPITHELIAL CELL,UR FEW /LPF; UROBILINOGEN,URINE 0.2 mg/dL (0.2 mg/dL); WBC,URINE OCC /HPF (0-4)
[2020-05-24] MEDS ORDERED: cloNIDine TTS-2 1 PATCH PATCH TD ONE (04:43)
[2020-05-24 04:45] VITALS: BP 134/86
[2020-05-24] MEDS ORDERED: cloNIDine TTS-1 1 PATCH PATCH TD SCH (05:00)
== END 2020-05-24 05:00 | disposition home or self-care (01) ==
LOC: ER 01:02
DX: G43.909 Migraine, unspecified, not intractable, without status migrainosus (principal); E87.6 Hypokalemia; R79.82 Elevated C-reactive protein (CRP); E66.01 Morbid (severe) obesity due to excess calories; G89.29 Other chronic pain; R10.32 Left lower quadrant pain; I10 Essential (primary) hypertension; F43.9 Reaction to severe stress, unspecified; J45.909 Unspecified asthma, uncomplicated; M79.7 Fibromyalgia; K21.9 Gastro-esophageal reflux disease without esophagitis; Z68.41 Body mass index [BMI] 40.0-44.9, adult; Z90.49 Acquired absence of other specified parts of digestive tract; Z90.710 Acquired absence of both cervix and uterus; Z88.6 Allergy status to analgesic agent; Z88.1 Allergy status to other antibiotic agents
CPT/HCPCS: 36415; 70450; 80048; 80076; 81001; 83690; 83735; 84443; 85025; 85610; 85730; 86140; 93005; 96361; 96372; 96374; 96375; 99285; J0780; J1200; J1885; J2060; J7120

== ENCOUNTER 2020-06-07 14:33 | Emergency (ER) | payer MEDICAID ==
[~2020-06-07] VITALS: Ht 160 cm; Wt 104.0 kg
[2020-06-07 14:33] VITALS: BP 136/81
--- NOTE | 2020-06-07 15:52 | PHYS DOC ---
Past History Past Medical History: Angina, Anxiety, Asthma, Depression, Fibromyalgia, GERD, Hypertension, Migraines Additional Past Medical Histor: PTSD Past Surgical History: Cholecystectomy, Hysterectomy, Tonsillectomy Additional Past Surgical Histo: umbilical hernia rep, wisdom teeth extracted Smoking: Cigarettes, Less than 1pk/day Alcohol Use: Occasionally Drug Use: None General Adult EDM: Chief Complaint: KNEE INJURY HPI: HPI: Patient is a 30-year-old female who stepped in a hole yesterday and twisted her right knee. Patient complains of severe right knee pain that is described as sharp and throbbing and worse with range of motion. Pain is mildly better with rest. There is no significant radiation to the pain. Patient denies any other injuries. Review of Systems: Review of Systems: Constitutional: Denies fever or chills Eyes: Denies change in visual acuity HENT: Denies nasal congestion or sore throat Respiratory: Denies cough or shortness of breath Cardiovascular: Denies chest pain or edema GI: Denies abdominal pain, nausea, vomiting, bloody stools or diarrhea : Denies dysuria Musculoskeletal: Denies back pain but complains of right knee pain Integument: Denies rash Neurologic: Denies headache, focal weakness or sensory changes Endocrine: Denies polyuria or polydipsia Lymphatic: Denies swollen glands Psychiatric: Denies depression or anxiety Heart Score: Risk Factors: Risk Factors: DM, Current or recent (<one month) smoker, HTN, HLP, family history of CAD, obesity. Risk Scores: Score 0 - 3: 2.5% MACE over next 6 weeks - Discharge Home Score 4 - 6: 20.3% MACE over next 6 weeks - Admit for Clinical Observation Score 7 - 10: 72.7% MACE over next 6 weeks - Early Invasive Strategies Allergies: Allergies: Allergies Coded Allergies Type Severity Reaction Last Updated Verified cephalexin Allergy Intermediate 05/24/20 Yes ibuprofen Allergy Intermediate 05/24/20 Yes sumatriptan Allergy Intermediate 05/24/20 Yes tramadol Adverse Reaction Mild 05/24/20 Yes Physical Exam: PE: Constitutional: Well developed, well nourished, no acute distress, non-toxic appearance. [] HENT: Normocephalic, atraumatic, bilateral external ears normal, no trismus, nose normal. [] Eyes: PERRLA, EOMI, conjunctiva normal, no discharge. [] Neck: Normal range of motion, no tenderness, supple, no stridor. [] Cardiovascular:Heart rate regular rhythm, normal pulses intact, cap refill is brisk Lungs & Thorax: Bilateral breath sounds clear to auscultation [] Abdomen: Bowel sounds normal, soft, no tenderness, no masses, no pulsatile m asses. [] Skin: Warm, dry, no erythema, no rash. [] Back: No tenderness, no CVA tenderness. [] Extremities: Mild tenderness with mild swelling to the right knee. Neurovascular intact distally. Patient has too much pain and would not let me assess the ligaments. Neurologic: Alert and oriented X 3, normal motor function, normal sensory function, no focal deficits noted. [] Psychologic: Anxious Current Patient Data: Vital Signs: Vital Signs Date Time Temp Pulse Resp B/P (MAP) Pulse Ox O2 Delivery O2 Flow Rate FiO2 06/07/20 14:33 97.3 70 18 136/81 (99) 99 Room Air EKG: EKG: [] Radiology/Procedures: Radiology/Procedures: [][place] [address] IMAGING REPORT Signed PATIENT: JAY JAY ACCOUNT: [id number] : 1990 LOCATION: ER AGE: 30 SEX: F EXAM STATUS: REG ER ORD. PHYSICIAN: CHRISTIAN MCBRIDE MD REASON: r knee pain PROCEDURE: KNEE RIGHT 3V Right knee 3 views 06/07/2020. Reason for exam: Knee pain. No history of trauma is given. No fracture or dislocation is seen. There is no joint narrowing. The lateral view shows evidence of a joint effusion. IMPRESSION: No acute bony abnormality. Probable effusion. Electronically signed by: Isidro Serna Jr., MD (06/07/2020 4:28 PM) [facility] DICTATED AND SIGNED BY: ISIDRO SERNA Jr, MD DATE: 06/07/20 1628 CC: CHRISTIAN MCBRIDE MD; PRISCILLA MULLINS MD ~ Course & Med Decision Making: Course & Med Decision Making Pertinent Labs and Imaging studies reviewed. (See chart for details) [] 30-year-old female with likely ligamentous injury to her right knee. Patient was placed in immobilizer and crutches. And follow-up with Ortho. Ibanez Disclaimer: Marcelle Disclaimer: This electronic medical record was generated, in whole or in part, using a voice recognition dictation system. Departure Departure: Impression: Primary Impression: Right knee sprain Additional Impression: Injury of ligament of right knee Disposition: HOME/RESIDENCE PRIOR TO ADM Condition: STABLE Referrals: PRISCILLA MULLINS MD (PCP) ANGUS ANDREWS MD 2-3 DAYS Patient Instructions: Crutch Use, Knee Immobilization, Knee Sprain Additional Instructions: EMERGENCY DEPARTMENT GENERAL DISCHARGE INSTRUCTIONS THANK YOU for coming to [facility] Emergency Department (ED) today and trusting us with your care. We trust that you had a positive experience in our Emergency Department. If you wish to speak to the department Management you can contact the emergency department at YOUR FOLLOW UP INSTRUCTIONS ARE FOLLOWS: Do you have a private doctor? If you do not have a private doctor, please ask for a resource list of physicians or clinics that may be able to assist you with follow up care. The Emergency Physician has interpreted your x-rays. The X-ray specialist will also review them. If there is a change in the findings you will be notified in 48 hours when at all possible. A lab test or lab culture may have been done, your results will be reviewed and you will be notified if you need a change in treatment. ADDITIONAL INSTRUCTIONS AND INFORMATION Your care today has been supervised by a physician who is specially trained in emergency care. Many problems require more than one evaluation for a complete diagnosis and treatment. We recommend that you schedule your follow up appointment as recommended to ensure complete treatment of your illness or injury. If you are unable to obtain follow up care and continue to have a problem, or if your condition worsens we recommend that you return to the ED. We are not able to safely determine your condition over the phone nor are we able to give sound medical advice over the phone. For these safety reasons, if you call for medical advice we will ask you to come to the ED for further evaluation If you have any questions regarding these discharge instructions please call the ED at . SAFETY INFORMATION In the interest of safety, wellness, and injury prevention; we encourage you to wear your seatbelt, if you smoke; quit smoking, and we encourage your family to use protective helmet for bicycling and other sporting events that present an increased risk for head injury. IF YOUR SYMPTOMS WORSEN OR NEW SYMPTOMS DEVELOP, OR YOU HAVE CONCERNS ABOUT YOUR CONDITION; OR IF YOUR CONDITION WORSENS WHILE YOU ARE WAITING FOR YOUR FOLLOW UP APPOINTMENT; EITHER CONTACT YOUR PRIMARY CARE DOCTOR, THE PHYSICIAN WHOSE NAME AND NUMBER YOU WERE GIVEN, OR RETURN TO THE ED IMMEDIATELY. Scripts Hydrocodone Bit/Acetaminophen (NORCO 5-325 TABLET) 1 Each Tablet 1 TAB PO PRN Q6HRS PRN for PAIN, #12 TAB 0 Refills Prov: CHRISTIAN MCBRIDE MD 06/07/20 Justification of Admission: Justification of Admission: Justification of Admission Dx: N/A CHRISTIAN MCBRIDE MD Jun 07, 2020 15:52
[2020-06-07] MEDS ORDERED: HYDROcodone/APAP 7.5/325MG 1 TAB TABLET PO ONE (16:00)
--- NOTE | 2020-06-07 16:31 | RAD ---
Right knee 3 views 06/07/2020. Reason for exam: Knee pain. No history of trauma is given. No fracture or dislocation is seen. There is no joint narrowing. The lateral view shows evidence of a joint effusion. IMPRESSION: No acute bony abnormality. Probable effusion. Electronically signed by: Khanh Serna Jr., MD (06/07/2020 4:28 PM) [facility]
[2020-06-07] MEDS ORDERED: HYDR-3165 PO (16:58)
== END 2020-06-07 17:30 | disposition home or self-care (01) ==
LOC: ER 14:33
DX: S83.91XA Sprain of unspecified site of right knee, initial encounter (principal); J45.909 Unspecified asthma, uncomplicated; M79.7 Fibromyalgia; K21.9 Gastro-esophageal reflux disease without esophagitis; I10 Essential (primary) hypertension; G43.909 Migraine, unspecified, not intractable, without status migrainosus; F17.210 Nicotine dependence, cigarettes, uncomplicated; Z88.1 Allergy status to other antibiotic agents; Z88.8 Allergy status to other drugs, medicaments and biological substances; Z88.6 Allergy status to analgesic agent; X50.1XXA Overexertion from prolonged static or awkward postures, initial encounter; Y93.89 Activity, other specified; Y92.89 Other specified places as the place of occurrence of the external cause; Y99.8 Other external cause status
CPT/HCPCS: 29505; 73562; 99283

== ENCOUNTER 2020-06-20 01:25 | Emergency (ER) | payer MEDICAID ==
[~2020-06-20] VITALS: Ht 160 cm; Wt 104.0 kg
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
[2020-06-20 01:45] VITALS: BP 161/124
--- NOTE | 2020-06-20 02:24 | RAD ---
Right knee x-rays 4 views HISTORY: Right knee injury and pain. FINDINGS: No fracture, dislocation or arthritic change. Soft tissues are unremarkable. IMPRESSION: No acute osseous injury. Electronically signed by: Christopher Calles MD (06/20/2020 2:21 AM) [facility]
[2020-06-20] MEDS ORDERED: KETOROLAC 60 MG/2 ML VIAL. IM ONE (02:30)
[2020-06-20 02:57] LABS: BILIRUBIN,URINE NEG (NEG); CLARITY,URINE CLEAR; COLOR,URINE YELLOW; GLUCOSE,URINE NEG (NEG)
[2020-06-20 02:58] LABS: BACTERIA,URINE FEW /HPF (0-FEW); BARBITURATES NEG (NEG); BENZODIAZEPINES NEG (NEG); CANNABINOIDS NEG (NEG); COCAINE NEG (NEG); METHADONE NEG (NEG); NITRITE,URINE POS (NEG); OPIATES POS (NEG); PHENCYCLIDINE NEG (NEG); RBC,URINE 20-40 /HPF (0-2); SQUAMOUS EPITHELIAL CELL,UR MOD /LPF; UROBILINOGEN,URINE 0.2 mg/dL (0.2 mg/dL); WBC,URINE 20-40 /HPF (0-4)
[2020-06-20 03:01] LABS: AMPHETAMINE/METHAMPHETAMINE NEG (NEG)
== END 2020-06-20 02:55 | disposition home or self-care (01) ==
LOC: ER 01:25
DX: S83.91XA Sprain of unspecified site of right knee, initial encounter (principal); E66.01 Morbid (severe) obesity due to excess calories; J45.909 Unspecified asthma, uncomplicated; M79.7 Fibromyalgia; K21.9 Gastro-esophageal reflux disease without esophagitis; I10 Essential (primary) hypertension; G43.909 Migraine, unspecified, not intractable, without status migrainosus; F43.10 Post-traumatic stress disorder, unspecified; F17.210 Nicotine dependence, cigarettes, uncomplicated; Z68.41 Body mass index [BMI] 40.0-44.9, adult; Z88.1 Allergy status to other antibiotic agents; Z88.6 Allergy status to analgesic agent; Z88.8 Allergy status to other drugs, medicaments and biological substances; X50.9XXA Other and unspecified overexertion or strenuous movements or postures, initial encounter; Y93.89 Activity, other specified; Y92.89 Other specified places as the place of occurrence of the external cause; Y99.8 Other external cause status
CPT/HCPCS: 36415; 73564; 80307; 81001; 87077; 87086; 87186; 96372; 99284; J1885

== ENCOUNTER 2020-07-18 19:36 | Emergency (ER) | payer MEDICAID ==
[~2020-07-18] VITALS: Ht 160 cm; Wt 106.3 kg
[2020-07-18 20:07] VITALS: BP 163/104
--- NOTE | 2020-07-18 20:16 | PHYS DOC ---
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 Patient denies any nausea vomiting diarrhea or bloody stools. Patient states she had a umbilical hernia mesh repair back in 2009. Patient is worried that something is going on with this repair. Patient states she took Tylenol prior to her arrival without relief. Patient denies any urinary problems, vaginal discharge, or any STI concerns. Patient denies any fever or chills, visual changes, nasal congestion, cough or shortness of breath. Patient denies any chest pains, edema, or swelling of her extremities. Patient denies any back pains, joint pains, rashes, headaches, focal weaknesses or sensory changes. Patient denies any increased thirst or increased urination. Patient denies any swelling of her glands, any recent depressions, anxieties, homicidal or suicidal ideations. Patient denies any COVID-19 symptoms and does not wish to be tested for the COVID-19 virus today. (TRAVIS CLARK APRN) Review of Systems Review of Systems Constitutional: Denies fever or chills Eyes: Denies change in visual acuity, redness, or eye pain HENT: Denies nasal congestion or sore throat Respiratory: Denies cough or shortness of breath Cardiovascular: No additional information not addressed in HPI GI: Denies nausea, vomiting, bloody stools or diarrhea, complains of umbilical pain sudden onset at 3 AM that woke her up out of bed. : Denies dysuria or hematuria, denies vaginal discharge, denies STI concerns. Musculoskeletal: Denies back pain or joint pain Integument: Denies rash or skin lesions Neurologic: Denies headache, focal weakness or sensory changes Endocrine: Denies polyuria or polydipsia Psychiatric: Patient denies homicidal or suicidal ideations, patient denies recent depressions or anxieties. All other systems were reviewed and found to be within normal limits, except as documented in this note. (TRAVIS CLARK APRN) Allergies Allergies Allergies Coded Allergies Type Severity Reaction Last Updated Verified cephalexin Allergy Intermediate 05/24/20 Yes ibuprofen Allergy Intermediate 05/24/20 Yes sumatriptan Allergy Intermediate 05/24/20 Yes tramadol Adverse Reaction Mild 05/24/20 Yes (TRAVIS CLARK APRN) Physical Exam Physical Exam Constitutional: Well developed, well nourished, no acute distress, non-toxic appearance. HENT: Normocephalic, atraumatic, bilateral external ears normal, oropharynx moist, no oral exudates, nose normal. Eyes: PERRLA, EOMI, conjunctiva normal, no discharge. Neck: Normal range of motion, no tenderness, supple, no stridor. Cardiovascular:Heart rate regular rhythm, no murmur, heart sounds S1-S2 to auscultation. Lungs & Thorax: Bilateral breath sounds clear to auscultation all lung ortega. Abdomen: Bowel sounds normal all 4 quadrants per auscultation, soft, no masses, no pulsatile masses. Pain with palpation to umbilicus, no McBurney's point tenderness no Parker's sign no psoas sign, no rebound tenderness. Skin: Warm, dry, no erythema, no rash. Back: No tenderness, no CVA tenderness. Extremities: No tenderness, no cyanosis, no clubbing, ROM intact, no edema. Neurologic: Alert and oriented X 3, normal motor function, normal sensory function, no focal deficits noted. Psychologic: Affect normal, judgement normal, mood normal. (TRAVIS CLARK APRN) Current Patient Data Vital Signs Vital Signs Date Time Temp Pulse Resp B/P (MAP) Pulse Ox O2 Delivery O2 Flow Rate FiO2 07/18/20 20:07 98.2 80 20 163/104 (123) 96 Room Air Lab Results Laboratory Tests Test 07/18/20 21:00 07/18/20 21:26 White Blood Count 8.1 x10^3/uL Red Blood Count 4.50 x10^6/uL Hemoglobin 13.6 g/dL Hematocrit 39.3 % Mean Corpuscular Volume 87 fL Mean Corpuscular Hemoglobin 30 pg Mean Corpuscular Hemoglobin Concent 35 g/dL Red Cell Distribution Width 13.2 % Platelet Count 309 x10^3/uL Neutrophils (%) (Auto) 59 % Lymphocytes (%) (Auto) 31 % Monocytes (%) (Auto) 7 % Eosinophils (%) (Auto) 2 % Basophils (%) (Auto) 1 % Neutrophils # (Auto) 4.8 x10^3uL Lymphocytes # (Auto) 2.5 x10^3/uL Monocytes # (Auto) 0.5 x10^3/uL Eosinophils # (Auto) 0.2 x10^3/uL Basophils # (Auto) 0.1 x10^3/uL Sodium Level 140 mmol/L Potassium Level 3.7 mmol/L Chloride Level 103 mmol/L Carbon Dioxide Level 30 mmol/L Anion Gap 7 Blood Urea Nitrogen 13 mg/dL Creatinine 0.9 mg/dL Estimated GFR (Cockcroft-Gault) 72.6 BUN/Creatinine Ratio 14 Glucose Level 99 mg/dL Calcium Level 9.7 mg/dL Total Bilirubin 0.2 mg/dL Aspartate Amino Transf (AST/SGOT) 24 U/L Alanine Aminotransferase (ALT/SGPT) 51 U/L Alkaline Phosphatase 71 U/L Total Protein 7.3 g/dL Albumin 3.9 g/dL Albumin/Globulin Ratio 1.1 Lipase 84 U/L Urine Collection Type Unknown Urine Color Yellow Urine Clarity Clear Urine pH 7.0 Urine Specific [place] 1.020 Urine Protein Neg Urine Glucose (UA) Neg mg/dL Urine Ketones (Stick) Neg mg/dL Urine Blood Neg Urine Nitrite Neg Urine Bilirubin Neg Urine Urobilinogen Dipstick 0.2 mg/dL Urine Leukocyte Esterase Neg Urine RBC 1-2 /HPF Urine WBC 1-4 /HPF Urine Squamous Epithelial Cells Few /LPF Urine Bacteria 0 /HPF Current Medications Medications (Trade) Dose Ordered Sig/Neno Route PRN Reason Start Time Stop Time Status Last Admin Dose Admin Iohexol (Omnipaque 240 Mg/ml) 30 ml 1X ONCE PO 07/18/20 20:30 07/18/20 20:33 DC 07/18/20 21:48 Iohexol (Omnipaque 300 Mg/ml) 75 ml 1X ONCE IV 07/18/20 20:30 07/18/20 20:33 DC 07/18/20 21:48 Info (Do NOT chart on this entry -- for MONITORING) 1 each PRN DAILY PRN SEE COMMENTS 07/18/20 20:45 07/20/20 20:44 Fentanyl Citrate (Fentanyl 2ml Vial) 50 mcg 1X ONCE IVP 07/18/20 22:30 07/18/20 22:31 07/18/20 21:59 Sodium Chloride 1,000 ml @ 1,000 mls/hr 1X ONCE IV 07/18/20 22:30 07/18/20 23:29 07/18/20 21:59 (TRAVIS CLARK APRN) EKG EKG [] (TRAVIS CLARK APRN) Radiology/Procedures Radiology/Procedures Exam: CT of abdomen and pelvis with contrast INDICATION: Severe umbilical pain TECHNIQUE: Sequential axial images through the abdomen and pelvis obtained following the administration of 75 mL of Omni 300 IV contrast. Sagittal and coronal reformatted images were reconstructed from the axial data and reviewed. Comparisons: 10/20/2018 FINDINGS: Heart size is normal. No pericardial effusion. Visualized lung bases are clear. No pleural effusion. Liver, spleen, pancreas and adrenals are unremarkable. Kidneys demonstrate symmetric enhancement. No perinephric inflammation or hydronephrosis. No renal or ureteral calculi are identified. Bladder is distended and appears thin-walled. Uterus is not enlarged. No abnormal adnexal mass. Large and small bowel are unremarkable. Appendix is normal. No free intra-abdominal air or fluid. No obstruction. Abdominal aorta has a normal course and caliber. Abdominal vasculature is patent. No enlarged intra-abdominal lymph nodes are identified. No suspicious osseous lesions or acute fractures. IMPRESSION: No acute process identified within the abdomen or pelvis. Exposure: One or more of the following in the visualized dose reduction techniques were utilized for this examination: 1. Automated exposure control 2. Adjustment of the MA and/or KV according to patient size 3. Use of iterative of reconstructive technique Electronically signed by: Kamar Linder MD (07/18/2020 10:08 PM) [id number] DICTATED AND SIGNED BY: KAMAR LINDER MD DATE: 07/18/202207 CC: TRAVIS CLARK APRN; GLENDA CHAVEZ MD; PRISCILLA MULLINS MD ~ (TRAVIS CLARK APRN) Heart Score Risk Factors: Risk Factors: DM, Current or recent (<one month) smoker, HTN, HLP, family history of CAD, obesity. Risk Scores: Risk Factors: DM, Current or recent (<one month) smoker, HTN, HLP, family history of CAD, obesity. (TRAVIS CLARK APRN) Course & Med Decision Making Course & Med Decision Making Pertinent Labs and Imaging studies reviewed. (See chart for details) 31-year-old female with stable vital signs presents emergency department today with complaints of umbilical pain that started approximately 3 AM today stating it woke her up out of bed. However per nursing staff patient told them that her pain started after breakfast today. A work-up was done in the emergency department, labs were negative for infectious process, her urine was not infected, the patient is not . A CAT scan of her abdomen and pelvis with p.o. and IV contrast did not show any acute process per house radiologist. The patient was given 50 mcg of IV fentanyl for pain. Which upon reexamination has resolved her pain. Discussed findings with patient, patient then revealed that she was doing lots of heavy lifting and thinks she may have pulled a muscle in her abdomen. Patient was given discharge instructions, home care instructions, no prescriptions, patient gave verbal understanding of home care instructions, return to ER concerns, follow-up with primary care doctor instructions, patient had no further questions or concerns. Patient discharged home without incident. (TRAVIS CLARK APRN) Dragon Disclaimer Dragon Disclaimer This electronic medical record was generated, in whole or in part, using a voice recognition dictation system. (TRAVIS CLARK APRN) Departure Departure: Impression: Primary Impression: Muscular pain Additional Impression: Abdominal pain Disposition: 01 DC HOME SELF CARE/HOMELESS Condition: GOOD Referrals: PRISCILLA MULLINS MD (PCP) Patient Instructions: Muscle Strain Additional Instructions: We did a CAT scan of your abdomen and pelvis, there was no signs of problems from your surgery, there were no signs of infectious process. You revealed to me after our examination that you were lifting several things and may be pulled a muscle in her abdomen, I believe this is where your pain is probably coming from. Please follow-up with your doctor for any further aches and pains, return to the ER for worsening symptoms or further concerns. Attending Co-Sign Attending Co-Sign The patient was seen and interviewed as well as examined at the bedside. The chart was reviewed. The case was discussed. Agree with the plan of care. (GLENDA CHAVEZ MD) Problem Qualifiers Additional Impression: Abdominal pain Abdominal location: generalized Qualified Codes: R10.84 - Generalized abdominal pain TRAVIS CLARK APRN Jul 18, 2020 20:16 GLENDA CHAVEZ MD Jul 18, 2020 22:52
[2020-07-18] MEDS ORDERED: IOHEXOL 240 MG/ML 50ML VIAL. PO ONE (20:30)
[2020-07-18] MEDS ORDERED: IOHEXOL 300 MG/ML 75 ML VIAL. IV ONE (20:30)
[2020-07-18] MEDS ORDERED: CONTRAST GIVEN. MC PRN (20:45)
[2020-07-18 21:23] LABS: BASO # 0.1 x10^3/uL (0.0-0.2); BASO % 1 % (0-3); EOS # 0.2 x10^3/uL (0.0-0.7); EOS % 2 % (0-3); HEMATOCRIT 39.3 % (36.0-47.0); HEMOGLOBIN 13.6 g/dL (12.0-15.5); LYMPH # 2.5 x10^3/uL (1.0-4.8); LYMPH % 31 % (24-48); MEAN CORPUSCULAR HEMOGLOBIN 30 pg (25-35); MEAN CORPUSCULAR HGB CONC 35 g/dL (31-37); MEAN CORPUSCULAR VOLUME 87 fL (79-100); MONO # 0.5 x10^3/uL (0.0-1.1); MONO % 7 % (0-9); NEUT # 4.8 x10^3uL (1.8-7.7); NEUT % 59 % (31-73); PLATELET COUNT 309 x10^3/uL (140-400); RED CELL DISTRIBUTION WIDTH 13.2 % (11.5-14.5); WHITE BLOOD COUNT 8.1 x10^3/uL (4.0-11.0)
[2020-07-18 21:33] LABS: CALCIUM 9.7 mg/dL (8.5-10.1); CREATININE 0.9 mg/dL (0.6-1.0); GFR 72.6; POTASSIUM 3.7 mmol/L (3.5-5.1)
[2020-07-18 21:39] LABS: ALBUMIN 3.9 g/dL (3.4-5.0); ALBUMIN/GLOBULIN RATIO 1.1 (1.0-1.7); TOTAL BILIRUBIN 0.2 mg/dL (0.2-1.0); TOTAL PROTEIN 7.3 g/dL (6.4-8.2)
[2020-07-18 21:53] LABS: BILIRUBIN,URINE NEG (NEG); CLARITY,URINE CLEAR; COLOR,URINE YELLOW; GLUCOSE,URINE NEG (NEG)
[2020-07-18 21:54] LABS: BACTERIA,URINE 0 /HPF (0-FEW); NITRITE,URINE NEG (NEG); SQUAMOUS EPITHELIAL CELL,UR FEW /LPF; UROBILINOGEN,URINE 0.2 mg/dL (0.2 mg/dL)
--- NOTE | 2020-07-18 22:10 | RAD ---
Exam: CT of abdomen and pelvis with contrast INDICATION: Severe umbilical pain TECHNIQUE: Sequential axial images through the abdomen and pelvis obtained following the administration of 75 mL of Omni 300 IV contrast. Sagittal and coronal reformatted images were reconstructed from the axial data and reviewed. Comparisons: 10/20/2018 FINDINGS: Heart size is normal. No pericardial effusion. Visualized lung bases are clear. No pleural effusion. Liver, spleen, pancreas and adrenals are unremarkable. Kidneys demonstrate symmetric enhancement. No perinephric inflammation or hydronephrosis. No renal or ureteral calculi are identified. Bladder is distended and appears thin-walled. Uterus is not enlarged. No abnormal adnexal mass. Large and small bowel are unremarkable. Appendix is normal. No free intra-abdominal air or fluid. No obstruction. Abdominal aorta has a normal course and caliber. Abdominal vasculature is patent. No enlarged intra-abdominal lymph nodes are identified. No suspicious osseous lesions or acute fractures. IMPRESSION: No acute process identified within the abdomen or pelvis. Exposure: One or more of the following in the visualized dose reduction techniques were utilized for this examination: 1. Automated exposure control 2. Adjustment of the MA and/or KV according to patient size 3. Use of iterative of reconstructive technique Electronically signed by: Kamar Oconnor MD (07/18/2020 10:08 PM) [id number]
[2020-07-18] MEDS ORDERED: IV NORMAL SALINE 1,000ML 1,000 ML IV ONE (22:30)
== END 2020-07-18 22:27 | disposition home or self-care (01) ==
LOC: ER 19:36
DX: M79.18 Myalgia, other site (principal); R10.84 Generalized abdominal pain; R10.33 Periumbilical pain; F41.9 Anxiety disorder, unspecified; J45.909 Unspecified asthma, uncomplicated; F32.9 Major depressive disorder, single episode, unspecified; M79.7 Fibromyalgia; K21.9 Gastro-esophageal reflux disease without esophagitis; I10 Essential (primary) hypertension; G43.909 Migraine, unspecified, not intractable, without status migrainosus; F17.210 Nicotine dependence, cigarettes, uncomplicated; F43.10 Post-traumatic stress disorder, unspecified; Z90.49 Acquired absence of other specified parts of digestive tract; Z90.710 Acquired absence of both cervix and uterus; Z88.1 Allergy status to other antibiotic agents; Z88.6 Allergy status to analgesic agent
CPT/HCPCS: 36415; 74177; 80053; 81001; 83690; 85025; 96374; 99285; J3010; J7030; Q9966; Q9967

== ENCOUNTER 2020-09-17 17:16 | Emergency (ER) | payer MEDICAID ==
[~2020-09-17] VITALS: Ht 160 cm; Wt 108.2 kg
[~2020-09-17 17:16] MED LIST changes: -CLIN300C8 PO; +CLIN300C9 PO
[2020-09-17] MEDS ORDERED: KETOROLAC 60 MG/2 ML VIAL. IM ONE (18:45)
[2020-09-17] MEDS ORDERED: diphenhydrAMINE 50 MG/ML VIAL IM ONE (18:45)
[2020-09-17] MEDS ORDERED: predniSONE 10 MG TABLET PO ONE (18:45)
[2020-09-17] MEDS ORDERED: PROCHLORPERAZINE 10 MG/2 ML VIAL. IM ONE (18:45)
--- NOTE | 2020-09-17 18:51 | PHYS DOC ---
Past History Past Medical History: Angina, Anxiety, Asthma, Depression, Fibromyalgia, GERD, Hypertension, Migraines Additional Past Medical Histor: PTSD (VALERIA ALFREDO APRN) Past Surgical History: Cholecystectomy, Hysterectomy, Tonsillectomy Additional Past Surgical Histo: umbilical hernia rep, wisdom teeth extracted (VALERIA ALFREDO APRN) Smoking: Cigarettes, Less than 1pk/day Alcohol Use: None Drug Use: None (VALERIA ALFREDO APRN) Adult General Chief Complaint Chief Complaint: HEADACHE HPI HPI Patient is a 30-year-old female patient with history of depression, fibromyalgia, migraine headaches, hypertension among other illnesses who presents the ED today complaining of 10 out of 10 generalized migraine headache, symptoms began 3 days ago. Patient reports nausea with no vomiting. Patient denies this being the worst headache in her life. She states this headache is consistent with her migraine headaches. (VALERIA ALFREDO APRN) Review of Systems Review of Systems Constitutional: Denies fever or chills [] Eyes: Denies change in visual acuity, redness, or eye pain [] HENT: Denies nasal congestion or sore throat [] Respiratory: Denies cough or shortness of breath [] Cardiovascular: No additional information not addressed in HPI [] GI: Denies abdominal pain, nausea, vomiting, bloody stools or diarrhea [] : Denies dysuria or hematuria [] Musculoskeletal: Denies back pain or joint pain [] Integument: Denies rash or skin lesions [] Neurologic: D reports generalized headache, denies focal weakness or sensory changes [] All other systems were reviewed and found to be within normal limits, except as documented in this note. (VALERIA ALFREDO APRN) Current Medications Current Medications Current Medications Medications (Trade) Dose Ordered Sig/Nneo Start Time Stop Time Status Last Admin Dose Admin Diphenhydramine HCl (Benadryl) 25 mg 1X ONCE 09/17/20 18:45 09/17/20 18:46 DC Ketorolac Tromethamine (Toradol Im) 60 mg 1X ONCE 09/17/20 18:45 09/17/20 18:46 DC Prednisone (Prednisone) 50 mg 1X ONCE 09/17/20 18:45 09/17/20 18:46 DC Prochlorperazine Edisylate (Compazine) 10 mg 1X ONCE 09/17/20 18:45 09/17/20 18:46 DC (VALERIA ALFREDO APRN) Allergies Allergies Allergies Coded Allergies Type Severity Reaction Last Updated Verified cephalexin Allergy Intermediate 09/17/20 Yes ibuprofen Allergy Intermediate 09/17/20 Yes sumatriptan Allergy Intermediate 09/17/20 Yes tramadol Adverse Reaction Mild 09/17/20 Yes (VALERIA ALFREDO APRN) Physical Exam Physical Exam Constitutional: Well developed, well nourished, no acute distress, non-toxic appearance. [] HENT: Normocephalic, atraumatic, bilateral external ears normal, oropharynx moist, no oral exudates, nose normal. [] Eyes: PERRLA, EOMI, conjunctiva normal, no discharge. [] Neck: Normal range of motion, no tenderness, supple, no stridor. [] Cardiovascular:Heart rate regular rhythm, no murmur [] Lungs & Thorax: Bilateral breath sounds clear to auscultation [] Abdomen: Bowel sounds normal, soft, no tenderness, no masses, no pulsatile masses. [] Skin: Warm, dry, no erythema, no rash. [] Back: No tenderness, no CVA tenderness. [] Extremities: No tenderness, no cyanosis, no clubbing, ROM intact, no edema. [] Neurologic: Alert and oriented X 3, normal motor function, normal sensory function, no focal deficits noted. Cranial nerves II through XII intact Psychologic: Affect normal, judgement normal, mood normal. [] (VALERIA ALFREDO APRN) Current Patient Data Vital Signs Vital Signs Date Time Temp Pulse Resp B/P (MAP) Pulse Ox O2 Delivery O2 Flow Rate FiO2 09/17/20 17:44 98.1 88 16 165/113 (130) 99 (VALERIA ALFREDO APRN) EKG EKG [] (VALERIA ALFREDO APRN) Radiology/Procedures Radiology/Procedures [] (VALERIA ALFREDO APRN) Heart Score Risk Factors: Risk Factors: DM, Current or recent (<one month) smoker, HTN, HLP, family history of CAD, obesity. Risk Scores: Risk Factors: DM, Current or recent (<one month) smoker, HTN, HLP, family history of CAD, obesity. (VALERIA ALFREDO APRN) Course & Med Decision Making Course & Med Decision Making Pertinent Labs and Imaging studies reviewed. (See chart for details) This is a 30-year-old female patient presented to the ED today complaining of a migraine headache. Patient has history of migraine headache and this headache is similar to her migraines. There is nothing unusual. She has multiple visits to this ED for migraine headaches. She was given a migraine headache cocktail in the ED and discharged to home. Follow-up with her neurologist. She states she has an appointment in a couple weeks. (VALERIA ALFREDO APRN) Dragon Disclaimer Dragon Disclaimer This electronic medical record was generated, in whole or in part, using a voice recognition dictation system. (VALERIA ALFREDO APRN) Departure Departure: Impression: Primary Impression: Migraine Disposition: 01 DC HOME SELF CARE/HOMELESS Condition: STABLE Referrals: PRISCILLA MULLINS MD (PCP) Please follow-up with your primary care doctor as well as your neurologist Patient Instructions: Migraine Headache Additional Instructions: You were evaluated in the emergency room for migraine headachea. Please follow- up with your neurologist as scheduled. Attending Co-Sign Attending Co-Sign The patient was seen and interviewed as well as examined at the bedside. The chart was reviewed. The case was discussed. Agree with the plan of care. (GLENDA CHAVEZ MD) Problem Qualifiers Primary Impression: Migraine Migraine type: without aura Status migrainosus presence: without status migrainosus Intractability: not intractable Qualified Codes: G43.009 - Migraine without aura, not intractable, without status migrainosus VALERIA ALFREDO APRN Sep 17, 2020 18:51 GLENDA CHAVEZ MD Sep 19, 2020 16:26
[2020-09-17 19:01] VITALS: BP 156/84
== END 2020-09-17 19:13 | disposition home or self-care (01) ==
LOC: ER 17:16
DX: G43.009 Migraine without aura, not intractable, without status migrainosus (principal); J45.909 Unspecified asthma, uncomplicated; M79.7 Fibromyalgia; K21.9 Gastro-esophageal reflux disease without esophagitis; I10 Essential (primary) hypertension; G43.909 Migraine, unspecified, not intractable, without status migrainosus; F17.210 Nicotine dependence, cigarettes, uncomplicated; Z88.1 Allergy status to other antibiotic agents; Z88.6 Allergy status to analgesic agent
CPT/HCPCS: 96372; 99284; J0780; J1885; J7512

== ENCOUNTER 2021-02-25 22:08 | Emergency (ER) | payer MEDICAID ==
[~2021-02-25] VITALS: Ht 160 cm; Wt 108.2 kg
[~2021-02-25 22:08] MED LIST changes: +LISI10TA16 PO; -LISI10TA2 PO
[2021-02-25] MEDS ORDERED: diphenhydrAMINE 50 MG/ML VIAL IM ONE (23:00)
[2021-02-25] MEDS ORDERED: ACETAMINOPHEN 500 MG TABLET PO ONE (23:00)
[2021-02-25] MEDS ORDERED: MORPHINE SULFATE 2 MG/ML DISP.SYRIN. IM ONE (23:00)
[2021-02-25] MEDS ORDERED: ONDANSETRON PF 4 MG/2 ML VIAL. IVP ONE (23:00)
[2021-02-25] MEDS ORDERED: ONDA4TAB7 PO (23:00)
[2021-02-25] MEDS ORDERED: PROCHLORPERAZINE 10 MG/2 ML VIAL. IM ONE (23:00)
--- NOTE | 2021-02-25 23:01 | PHYS DOC ---
Past History Past Medical History: Angina, Anxiety, Asthma, Depression, Fibromyalgia, GERD, Hypertension, Migraines Additional Past Medical Histor: PTSD Past Surgical History: Cholecystectomy, Hysterectomy, Tonsillectomy Additional Past Surgical Histo: umbilical hernia rep, wisdom teeth extracted Smoking: Cigarettes, Less than 1pk/day Alcohol Use: None Drug Use: None Adult General Chief Complaint Chief Complaint: HEADACHE HPI HPI Patient is a 30-year-old female with a past medical history significant for migraines who presents to the emergency department with a chief complaint of migraine. States that she gets a couple days a month, last month started 2 days ago and has a whole head headache, 7 out of 10, dull achy in nature with some photophobia and phonophobia as well as nausea but no vomiting. States she is had a lot of stress in her life over the last couple of weeks and despite taking her home medications for her migraine it did not get rid of it. Denies any recent traumas, travels, illnesses, fevers, chest pain, shortness of breath, abdominal pain, vomiting, dysuria, hematuria or blood in the stool. Denies any alcohol or drug use. Review of Systems Review of Systems Review of systems otherwise unremarkable except noted in HPI Current Medications Current Medications Current Medications Medications (Trade) Dose Ordered Sig/Neno Start Time Stop Time Status Last Admin Dose Admin Acetaminophen (Tylenol) 1,000 mg 1X ONCE 02/25/21 23:00 02/25/21 23:01 Diphenhydramine HCl (Benadryl) 50 mg 1X ONCE 02/25/21 23:00 02/25/21 23:01 Morphine Sulfate (Morphine 2mg Syringe) 2 mg 1X ONCE 02/25/21 23:00 02/25/21 23:01 Ondansetron HCl (Zofran) 8 mg 1X ONCE 02/25/21 23:00 02/25/21 23:01 Prochlorperazine Edisylate (Compazine) 10 mg 1X ONCE 02/25/21 23:00 02/25/21 23:01 Allergies Allergies Allergies Coded Allergies Type Severity Reaction Last Updated Verified cephalexin Allergy Intermediate 02/25/21 Yes ibuprofen Allergy Intermediate 02/25/21 Yes sumatriptan Allergy Intermediate 02/25/21 Yes tramadol Adverse Reaction Mild 02/25/21 Yes Physical Exam Physical Exam Constitutional: Well developed, well nourished, no acute distress, non-toxic appearance. [] HENT: Normocephalic, atraumatic, bilateral external ears normal, oropharynx moist, no oral exudates, nose normal. [] Eyes: PERRLA, EOMI, conjunctiva normal, no discharge. [] Neck: Normal range of motion, no tenderness, supple, no stridor. [] Cardiovascular:Heart rate regular rhythm, no murmur [] Lungs & Thorax: Bilateral breath sounds clear to auscultation [] Abdomen: soft, no tenderness, no masses, no pulsatile masses. [] Skin: Warm, dry, no erythema, no rash. [] Back: No tenderness, no CVA tenderness. [] Extremities: No tenderness, no cyanosis, no clubbing, ROM intact, no edema. [] Neurologic: Alert and oriented X 3, normal motor function, normal sensory function, no focal deficits noted. [] Psychologic: Affect normal, judgement normal, mood normal. [] Current Patient Data Vital Signs Vital Signs Date Time Temp Pulse Resp B/P (MAP) Pulse Ox O2 Delivery O2 Flow Rate FiO2 02/25/21 22:15 99.2 86 20 166/119 (135) 100 EKG EKG [] Radiology/Procedures Radiology/Procedures [] Heart Score C/O Chest Pain: No Risk Factors: Risk Factors: DM, Current or recent (<one month) smoker, HTN, HLP, family history of CAD, obesity. Risk Scores: Risk Factors: DM, Current or recent (<one month) smoker, HTN, HLP, family history of CAD, obesity. Course & Med Decision Making Course & Med Decision Making Patient is a 30-year-old female who presents with 2 days of migraine with associated nausea but no vomiting Vital signs notable for hypertension. Physical exam noted above. Patient given migraine cocktail IM as she stated she would prefer not to get an IV as she is a hard stick. Patient allowed to rest in the emergency department. Patient fell asleep for a time. On reassessment patient was feeling much better and was appreciative and felt safe to discharge home. Stated that she was having some shoulder pain which she occasionally gets with a migraine today and asked for a dose of oral pain medicine before leaving. Given a dose of oral pain medicine before leaving. Patient called her for a ride. Discussed treatment options at home. Given migraine education. Advised to follow-up in the morning with primary care physician. Gave return precautions to the ED. Patient grateful, verbalized understanding and agreed with plan of discharge. Dragon Disclaimer Dragon Disclaimer This electronic medical record was generated, in whole or in part, using a voice recognition dictation system. Departure Departure: Impression: Primary Impression: Migraine Disposition: HOME / SELF CARE / HOMELESS Condition: GOOD Referrals: PRISCILLA MULLINS MD (PCP) Patient Instructions: Migraine Headache, Recurrent Migraine Headache Additional Instructions: Thank you for coming into the emergency department tonight and allowing us to take care of you. Please read all of the attached information very carefully on migraines and some treatment options. You can begin a Tylenol, Zofran and Benadryl regimen at home when you feel migraine coming on as discussed. Please follow-up with your primary care physician in the morning to update on your ED visit and set up a follow-up visit. Please come back to the emergency department immediately with new or concerning symptoms as discussed. Scripts Ondansetron Hcl (ZOFRAN) 4 Mg Tablet 1 TAB PO PRN Q6HRS PRN for NAUSEA, #20 TAB Prov: DONNA BLACKMON MD 02/25/21 DONNA BLACKMON MD Feb 25, 2021 23:01
[2021-02-25 23:32] VITALS: BP 153/89
[2021-02-26] MEDS ORDERED: HYDROcodone/APAP 5/325MG 1 TAB TABLET PO ONE
== END 2021-02-25 23:51 | disposition home or self-care (01) ==
LOC: ER 22:08
DX: G43.909 Migraine, unspecified, not intractable, without status migrainosus (principal); J45.909 Unspecified asthma, uncomplicated; F17.210 Nicotine dependence, cigarettes, uncomplicated; K21.9 Gastro-esophageal reflux disease without esophagitis; I10 Essential (primary) hypertension; Z90.49 Acquired absence of other specified parts of digestive tract; Z88.1 Allergy status to other antibiotic agents; Z88.6 Allergy status to analgesic agent; Z90.710 Acquired absence of both cervix and uterus
CPT/HCPCS: 96372; 96374; 99284; J0780; J1200; J2270; J2405

== ENCOUNTER 2021-02-28 21:45 | Emergency (ER) | payer MEDICAID ==
[~2021-02-28] VITALS: Ht 160 cm; Wt 108.2 kg
--- NOTE | 2021-02-28 21:51 | PHYS DOC ---
Past History Past Medical History: Angina, Anxiety, Asthma, Depression, Fibromyalgia, GERD, Hypertension, Migraines Additional Past Medical Histor: PTSD Past Surgical History: Cholecystectomy, Hysterectomy, Tonsillectomy Additional Past Surgical Histo: umbilical hernia rep, wisdom teeth extracted Smoking: Cigarettes, Less than 1pk/day Alcohol Use: None Drug Use: None General Adult EDM: Chief Complaint: HEADACHE HPI: HPI: ".. I am having a lot more stress.... My kid admitted at [facility]... since January 28.. in [place].. PICU... she coded on Monday.. has viral.. pneumonia.. and seizure .. I tried to go to [facility] for my migraines.. but they said.. I had [place] insurance... and told me to go to [place].. I was at [facility].. they gave me Ketamine for my headache.. it helped a little.. I ve seen Thelma in the past... he said there was nothing he could do or add to my therapy... " I did have a skin biospy to back my head last week.. and that seemed to start of the recurrent headaches.. and the stress of my kid being sick... just too much.. my BP is up... and I ve been taking my Lisinopril..." Patient is a 30 year old female who presents with above hx and complaints tension headache. No recent travel outside the cancer area. No history of specific ill contacts. No history of trauma. Other than the biopsy to a skin lesion on the back of her scalp. No severe ill contacts other than her daughter is sick with a viral infection at [facility]. Daughter does not have Covid. Patient has been to multiple hospitals for her headache complaints. [facility] and was referred to [place] has been seen at [place] primarily other than here at [facility]. Patient also is followed at in the past. Patient does have a history of hypertension and reportedly been taking her lisinopril. Patient has frequent ED visits for pain issues. Patient does continue to smoke. 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 Patient has not received her Covid vaccination but is scheduled to receive it. Review of Systems: Review of Systems: Constitutional: Denies fever or chills Eyes: Denies change in visual acuity HENT: Denies nasal congestion or sore throat Respiratory: Denies cough or shortness of breath Cardiovascular: Denies chest pain or edema GI: Denies abdominal pain, nausea, vomiting, bloody stools or diarrhea : Denies dysuria Musculoskeletal: Denies back pain or joint pain Integument: Denies rash Neurologic: Complains of headache, denies focal weakness or sensory changes Endocrine: Denies polyuria or polydipsia Lymphatic: Denies swollen glands Psychiatric: Denies depression or anxiety Family History: Family History: Daughter has viral pneumonia and is at [facility] Current Medications: Current Meds: See nursing for home meds Allergies: Allergies: Allergies Coded Allergies Type Severity Reaction Last Updated Verified cephalexin Allergy Intermediate 02/25/21 Yes ibuprofen Allergy Intermediate 02/25/21 Yes sumatriptan Allergy Intermediate 02/25/21 Yes tramadol Adverse Reaction Mild 02/25/21 Yes Physical Exam: PE: Constitutional: Moderate acute distress, non-toxic appearance. [] HENT: Normocephalic, atraumatic, bilateral external ears normal, oropharynx moist, no oral exudates, nose normal. Scalp is tender to palpation. No temporal artery tenderness. Eyes: PERRLA, EOMI, conjunctiva normal, no discharge. [] Neck: Normal range of motion, no tenderness, supple, no stridor. More than 17 inches circumference Cardiovascular:Heart rate regular rhythm, no murmur [] PMI to left. Bedside monitor shows sinus rhythm. Lungs & Thorax: Bilateral breath sounds scattered wheezes auscultation [] Abdomen: Bowel sounds normal, soft, no tenderness, no masses, no pulsatile masses. Obese. Old surgery scars Skin: Warm, dry, no erythema, no rash. Tattoos Back: No tenderness, no CVA tenderness. [] Extremities: No tenderness, no cyanosis, no clubbing, ROM intact, trace ankle edema. No cording Neurologic: Alert and oriented X 3, normal motor function, normal sensory function, no focal deficits noted. DTRs +2 patella and brachial. Ambulatory without problem. Psychologic: Affect anxious, judgement normal, mood normal. [] EKG: EKG: [] Radiology/Procedures: Radiology/Procedures: Patient defers CT [] Heart Score: C/O Chest Pain: N/A Risk Factors: Risk Factors: DM, Current or recent (<one month) smoker, HTN, HLP, family history of CAD, obesity. Risk Scores: Score 0 - 3: 2.5% MACE over next 6 weeks - Discharge Home Score 4 - 6: 20.3% MACE over next 6 weeks - Admit for Clinical Observation Score 7 - 10: 72.7% MACE over next 6 weeks - Early Invasive Strategies Course & Med Decision Making: Course & Med Decision Making Pertinent Labs and Imaging studies reviewed. (See chart for details) Patient declines spinal tap evaluation for her migraine complaints. Risk benefits discussed Patient encouraged follow-up primary care. Consider referral back to neurology for ultimate treatment plans for her recurrent tension or migraine and/or migraine headaches. Patient follow-up primary care. Patient encouraged to stop smoking. Patient return if any concerns. May take Zofran 8 mg at 4 times a day for active nausea associated with her migraines Impression: 1. Migraine headache (Reports typical presentation for her) 2. Anxiety 3. Increased life stressors 4.. Exhibits possible drug-seeking behaviors [] Dragon Disclaimer: Dragon Disclaimer: This electronic medical record was generated, in whole or in part, using a voice recognition dictation system. Departure Departure: Referrals: PRISCILLA MULLINS MD (PCP) Scripts Ondansetron Hcl (ZOFRAN) 4 Mg Tablet 8 MG PO QIDPRN PRN for NAUSEA/VOMITING, #30 TAB Prov: GLENDA CHAVEZ MD 03/01/21 Marcelle Disclaimer This chart was dictated in whole or in part using Voice Recognition software in a busy, high-work load, and often noisy Emergency Department environment. It may contain unintended and wholly unrecognized errors or omissions. GLENDA CHAVEZ MD Feb 28, 2021 21:51
[2021-02-28 22:29] VITALS: BP 191/142
[2021-02-28] MEDS ORDERED: diphenhydrAMINE 50 MG/ML VIAL IM ONE (22:30)
[2021-02-28] MEDS ORDERED: PROCHLORPERAZINE 10 MG/2 ML VIAL. IM ONE (22:30)
[2021-02-28] MEDS ORDERED: cloNIDine TTS-2 1 PATCH PATCH TD ONE (22:30)
[2021-02-28] MEDS ORDERED: cloNIDine HCL 0.1 MG TABLET PO ONE (22:30)
[2021-02-28] MEDS ORDERED: MORPHINE SULFATE 10 MG/ML SYRINGE. SQ ONE (22:30)
[2021-02-28 23:15] LABS: AMPHETAMINE/METHAMPHETAMINE NEG (NEG); BARBITURATES NEG (NEG); BENZODIAZEPINES NEG (NEG); CANNABINOIDS NEG (NEG); COCAINE NEG (NEG); METHADONE NEG (NEG); OPIATES POS (NEG); PHENCYCLIDINE NEG (NEG)
[2021-02-28 23:32] LABS: BILIRUBIN,URINE NEG (NEG); CLARITY,URINE CLEAR; COLOR,URINE YELLOW; GLUCOSE,URINE NEG (NEG); NITRITE,URINE NEG (NEG); UROBILINOGEN,URINE 0.2 mg/dL (0.2 mg/dL)
[2021-02-28 23:33] LABS: BACTERIA,URINE 0 /HPF (0-FEW); RBC,URINE 0 /HPF (0-2); SQUAMOUS EPITHELIAL CELL,UR OCC /LPF; WBC,URINE 0 /HPF (0-4)
[2021-03-01] MEDS ORDERED: ONDA4TAB7 PO (00:12)
== END 2021-03-01 00:23 | disposition home or self-care (01) ==
LOC: ER 21:45
DX: G43.909 Migraine, unspecified, not intractable, without status migrainosus (principal); F41.9 Anxiety disorder, unspecified; F43.9 Reaction to severe stress, unspecified; F32.9 Major depressive disorder, single episode, unspecified; J45.909 Unspecified asthma, uncomplicated; M79.7 Fibromyalgia; K21.9 Gastro-esophageal reflux disease without esophagitis; I10 Essential (primary) hypertension; F43.10 Post-traumatic stress disorder, unspecified; F17.210 Nicotine dependence, cigarettes, uncomplicated; Z88.1 Allergy status to other antibiotic agents; Z88.6 Allergy status to analgesic agent
CPT/HCPCS: 36415; 80307; 81001; 81025; 96372; 99284; J0780; J1200; J2270

== ENCOUNTER 2021-03-04 19:41 | Emergency (ER) | payer MEDICAID ==
[~2021-03-04] VITALS: Ht 160 cm; Wt 113.6 kg
[2021-03-04] MEDS ORDERED: KETOROLAC 15 MG/ML VIAL. IM ONE (20:00)
[2021-03-04] MEDS ORDERED: diphenhydrAMINE 50 MG/ML VIAL IM ONE (20:00)
[2021-03-04] MEDS ORDERED: ONDANSETRON ODT 4 MG TAB.RAPDIS PO ONE (20:00)
[2021-03-04] MEDS ORDERED: KETOROLAC 15 MG/ML VIAL. IVP ONE ×2 (20:15→21:30)
[2021-03-04] MEDS ORDERED: diphenhydrAMINE 50 MG/ML VIAL IVP ONE ×2 (20:15→21:30)
[2021-03-04] MEDS ORDERED: cloNIDine HCL 0.1 MG TABLET PO ONE (20:15)
--- NOTE | 2021-03-04 20:37 | PHYS DOC ---
Past History Past Medical History: Angina, Anxiety, Asthma, Depression, Fibromyalgia, GERD, Hypertension, Migraines Additional Past Medical Histor: PTSD Past Surgical History: Cholecystectomy, Hysterectomy, Tonsillectomy Additional Past Surgical Histo: umbilical hernia rep, wisdom teeth extracted Smoking: Cigarettes, Less than 1pk/day Alcohol Use: None Drug Use: None General Adult EDM: Chief Complaint: HEADACHE HPI: HPI: Patient is a 30-year-old female who presents with migraine headache. Patient has a history of migraines. Denies taking anything for headache prior to arrival. Denies visual changes or nausea/vomiting patient states "my daughter has been in [place] since January 28 and I have been stressed out". Patient has history of hypertension, migraine. Review of Systems: Review of Systems: Constitutional: Denies fever or chills Eyes: Denies change in visual acuity HENT: Denies nasal congestion or sore throat Respiratory: Denies cough or shortness of breath Cardiovascular: Denies chest pain or edema GI: Denies abdominal pain, nausea, vomiting, bloody stools or diarrhea : Denies dysuria Musculoskeletal: Denies back pain or joint pain Integument: Denies rash Neurologic: Reports headache, denies focal weakness or sensory changes Endocrine: Denies polyuria or polydipsia Lymphatic: Denies swollen glands Psychiatric: Reports depression and anxiety Current Medications: Current Meds: Current Medications Medications (Trade) Dose Ordered Sig/Neno Start Time Stop Time Status Last Admin Dose Admin Clonidine HCl (Catapres) 0.1 mg 1X ONCE 03/04/21 20:15 03/04/21 20:16 DC Diphenhydramine HCl (Benadryl) 25 mg 1X ONCE 03/04/21 20:15 03/04/21 20:16 UNV 03/04/21 20:20 25 MG Ketorolac Tromethamine (Toradol 15mg Vial) 15 mg 1X ONCE 03/04/21 20:15 03/04/21 20:16 UNV 03/04/21 20:20 15 MG Ondansetron HCl (Zofran Odt) 4 mg 1X ONCE 03/04/21 20:00 03/04/21 20:03 DC 03/04/21 20:10 4 MG Allergies: Allergies: Allergies Coded Allergies Type Severity Reaction Last Updated Verified cephalexin Allergy Intermediate 02/25/21 Yes ibuprofen Allergy Intermediate 02/25/21 Yes sumatriptan Allergy Intermediate 02/25/21 Yes tramadol Adverse Reaction Mild 02/25/21 Yes Physical Exam: PE: Constitutional: Well developed, well nourished, no acute distress, non-toxic appearance. [] HENT: Normocephalic, atraumatic, bilateral external ears normal, oropharynx moist, no oral exudates, nose normal. [] Eyes: PERRLA, EOMI, conjunctiva normal, no discharge. [] Neck: Normal range of motion, no tenderness, supple, no stridor. [] Cardiovascular:Heart rate regular rhythm, no murmur [] Lungs & Thorax: Bilateral breath sounds clear to auscultation [] Abdomen: Bowel sounds normal, soft, no tenderness, no masses, no pulsatile masses. [] Skin: Warm, dry, no erythema, no rash. [] Back: No tenderness, no CVA tenderness. [] Extremities: No tenderness, no cyanosis, no clubbing, ROM intact, no edema. [] Neurologic: Alert and oriented X 3, normal motor function, normal sensory function, no focal deficits noted. [] Psychologic: Affect normal, judgement normal, mood normal. [] Current Patient Data: Vital Signs: Vital Signs Date Time Temp Pulse Resp B/P (MAP) Pulse Ox O2 Delivery O2 Flow Rate FiO2 03/04/21 20:10 69 20 150/103 (119) 99 Room Air EKG: EKG: [] Radiology/Procedures: Radiology/Procedures: [] Heart Score: C/O Chest Pain: No Risk Factors: Risk Factors: DM, Current or recent (<one month) smoker, HTN, HLP, family history of CAD, obesity. Risk Scores: Score 0 - 3: 2.5% MACE over next 6 weeks - Discharge Home Score 4 - 6: 20.3% MACE over next 6 weeks - Admit for Clinical Observation Score 7 - 10: 72.7% MACE over next 6 weeks - Early Invasive Strategies Course & Med Decision Making: Course & Med Decision Making Pertinent Labs and Imaging studies reviewed. (See chart for details) [] 30-year-old female presents with migraine headache. Patient's been seen multiple times this week. Patient has a history of chronic migraines. Denies taking anything prior to arrival. Patient given IM Toradol, Zofran, Benadryl. Patient's blood pressure was elevated on arrival. Patient is still reporting headache. Patient given 15 mg of Toradol, 25 mg of Benadryl. Patient was requesting narcotics. Explained to patient that narcotics are not usually given for migraines due to rebound headaches. Patient will need to call her PCP to make an appointment for further management of migraines and also addressing blood pressure. Patient's blood pressure has decreased to 157/68. Patient is appreciative and states that she understands. Marcelle Disclaimer: Marcelle Disclaimer: This electronic medical record was generated, in whole or in part, using a voice recognition dictation system. Departure Departure: Impression: Primary Impression: Migraine Qualified Codes: G43.009 - Migraine without aura, not intractable, without status migrainosus Additional Impression: Hypertension Qualified Codes: I10 - Essential (primary) hypertension Disposition: HOME / SELF CARE / HOMELESS Condition: STABLE Referrals: PRISCILLA HIDALGO MD (PCP) Patient Instructions: Migraine Headache, [id number] Additional Instructions: You were seen in the emergency room for migraine headache. You were given Benadryl, Toradol, Zofran to treat symptoms. Your blood pressure was slightly elevated on arrival. You need to follow-up with Dr. Hidalgo to have him manage your chronic migraines and also hypertension. Your blood pressure may be contributing to the recent migraine headaches you have been getting. Please return to the emergency room if you have worsening symptoms or concerns. EMERGENCY DEPARTMENT GENERAL DISCHARGE INSTRUCTIONS Thank you for coming to [facility] (ED) today and trusting us with you care. We trust that you had a positivie experience in our Emergency Department. If you wish to speak to the department management, you may call the director at [phone]. YOUR FOLLOW UP INSTRUCTIONS ARE FOLLOWS: 1. Do you have a private Doctor? If you do not have a private doctor, please ask for a resource list of physicians or clinics that may be able to assist you with follow up care. 2. The Emergency Physician has interpreted your x-rays. The X-Ray specialist will also review them. If there is a change in the findings, you will be notified in 48 hours when at all possible. 3. A lab test or culture has been done, your results will be reviewed and you will be notified if you need a change in treatment. ADDITIONAL INSTRUCTIONS AND INFORMATION: 1. Your care today has been supervised by a physician who is specially trained in emergency care. Many problems require more than one evaluation for a complete diagnosis and treatment. We recommend that you schedule your follow up appointment as recommended to ensure complete treatment of you illness or injury. If you are unable to obtain follow up care and continue to have a problem, or if your condition worsens, we recommend that you return to the ED. 2. We are not able to safely determine your condition over the phone nor are we able to give sound medical advice over the phone. For these safety reasons, if you call for medical advice we will ask you to come to the ED for further evaluation. 3. If you have any questions regarding these discharge instructions please call the ED at [phone]. SAFETY INFORMATION: In the interest of safety, wellness, and injury prevention; we encourage you to wear your sealbelt, if you smoke; quite smoking, and we encourage family to use a protective helmet for bicycling and other sporting events that present an increased risk for head injury. IF YOUR SYMPTOMS WORSEN OR NEW SYMPTOMS DEVELOP, OR YOU HAVE CONCERNS ABOUT YOUR CONDITION; OR IF YOUR CONDITION WORSENS WHILE YOU ARE WAITING FOR YOUR FOLLOW UP APPOINTME NT; EITHER CONTACT YOUR PRIMARY CARE DOCTOR, THE PHYSICIAN WHOSE NAME AND NUMBER YOU WERE GIVEN, OR RETURN TO THE ED IMMEDIATELY. SALOME WILEY APRN Mar 04, 2021 20:37
[2021-03-04 21:53] VITALS: BP 129/76
== END 2021-03-04 22:11 | disposition home or self-care (01) ==
LOC: ER 19:41
DX: G43.909 Migraine, unspecified, not intractable, without status migrainosus (principal); I10 Essential (primary) hypertension; F41.9 Anxiety disorder, unspecified; F17.210 Nicotine dependence, cigarettes, uncomplicated; J45.909 Unspecified asthma, uncomplicated; K21.9 Gastro-esophageal reflux disease without esophagitis; Z90.49 Acquired absence of other specified parts of digestive tract; Z88.1 Allergy status to other antibiotic agents; Z88.6 Allergy status to analgesic agent; Z90.710 Acquired absence of both cervix and uterus
CPT/HCPCS: 96374; 96375; 96376; 99284; J1200; J1885; Q0162

== ENCOUNTER 2021-03-09 10:16 | Emergency (ER) | payer MEDICAID ==
[~2021-03-09] VITALS: Ht 160 cm; Wt 113.6 kg
[2021-03-09 10:30] VITALS: BP 153/102
[2021-03-09] MEDS ORDERED: BUTALB/APAP/CAFEIN 50/325/40MG TABLET. PO ONE (10:45)
[2021-03-09] MEDS ORDERED: KETOROLAC 60 MG/2 ML VIAL. IM ONE (10:45)
--- NOTE | 2021-03-09 11:07 | PHYS DOC ---
Past History Past Medical History: Angina, Anxiety, Asthma, Depression, Fibromyalgia, GERD, Hypertension, Migraines Additional Past Medical Histor: PTSD Past Surgical History: Cholecystectomy, Hysterectomy, Tonsillectomy Additional Past Surgical Histo: umbilical hernia rep, wisdom teeth extracted Smoking: Cigarettes, Less than 1pk/day Alcohol Use: None Drug Use: None Adult General Chief Complaint Chief Complaint: HEADACHE HPI HPI Patient is a 30-year-old female with past medical history of migraines who presents to the emergency room complaining of a constant migraine. Patient has been having a migraine for the last several weeks. She has been seen here in the emergency room several times for the same headache. She states she has tried Excedrin and Tylenol at home. She states they do help for a little while but then the headache recurs. She denies any new symptoms with this headache. She has some generalized weakness and intermittent blurred vision which she states is standard for her headaches. She is not had any kind of fever. She has not followed up with her primary care physician. She has not called her neurologist who prescribes her migraine medications. Review of Systems Review of Systems Complete ROS is negative unless otherwise documented in HPI Current Medications Current Medications Current Medications Medications (Trade) Dose Ordered Sig/Neno Start Time Stop Time Status Last Admin Dose Admin Acetaminophen/ Butalbital/ Caffeine (Fioricet) 1 tab 1X ONCE 03/09/21 10:45 03/09/21 10:46 UNV Ketorolac Tromethamine (Toradol Im) 60 mg 1X ONCE 03/09/21 10:45 03/09/21 10:46 UNV Allergies Allergies Allergies Coded Allergies Type Severity Reaction Last Updated Verified cephalexin Allergy Intermediate 02/25/21 Yes ibuprofen Allergy Intermediate 02/25/21 Yes sumatriptan Allergy Intermediate 02/25/21 Yes tramadol Adverse Reaction Mild 02/25/21 Yes Physical Exam Physical Exam General: Awake, alert, NAD. Well Nourished, well hydrated. Cooperative HEENT: Atraumatic, EOMI, PERRL, airway patent, moist oral mucosa Neck: Supple, trachea midline Respiratory: CTA bilaterally, normal effort, no wheezing/crackles CV: RRR, no murmur, cap refill <2 GI: Soft, nondistended, nontender, no masses MSK: No obvious deformities Skin: Warm, dry, intact Neuro: A&O x3, speech NL, sensory and motor grossly intact, no focal deficits Psych: Normal affect, normal mood, not suicidal or homicidal Current Patient Data Vital Signs Vital Signs Date Time Temp Pulse Resp B/P (MAP) Pulse Ox O2 Delivery O2 Flow Rate FiO2 03/09/21 10:30 97.9 72 18 153/102 (119) 97 EKG EKG [] Radiology/Procedures Radiology/Procedures [] Heart Score C/O Chest Pain: N/A Risk Factors: Risk Factors: DM, Current or recent (<one month) smoker, HTN, HLP, family history of CAD, obesity. Risk Scores: Risk Factors: DM, Current or recent (<one month) smoker, HTN, HLP, family history of CAD, obesity. Course & Med Decision Making Course & Med Decision Making Pertinent Labs and Imaging studies reviewed. (See chart for details) Patient is a 30yo female who presents to the emergency room complaining of a migraine. Patient has a history of migraines and this is typical of her normal migraine. Patient did not have sudden onset of severe headache that would be concerning for subarachnoid hemorrhage. Patient does not have any neurologic deficits on exam. Patient will be given a migraine cocktail. On reevaluation, patient symptoms improved. We will discharge her home. Patient's test results and vitals while in the ED were fully reviewed and discussed with the patient. Patient is stable and at this time does not need admission to the hospital. We have discussed strict return precautions and the importance of following up with their Primary Care Physician. Patient stated understanding and was given an opportunity to ask any questions. Patient is in agreement with plan.. Dragon Disclaimer Dragon Disclaimer This electronic medical record was generated, in whole or in part, using a voice recognition dictation system. Departure Departure: Impression: Primary Impression: Migraine Disposition: HOME / SELF CARE / HOMELESS Condition: STABLE Referrals: PRISCILLA MULLINS MD (PCP) Patient Instructions: Migraine Headache DANIEL LINCOLN MD Mar 09, 2021 11:07
[2021-03-09] MEDS ORDERED: DEXAMETHASONE SOD PHOS 10 MG/ML VIAL. PO ONE (12:15)
[2021-03-09] MEDS ORDERED: METOCLOPRAMIDE 10 MG TABLET PO ONE (12:15)
== END 2021-03-09 13:27 | disposition home or self-care (01) ==
LOC: ER 10:16
DX: G43.909 Migraine, unspecified, not intractable, without status migrainosus (principal); F41.9 Anxiety disorder, unspecified; J45.909 Unspecified asthma, uncomplicated; M79.7 Fibromyalgia; K21.9 Gastro-esophageal reflux disease without esophagitis; I10 Essential (primary) hypertension; F43.10 Post-traumatic stress disorder, unspecified; F17.210 Nicotine dependence, cigarettes, uncomplicated; Z88.1 Allergy status to other antibiotic agents; Z88.6 Allergy status to analgesic agent; Z88.8 Allergy status to other drugs, medicaments and biological substances
CPT/HCPCS: 96372; 99284; J1100; J1885

== ENCOUNTER 2021-11-07 11:13 | Emergency (ER) | payer MEDICAID ==
[~2021-11-07] VITALS: Ht 160 cm; Wt 102.7 kg
[~2021-11-07 11:13] MED LIST changes: +CLIN-95 PO; -CLIN300C9 PO; -CYCL-331 PO; +CYCL10TA19 PO; +DICY20TA PO; -DICY20TA3 PO
[2021-11-07] MEDS ORDERED: traMADol 50 MG TABLET PO ONE (11:45)
--- NOTE | 2021-11-07 11:47 | PHYS DOC ---
Past History Past Medical History: Angina, Anxiety, Asthma, Depression, Fibromyalgia, GERD, Hypertension, Migraines Additional Past Medical Histor: PTSD Past Surgical History: Cholecystectomy, Hysterectomy, Tonsillectomy Additional Past Surgical Histo: umbilical hernia rep, wisdom teeth extracted Smoking: Cigarettes, Less than 1pk/day Alcohol Use: None Drug Use: None General Adult EDM: Chief Complaint: VAGINAL BLEEDING HPI: HPI: Patient is a 31 year old female greater than 4 years status post hysterectomy who presents with vaginal bleeding. Patient states she had low suprapubic pain beginning last night, followed by passage of blood and clots this morning. She believes she is having vaginal bleeding. Patient states she had a hysterectomy after delivery of her child almost 5 years ago. She denies noticing any intestinal prolapse or foreign body in the vaginal canal. Patient denies dysuria, N/V/D. Review of Systems: Review of Systems: Constitutional: Denies fever, chills or generalized weakness Eyes: Denies change in visual acuity, visual field deficits or discharge HENT: Denies ear pain, nasal congestion or sore throat Respiratory: Denies cough or shortness of breath Cardiovascular: Denies chest pain, palpitations or edema GI: See HPI : See HPI Musculoskeletal: Denies back pain or joint pain Integument: Denies rash or other skin lesion Neurologic: Denies headache, focal weakness or sensory changes Current Medications: Current Meds: Current Medications Medications (Trade) Dose Ordered Sig/Neno Route PRN Reason Start Time Stop Time Status Last Admin Dose Admin Ketorolac Tromethamine (Toradol 15mg Vial) 15 mg 1X ONCE IVP 11/07/21 12:00 11/07/21 12:07 DC 11/07/21 12:20 Phenazopyridine HCl (Pyridium) 200 mg 1X ONCE PO 11/07/21 13:00 11/07/21 13:09 DC 11/07/21 13:10 Allergies: Allergies: Allergies Coded Allergies Type Severity Reaction Last Updated Verified cephalexin Allergy Intermediate 11/07/21 Yes ibuprofen Allergy Intermediate 11/07/21 Yes sumatriptan Allergy Intermediate 11/07/21 Yes tramadol Adverse Reaction Mild 11/07/21 Yes Physical Exam: PE: Constitutional: Well developed, well nourished, no acute distress, non-toxic appearance. HENT: Normocephalic, atraumatic, bilateral external ears normal, nose normal. Eyes: EOMI, conjunctiva normal, no discharge. Neck: Normal range of motion, no stridor. Abdomen: Bowel sounds normal, soft, suprapubic tenderness without rebound or guarding, no masses, no pulsatile masses. Pelvic: Appropriate and symmetrical hair growth, no rash or other skin lesions, scant white discharge appreciated at vaginal introitus, vaginal canal castillo moist without erythema or lesions, no blood visible in vaginal canal, cervix not appreciated (consistent with hx of hysterectomy), no evidence of prolapse on Valsalva. Skin: Warm, dry, no erythema, no rash. Extremities: No tenderness, no cyanosis, no clubbing, ROM intact, no edema. Neurologic: Alert and oriented x4, no focal deficits noted. Current Patient Data: Labs: Laboratory Tests Test 11/07/21 11:45 11/07/21 12:20 11/07/21 14:15 Urine Collection Type Clean catch U cath Urine Color Brown Yellow Urine Clarity Cloudy Clear Urine pH 7.0 7.0 Urine Specific [place] 1.025 1.015 Urine Protein 100 mg/dl (NEG-TRACE) 30 mg/dl (NEG-TRACE) Urine Glucose (UA) Neg mg/dL (NEG) 100 mg/dL (NEG) Urine Ketones (Stick) Trace mg/dL (NEG) Neg mg/dL (NEG) Urine Blood Large (NEG) Large (NEG) Urine Nitrite Pos (NEG) Pos (NEG) Urine Bilirubin Small (NEG) Neg (NEG) Urine Urobilinogen Dipstick 0.2 mg/dL (0.2 mg/dL) 0.2 mg/dL (0.2 mg/dL) Urine Leukocyte Esterase Small (NEG) Mod (NEG) Urine RBC >40 /HPF (0-2) 11-20 /HPF (0-2) Urine WBC >40 /HPF (0-4) 11-20 /HPF (0-4) Urine Squamous Epithelial Cells Few /LPF None /LPF Urine Bacteria Few /HPF (0-FEW) Few /HPF (0-FEW) Urine Test Negative (NEG) White Blood Count 9.9 x10^3/uL (4.0-11.0) Red Blood Count 4.47 x10^6/uL (3.50-5.40) Hemoglobin 13.5 g/dL (12.0-15.5) Hematocrit 38.7 % (36.0-47.0) Mean Corpuscular Volume 86 fL (79-100) Mean Corpuscular Hemoglobin 30 pg (25-35) Mean Corpuscular Hemoglobin Concent 35 g/dL (31-37) Red Cell Distribution Width 13.1 % (11.5-14.5) Platelet Count 265 x10^3/uL (140-400) Neutrophils (%) (Auto) 77 % (31-73) Lymphocytes (%) (Auto) 15 % (24-48) Monocytes (%) (Auto) 7 % (0-9) Eosinophils (%) (Auto) 1 % (0-3) Basophils (%) (Auto) 1 % (0-3) Neutrophils # (Auto) 7.6 x10^3uL (1.8-7.7) Lymphocytes # (Auto) 1.4 x10^3/uL (1.0-4.8) Monocytes # (Auto) 0.7 x10^3/uL (0.0-1.1) Eosinophils # (Auto) 0.1 x10^3/uL (0.0-0.7) Basophils # (Auto) 0.1 x10^3/uL (0.0-0.2) Sodium Level 141 mmol/L (136-145) Potassium Level 3.7 mmol/L (3.5-5.1) Chloride Level 105 mmol/L (98-107) Carbon Dioxide Level 29 mmol/L (21-32) Anion Gap 7 (6-14) Blood Urea Nitrogen 9 mg/dL (7-20) Creatinine 0.6 mg/dL (0.6-1.0) Estimated GFR (Cockcroft-Gault) 115.1 BUN/Creatinine Ratio 15 (6-20) Glucose Level 102 mg/dL (70-99) Calcium Level 9.0 mg/dL (8.5-10.1) Total Bilirubin 0.3 mg/dL (0.2-1.0) Aspartate Amino Transf (AST/SGOT) 24 U/L (15-37) Alanine Aminotransferase (ALT/SGPT) 50 U/L (14-59) Alkaline Phosphatase 90 U/L (46-116) Total Protein 7.3 g/dL (6.4-8.2) Albumin 3.6 g/dL (3.4-5.0) Albumin/Globulin Ratio 1.0 (1.0-1.7) Lipase 55 U/L (73-393) Vital Signs: Vital Signs Date Time Temp Pulse Resp B/P (MAP) Pulse Ox O2 Delivery O2 Flow Rate FiO2 11/07/21 14:41 82 16 156/106 (123) 99 11/07/21 13:49 16 98 11/07/21 11:20 98.3 108 18 166/118 (134) 99 Radiology/Procedures: Radiology/Procedures: PROCEDURE: US PELVIS W/TV Ultrasound pelvis complete and transvaginal ultrasound pelvis HISTORY: Vaginal bleeding and prior hysterectomy Sonographic examination of the pelvis and perform a transabdominal and endovaginal technique and multiple static images were obtained. Ultrasound pelvis complete transabdominal: The right ovary measures 2.7 x 1.9 x 1.8 cm and has normal blood flow. There is a 1 cm dominant follicle. Transvaginal ultrasound pelvis: The left ovary measures 2.9 x 5 0.9 cm there is normal blood flow. There is a collapsed septated cyst in the left ovary measures 1.5 x 1.1 cm. There is no free fluid. IMPRESSION: No significant findings. Electronically signed by: Sacha Phipps III, MD (11/07/2021 1:37 PM) [facility] Heart Score: C/O Chest Pain: No Course & Med Decision Making: Course & Med Decision Making Pertinent Labs and Imaging studies reviewed. (See chart for details) Patient is a 31-year-old female who presents with vaginal bleeding. After interviewing patient, it is more likely hematuria secondary to hemorrhagic cystitis. Patient had a hysterectomy almost 5 years ago, retained ovaries. Work-up today will include labs, pelvic ultrasound, urinalysis. Initial urine sample obtained via clean-catch. After ultrasound and pelvic exam, straight cath sample was obtained to evaluate for vaginal bleeding versus hematuria. Ultrasound shows bilateral ovarian cysts, findings discussed with patient. No prolapse appreciated on pelvic exam with Valsalva. Additionally, there was no blood in the vaginal vault. Patient will be treated for UTI with hematuria. Follow-up contact information for urology was provided should she continue to pass significant blood. Return precautions were provided. Patient understands and is agreeable to discharge plan. Dragon Disclaimer: Dragwill Disclaimer: This electronic medical record was generated, in whole or in part, using a voice recognition dictation system. Departure Departure: Impression: Primary Impression: Urinary tract infection with hematuria Qualified Codes: N30.01 - Acute cystitis with hematuria Disposition: HOME / SELF CARE / HOMELESS Condition: STABLE Referrals: PRISCILLA MULLINS MD (PCP) KYARA KC MD Patient Instructions: Urinary Tract Infection, [id number] Additional Instructions: EMERGENCY DEPARTMENT GENERAL DISCHARGE INSTRUCTIONS Thank you for coming to [facility] ([facility]) today and trusting us with you care. We trust that you had a positive experience in our Emergency Department. If you wish to speak to the department management, you may call the director at [phone]. YOUR FOLLOW UP INSTRUCTIONS ARE FOLLOWS: 1. Follow up with your primary care doctor. If you do not have a primary doctor, please ask for a resource list of physicians or clinics that may be able to assist you with follow up care. 2. The emergency provider has interpreted your imaging studies, if any were ordered. The radiology payroll accounting specialist also reviewed them. If there is a change in the findings, you will be notified in 48 hours when at all possible. 3. If a lab test or culture has been done, your results will be reviewed and you will be notified if you need a change in treatment. 4. Follow instructions verbalized to you and refer to the printouts if needed. ADDITIONAL INSTRUCTIONS AND INFORMATION: 1. Your care today has been supervised by a physician who is specially trained in emergency care. Many problems require more than one evaluation for a complete diagnosis and treatment. We recommend that you schedule your follow up appointment as recommended to ensure complete treatment of you illness or injury. If you are unable to obtain follow up care and continue to have a problem, or if your condition worsens, we recommend that you return to the ED. 2. We are not able to safely determine your condition over the phone nor are we able to give sound medical advice over the phone. For these safety reasons, if you call for medical advice we will ask you to come to the ED for further evaluation. 3. If you have any questions regarding these discharge instructions please call the ED at [phone]. SAFETY INFORMATION: In the interest of safety, wellness, and injury prevention; we encourage you to wear your seat belt, if you smoke; quite smoking, and we encourage family to use a protective helmet for bicycling and other sporting events that present an increased risk for head injury. IF YOUR SYMPTOMS WORSEN OR NEW SYMPTOMS DEVELOP, OR YOU HAVE CONCERNS ABOUT YOUR CONDITION; OR IF YOUR CONDITION WORSENS WHILE YOU ARE WAITING FOR YOUR FOLLOW UP APPOINTMENT; EITHER CONTACT YOUR PRIMARY CARE DOCTOR, THE PHYSICIAN WHOSE NAME AND NUMBER YOU WERE GIVEN, OR RETURN TO THE ED IMMEDIATELY. Scripts Levofloxacin (LEVOFLOXACIN) 250 Mg Tablet 250 MG PO DAILY for uti for 5 Days, #5 TAB Prov: LEE CHAVIRA 11/07/21 LEE CHAVIRA Nov 07, 2021 11:47
[2021-11-07] MEDS ORDERED: KETOROLAC 60 MG/2 ML VIAL. IM ONE (12:00)
[2021-11-07] MEDS ORDERED: KETOROLAC 15 MG/ML VIAL. IVP ONE (12:00)
[2021-11-07 12:23] LABS: U PREG PATIENT NEGATIVE (NEG)
[2021-11-07 12:38] LABS: CLARITY,URINE CLOUDY; COLOR,URINE BROWN; GLUCOSE,URINE NEG (NEG); NITRITE,URINE POS (NEG); UROBILINOGEN,URINE 0.2 mg/dL (0.2 mg/dL)
[2021-11-07 12:39] LABS: BACTERIA,URINE FEW /HPF (0-FEW); RBC,URINE >40 /HPF (0-2); SQUAMOUS EPITHELIAL CELL,UR FEW /LPF; WBC,URINE >40 /HPF (0-4)
[2021-11-07 12:48] LABS: BASO # 0.1 x10^3/uL (0.0-0.2); BASO % 1 % (0-3); EOS # 0.1 x10^3/uL (0.0-0.7); EOS % 1 % (0-3); HEMATOCRIT 38.7 % (36.0-47.0); HEMOGLOBIN 13.5 g/dL (12.0-15.5); LYMPH # 1.4 x10^3/uL (1.0-4.8); LYMPH % 15 % (24-48); MEAN CORPUSCULAR HEMOGLOBIN 30 pg (25-35); MEAN CORPUSCULAR HGB CONC 35 g/dL (31-37); MEAN CORPUSCULAR VOLUME 86 fL (79-100); MONO # 0.7 x10^3/uL (0.0-1.1); MONO % 7 % (0-9); NEUT # 7.6 x10^3uL (1.8-7.7); NEUT % 77 % (31-73); PLATELET COUNT 265 x10^3/uL (140-400); RED BLOOD COUNT 4.47 x10^6/uL (3.50-5.40); RED CELL DISTRIBUTION WIDTH 13.1 % (11.5-14.5); WHITE BLOOD COUNT 9.9 x10^3/uL (4.0-11.0)
[2021-11-07 12:50] LABS: CREATININE 0.6 mg/dL (0.6-1.0); GFR 115.1; POTASSIUM 3.7 mmol/L (3.5-5.1)
[2021-11-07 12:56] LABS: ALBUMIN 3.6 g/dL (3.4-5.0); TOTAL BILIRUBIN 0.3 mg/dL (0.2-1.0); TOTAL PROTEIN 7.3 g/dL (6.4-8.2)
[2021-11-07] MEDS ORDERED: PHENAZOPYRIDINE 200 MG TABLET. PO ONE (13:00)
[2021-11-07] MEDS ORDERED: LEVO250T8 PO (13:02)
[2021-11-07] MEDS ORDERED: PHENAZOPYRIDINE 200 MG TABLET. ONE (13:08)
[2021-11-07] MEDS ORDERED: IV NORMAL SALINE 1,000ML 1,000 ML IV ONE (13:30)
--- NOTE | 2021-11-07 13:40 | RAD ---
Ultrasound pelvis complete and transvaginal ultrasound pelvis HISTORY: Vaginal bleeding and prior hysterectomy Sonographic examination of the pelvis and perform a transabdominal and endovaginal technique and [facility] static images were obtained. Ultrasound pelvis complete transabdominal: The right ovary measures 2.7 x 1.9 x 1.8 cm and has normal blood flow. There is a 1 cm dominant folli alo. Transvaginal ultrasound pelvis: The left ovary measures 2.9 x 5 0.9 cm there is normal blood flow. There is a collapsed septated cyst in the left ovary measures 1.5 x 1.1 cm. There is no free fluid. IMPRESSION: No significant findings. Electronically signed by: Sacha Phipps III, MD (11/07/2021 1:37 PM) LY
[2021-11-07 14:41] VITALS: BP 156/106
[2021-11-07 15:16] LABS: CLARITY,URINE CLEAR; COLOR,URINE YELLOW; GLUCOSE,URINE 100 mg/dL (NEG)
[2021-11-07 15:17] LABS: BACTERIA,URINE FEW /HPF (0-FEW); NITRITE,URINE POS (NEG); UROBILINOGEN,URINE 0.2 mg/dL (0.2 mg/dL)
== END 2021-11-07 15:25 | disposition home or self-care (01) ==
LOC: ER 11:13
DX: N30.01 Acute cystitis with hematuria (principal); J45.909 Unspecified asthma, uncomplicated; M79.7 Fibromyalgia; K21.9 Gastro-esophageal reflux disease without esophagitis; I10 Essential (primary) hypertension; G43.909 Migraine, unspecified, not intractable, without status migrainosus; F17.210 Nicotine dependence, cigarettes, uncomplicated; Z90.49 Acquired absence of other specified parts of digestive tract; Z90.710 Acquired absence of both cervix and uterus; Z88.1 Allergy status to other antibiotic agents; Z88.6 Allergy status to analgesic agent; Z88.8 Allergy status to other drugs, medicaments and biological substances
CPT/HCPCS: 36415; 76830; 76856; 80053; 81001; 81025; 83690; 85025; 87077; 87086; 87186; 96361; 96374; 96375; 99284; J1885; J3010; J7030

== ENCOUNTER 2021-11-08 08:54 | Emergency (ER) | payer MEDICAID ==
[~2021-11-08] VITALS: Ht 160 cm; Wt 102.7 kg
[~2021-11-08 08:54] MED LIST changes: +LEVO250T8 PO
--- NOTE | 2021-11-08 09:27 | PHYS DOC ---
Past History Past Medical History: Angina, Anxiety, Asthma, Depression, Fibromyalgia, GERD, Hypertension, Migraines Additional Past Medical Histor: PTSD Past Surgical History: Cholecystectomy, Hysterectomy, Tonsillectomy Additional Past Surgical Histo: umbilical hernia rep, wisdom teeth extracted Smoking: Cigarettes, Less than 1pk/day Alcohol Use: None Drug Use: None General Adult EDM: Chief Complaint: ABDOMINAL PAIN HPI: HPI: Patient is a 31 year old female who presents with abdominal pain. Patient was seen in the department yesterday and diagnosed with hemorrhagic UTI. She was unable to picker tender helper her prescription yesterday, as the pharmacy was closed. On discharge yesterday, she stated she was comfortable picking up her prescription this morning. She states she was unable to go secondary to her pain. Otherwise, she has no new symptoms. Review of Systems: Review of Systems: ROS negative or noncontributory except as mentioned in HPI. Current Medications: Current Meds: Current Medications Medications (Trade) Dose Ordered Sig/Neno Start Time Stop Time Status Last Admin Dose Admin Ketorolac Tromethamine (Toradol Im) 60 mg 1X ONCE 11/08/21 09:30 11/08/21 09:31 UNV Allergies: Allergies: Allergies Coded Allergies Type Severity Reaction Last Updated Verified cephalexin Allergy Intermediate 11/07/21 Yes ibuprofen Allergy Intermediate 11/07/21 Yes sumatriptan Allergy Intermediate 11/07/21 Yes tramadol Adverse Reaction Mild 11/07/21 Yes Physical Exam: PE: Constitutional: Well developed, well nourished, non-toxic appearance, tearful. HENT: Normocephalic, atraumatic, bilateral external ears normal, nose normal. Eyes: EOMI, conjunctiva normal, no discharge. Neck: Normal range of motion, no stridor. Abdomen: Bowel sounds normal, soft, suprapubic tenderness, no masses, no pulsatile masses. Skin: Warm, dry, no erythema, no rash. Extremities: No tenderness, no cyanosis, no clubbing, ROM intact, no edema. Neurologic: Alert and oriented x4, no focal deficits noted. Current Patient Data: Vital Signs: Vital Signs Date Time Temp Pulse Resp B/P (MAP) Pulse Ox O2 Delivery O2 Flow Rate FiO2 11/08/21 09:50 98.9 88 20 155/112 (126) 99 11/08/21 09:00 99.1 101 20 158/128 (138) 100 Room Air Heart Score: C/O Chest Pain: No Course & Med Decision Making: Course & Med Decision Making Pertinent Labs and Imaging studies reviewed. (See chart for details) Patient is a 31-year-old female who returns to the emergency department today after having comprehensive work-up done yesterday. Her only complaint today is persistent lower abdominal/suprapubic pain. She be treated with IM Toradol, as it works well for her yesterday. Patient's pain is improved. She is instructed to go to the pharmacy immediately to picker tender helper her prescription and start taking it soon as possible. Patient should follow with her primary care provider or the urologist using the information provided yesterday, which I will include in discharge paperwork again today. Return precautions provided. Patient understands and is agreeable to discharge plan. Dragon Disclaimer: Dragon Disclaimer: This electronic medical record was generated, in whole or in part, using a voice recognition dictation system. Departure Departure: Impression: Primary Impression: Urinary tract infection with hematuria Qualified Codes: N30.01 - Acute cystitis with hematuria Disposition: HOME / SELF CARE / HOMELESS Condition: IMPROVED Referrals: PRISCILLA MULLINS MD (PCP) KYARA KC MD Patient Instructions: Urinary Tract Infection, [id number] Additional Instructions: EMERGENCY DEPARTMENT GENERAL DISCHARGE INSTRUCTIONS Thank you for coming to [facility] ([facility]) today and trusting us with you care. We trust that you had a positive experience in our Emergency Department. If you wish to speak to the department management, you may call the director at [phone]. YOUR FOLLOW UP INSTRUCTIONS ARE FOLLOWS: 1. Follow up with your primary care doctor. If you do not have a primary docto r, please ask for a resource list of physicians or clinics that may be able to assist you with follow up care. 2. The emergency provider has interpreted your imaging studies, if any were ordered. The radiology rotating equipment specialist also reviewed them. If there is a change in the findings, you will be notified in 48 hours when at all possible. 3. If a lab test or culture has been done, your results will be reviewed and you will be notified if you need a change in treatment. 4. Follow instructions verbalized to you and refer to the printouts if needed. ADDITIONAL INSTRUCTIONS AND INFORMATION: 1. Your care today has been supervised by a physician who is specially trained in emergency care. Many problems require more than one evaluation for a complete diagnosis and treatment. We recommend that you schedule your follow up appointment as recommended to ensure complete treatment of you illness or injury. If you are unable to obtain follow up care and continue to have a problem, or if your condition worsens, we recommend that you return to the ED. 2. We are not able to safely determine your condition over the phone nor are we able to give sound medical advice over the phone. For these safety reasons, if you call for medical advice we will ask you to come to the ED for further evaluation. 3. If you have any questions regarding these discharge instructions please call the ED at [phone]. SAFETY INFORMATION: In the interest of safety, wellness, and injury prevention; we encourage you to wear your seat belt, if you smoke; quite smoking, and we encourage family to use a protective helmet for bicycling and other sporting events that present an increased risk for head injury. IF YOUR SYMPTOMS WORSEN OR NEW SYMPTOMS DEVELOP, OR YOU HAVE CONCERNS ABOUT YOUR CONDITION; OR IF YOUR CONDITION WORSENS WHILE YOU ARE WAITING FOR YOUR FOLLOW UP APPOINTMENT; EITHER CONTACT YOUR PRIMARY CARE DOCTOR, THE PHYSICIAN WHOSE NAME AND NUMBER YOU WERE GIVEN, OR RETURN TO THE ED IMMEDIATELY. LEE CHAVIRA Nov 08, 2021 09:27
[2021-11-08] MEDS ORDERED: KETOROLAC 60 MG/2 ML VIAL. IM ONE (09:30)
[2021-11-08 09:50] VITALS: BP 155/112
== END 2021-11-08 09:54 | disposition home or self-care (01) ==
LOC: ER 08:54
DX: N30.01 Acute cystitis with hematuria (principal); J45.909 Unspecified asthma, uncomplicated; M79.7 Fibromyalgia; K21.9 Gastro-esophageal reflux disease without esophagitis; I10 Essential (primary) hypertension; G43.909 Migraine, unspecified, not intractable, without status migrainosus; F17.210 Nicotine dependence, cigarettes, uncomplicated; Z90.49 Acquired absence of other specified parts of digestive tract; Z90.710 Acquired absence of both cervix and uterus; Z88.1 Allergy status to other antibiotic agents; Z88.8 Allergy status to other drugs, medicaments and biological substances
CPT/HCPCS: 96372; 99283; J1885